=== PATIENT | female | born 1930 | race Caucasian/White ===

== ENCOUNTER 2017-11-16 09:21 | Emergency (ER) | payer OTHER ==
--- OUTSIDE RECORDS SUMMARY | 2017-11-16 09:23 | XMS REPORT ---
:1930 Author Organization [facility] Address [address] [place] [address] Care Team Providers Name Role Phone Unavailable Unavailable Unavailable Payers Payer Name Policy Type Policy Number Effective Date Expiration Date Problems This patient has no known problems. Allergies, Adverse Reactions, Alerts Allergy Name Allergy Status Severity Reaction(s) Onset Inactive Treating Comments Type Date Date Clinician mepsergio HUGHES Active GERARDO 2017-09 00:00:0 0 Medications This patient has no known medications.
[2017-11-16] MEDS ORDERED: MAGNE/ALUM HYDROXD 30 ML UCUP ONE (10:24)
[2017-11-16] MEDS ORDERED: LIDOCAINE VISCOUS 2% SOLN 15 ML UDC ONE (10:25)
[2017-11-16] MEDS ORDERED: ONDANSETRON 4 MG/2 ML VIAL ONE ×2 (10:25→15:38)
[2017-11-16 10:55] LABS: Bilirubin Direct 0.3 mg/dL (0-0.2); Bilirubin Total 0.7 mg/dL (0.2-1.0); Protein, Total 6.8 g/dL (6.4-8.2)
--- NOTE | 2017-11-16 10:58 | RAD REPORT ---
EXAM DESCRIPTION: RAD - Chest Single View - 11/16/2017 9:57 am CLINICAL HISTORY: Upper abdominal pain, recent pacemaker placement COMPARISON: April 2012 TECHNIQUE: AP portable chest image was obtained 0953 hours . FINDINGS: Fibrotic lung pattern is present. Interstitial markings are slightly increased from the pr ior study. The lung parenchyma may be progressive fibrosis, interstitial edema or possible interstiti al infiltrate. Right costophrenic angle blunting is present. Calcified breast implant capsules are se en over the lower chest. Heart and vasculature are normal. No pneumothorax or large pleural effusion. Minimal right costophrenic angle blunting present. Pacemaker is in place left subclavian approach. N o acute bone finding. No acute aortic findings suspected. IMPRESSION: No mass or consolidation. Interstitial markings are prominent and increased over 2012. This could be progressive fibrosis, inte rstitial infiltrate or interstitial edema. Right costophrenic angle blunting is accentuated by overlying breast implant capsule. Significant ple ural effusion is not suspected.
[2017-11-16 11:01] LABS: Absolute Lymphocytes (CBC) 0.8 K/uL (0.7-4.9); Absolute Monocytes 0.7 K/uL (0.1-1.3); Absolute Neutrophil 7.1 K/uL (1.8-8.0); Basophils % 0.5 % (0-1.3); Eosinophils % 0.2 % (0-4.4); Hematocrit 33.1 % (36.0-45.0); Lymphocytes % 9.1 % (15.3-44.8); MCH 29.6 pg (27.0-35.0); MCV 87.8 fL (80-100); MPV 8.3 fL (7.6-11.3); Monocytes % 8.1 % (3.3-12.3); RBC Red Blood Cell Count 3.77 M/uL (3.86-4.86)
[2017-11-16] MEDS ORDERED: NA CHLORIDE 0.9% 500 ML ONE (11:13)
[2017-11-16] MEDS ORDERED: MORPHINE 4 MG/ML SYR ONE (12:14)
--- NOTE | 2017-11-16 12:47 | RAD REPORT ---
EXAM DESCRIPTION: CT - Abdomen Pelvis W Contrast - 11/16/2017 12:28 pm CLINICAL HISTORY: Upper abdominal pain with nausea and diarrhea recent pacemaker placement COMPARISON: CT study January 2016 TECHNIQUE: Biphasic, helical CT imaging of the abdomen and pelvis was performed following 100 ml non -ionic IV contrast. Oral contrast was given. All CT scans are performed using dose optimization technique as appropriate and may include automated exposure control or mA/KV adjustment according to patient size. FINDINGS: Small bilateral pleural effusions are present. Heart size is upper normal with no pericard ial effusion. No acute pneumonia changes in either lung base. Fibrotic changes are present. Bilateral breast implants are in place. There are fibrous capsule calcifications present. Implants ar e partially collapsed. There is leakage between the implant capsule and the fibrous capsule. There is deformity or lobulated contour to the implants. Pattern is not substantially different from 2016. Liver size is normal with no suspicious liver lesion. There is a slight mottled enhancement pattern o n the liver that could indicate some decrease in cardiac function. No splenomegaly or focal splenic f inding. No acute pancreatic process. Cholecystectomy clips are present. Biliary tree within normal li mits for a post cholecystectomy patient. No hydronephrosis. No pyelonephritis changes. Small renal cysts are present. There is bilateral corti zahra thinning. Prolonged cortical phase of enhancement would indicate diminished cardiac function. No perinephric stranding. Mostly contracted urinary bladder shows no suspicious finding. No gastric dilatation or gastric wall thickening. No dilated large or small bowel loops. Rectosigmoid anastomotic site shows no suspicious finding. Oral contrast has reached the right side of the transv erse colon. Fatty ileocecal valve is present. No free air, free fluid or inflammatory stranding. No hernia, mass or bulky lymphadenopathy. No adre nal abnormality. No suspicious bony findings. IMPRESSION: No bowel obstruction, free air or surgically emergent finding. No acute GI process is identifiable. Cortical thinning is present but no acute renal parenchymal process seen. Cholecystectomy change with normal biliary tree. No acute biliary or pancreatic process. Small bilateral pleural effusions. Liver and renal enhancement pattern indicates decreased cardiac function.
[2017-11-16 14:39] LABS: Urine Blood 2+ (NEG); Urine Glucose NEGATIVE (NEG); Urine Protein 2+ (NEG); Urine Specific Gravity 1.015 (1.005-1.030)
[2017-11-16 15:27] LABS: Urine Bacteria <20 /HPF (<20)
[2017-11-16 15:28] LABS: Urine Culture Reflex Order REFLEXED
--- NOTE | 2017-11-16 15:30 | ER ---
Nurse's Notes [facility] Name: Amy Lambert Age: 87 yrs Sex: Female : 1930 Arrival Date: 11/16/2017 Time: 09:23 Bed 18 Private MD: Mandy Bowling F Diagnosis: Vomiting;Diarrhea, unspecified Presentation: 11/16 09:33 Presenting complaint: Patient states: c/o upper quad. abdominal pain with N/D, reports em having a pace maker placed on , denies fever, CP, SOB. Transition of care: patient was not received from another setting of care. Onset of symptoms was November 12, 2017. Risk Assessment: Do you want to hurt yourself or someone else? Patient reports no desire to harm self or others. Initial Sepsis Screen: Does the patient meet any 2 criteria? No. Patient's initial sepsis screen is negative. Does the patient have a suspected source of infection? No. Patient's initial sepsis screen is negative. Care prior to arrival: None. 09:33 Method Of Arrival: Wheelchair em 09:35 Acuity: BROOKE 3 ss Triage Assessment: 09:38 General: Appears in no apparent distress. uncomfortable, Behavior is calm, cooperative. em Pain: Complains of pain in right upper quadrant and left upper quadrant. GI: Abdomen is round non-distended, Bowel sounds present X 4 quads. Abd is soft X 4 quads Abdomen is tender to palpation in right upper quadrant, left upper quadrant, right lower quadrant and left lower quadrant Reports. Historical: - Allergies: 09:38 Demerol; em - PMHx: 09:38 Atrial Fib; Hypertension; Pacemaker; em - Immunization history:: Adult Immunizations up to date. - Social history:: Smoking status: Patient/guardian denies using tobacco. - Ebola Screening: : Patient negative for fever greater than or equal to 101.5 degrees Fahrenheit, and additional compatible Ebola Virus Disease symptoms Patient denies exposure to infectious person Patient denies travel to an Ebola-affected area in the 21 days before illness onset No symptoms or risks identified at this time. - Family history:: not pertinent. - Hospitalizations: : Patient was recently seen at. Screenin:39 Abuse screen: Denies threats or abuse. Nutritional screening: No deficits noted. em Tuberculosis screening: No symptoms or risk factors identified. Fall Risk Gait- Weak (10 pts.). Total Webster Fall Scale indicates No Risk (0-24 pts). Assessment: 10:38 General: Appears in no apparent distress. comfortable, Behavior is calm, cooperative, em Denies fever. Pain: Complains of pain in left upper quadrant and right upper quadrant. Neuro: Level of Consciousness is awake, alert, obeys commands, Oriented to person, place, time, situation. Cardiovascular: Capillary refill < 3 seconds Patient's skin is warm and dry. Respiratory: Airway is patent Respiratory effort is even, unlabored, Respiratory pattern is regular, symmetrical. GI: Abdomen is round non-distended, Bowel sounds present X 4 quads. Abd is soft X 4 quads Abdomen is tender to palpation in right upper quadrant, left upper quadrant, right lower quadrant and left lower quadrant Reports diarrhea, nausea, Patient currently denies vomiting. : No signs and/or symptoms were reported regarding the genitourinary system. EENT: No signs and/or symptoms were reported regarding the EENT system. Derm: Skin is intact, Skin is pink, warm \T\ dry. Musculoskeletal: Capillary refill < 3 seconds, Range of motion: intact in all extremities. 10:40 General: The previous assessment is accurate. Call light remains within reach. . ss 10:41 Reassessment: Patient appears in no apparent distress at this time. Patient and/or em family updated on plan of care and expected duration. Pain level reassessed. Patient is alert, oriented x 3, equal unlabored respirations, skin warm/dry/pink. 11:48 Reassessment: Patient appears in no apparent distress at this time. Patient and/or em family updated on plan of care and expected duration. Pain level reassessed. Patient is alert, oriented x 3, equal unlabored respirations, skin warm/dry/pink. pt given 500 ml bolus, pending UA. 13:00 Reassessment: Patient appears in no apparent distress at this time. Patient and/or em family updated on plan of care and expected duration. Pain level reassessed. Patient is alert, oriented x 3, equal unlabored respirations, skin warm/dry/pink. pending UA. 14:13 Reassessment: Patient appears in no apparent distress at this time. Patient and/or em family updated on plan of care and expected duration. Pain level reassessed. Patient is alert, oriented x 3, equal unlabored respirations, skin warm/dry/pink. Patient states feeling better. 15:21 Reassessment: Patient appears in no apparent distress at this time. Patient and/or em family updated on plan of care and expected duration. Pain level reassessed. Patient is alert, oriented x 3, equal unlabored respirations, skin warm/dry/pink. Dr. Mitchell at bedside discussing POC Patient states feeling better. Patient states symptoms have improved. Vital Signs: 09:39 BP 178 / 72; Pulse 80; Resp 22; Temp 97.8(O); Pulse Ox 98% on R/A; Weight 62.6 kg; em Height 5 ft. 3 in. (160.02 cm); Pain 10/10; 10:40 BP 168 / 71; Pulse 80; Resp 15; Pulse Ox 97% on R/A; Pain 6/10; em 11:49 BP 152 / 69; Pulse 80; Resp 20; Pulse Ox 97% on R/A; Pain 0/10; em 12:37 BP 137 / 69; Pulse 75; Resp 18; Pulse Ox 97% on R/A; em 13:30 BP 165 / 87; Pulse 79; Resp 18; Pulse Ox 98% on R/A; Pain 0/10; em 14:30 BP 161 / 76; Pulse 80; Resp 16; Pulse Ox 96% on R/A; em 15:21 BP 159 / 74; Pulse 80; Resp 19; Pulse Ox 96% on R/A; em 09:39 Body Mass Index 24.45 (62.60 kg, 160.02 cm) em ED Course: 09:23 Patient arrived in ED. sb2 09:24 Mandy Bowling MD is Private Physician. sb2 09:32 Hermann Mitchell MD is Attending Physician. rn 09:33 Sandeep Ragsdale LVN is Primary Nurse. em 09:39 Arm band placed on. em 09:57 XRAY Chest (1 view) In Process Unspecified. EDMS 10:02 Triage completed. ss 10:30 No provider procedures requiring assistance completed. Initial lab(s) drawn, by me, em sent to lab. Inserted saline lock: 20 gauge in right forearm, using aseptic technique. Blood collected. 10:39 Patient has correct armband on for positive identification. Placed in gown. Bed in low em position. Call light in reach. Side rails up X2. Adult w/ patient. 11:39 Warm blanket given. jp3 12:28 CT completed. Patient tolerated procedure well. Patient moved back from CT. bq 12:28 CT Abd/Pelvis - W/Contrast In Process Unspecified. EDMS 15:29 Mandy Bowling MD is Referral Physician. rn 16:11 IV discontinued, intact, bleeding controlled, No redness/swelling at site. Pressure em dressing applied. Administered Medications: 10:35 Drug: GI Cocktail without - (Maalox Suspension 30 ml, Lidocaine Liquid 2 % 15 em ml) Route: PO; 12:58 Follow up: Response: No adverse reaction em 10:37 Drug: Zofran 4 mg Route: IVP; Site: right forearm; ss 12:58 Follow up: Response: No adverse reaction; Nausea is decreased em 11:20 Drug: NS 0.9% 500 ml Route: IV; Rate: bolus; Site: right forearm; em 12:58 Follow up: IV Status: Completed infusion; IV Intake: 500ml em 12:13 Drug: morphine 2 mg Route: IVP; Site: right forearm; rb1 12:59 Follow up: Response: No adverse reaction; Pain is decreased em 16:10 Drug: Zofran 4 mg Route: IVP; Site: right forearm; em 16:10 Follow up: Response: Medication administered at discharge. em 16:10 Drug: Imodium A-D 2 mg Route: PO; em 16:10 Follow up: Response: Medication administered at discharge. em Intake: 12:58 IV: 500ml; Total: 500ml. em Outcome: 15:29 Discharge ordered by MD. rn 16:11 Discharged to home via wheelchair. em 16:11 Condition: good 16:11 Discharge instructions given to patient, Instructed on discharge instructions, follow up and referral plans. medication usage, Demonstrated understanding of instructions, follow-up care, medications, Prescriptions given X 2. 16:11 Patient left the ED. em Signatures: Dispatcher [employer] EDMS Ophelia Rehman bq Jn, Sandeep, WINDOW DRAPER WINDOW DRAPER em Hermann Mitchell MD MD rn Smirch, Shelby, RN RN ss Jen Amador, RN RN rb1 Berkley Lee2 Pisarski, Rocky jp3
--- NOTE | 2017-11-16 15:30 | EDPHYS ---
Physician Documentation [facility] Name: Amy Lambert Age: 87 yrs Sex: Female : 1930 Arrival Date: 11/16/2017 Time: 09:23 Bed 18 Private MD: Mandy Bowling F ED Physician Hermann Mitchell HPI: 11/16 09:43 This 87 yrs old Female presents to ER via Wheelchair with complaints of Abd rn Pain > 50 y/o, Back Pain. 09:44 The patient presents with abdominal pain in the epigastric area. Onset: The rn symptoms/episode began/occurred 3 day(s) ago. The symptoms radiate to back. Associated signs and symptoms: Pertinent positives: nausea, vomiting, Pertinent negatives: anorexia, blood in stools, chest pain, constipation, diarrhea, dysuria, fever, headache. The symptoms are described as achy. Modifying factors: The symptoms are alleviated by nothing, the symptoms are aggravated by touching the area. Severity of pain: At its worst the pain was mild in the emergency department the pain is unchanged. The patient has experienced a previous episode. REports upper abd pain for 2-3 days, had pacemakers placed 10 days ago, no chest pain/sob, her psychotherapist social worker has evaluated its function since then, bandages removed, and cleared, began with a few days of upper abd pain, nausea/vomiting, radiates to back, has had loose stools with the abx but no longer taking abx. . Historical: - Allergies: 09:38 Demerol; em - PMHx: 09:38 Atrial Fib; Hypertension; Pacemaker; em - Immunization history:: Adult Immunizations up to date. - Social history:: Smoking status: Patient/guardian denies using tobacco. - Ebola Screening: : Patient negative for fever greater than or equal to 101.5 degrees Fahrenheit, and additional compatible Ebola Virus Disease symptoms Patient denies exposure to infectious person Patient denies travel to an Ebola-affected area in the 21 days before illness onset No symptoms or risks identified at this time. - Family history:: not pertinent. - Hospitalizations: : Patient was recently seen at. ROS: 09:44 Constitutional: Negative for fever, chills, and weight loss, Eyes: Negative for injury, rn pain, redness, and discharge, Neck: Negative for injury, pain, and swelling, Cardiovascular: Negative for chest pain, palpitations, and edema, Respiratory: Negative for shortness of breath, cough, wheezing, and pleuritic chest pain, Abdomen/GI: + abd pain/nausea/vomiting Back: + back pain MS/Extremity: Negative for injury and deformity, Skin: Negative for injury, rash, and discoloration, Neuro: Negative for headache, weakness, numbness, tingling, and seizure. Exam: 09:44 Constitutional: This is a well developed, well nourished patient who is awake, alert, rn and in no acute distress. Head/Face: Normocephalic, atraumatic. Eyes: Pupils equal round and reactive to light, extra-ocular motions intact. Lids and lashes normal. Conjunctiva and sclera are non-icteric and not injected. Cornea within normal limits. Periorbital areas with no swelling, redness, or edema. Cardiovascular: Regular rate and rhythm, no murmur Respiratory: mild tachypnea, clear bilateral breath sounds Abdomen/GI: soft, + epigastric tenderness, no rebound Back: No spinal tenderness. No costovertebral tenderness. Full range of motion. MS/ Extremity: Pulses equal, no cyanosis. Neurovascular intact. Full, normal range of motion. Equal circumference. Neuro: Awake and alert, GCS 15, oriented to person, place, time, and situation. Cranial nerves II-XII grossly intact. Motor strength 5/5 in all extremities. Sensory grossly intact. Vital Signs: 09:39 BP 178 / 72; Pulse 80; Resp 22; Temp 97.8(O); Pulse Ox 98% on R/A; Weight 62.6 kg; em Height 5 ft. 3 in. (160.02 cm); Pain 10/10; 10:40 BP 168 / 71; Pulse 80; Resp 15; Pulse Ox 97% on R/A; Pain 6/10; em 11:49 BP 152 / 69; Pulse 80; Resp 20; Pulse Ox 97% on R/A; Pain 0/10; em 12:37 BP 137 / 69; Pulse 75; Resp 18; Pulse Ox 97% on R/A; em 13:30 BP 165 / 87; Pulse 79; Resp 18; Pulse Ox 98% on R/A; Pain 0/10; em 14:30 BP 161 / 76; Pulse 80; Resp 16; Pulse Ox 96% on R/A; em 15:21 BP 159 / 74; Pulse 80; Resp 19; Pulse Ox 96% on R/A; em 09:39 Body Mass Index 24.45 (62.60 kg, 160.02 cm) em MDM: 09:32 Patient medically screened. rn 15:27 Differential diagnosis: gastritis, gastroesophageal reflux disease, non-specific abd rn pain, pancreatitis, Peptic Ulcer Disease, Ureterolithiasis, urinary tract infection. Data reviewed: vital signs, nurses notes, lab test result(s), radiologic studies, CT scan, and as a result, I will discharge patient. Counseling: I had a detailed discussion with the patient and/or guardian regarding: the historical points, exam findings, and any diagnostic results supporting the discharge/admit diagnosis, lab results, radiology results, the need for outpatient follow up, to return to the emergency department if symptoms worsen or persist or if there are any questions or concerns that arise at home. Response to treatment: the patient's symptoms have markedly improved after treatment, and as a result, I will discharge patient. Special discussion: Based on the patient's Hx, exam, and Dx evaluation, there is no indication for emergent surgery or inpatient Tx. It is understood by the patient/guardian that if the Sx's persist or worsen they need to return immediately for re-evaluation. ED course: Pt with vomiting and diarrhea, hemoccult neg, ct abd no acute findings, feels better, offed her observation in hospital, wants to go home with oral meds, will return if worsens, family to stay with her next few days. . 11/16 09:38 Order name: Basic Metabolic Panel; Complete Time: 10:56 11/16 09:38 Order name: CBC with Diff; Complete Time: 12:06 11/16 09:38 Order name: Creatinine for Radiology; Complete Time: 10:56 11/16 09:38 Order name: Hepatic Function; Complete Time: 10:56 11/16 09:38 Order name: Lipase; Complete Time: 10:56 rn 11/16 09:38 Order name: Urine Microscopic Only rn 11/16 09:38 Order name: CT Abd/Pelvis - W/Contrast; Complete Time: 12:58 rn 11/16 09:38 Order name: XRAY Chest (1 view); Complete Time: 12:06 rn 11/16 13:54 Order name: Stool Culture rn 11/16 13:54 Order name: CDIFF rn 11/16 14:11 Order name: Urine Dipstick--Ancillary (enter results); Complete Time: 14:59 bd 11/16 14:26 Order name: Occult Blood--Ancillary bd 11/16 15:30 Order name: Urine Culture EDMS 11/16 09:38 Order name: IV Saline Lock; Complete Time: 10:35 rn 11/16 09:38 Order name: Labs collected and sent; Complete Time: 10:35 rn 11/16 09:38 Order name: Urine Dipstick-Ancillary (obtain specimen); Complete Time: 14:34 rn 11/16 09:38 Order name: EKG; Complete Time: 09:39 rn 11/16 09:38 Order name: EKG - Nurse/Tech; Complete Time: 10:35 rn Administered Medications: 10:35 Drug: GI Cocktail without - (Maalox Suspension 30 ml, Lidocaine Liquid 2 % 15 em ml) Route: PO; 12:58 Follow up: Response: No adverse reaction em 10:37 Drug: Zofran 4 mg Route: IVP; Site: right forearm; ss 12:58 Follow up: Response: No adverse reaction; Nausea is decreased em 11:20 Drug: NS 0.9% 500 ml Route: IV; Rate: bolus; Site: right forearm; em 12:58 Follow up: IV Status: Completed infusion; IV Intake: 500ml em 12:13 Drug: morphine 2 mg Route: IVP; Site: right forearm; rb1 12:59 Follow up: Response: No adverse reaction; Pain is decreased em 16:10 Drug: Zofran 4 mg Route: IVP; Site: right forearm; em 16:10 Follow up: Response: Medication administered at discharge. em 16:10 Drug: Imodium A-D 2 mg Route: PO; em 16:10 Follow up: Response: Medication administered at discharge. em Disposition: 11/16/17 15:29 Discharged to Home. Impression: Vomiting, Diarrhea, unspecified. - Condition is Stable. - Discharge Instructions: Diarrhea, Adult, Nausea and Vomiting, Adult. - Prescriptions for Zofran ODT 4 mg Oral tablet,disintegrating - place 1 tablet by TRANSLINGUAL route every 8 hours As needed; 20 tablet. Tylenol- Codeine #3 300-30 mg Oral Tablet - take 1 tablet by ORAL route every 6 hours As needed; 20 tablet. - Medication Reconciliation Form, Thank You Letter, Antibiotic Education, Prescription Opioid Use form. - Follow up: Mandy Bowling MD; When: 2 - 3 days; Reason: Recheck today's complaints, Re-evaluation by your physician. - Problem is new. - Symptoms have improved. Signatures: Dispatcher [employer] EDSC Sandeep Ragsdale, SAUSAGE COOKER SAUSAGE COOKER em Hermann Mitchell MD MD rn Smirch, Shelby, RN RN ss Jen Amador, ARLEEN RN rb1 Corrections: (The following items were deleted from the chart) 16:11 15:29 11/16/2017 15:29 Discharged to Home. Impression: Vomiting; Diarrhea, unspecified. em Condition is Stable. Forms are Medication Reconciliation Form, Thank You Letter, Antibiotic Education, Prescription Opioid Use. Follow up: Mandy Bowling; When: 2 - 3 days; Reason: Recheck today's complaints, Re-evaluation by your physician. Problem is new. Symptoms have improved. rn
[2017-11-16] MEDS ORDERED: LOPERAMIDE HCL 2 MG CAPSULE ONE (15:54)
[2017-11-16 16:27] VITALS: TEMP 97.8
[2017-11-16 16:34] VITALS: O2SAT 96
[2017-11-16 16:35] VITALS: BP 159/74
--- NOTE | 2017-11-17 07:04 | EKG ---
Test Date: 2017-11-16 Test Time: 10:12:51 Section Leader: MILDRED MEASUREMENT RESULTS: Intervals: Rate: 80 MS: QRSD: 156 QT: 458 QTc: 528 Mikado: P: MS: QRS: -74 T: 89 INTERPRETIVE STATEMENTS: Ventricular-paced rhythm Abnormal ECG Compared to ECG 01/23/2016 12:14:38 Sinus rhythm no longer present Electronically Signed On 11-17-17 07:01:20 CDT by Chase Bailey
== END 2017-11-16 16:11 | disposition home or self-care (01) ==
LOC: ER 09:21
DX: R10.13 Epigastric pain (principal); R11.10 Vomiting, unspecified; R19.7 Diarrhea, unspecified; Z95.0 Presence of cardiac pacemaker; I48.91 Unspecified atrial fibrillation; I10 Essential (primary) hypertension; Z88.5 Allergy status to narcotic agent
CPT/HCPCS: 36415; 71045; 74177; 80048; 80076; 81003; 81015; 82272; 83690; 85025; 87045; 87046; 87077; 87086; 87088; 87186; 87493; 93005; 96361; 96374; 96375; 99284; J2405; Q9967

== ENCOUNTER 2017-11-27 12:06 | Inpatient (IN) | payer OTHER ==
--- NOTE | 2017-11-27 13:23 | R.PREADM ---
SCREENING DATE AND TIME 11/27/2017 12:26 (CDT) ANTICIPATED REHAB ADMISSION DATE 11/29/2017 REFERRING FACILITY [facility] REFERRAL DATE AND TIME 11/27/2017 12:26 (CDT) ACUTE ADMIT DATE 11/26/2017 Previous Rehabilitation(s): No. REFERRING PHYSICIAN Mandy Bowling REHAB FACILITY [facility] CLINICAL LIAISON Josee Belcher PHYSICIAN REVIEWER Dr. Donal Noriega M.D. MR# [id number] NAME AIDEE BEEBE ADDRESS [address] [place] [id number] DATE OF 1930 AGE 87 SSN# [id number] GENDER female MARITAL STATUS Unknown RACE white ADMIT FROM 02 - [facility] PRE-HOSPITAL LIVING SETTING 01 - Home (private home/apt. board/care, assisted living, fci, transitional living) HOME TYPE AND DETAILS Type of home: single family house # of steps to enter the residence: 0 # of steps within the residence: 0 # of levels in the residence: 1 PRE-HOSPITAL LIVING WITH Family/Relatives FAMILY SUPPORT Yes PRIMARY FAMILY CONTACT NAME Eidlson Beebe PRIMARY FAMILY CONTACT PHONE PHONE PRIMARY FAMILY CONTACT ON ADM.? no IS PRIMARY FAMILY CONTACT AUTH. REP.? no 1ST EMERGENCY CONTACT Edilson Beebe 1ST CONTACT PHONE PHONE 1ST CONTACT ON ADM. no IS 1ST CONTACT AUTH. REP.? no PHONE 2ND CONTACT ON ADM.? no PATIENT EMPLOYMENT STATUS Retired (for age) PATIENT EMPLOYER No Employer PAYOR INFORMATION: 1ST PAYOR NAME Medicare 1ST PAYOR INJURY/ILLNESS DUE TO ACCIDENT? No ANOTHER DEMOCRAT RESPONSIBLE? No PRIMARY REHAB/ACUTE DIAGNOSIS: CHF ONSET DATE 11/26/2017 REHAB IMPAIRMENT CATEGORY (ALYCIA): 14 Cardiac does NOT meet 60% rule PRIMARY DIAGNOSIS-RELATED SURGERIES: No surgeries related to the primary diagnosis were performed. COMORBID REHAB/ACUTE DIAGNOSES: - N/A pacemaker diastolic dysfunction ATRIAL FIBRILLATION CHF INTERVENTIONS: - Atrial Fibrillation Anticoagulation Medications VS RISK FOR COMPLICATIONS: - Atrial Fibrillation CVA Heart failure Limb embolus SUMMARY OF ACUTE HOSPITALIZATION: Pt. is a 87 yo Right-handed white female. On 11/26/2017 she was admitted to [facility] with diagnosis CHF. Her impairment category is Cardiac 09 - Cardiac Disorders (09). Pre-morbidly, Pt. was independent/mod-I in Communication, Social Cognition, Self-Care, Sphincter Cont rol, Transfers Control, and Locomotion; and she had good Sphincter Control. Currently, she has deficits of Communication, Social Cognition, Balance, Endurance, Safety Awareness, Transfers Control, Locomotion, and Self-Care. Pt. is now referred to [facility] for acute in-patient rehabilitation in order to maximize patient's functional independence in activities of daily living, strength, ROM, and mobi lity. Patient has realistic goal of being discharged at assistance level 6-Deandra to reside at Home with Fam sean/Relatives. PAST MEDICAL HISTORY ATRIAL FIBRILLATION CHF diastolic dysfunction pacemaker MEDICATION ALLERGIES: MEPERIDINE HCI ENVIRONMENTAL ALLERGIES: - Substance Allergies None Known - Other Allergies None Known CODE STATUS: Full code WEIGHT/HEIGHT/BMI: WEIGHT 172 lbs HEIGHT 5' 3" BMI 30.5 DIET: - Diet Type Regular - Diet - Solid Texture Regular - Diet - Liquid Texture Regular - Tube Feed N/A REVIEW OF SYSTEMS: - Gen Alert and awake Lying in bed No apparent distress Oriented to: person, time, and place - Vital Signs Vital signs stable, afebrile - CVS RRR VITAL SIGNS Temperature: 97.3 F SBP/DBP: 142/52 Pulse: 82 Resp: 18 Vital signs stable, afebrile CURRENT SPHINCTER CONTROL: Pre-hospital bladder status: continent # of bladder accidents in the last 7 days prior to screenin Pre-hospital bowel status: continent # of bowel accidents in the last 7 days prior to screenin Last Bowel Movement Date: 11/27/2017 DETAILED CURRENT FUNCTIONAL STATUS: - Bladder accident frequency: Ind - No accidents in the past 7 days - Bowel accident frequency: Ind - No accidents in the past 7 days - Walking score based on distance walked: 2(2884ft) FUNCTIONAL STATUS: - Self-Care A. Eating Ind Ind B. Grooming Ind sup C. Bathing Ind modA D. Dressing - Upper Ind Jaylyn E. Dressing - Lower Ind modA F. Toileting Ind Dep - Sphincter Control G: Bladder control Ind Dep H: Bowel control Ind Dep - Transfers Control I. Bed/Chair/Wheelchair Ind Jaylyn J. Toilet Ind Jaylyn K. Tub/Shower Ind Jaylyn - Locomotion L. Walk/Wheelchair (B) Ind modA M. Stairs Ind ADNO - Communication N. Comprehension (B) Ind sup O. Expression (B) Ind sup - Social Cognition P. Social Interaction Ind sup Q. Problem Solving Ind sup R. Memory Ind sup - Endurance Poor - Balance Poor - Safety Awareness Poor CURRENT FUNC. DEFICITS: Communication, Social Cognition, Balance, Endurance, Safety Awareness, Transfers Control, Locomotion, and Self-Care THERAPY NOTES FROM ACUTE CARE: Attached. SPECIAL NEEDS: - Safety Concerns Skin breakdown precautions needed due to skin breakdown risk PATIENT NEEDS ACTIVE AND ONGOING THERAPEUTIC INTERVENTION OF MULTIPLE THERAPY DISCIPLINES, INCLUDING: - Occupational Therapy Evaluate and Treat. - Physical Therapy Evaluate and Treat. PATIENT NEEDS CLOSE MEDICAL SUPERVISION BY A REHABILITATION PHYSICIAN FOR: Bowel and Bladder Management Coordination of Treatment Team Medical and Co-Morbidity Management PATIENT REQUIRES 24X7 REHAB NURSING FOR MEDICAL AND FUNCTIONAL MGT. OF THE FOLLOWING DEFICITS: ADL's Ambulation Bowel and Bladder Management Cognition Communication Disease Management Medication Management Patient/Family Education Providing Safe Environment Transfers PATIENT REQUIRES INTENSIVE, COORDINATED INTERDISCIPLINARY APPROACH TO REHAB: Arranging Home Equipment/Services Discharge Planning Family Intervention/Training Mri Technologist/Case Management PATIENT REHAB POTENTIAL: Expected level of measurable improvement will be of a practical value to patient's functional capacit y or adaptations to impairments Has a viable Discharge Plan Medically appropriate; condition is sufficiently stable to participate in intensive rehab program Patient is able and expected to receive 3 hours of individualized therapy daily on at least 5 of ever y 7 days Patient's prognosis for significant practical improvement within a reasonable period of time appears Good DISCHARGE PLAN: - Estimated Length of Stay (days) 10. - Consensus on plan Discharge plan has been discussed with primary caregiver. Patient/Family is in agreement with the lynette n. Primary caregiver is in agreement with the plan. - Patient/Family Goals Return home with assistance. - Planned Living Setting Upon Discharge Home, to live with Family/Relatives. RECOMMENDED CARE LEVEL: IRF RECOMMENDATION DETAILS: Recommended Admission to Comprehensive Rehabilitation Program to Increase Functional [place] SCREENER'S COMPLETENESS CONFIRMATION: - Screening Confirmation The patient data collection on this preadmission screening form is finished PHYSICIANS REVIEW AND ADMISSION DETERMINATION Admit - Based on my review of the Pre-Admission Screening results, in my medical judgment and experie nce, I concur with the findings and recommend admission to [facility], as this patient requires an IRF level of care. SIGNATURE PANEL: Clinical Liaison - [electronically] signed by Tanisha Pleitez on 11/27/2017 at 12:58 (CDT) Clinical Liaison - [electronically] signed by Josee Belcher on 11/27/2017 at 13:20 (CDT) Physician Reviewer - [electronically] signed by Dr. Donal Noriega M.D. on 11/27/2017 at 13:22 (CDT )
--- OUTSIDE RECORDS SUMMARY | 2017-11-27 15:47 | XMS REPORT ---
:1930 [facility] Address [address] [place] [address] Care Team Providers Name Role Phone Unavailable Unavailable Unavailable Payers Payer Name Policy Type Policy Number Effective Date Expiration Date Problems This patient has no known problems. Allergies, Adverse Reactions, Alerts Allergy Name Allergy Status Severity Reaction(s) Onset Inactive Treating Comments Type Date Date Clinician meperidine SAUL Active SV 2017-09 00:00:0 0 Medications This patient has no known medications.
[2017-11-27] MEDS ORDERED: MECLIZINE HCL 12.5 MG TAB PO PRN (18:23)
[2017-11-27] MEDS: BIMATOPROST OPHTH DROPS/2.5 ML BTL OPTH SCH (20:00)
[2017-11-27] MEDS: CARVEDILOL 6.25 MG TAB PO SCH (21:38)
[2017-11-27] MEDS: COLESTIPOL 1 GM TAB PO SCH (21:38)
[2017-11-27] MEDS: EZETIMIBE 10 MG TAB PO SCH (21:38)
[2017-11-27] MEDS ORDERED: LOPERAMIDE HCL 2 MG CAPSULE PO PRN (23:11)
--- NOTE | 2017-11-28 03:14 | FAST ---
SHIFT START DATE/TIME: 11/27/2017 19:00 (CDT) SHIFT END DATE/TIME: 11/28/2017 07:00 (CDT) NAME AIDEE BEEBE DATE OF : 1930 DATE OF ADMISSION: 11/27/2017 15:32 (CDT) PHONE: AGE: 87 N# [id number] GENDER: Female ENCOUNTER PHYSICIAN: Dr. Donal Noriega M.D. ADMISSION DIAGNOSIS: - Cardiac - Cardiac Disorders () CHF. EATING: Activity did not occur on this shift EATING - SCORE: 0-UNK GROOMING: Activity did not occur on this shift GROOMING - SCORE: 0-UNK BATHING: Activity did not occur on this shift BATHING - SCORE: 0-UNK DRESSING - UPPER BODY: Patient is not dressing in public clothing ARTICLES SCORE Total number of steps: 0 DRESSING - UPPER BODY - SCORE: 0-UNK DRESSING - LOWER BODY: Patient is not dressing in public clothing ARTICLES SCORE Total number of steps: 0 DRESSING - LOWER BODY - SCORE: 0-UNK TOILETING: Activity did not occur on this shift TOILETING - SCORE: 0-UNK BLADDER MANAGEMENT: [place] removes incontinent device (Depends, pull ups, etc.); cleans the patient after accident / inco ntinent episode; and, applies new incontinent device. BLADDER MANAGEMENT - SCORE: 1-DEP BOWEL MANAGEMENT: [place] removes incontinent device (depends, pull ups, etc.); cleans the patient after accident / inco ntinent episode; and, applies new device (depends, pull-ups, padding, etc.). BOWEL MANAGEMENT - SCORE: 1-DEP TRANSFERS: BED, CHAIR, WHEELCHAIR: Activity did not occur on this shift TRANSFERS: BED, CHAIR, WHEELCHAIR - SCORE: 0-UNK TRANSFERS: TOILET: Activity did not occur on this shift TRANSFERS: TOILET - SCORE: 0-UNK TRANSFERS: SHOWER: Activity did not occur on this shift TRANSFERS: SHOWER - SCORE: 0-UNK TRANSFERS: TUB: Activity did not occur on this shift TRANSFERS: TUB - SCORE: 0-UNK LOCOMOTION: WALK: Activity did not occur on this shift LOCOMOTION: WALK - SCORE: 0-UNK LOCOMOTION: WHEELCHAIR: Activity did not occur on this shift LOCOMOTION: WHEELCHAIR - SCORE: 0-UNK COMPREHENSION: COMPREHENSION: TYPE: Both COMPREHENSION - STEP 1: Does the patient require help to understand complex and abstract ideas (such as current events, finan ravi, discharge planning, medical issues, relationships, etc)? Yes. COMPREHENSION - STEP 2: Does the patient require help to understand questions or statements about basic needs or ideas (such as hunger, thirst, sleep, safety, daily schedule, room location, or discomfort) half or more of the t marlen? No. COMPREHENSION - STEP 3: How often does the patient need help to understand directions and conversation about basic needs? 10% - 24% of the time COMPREHENSION - SCORE: 4-MIN EXPRESSION EXPRESSION: TYPE: Both EXPRESSION - STEP 1: Does the patient require help expressing complex and abstract ideas (such as current events, finances , discharge planning, medical issues, relationships, etc)? No. EXPRESSION - STEP 2: Does the patient need extra time, require an assistive device (such as augmentive communication syste m or a communication board), OR does s/he have mild difficulty expressing complex and abstract ideas (including mild dysarthria or mild word-find problems)? Yes. EXPRESSION - SCORE: 6-ALAINA SOCIAL INTERACTION: SOCIAL INTERACTION - STEP 1: Does the patient require a helper to interact with others in social and therapeutic situations? No. SOCIAL INTERACTION - STEP 2: Does the patient need extra time in social situations, OR does s/he interact with staff, other patien ts, and family members ONLY in structured environments, OR does s/he require medication for social in teraction? Yes, patient needs extra time SOCIAL INTERACTION - SCORE: 6-ALAINA PROBLEM SOLVING: PROBLEM SOLVING - STEP 1: Does the patient need help to solve complex problems such as managing a checking account or confronti ng interpersonal problems? Yes. PROBLEM SOLVING - STEP 2: Does the patient solve basic routine problems half or more of the time? Yes. PROBLEM SOLVING - STEP 3: How often does the patient need help to solve basic routine problems? 10%-24% of the time PROBLEM SOLVING - SCORE: 4-MIN MEMORY: MEMORY - STEP 1: Does the patient need help to remember frequently encountered people, daily routines, and executing r equests? No. MEMORY - STEP 2: Does the patient have slight difficulty recognizing frequently encountered people, daily routines, or executing requests without the need for repetition or using self-initiated or environmental cues to remember? Yes. MEMORY - SCORE: 6-ALAINA SIGNATURE PANEL: The following modified sections: Eating - Score, Grooming - Score, Dressing - Upper Body - Score, Edwardo ssing - Lower Body - Score, Toileting - Score, Bladder Management - Score, Bowel Management - Score, Transfers: Bed, Chair, Wheelchair - Score, Transfers: Toilet - Score, Transfers: Shower - Score, Vasquez sfers: Tub - Score, Locomotion: Walk - Score, Locomotion: Wheelchair - Score, Comprehension - Score, Expression - Score, Social Interaction - Score, Problem Solving - Score, Memory - Score were [electro nically] signed by Eryn Sexton CNA on FriNov 28 2017 03:13:48 GMT-0500 (Central Daylight Time)
[2017-11-28 06:20] LABS: Absolute Monocytes 1.1 K/uL (0.1-1.3); Absolute Neutrophil 4.9 K/uL (1.8-8.0); Eosinophils % 2.2 % (0-4.4); Hematocrit 29.6 % (36.0-45.0); Lymphocytes % 14.3 % (15.3-44.8); MCH 28.7 pg (27.0-35.0); MCV 86.5 fL (80-100); MPV 7.5 fL (7.6-11.3); Monocytes % 15.4 % (3.3-12.3); RBC Red Blood Cell Count 3.42 M/uL (3.86-4.86)
[2017-11-28 06:39] LABS: Albumin 2.3 g/dL (3.4-5.0); Potassium 4.5 mmol/L (3.5-5.1); Prealbumin 11.6 mg/dL (20-40)
[2017-11-28] MEDS: PANTOPRAZOLE 40MG TABLET PO SCH (06:40)
[2017-11-28] MEDS: ONDANSETRON 4 MG (ODT) TAB PO PRN ×2 (07:05→21:00)
[2017-11-28] MEDS: HOME MED 1 EA UNK PO SCH (08:00)
[2017-11-28] MEDS: BIMATOPROST OPHTH DROPS/2.5 ML BTL OPTH SCH ×2 (08:00→20:00)
[2017-11-28] MEDS: HOME MED 1 EA UNK OPTH SCH (08:00)
[2017-11-28] MEDS: IRBESARTAN 150 MG TAB PO SCH (08:23)
[2017-11-28] MEDS: COLESTIPOL 1 GM TAB PO SCH ×2 (08:24→20:28)
[2017-11-28] MEDS: AMIODARONE HCL 200 MG TAB PO SCH (08:25)
[2017-11-28] MEDS: hydroCHLOROthiazide 25 MG TAB PO SCH (08:26)
[2017-11-28] MEDS: FENOFIBRATE 160 MG TAB PO SCH (08:26)
[2017-11-28] MEDS: SPIRONOLACTONE 25 MG TABLET PO SCH (08:26)
[2017-11-28] MEDS: CARVEDILOL 6.25 MG TAB PO SCH ×2 (08:27→20:28)
[2017-11-28] MEDS: FUROSEMIDE 20 MG/ 2ML VIAL IV SCH ×2 (08:28→16:51)
--- NOTE | 2017-11-28 09:46 | P.RH.PN ---
Estimated Length of Stay: 11 Expected Discharge Date: 12/07/17 Discharge Disposition Plan: Home Family Support: Yes Vital Signs: Last Vital Signs Temp 97.4 F 11/28/17 06:35 Pulse 79 11/28/17 08:28 Resp 18 11/28/17 06:35 BP 139/66 11/28/17 08:28 Pulse Ox 97 11/28/17 06:35 Laboratory: Laboratory Last Values WBC 7.3 K/uL (4.3-10.9) 11/28/17 05:56 RBC 3.42 M/uL (3.86-4.86) L 11/28/17 05:56 Hgb 9.8 g/dL (12.0-15.0) L 11/28/17 05:56 Hct 29.6 % (36.0-45.0) L 11/28/17 05:56 MCV 86.5 fL (80-100) 11/28/17 05:56 MCH 28.7 pg (27.0-35.0) 11/28/17 05:56 MCHC 33.2 g/dL (32.0-36.0) 11/28/17 05:56 RDW 16.3 % (12.1-15.2) H 11/28/17 05:56 Plt Count 405 K/uL (152-406) 11/28/17 05:56 MPV 7.5 fL (7.6-11.3) L 11/28/17 05:56 Neutrophils % 67.1 % (41.7-73.7) 11/28/17 05:56 Lymphocytes % 14.3 % (15.3-44.8) L 11/28/17 05:56 Monocytes % 15.4 % (3.3-12.3) H 11/28/17 05:56 Eosinophils % 2.2 % (0-4.4) 11/28/17 05:56 Basophils % 1.0 % (0-1.3) 11/28/17 05:56 Absolute Neutrophils 4.9 K/uL (1.8-8.0) 11/28/17 05:56 Absolute Lymphocytes 1.0 K/uL (0.7-4.9) 11/28/17 05:56 Absolute Monocytes 1.1 K/uL (0.1-1.3) 11/28/17 05:56 Absolute Eosinophils 0.2 K/uL (0-0.5) 11/28/17 05:56 Absolute Basophils 0.1 K/uL (0-0.5) 11/28/17 05:56 Sodium 141 mmol/L (136-145) 11/28/17 05:56 Potassium 4.5 mmol/L (3.5-5.1) 11/28/17 05:56 Chloride 104 mmol/L (98-107) 11/28/17 05:56 Carbon Dioxide 33 mmol/L (21-32) H 11/28/17 05:56 BUN 17 mg/dL (7-18) 11/28/17 05:56 Creatinine 0.90 mg/dL (0.55-1.3) 11/28/17 05:56 Estimated GFR 59 mL/min (=/>90) L 11/28/17 05:56 Glucose 92 mg/dL (74-106) 11/28/17 05:56 Calcium 8.3 mg/dL (8.5-10.1) L 11/28/17 05:56 Magnesium 2.0 mg/dL (1.8-2.4) 11/28/17 05:56 Albumin 2.3 g/dL (3.4-5.0) L 11/28/17 05:56 Prealbumin 11.6 mg/dL (20-40) L 11/28/17 05:56 Weight: 160 lb Wound Present: No Closed Surgical Incision Present: No Physician Update: She has mildly low Hgb and prealbumin. She is on hemocyte plus and promod. She did well with physical therapy. She walked 90' and is minimum assistance due contact guard. She has mild leg edema. Summary: Patient's care plan and penitentiary goals have been reviewed and revised as necessary. Please see the Rehabilitation Signature page for all necessary signatures.
[2017-11-28 10:33] LABS: Anisocytosis 2+; Blood Morphology Comment NOTED (NOT SEEN); Platelet Estimate INCR
--- NOTE | 2017-11-28 15:05 | FAST ---
ENCOUNTER DATE AND TIME: 11/28/2017 08:00 (CDT) NAME AIDEE BEEBE DATE OF : 1930 DATE OF ADMISSION: 11/27/2017 15:32 (CDT) PHONE: AGE: 87 N# [id number] GENDER: Female ENCOUNTER PHYSICIAN: Dr. Donal Noriega M.D. ADMISSION DIAGNOSIS: - Cardiac - Cardiac Disorders () CHF. EATING: EATING - STEP 1: Does the patient require assistance when eating? No. EATING - SCORE: 7-IND GROOMING: Comb/brush hair Oral care Wash, rinse, and dry face Wash, rinse, and dry hands GROOMING - STEP 1: Does the patient require assistance when grooming? Yes. GROOMING - STEP 2: Does the patient require the assistance of a helper? Yes. GROOMING - STEP 3: How much assistance does the patient require from the helper? Steadying assistance from the helper GROOMING - SCORE: 4-MIN BATHING: Abdomen Buttocks Chest Left arm Left lower leg and foot Left upper leg Perineal area Right arm Right lower leg and foot Right upper leg BATHING - STEP 1: Does the patient require assistance when bathing? Yes. BATHING - STEP 2: Does the patient require the assistance of a helper? Yes. BATHING - STEP 3: How much assistance does the patient require from the helper? More than just incidental help BATHING - STEP 4: What percent of the body parts did the patient bathe WITHOUT the helper? Half or more of the body par ts BATHING - SCORE: 3-MOD DRESSING - UPPER BODY: T-shirt/pullover shirt (four steps) ARTICLES SCORE Total number of steps: 4 DRESSING - UPPER BODY - STEP 1: Does the patient require help when dressing above the waist? Yes. DRESSING - UPPER BODY - STEP 2: Does the patient require the assistance of a helper? Yes. DRESSING - UPPER BODY - STEP 3: Does the helper touch the patient while dressing? Yes. DRESSING - UPPER BODY - STEP 4: How many of the total steps does the patient complete on his/her own? 3 DRESSING - UPPER BODY - SCORE: 4-MIN DRESSING - LOWER BODY: Elastic waist pants (three steps) Slip-on shoe - Left foot (one step) Slip-on shoe - Right foot (one step) Underwear (three steps) ARTICLES SCORE Total number of steps: 8 DRESSING - LOWER BODY - STEP 1: Does the patient require help when dressing below the waist? Yes. DRESSING - LOWER BODY - STEP 2: Does the patient require the assistance of a helper? Yes. DRESSING - LOWER BODY - STEP 3: Does the helper touch the patient while dressing? Yes. DRESSING - LOWER BODY - STEP 4: How many of the total steps does the patient complete on his/her own? 0 DRESSING - LOWER BODY - STEP 5: Does patient require total assistance for dressing below the waist such as the helper holding clothin g and performing basically all the activities? Yes. DRESSING - LOWER BODY - SCORE: 1-DEP TOILETING: TOILETING - STEP 1: Does the patient require assistance with toileting? Yes. TOILETING - STEP 2: Does the patient require the assistance of a helper? Yes. TOILETING - STEP 3: How much assistance does the patient require from the helper? Hands-on assistance from the helper TOILETING - STEP 4: Of the 3 tasks: 1) Adjusting clothing prior to use, 2) Cleansing of perineal area, 3) Adjusting clot cheo after use; How many tasks does the patient perform WITHOUT assistance of the helper? One task TOILETING - SCORE: 2-MAX BLADDER MANAGEMENT: Activity did not occur on this shift BLADDER MANAGEMENT - SCORE: 7-IND BOWEL MANAGEMENT: Activity did not occur on this shift BOWEL MANAGEMENT - SCORE: 7-IND TRANSFERS: BED, CHAIR, WHEELCHAIR: Activity did not occur on this shift TRANSFERS: BED, CHAIR, WHEELCHAIR - SCORE: 0-UNK TRANSFERS: TOILET: TRANSFERS: TOILET - STEP 1: Does the patient require assistance with toilet transfers? Yes. TRANSFERS: TOILET - STEP 2: Does the patient require the assistance of a helper? Yes. TRANSFERS: TOILET - STEP 3: How much assistance does the patient require from the helper? Patient performs less than half of the transferring tasks TRANSFERS: TOILET - STEP 4: Does the patient require total assistance for the toilet transfer such as the helper doing basically all the lifting? No. TRANSFERS: TOILET - SCORE: 2-MAX TRANSFERS: SHOWER: TRANSFERS: SHOWER - STEP 1: Does the patient require assistance with shower transfers? Yes. TRANSFERS: SHOWER - STEP 2: Does the patient require the assistance of a helper? Yes. TRANSFERS: SHOWER - STEP 3: How much assistance does the patient require from the helper? More than incidental help TRANSFERS: SHOWER - STEP 4: How much more help does the patient require from the helper? Lifting the patient up AND down from the wheelchair onto the shower chair TRANSFERS: SHOWER - SCORE: 2-MAX TRANSFERS: TUB: Activity did not occur on this shift TRANSFERS: TUB - SCORE: 0-UNK LOCOMOTION: WALK: Activity did not occur on this shift LOCOMOTION: WALK - SCORE: 0-UNK LOCOMOTION: WHEELCHAIR: Activity did not occur on this shift LOCOMOTION: WHEELCHAIR - SCORE: 0-UNK LOCOMOTION: STAIRS: Activity did not occur on this shift LOCOMOTION: STAIRS - SCORE: 0-UNK COMPREHENSION: COMPREHENSION: TYPE: Both COMPREHENSION - STEP 1: Does the patient require help to understand complex and abstract ideas (such as current events, finan ravi, discharge planning, medical issues, relationships, etc)? No. COMPREHENSION - STEP 2: Does the patient need extra time, require an assistive device (such as glasses for visual comprehensi on or a hearing aid for auditory comprehension) or does s/he have mild difficulty understanding compl ex and abstract information? Yes. COMPREHENSION - SCORE: 6-ALAINA EXPRESSION EXPRESSION: TYPE: Both EXPRESSION - STEP 1: Does the patient require help expressing complex and abstract ideas (such as current events, finances , discharge planning, medical issues, relationships, etc)? No. EXPRESSION - STEP 2: Does the patient need extra time, require an assistive device (such as augmentive communication syste m or a communication board), OR does s/he have mild difficulty expressing complex and abstract ideas (including mild dysarthria or mild word-find problems)? Yes. EXPRESSION - SCORE: 6-ALAINA SOCIAL INTERACTION: SOCIAL INTERACTION - STEP 1: Does the patient require a helper to interact with others in social and therapeutic situations? No. SOCIAL INTERACTION - STEP 2: Does the patient need extra time in social situations, OR does s/he interact with staff, other patien ts, and family members ONLY in structured environments, OR does s/he require medication for social in teraction? Yes, patient needs extra time SOCIAL INTERACTION - SCORE: 6-ALAINA PROBLEM SOLVING: PROBLEM SOLVING - STEP 1: Does the patient need help to solve complex problems such as managing a checking account or confronti ng interpersonal problems? No. PROBLEM SOLVING - STEP 2: Does the patient require extra time to make decisions or solve problems, OR does s/he have slight dif ficulty reading, initiating, or self-correcting in unfamiliar situations? Yes, patient needs extra ti me. PROBLEM SOLVING - SCORE: 6-ALAINA MEMORY: MEMORY - STEP 1: Does the patient need help to remember frequently encountered people, daily routines, and executing r equests? No. MEMORY - STEP 2: Does the patient have slight difficulty recognizing frequently encountered people, daily routines, or executing requests without the need for repetition or using self-initiated or environmental cues to remember? Yes. MEMORY - SCORE: 6-ALAINA SIGNATURE PANEL: The following modified sections: Eating - Score, Grooming - Score, Bathing - Score, Dressing - Upper Body - Score, Dressing - Lower Body - Score, Toileting - Score, Transfers: Bed, Chair, Wheelchair - S core, Transfers: Toilet - Score, Transfers: Tub - Score, Transfers: Shower - Score, Comprehension - S core, Expression - Score, Social Interaction - Score, Problem Solving - Score, Memory - Score were [e lectronically] signed by Taya Vo OT on FriNov 28 2017 15:04:21 GMT-0500 (Central Daylight T marlen)
--- NOTE | 2017-11-28 15:37 | R.HP ---
FACILITY: [facility] ENCOUNTER DATE AND TIME: 11/28/2017 15:31 (CDT) MR#: [id number] NAME AIDEE BEEBE ADDRESS: [address] [place] [address] CITY: [place] [address]IP [address] PHONE: DATE OF : 1930 AGE: 87 SSN# [id number] GENDER: Female DEXTERITY Right-handed MARITAL STATUS Unknown RACE White PRE-HOSPITAL LIVING SETTING 01 - Home (private home/apt. board/care, assisted living, custodial, transitional living) PRE-HOSPITAL LIVING WITH Family/Relatives ENCOUNTER PHYSICIAN: Dr. Donal Noriega M.D. REFERRING DOCTOR: Mandy Bowling DATE OF ADMISSION: 11/27/2017 15:32 (CDT) REFERRING FACILITY [facility] HOME TYPE AND DETAILS: Type of home: single family house # of steps to enter the residence: 0 # of steps within the residence: 0 # of levels in the residence: 1 ADMISSION DIAGNOSIS: CHF ONSET DATE: 11/26/2017 PRIMARY DIAGNOSIS-RELATED SURGERIES: No surgeries related to the primary diagnosis were performed. SECONDARY/COMORBID DIAGNOSES (TIERED): - N/A pacemaker diastolic dysfunction ATRIAL FIBRILLATION CHF HISTORY OF PRESENT ILLNESS (HPI): Pt. is a 87 yo Right-handed white female. On 11/26/2017 she was admitted to [facility] with diagnosis CHF. Her impairment category is Cardiac 09 - Cardiac Disorders (09). Pre-morbidly, Pt. was independent/mod-I in Communication, Social Cognition, Self-Care, Sphincter Cont rol, Transfers Control, and Locomotion; and she had good Sphincter Control. Currently, she has deficits of Communication, Social Cognition, Balance, Endurance, Safety Awareness, Transfers Control, Locomotion, and Self-Care. Pt. is now referred to [facility] for acute in-patient rehabilitation in order to maximize patient's functional independence in activities of daily living, strength, ROM, and mobi lity. Patient has realistic goal of being discharged at assistance level 6-Deandra to reside at Home with Fam sean/Relatives. MEDICATION ALLERGIES: MEPERIDINE HCI ENVIRONMENTAL ALLERGIES: - Substance Allergies None Known - Other Allergies None Known PAST MEDICAL HISTORY: ATRIAL FIBRILLATION CHF diastolic dysfunction pacemaker FAMILY HISTORY: Family history is not contributory. SOCIAL HISTORY: - Home Living Family/Relatives REVIEW OF SYSTEMS: - Gen No Chills Fatigue No Fever - Eyes No Double Vision No itchiness - ENMT No Difficulty Swallowing - CVS Chest Discomfort No Chest Pain No Fatigue No Weight Gain - Resp No Cough Shortness of Breath - GI Continent No Abdominal Pain No Constipation No Diarrhea - Continent No Kidney Pain No Painful Urination No Urinary Urgency - MSK No Joint Pain No Muscle Cramps Stiffness Mild bilateral leg edema - Skin No Itching No Rash No Suspicious Lesions - Neuro Coordination Difficulty No Difficulty with Concentration No Memory Loss No Seizures Weakness - Psych No Anxiety No Depression No HIV Exposure No Persistent Infections No Seasonal Allergies - Endo No Cold/Heat Intolerance No Excessive Hunger No Excessive Thirst No Excessive Urination PHYSICAL EXAM - Gen Alert and awake Lying in bed No apparent distress Oriented to: person, time, and place - Skin No skin breakdown. Normacephalic - Eyes No abnormalities - ENMT No abnormalities - Neck No abnormalities - CVS RRR - Resp Clear to auscultation - Abd Soft - GI Non distended Deferred - No abnormalities - Ext Mild bilateral lower extremity edema. - MSK 4/5 weakness in both lower extremities. - Neuro 4/5 strength bilaterally lower extremities. - Psych No abnormalities VITAL SIGNS Temperature: 97.3 F SBP/DBP: 139/66 Pulse: 79 Resp: 16 NURSING: - Shower allowing shower ACTIVITIES OOB only with supervision FUNCTIONAL STATUS: - Self-Care A. Eating Ind Ind B. Grooming Ind sup C. Bathing Ind modA D. Dressing - Upper Ind Jaylyn E. Dressing - Lower Ind modA F. Toileting Ind Dep - Sphincter Control G: Bladder control Ind Dep H: Bowel control Ind Dep - Transfers Control I. Bed/Chair/Wheelchair Ind Jaylyn J. Toilet Ind Jaylyn K. Tub/Shower Ind Jaylyn - Locomotion L. Walk/Wheelchair (B) Ind modA M. Stairs Ind ADNO - Communication N. Comprehension (B) Ind sup O. Expression (B) Ind sup - Social Cognition P. Social Interaction Ind sup Q. Problem Solving Ind sup R. Memory Ind sup - Endurance Poor - Balance Poor - Safety Awareness Poor CURRENT FUNC. DEFICITS: Communication, Social Cognition, Balance, Endurance, Safety Awareness, Transfers Control, Locomotion, and Self-Care ASSESSMENT: Pt. is a 87 yo Right-handed white female.On 11/26/2017 she was admitted to [facility] with diagnosis CHF.Her impairment category is Cardiac 09 - Cardiac Disorders (09).Pre-morbidl y, Pt. was independent/mod-I in Communication, Social Cognition, Self-Care, Sphincter Control, Transf ers Control, and Locomotion; and she had good Sphincter Control.Currently, she has deficits of Commun ication, Social Cognition, Balance, Endurance, Safety Awareness, Transfers Control, Locomotion, and S elf-Care.Pt. is now referred to [facility] for acute in-patient rehabilitation in order to maximize patient's functional independence in activities of daily living, strength, ROM, and mobility.- Rehab Goal Patient has realistic goal of being discharged at assistance level 6-Deandra to reside at Home with Fam sean/Relatives. REHAB PLAN: - Physical Therapy Gait dysfunction - to improve, our physical therapists will perform initial evaluation of pt's status upon admission and devise an individualized program for Gait Training, and Wheel Chair mobility Inability to transfer - to improve, our physical therapists will perform initial evaluation of pt's s tatus upon admission and devise an individualized program for Bed mobility Need for home safety evaluation - to improve, our physical therapists will perform initial evaluation of pt's status upon admission and devise an individualized program for Home Evaluation Need in caregiver upon discharge - to improve, our physical therapists will perform initial evaluatio n of pt's status upon admission and devise an individualized program for Caregiver Training New precaution - to improve, our physical therapists will perform initial evaluation of pt's status u beckie admission and devise an individualized program for Patient precaution education Edema - to improve, our physical therapists will perform initial evaluation of pt's status upon admi ssion and devise an individualized program for Elevation Training, and Lymphedema Therapy Poor balance - to improve, our physical therapists will perform initial evaluation of pt's status upo n admission and devise an individualized program for Balance Training Poor endurance - to improve, our physical therapists will perform initial evaluation of pt's status u beckie admission and devise an individualized program for Endurance Training Weakness - to improve, our physical therapists will perform initial evaluation of pt's status upon ad mission and devise an individualized program for Aquatic Therapy, Neuromuscular Reeducation, and Stre ngthening Achieving independence - to improve, our physical therapists will perform initial evaluation of pt's status upon admission and devise an individualized program for Community Reintegration Activities - Occupational Therapy ADL deficits - to improve, our occupation therapists will perform initial evaluation of pt's status u beckie admission and devise an individualized program for Bathing, Bed mobility, Community Reintegration , Cooking, Dressing, Eating, Fine Motor Skills, Grooming, Homemaking, Kitchen Mobility, Laundry, Melody ent Education, Safety Awareness, Splinting - Positioning, Transfers(Toilet, Tub, Shower), and Wheel C hair Management Cognitive deficits - to improve, our occupation therapists will perform initial evaluation of pt's st atus upon admission and devise an individualized program for Cognition - orientation Need for plant care worker - to improve, our occupation therapists will perform initial evaluation of pt's s tatus upon admission and devise an individualized program for Caregiver Training Weakness - to improve, our occupation therapists will perform initial evaluation of pt's status upon admission and devise an individualized program for Aquatic Therapy, Balance, Endurance, UE ROM, and U E strengthening MEDICAL PLAN: - Diet Type Start Regular - Diet - Liquid Texture Start Regular - Tube Feed Start N/A - Diet - Solid Texture Regular - Shower shower DISCHARGE PLAN: - Estimated Length of Stay (days) 10. - Consensus on plan Discharge plan has been discussed with primary caregiver. Patient/Family is in agreement with the lynette n. Primary caregiver is in agreement with the plan. - Patient/Family Goals Return home with assistance. - Planned Living Setting Upon Discharge Home, to live with Family/Relatives. SIGNATURE PANEL: (CDT)
--- NOTE | 2017-11-28 15:40 | PAPE ---
PATIENT: [facility] MR# [id number] REFERRING DOCTOR Mandy Bowling EVALUATION DATE AND TIME 11/28/2017 15:37 (CDT) NAME AIDEE BEEBE DATE OF 1930 AGE 87 PHONE N# [id number] GENDER female EVALUATING PHYSICIAN Dr. Donal Noriega M.D. ADMISSION DIAGNOSIS: CHF ONSET DATE 11/26/2017 SECONDARY/COMORBID DIAGNOSES TIERED: - N/A pacemaker diastolic dysfunction ATRIAL FIBRILLATION CHF POST-ADMISSION FUNCTIONAL/MEDICAL STATUS: - Bladder Same accident frequency: Ind - No accidents in the past 7 days - Bowel Same accident frequency: Ind - No accidents in the past 7 days - Walking Same score based on distance walked: 2(5143ft) STATUS CHANGE EVALUATION: No change in Functional or Medical Status is identified compared with Pre-Admission screening. PATIENT NEEDS CLOSE MEDICAL SUPERVISION BY A REHABILITATION PHYSICIAN FOR: Bowel and Bladder Management Coordination of Treatment Team Medical and Co-Morbidity Management PATIENT REQUIRES 24X7 REHAB NURSING FOR MEDICAL AND FUNCTIONAL MGT. OF THE FOLLOWING DEFICITS: ADL's Ambulation Bowel and Bladder Management Cognition Communication Disease Management Medication Management Patient/Family Education Providing Safe Environment Transfers PATIENT REQUIRES INTENSIVE, COORDINATED INTERDISCIPLINARY APPROACH TO REHAB: Arranging Home Equipment/Services Discharge Planning Family Intervention/Training [employer] Analyst/Case Management LIST OF IDENTIFIED AND POTENTIAL PROBLEMS: Alteration in leisure activities Bladder, Incontinence Bowel, Incontinence Fluid volume overload related to Congestive Heart Failure (CHF) Infection, Actual or Potential Mobility Impaired Pain, Alteration in Comfort Self Care Deficit Skin Integrity, Actual or Potential Urinary Tract Infection (UTI), Actual or Potential RISK FOR COMPLICATIONS - Atrial Fibrillation CVA. Heart failure. Limb embolus. INTERVENTIONS - Atrial Fibrillation Anticoagulation. Medications. VS. PATIENT COULD BE AT RISK FOR COMPLICATIONS FROM ADVERSE MEDICAL CONDITIONS DUE TO HIS/HER COMORBIDITI ES AND THE RIGORS OF THE INTENSIVE REHABILLITATION PROGRAM. METHODS OR INTERVENTIONS TO AVOID COMPLIC ATIONS INCLUDE: - Infection Clinical staff to assess and manage the signs and symptoms of infection including fever, redness, war mth, etc. - Urinary Tract Infection - Falls Patient will be evaluated for Fall Precautions and will be placed on Fall Precautions as indicated pe r protocol. - Skin Breakdown Nursing will assess skin daily using assessment tool and will place on Skin Breakdown Precautions as indicated per protocol. - Pain Clinical staff may employ non-medication methods such as massage, distraction, decrease stimulus, etc . as needed. Clinical staff will assess patient's pain level every shift per protocol to assess and e nsure pain management effectiveness. Medications will be given and the pain level re-assessed. PRELIMINARY PLAN OF CARE: - Physical Therapy Patient needs Physical Therapy for a daily minimum of 1.5 hours at least 5 out of 7 days, to improve: Mobility, Strengthening, Transfers, Stretching, ROM, Endurance, Ability to manage stairs, Gait, and Balance. - Rehabilitation Nursing Patient requires 24x7 Rehabilitation Nursing for: Pain Issues, Identifying and preventing risk factor s, Monitoring and reporting current medical conditions, Assisting with ambulation and transfer, Carmen ting with all ADL-s, Teaching patients about disease process and medications, Family teaching, Provid ing safe environment, Bowel and Bladder Issues, Skin Integrity, and Medication Management. Patient needs Venture Capital Analyst and/or Case Management for: Discharge Planning, Arranging Home Equipmen t or Services, and Family Interventions. - Dietary and Nutrition Services Patient needs Dietary and Nutrition Services for: Adequate Nutrition, Nutritional Supplements, and Nu tritional Education. - Occupational Therapy Patient needs Occupational Therapy for a daily minimum of 1.5 hours at least 5 out of 7 days, to impr ove Activities of Daily Living, including: Eating, Grooming, Bathing, Dressing, Toileting, Toilet Tra nsfers, Community Reintegration, Higher functional activities, Adaptive Equipment, Splinting, Househo ld Tasks, and Other activities as determined. POTENTIAL FUNCTIONAL GOALS FOR PATIENT TO ACHIEVE BY DISCHARGE: - Safety Precaution Patient will remain free from falls or injury at time of discharge. - Bed Mobility Patient will perform bed mobility at 4-Jaylyn level of assistance. - Transfers Patient will complete transfers from bed to chair at 4-Jaylyn level of assistance. - Mobility Patient will ambulate 150 ft with 4-Jaylyn level of assistance with RW. PATIENT REHAB POTENTIAL Expected level of measurable improvement will be of a practical value to patient's functional capacit y or adaptations to impairments Has a viable Discharge Plan Medically appropriate; condition is sufficiently stable to participate in intensive rehab program Patient is able and expected to receive 3 hours of individualized therapy daily on at least 5 of ever y 7 days Patient's prognosis for significant practical improvement within a reasonable period of time appears Good DISCHARGE PLAN: - Estimated Length of Stay (days) 10. - Consensus on plan Discharge plan has been discussed with primary caregiver. Patient/Family is in agreement with the lynette n. Primary caregiver is in agreement with the plan. - Patient/Family Goals Return home with assistance. - Planned Living Setting Upon Discharge Home, to live with Family/Relatives. CONCLUSION ON REHABILITATION NECESSITY: I have evaluated patient's pre-admission functional status and, comparing it to the patient's post-ad mission functional status now, I conclude that the pre-admission assessment was accurate. Patient's c ondition on admission supports the medical necessity of admission to IRF. It is safe to proceed with patient's therapy program. SIGNATURE PANEL: (CDT)
--- NOTE | 2017-11-28 16:05 | FAST ---
ENCOUNTER DATE AND TIME: 11/28/2017 08:00 (CDT) NAME AIDEE BEEBE DATE OF : 1930 DATE OF ADMISSION: 11/27/2017 15:32 (CDT) PHONE: AGE: 87 SSN# [id number] GENDER: Female ENCOUNTER PHYSICIAN: Dr. Donal Noriega M.D. ADMISSION DIAGNOSIS: - Cardiac - Cardiac Disorders () CHF. EATING: Activity did not occur on this shift EATING - SCORE: 0-UNK GROOMING: Activity did not occur on this shift GROOMING - SCORE: 0-UNK BATHING: Activity did not occur on this shift BATHING - SCORE: 0-UNK DRESSING - UPPER BODY: Activity did not occur on this shift Patient is not dressing in public clothing ARTICLES SCORE Total number of steps: 0 DRESSING - UPPER BODY - SCORE: 0-UNK DRESSING - LOWER BODY: Activity did not occur on this shift Patient is not dressing in public clothing ARTICLES SCORE Total number of steps: 0 DRESSING - LOWER BODY - SCORE: 0-UNK TOILETING: Activity did not occur on this shift TOILETING - SCORE: 0-UNK BLADDER MANAGEMENT: Activity did not occur on this shift BLADDER MANAGEMENT - SCORE: 7-IND BOWEL MANAGEMENT: Activity did not occur on this shift BOWEL MANAGEMENT - SCORE: 7-IND TRANSFERS: BED, CHAIR, WHEELCHAIR: TRANSFERS: BED, CHAIR, WHEELCHAIR - STEP 1: Does the patient require assistance with bed, chair, or wheelchair transfers? Yes. TRANSFERS: BED, CHAIR, WHEELCHAIR - STEP 2: Does the patient require the assistance of a helper? Yes. TRANSFERS: BED, CHAIR, WHEELCHAIR - STEP 3: How much assistance does the patient require from the helper? Steadying/guiding assistance TRANSFERS: BED, CHAIR, WHEELCHAIR - SCORE: 4-MIN TRANSFERS: TOILET: Activity did not occur on this shift TRANSFERS: TOILET - SCORE: 0-UNK TRANSFERS: SHOWER: Activity did not occur on this shift TRANSFERS: SHOWER - SCORE: 0-UNK TRANSFERS: TUB: Activity did not occur on this shift TRANSFERS: TUB - SCORE: 0-UNK LOCOMOTION: WALK: LOCOMOTION: WALK - STEP 1: Does the patient need help to walk 150 feet? Yes. LOCOMOTION: WALK - STEP 2: How much assistance does the patient require to walk a minimum of 150 feet? Patient walks less than 1 50 feet - but more than 50 feet - with the assistance of only one helper LOCOMOTION: WALK - SCORE: 2-MAX LOCOMOTION: WHEELCHAIR: Activity did not occur on this shift LOCOMOTION: WHEELCHAIR - SCORE: 0-UNK LOCOMOTION: STAIRS: Activity did not occur on this shift LOCOMOTION: STAIRS - SCORE: 0-UNK COMPREHENSION: COMPREHENSION - SCORE: 0-UNK EXPRESSION EXPRESSION - SCORE: 0-UNK SOCIAL INTERACTION: SOCIAL INTERACTION - SCORE: 0-UNK PROBLEM SOLVING: PROBLEM SOLVING - SCORE: 0-UNK MEMORY: MEMORY - SCORE: 0-UNK SIGNATURE PANEL: The following modified sections: Transfers: Bed, Chair, Wheelchair - Score, Transfers: Toilet - Score , Locomotion: Walk - Score, Locomotion: Stairs - Score, Locomotion: Wheelchair - Score were [electron fredo] signed by Lucho Evans PT on FriNov 28 2017 16:05:16 T-0500 (Central Daylight Time)
[2017-11-28] MEDS: RIVAROXABAN 20 MG TABLET PO SCH (17:00)
[2017-11-28] MEDS: PROMOD 30 ML DOSE PO SCH (20:28)
[2017-11-28] MEDS: EZETIMIBE 10 MG TAB PO SCH (20:28)
--- NOTE | 2017-11-29 02:08 | FAST ---
SHIFT START DATE/TIME: 11/28/2017 19:00 (CDT) SHIFT END DATE/TIME: 11/29/2017 07:00 (CDT) NAME AIDEE BEEBE DATE OF : 1930 DATE OF ADMISSION: 11/27/2017 15:32 (CDT) PHONE: AGE: 87 SSN# [id number] GENDER: Female ENCOUNTER PHYSICIAN: Dr. Donal Noriega M.D. ADMISSION DIAGNOSIS: - Cardiac - Cardiac Disorders () CHF. EATING: Activity did not occur on this shift EATING - SCORE: 0-UNK GROOMING: Activity did not occur on this shift GROOMING - SCORE: 0-UNK BATHING: Activity did not occur on this shift BATHING - SCORE: 0-UNK DRESSING - UPPER BODY: Patient is not dressing in public clothing ARTICLES SCORE Total number of steps: 0 DRESSING - UPPER BODY - SCORE: 0-UNK DRESSING - LOWER BODY: Patient is not dressing in public clothing ARTICLES SCORE Total number of steps: 0 DRESSING - LOWER BODY - SCORE: 0-UNK TOILETING: Activity did not occur on this shift TOILETING - SCORE: 0-UNK BLADDER MANAGEMENT: BLADDER MANAGEMENT - STEP 1: Does the patient control the bladder completely and intentionally without equipment or devices or med ications, and is always continent? No. BLADDER MANAGEMENT - STEP 2: Does the patient require the assistance of a helper? Yes. BLADDER MANAGEMENT - STEP 3: How much assistance does the patient require from the helper? Patient requires contact assistance fro m the helper BLADDER MANAGEMENT - STEP 4: How much contact assistance does the patient require from the helper? Patient requires moderate tawana tance, and performs 50% to 75% of bladder management tasks - [place] positions AND holds urinal or bed lowe BLADDER MANAGEMENT - SCORE: 3-MOD BLADDER MANAGEMENT - FREQUENCY OF ACCIDENTS: BLADDER MANAGEMENT(FA) - STEP 1: How many accidents has the patient had during the current shift? 1 BOWEL MANAGEMENT: Activity did not occur on this shift BOWEL MANAGEMENT - SCORE: 7-IND TRANSFERS: BED, CHAIR, WHEELCHAIR: Activity did not occur on this shift TRANSFERS: BED, CHAIR, WHEELCHAIR - SCORE: 0-UNK TRANSFERS: TOILET: Activity did not occur on this shift TRANSFERS: TOILET - SCORE: 0-UNK TRANSFERS: SHOWER: Activity did not occur on this shift TRANSFERS: SHOWER - SCORE: 0-UNK TRANSFERS: TUB: Activity did not occur on this shift TRANSFERS: TUB - SCORE: 0-UNK LOCOMOTION: WALK: Activity did not occur on this shift LOCOMOTION: WALK - SCORE: 0-UNK LOCOMOTION: WHEELCHAIR: Activity did not occur on this shift LOCOMOTION: WHEELCHAIR - SCORE: 0-UNK COMPREHENSION: COMPREHENSION: TYPE: Both COMPREHENSION - STEP 1: Does the patient require help to understand complex and abstract ideas (such as current events, finan ravi, discharge planning, medical issues, relationships, etc)? Yes. COMPREHENSION - STEP 2: Does the patient require help to understand questions or statements about basic needs or ideas (such as hunger, thirst, sleep, safety, daily schedule, room location, or discomfort) half or more of the t marlen? No. COMPREHENSION - STEP 3: How often does the patient need help to understand directions and conversation about basic needs? 10% - 24% of the time COMPREHENSION - SCORE: 4-MIN EXPRESSION EXPRESSION: TYPE: Both EXPRESSION - STEP 1: Does the patient require help expressing complex and abstract ideas (such as current events, finances , discharge planning, medical issues, relationships, etc)? No. EXPRESSION - STEP 2: Does the patient need extra time, require an assistive device (such as augmentive communication syste m or a communication board), OR does s/he have mild difficulty expressing complex and abstract ideas (including mild dysarthria or mild word-find problems)? Yes. EXPRESSION - SCORE: 6-ALAINA SOCIAL INTERACTION: SOCIAL INTERACTION - STEP 1: Does the patient require a helper to interact with others in social and therapeutic situations? No. SOCIAL INTERACTION - STEP 2: Does the patient need extra time in social situations, OR does s/he interact with staff, other patien ts, and family members ONLY in structured environments, OR does s/he require medication for social in teraction? Yes, patient needs extra time SOCIAL INTERACTION - SCORE: 6-ALAINA PROBLEM SOLVING: PROBLEM SOLVING - STEP 1: Does the patient need help to solve complex problems such as managing a checking account or confronti ng interpersonal problems? Yes. PROBLEM SOLVING - STEP 2: Does the patient solve basic routine problems half or more of the time? Yes. PROBLEM SOLVING - STEP 3: How often does the patient need help to solve basic routine problems? 10%-24% of the time PROBLEM SOLVING - SCORE: 4-MIN MEMORY: MEMORY - STEP 1: Does the patient need help to remember frequently encountered people, daily routines, and executing r equests? No. MEMORY - STEP 2: Does the patient have slight difficulty recognizing frequently encountered people, daily routines, or executing requests without the need for repetition or using self-initiated or environmental cues to remember? Yes. MEMORY - SCORE: 6-ALAINA
[2017-11-29] MEDS: PANTOPRAZOLE 40MG TABLET PO SCH (06:27)
[2017-11-29] MEDS: HOME MED 1 EA UNK OPTH SCH (08:00)
[2017-11-29] MEDS: HOME MED 1 EA UNK PO SCH (08:00)
[2017-11-29] MEDS: BIMATOPROST OPHTH DROPS/2.5 ML BTL OPTH SCH ×2 (08:00→19:52)
[2017-11-29] MEDS: FERROUS SULFATE 325 MG TAB PO SCH (08:21)
[2017-11-29] MEDS: FENOFIBRATE 160 MG TAB PO SCH (08:21)
[2017-11-29] MEDS: CARVEDILOL 6.25 MG TAB PO SCH ×2 (08:21→19:52)
[2017-11-29] MEDS: AMIODARONE HCL 200 MG TAB PO SCH (08:21)
[2017-11-29] MEDS: SPIRONOLACTONE 25 MG TABLET PO SCH (08:21)
[2017-11-29] MEDS: IRBESARTAN 150 MG TAB PO SCH (08:22)
[2017-11-29] MEDS: COLESTIPOL 1 GM TAB PO SCH ×2 (08:23→19:52)
[2017-11-29] MEDS: FE SULF/FA/VIT B COMP & C TAB PO SCH (08:24)
[2017-11-29] MEDS: hydroCHLOROthiazide 25 MG TAB PO SCH (08:24)
[2017-11-29] MEDS: PROMOD 30 ML DOSE PO SCH ×2 (08:25→19:52)
[2017-11-29] MEDS: RIVAROXABAN 20 MG TABLET PO SCH (16:36)
[2017-11-29] MEDS: EZETIMIBE 10 MG TAB PO SCH (20:00)
--- NOTE | 2017-11-29 23:26 | FAST ---
ENCOUNTER DATE AND TIME: 11/29/2017 08:00 (CDT) NAME AIDEE BEEBE DATE OF : 1930 DATE OF ADMISSION: 11/27/2017 15:32 (CDT) PHONE: AGE: 87 N# [id number] GENDER: Female ENCOUNTER PHYSICIAN: Dr. Donal Noriega M.D. ADMISSION DIAGNOSIS: - Cardiac - Cardiac Disorders () CHF. EATING: Activity did not occur on this shift EATING - SCORE: 0-UNK GROOMING: Oral care Wash, rinse, and dry hands GROOMING - STEP 1: Does the patient require assistance when grooming? Yes. GROOMING - STEP 2: Does the patient require the assistance of a helper? Yes. GROOMING - STEP 3: How much assistance does the patient require from the helper? Cuing, coaxing, instructions, or encour agement for completion of grooming GROOMING - SCORE: 5-SUP BATHING: Activity did not occur on this shift BATHING - SCORE: 0-UNK DRESSING - UPPER BODY: Activity did not occur on this shift ARTICLES SCORE Total number of steps: 0 DRESSING - UPPER BODY - SCORE: 0-UNK DRESSING - LOWER BODY: Activity did not occur on this shift ARTICLES SCORE Total number of steps: 0 DRESSING - LOWER BODY - SCORE: 0-UNK TOILETING: TOILETING - STEP 1: Does the patient require assistance with toileting? Yes. TOILETING - STEP 2: Does the patient require the assistance of a helper? Yes. TOILETING - STEP 3: How much assistance does the patient require from the helper? Hands-on assistance from the helper TOILETING - STEP 4: Of the 3 tasks: 1) Adjusting clothing prior to use, 2) Cleansing of perineal area, 3) Adjusting clot cheo after use; How many tasks does the patient perform WITHOUT assistance of the helper? Three tasks with steadying assistance from the helper TOILETING - SCORE: 4-MIN BLADDER MANAGEMENT: Activity did not occur on this shift BLADDER MANAGEMENT - SCORE: 7-IND BOWEL MANAGEMENT: Activity did not occur on this shift BOWEL MANAGEMENT - SCORE: 7-IND TRANSFERS: BED, CHAIR, WHEELCHAIR: Activity did not occur on this shift TRANSFERS: BED, CHAIR, WHEELCHAIR - SCORE: 0-UNK TRANSFERS: TOILET: TRANSFERS: TOILET - STEP 1: Does the patient require assistance with toilet transfers? Yes. TRANSFERS: TOILET - STEP 2: Does the patient require the assistance of a helper? Yes. TRANSFERS: TOILET - STEP 3: How much assistance does the patient require from the helper? Patient performs half or more of the tr ansferring tasks TRANSFERS: TOILET - STEP 4: Does the patient need only incidental help such as contact guard or steadying during toilet transfer? No. Patient needs more than incidental help TRANSFERS: TOILET - SCORE: 3-MOD TRANSFERS: SHOWER: Activity did not occur on this shift TRANSFERS: SHOWER - SCORE: 0-UNK TRANSFERS: TUB: Activity did not occur on this shift TRANSFERS: TUB - SCORE: 0-UNK LOCOMOTION: WALK: Activity did not occur on this shift LOCOMOTION: WALK - SCORE: 0-UNK LOCOMOTION: WHEELCHAIR: Activity did not occur on this shift LOCOMOTION: WHEELCHAIR - SCORE: 0-UNK LOCOMOTION: STAIRS: Activity did not occur on this shift LOCOMOTION: STAIRS - SCORE: 0-UNK COMPREHENSION: COMPREHENSION: TYPE: Both COMPREHENSION - STEP 1: Does the patient require help to understand complex and abstract ideas (such as current events, finan ravi, discharge planning, medical issues, relationships, etc)? Yes. COMPREHENSION - STEP 2: Does the patient require help to understand questions or statements about basic needs or ideas (such as hunger, thirst, sleep, safety, daily schedule, room location, or discomfort) half or more of the t marlen? No. COMPREHENSION - STEP 3: How often does the patient need help to understand directions and conversation about basic needs? Les s than 10% of the time COMPREHENSION - SCORE: 5-SUP EXPRESSION EXPRESSION: TYPE: Vocal EXPRESSION - STEP 1: Does the patient require help expressing complex and abstract ideas (such as current events, finances , discharge planning, medical issues, relationships, etc)? No. EXPRESSION - STEP 2: Does the patient need extra time, require an assistive device (such as augmentive communication syste m or a communication board), OR does s/he have mild difficulty expressing complex and abstract ideas (including mild dysarthria or mild word-find problems)? Yes. EXPRESSION - SCORE: 6-ALAINA SOCIAL INTERACTION: SOCIAL INTERACTION - STEP 1: Does the patient require a helper to interact with others in social and therapeutic situations? No. SOCIAL INTERACTION - STEP 2: Does the patient need extra time in social situations, OR does s/he interact with staff, other patien ts, and family members ONLY in structured environments, OR does s/he require medication for social in teraction? No. SOCIAL INTERACTION - SCORE: 7-IND PROBLEM SOLVING: PROBLEM SOLVING - STEP 1: Does the patient need help to solve complex problems such as managing a checking account or confronti ng interpersonal problems? Yes. PROBLEM SOLVING - STEP 2: Does the patient solve basic routine problems half or more of the time? Yes. PROBLEM SOLVING - STEP 3: How often does the patient need help to solve basic routine problems? Less than 10% of the time PROBLEM SOLVING - SCORE: 5-SUP MEMORY: MEMORY - STEP 1: Does the patient need help to remember frequently encountered people, daily routines, and executing r equests? Yes. MEMORY - STEP 2: How often does the patient need help to remember frequently encountered people, daily routines, and e xecuting requests? Less than 10% of the time MEMORY - SCORE: 5-SUP SIGNATURE PANEL: The following modified sections: Eating - Score, Grooming - Score, Bathing - Score, Dressing - Upper Body - Score, Dressing - Lower Body - Score, Toileting - Score, Transfers: Bed, Chair, Wheelchair - S core, Transfers: Toilet - Score, Transfers: Shower - Score, Transfers: Tub - Score, Comprehension - S core, Expression - Score, Social Interaction - Score, Problem Solving - Score, Memory - Score were [e lectronically] signed by Julee Chavarria OT on Sat Nov 29 2017 15:52:26 T-0500 ([facility] [place] [place])
--- NOTE | 2017-11-29 23:26 | FAST ---
SHIFT START DATE/TIME: 11/29/2017 07:00 (CDT) SHIFT END DATE/TIME: 11/29/2017 19:00 (CDT) NAME AIDEE BEEBE DATE OF : 1930 DATE OF ADMISSION: 11/27/2017 15:32 (CDT) PHONE: AGE: 87 N# [id number] GENDER: Female ENCOUNTER PHYSICIAN: Dr. Donal Noriega M.D. ADMISSION DIAGNOSIS: - Cardiac - Cardiac Disorders () CHF. EATING: EATING - STEP 1: Does the patient require assistance when eating? Yes. EATING - STEP 2: Does the patient require the assistance of a helper? Yes. EATING - STEP 3: Does the patient perform half or more of the eating tasks? Yes. EATING - STEP 4: Does the patient need only supervision, cuing, coaxing OR help to apply an orthosis OR help to cut fo od, open containers, pour liquids, or butter bread? Yes. EATING - SCORE: 5-SUP GROOMING: Comb/brush hair Oral care GROOMING - STEP 1: Does the patient require assistance when grooming? Yes. GROOMING - STEP 2: Does the patient require the assistance of a helper? No. The patient only requires an assistive devic e, OR takes more than reasonable time to groom, OR there is a concern for safety as the patient groom s GROOMING - SCORE: 6-ALAINA BATHING: Activity did not occur on this shift BATHING - SCORE: 0-UNK DRESSING - UPPER BODY: T-shirt/pullover shirt (four steps) ARTICLES SCORE Total number of steps: 4 DRESSING - UPPER BODY - STEP 1: Does the patient require help when dressing above the waist? Yes. DRESSING - UPPER BODY - STEP 2: Does the patient require the assistance of a helper? Yes. DRESSING - UPPER BODY - STEP 3: Does the helper touch the patient while dressing? No. DRESSING - UPPER BODY - SCORE: 5-SUP DRESSING - LOWER BODY: ARTICLES SCORE Total number of steps: 6 DRESSING - LOWER BODY - STEP 1: Does the patient require help when dressing below the waist? Yes. DRESSING - LOWER BODY - STEP 2: Does the patient require the assistance of a helper? Yes. DRESSING - LOWER BODY - STEP 3: Does the helper touch the patient while dressing? Yes. DRESSING - LOWER BODY - STEP 4: How many of the total steps does the patient complete on his/her own? 4 DRESSING - LOWER BODY - SCORE: 3-MOD TOILETING: TOILETING - STEP 1: Does the patient require assistance with toileting? Yes. TOILETING - STEP 2: Does the patient require the assistance of a helper? Yes. TOILETING - STEP 3: How much assistance does the patient require from the helper? Hands-on assistance from the helper TOILETING - STEP 4: Of the 3 tasks: 1) Adjusting clothing prior to use, 2) Cleansing of perineal area, 3) Adjusting clot cheo after use; How many tasks does the patient perform WITHOUT assistance of the helper? Two tasks TOILETING - SCORE: 3-MOD BLADDER MANAGEMENT: BLADDER MANAGEMENT - STEP 1: Does the patient control the bladder completely and intentionally without equipment or devices or med ications, and is always continent? No. BLADDER MANAGEMENT - STEP 2: Does the patient require the assistance of a helper? No, patient requires and independently uses an a ssistive device, such as a urinal, bedpan, bedside commode, catheter, absorbent pad, or collecting de vice BLADDER MANAGEMENT - SCORE: 6-ALAINA BOWEL MANAGEMENT: Activity did not occur on this shift BOWEL MANAGEMENT - SCORE: 7-IND TRANSFERS: BED, CHAIR, WHEELCHAIR: TRANSFERS: BED, CHAIR, WHEELCHAIR - STEP 1: Does the patient require assistance with bed, chair, or wheelchair transfers? Yes. TRANSFERS: BED, CHAIR, WHEELCHAIR - STEP 2: Does the patient require the assistance of a helper? Yes. TRANSFERS: BED, CHAIR, WHEELCHAIR - STEP 3: How much assistance does the patient require from the helper? Lifting of the patient TRANSFERS: BED, CHAIR, WHEELCHAIR - STEP 4: Does the helper lift the patient ONLY up? ONLY down? Up AND Down? ONLY up. TRANSFERS: BED, CHAIR, WHEELCHAIR - SCORE: 3-MOD TRANSFERS: TOILET: TRANSFERS: TOILET - STEP 1: Does the patient require assistance with toilet transfers? Yes. TRANSFERS: TOILET - STEP 2: Does the patient require the assistance of a helper? Yes. TRANSFERS: TOILET - STEP 3: How much assistance does the patient require from the helper? Patient performs half or more of the tr ansferring tasks TRANSFERS: TOILET - STEP 4: Does the patient need only incidental help such as contact guard or steadying during toilet transfer? Yes. TRANSFERS: TOILET - SCORE: 4-MIN TRANSFERS: SHOWER: Activity did not occur on this shift TRANSFERS: SHOWER - SCORE: 0-UNK TRANSFERS: TUB: Activity did not occur on this shift TRANSFERS: TUB - SCORE: 0-UNK LOCOMOTION: WALK: Activity did not occur on this shift LOCOMOTION: WALK - SCORE: 0-UNK LOCOMOTION: WHEELCHAIR: Activity did not occur on this shift LOCOMOTION: WHEELCHAIR - SCORE: 0-UNK COMPREHENSION: COMPREHENSION: TYPE: Both COMPREHENSION - STEP 1: Does the patient require help to understand complex and abstract ideas (such as current events, finan ravi, discharge planning, medical issues, relationships, etc)? No. COMPREHENSION - STEP 2: Does the patient need extra time, require an assistive device (such as glasses for visual comprehensi on or a hearing aid for auditory comprehension) or does s/he have mild difficulty understanding compl ex and abstract information? Yes. COMPREHENSION - SCORE: 6-ALAINA EXPRESSION EXPRESSION: TYPE: Both EXPRESSION - STEP 1: Does the patient require help expressing complex and abstract ideas (such as current events, finances , discharge planning, medical issues, relationships, etc)? No. EXPRESSION - STEP 2: Does the patient need extra time, require an assistive device (such as augmentive communication syste m or a communication board), OR does s/he have mild difficulty expressing complex and abstract ideas (including mild dysarthria or mild word-find problems)? Yes. EXPRESSION - SCORE: 6-ALAINA SOCIAL INTERACTION: SOCIAL INTERACTION - STEP 1: Does the patient require a helper to interact with others in social and therapeutic situations? No. SOCIAL INTERACTION - STEP 2: Does the patient need extra time in social situations, OR does s/he interact with staff, other patien ts, and family members ONLY in structured environments, OR does s/he require medication for social in teraction? Yes, patient needs extra time SOCIAL INTERACTION - SCORE: 6-ALAINA PROBLEM SOLVING: PROBLEM SOLVING - STEP 1: Does the patient need help to solve complex problems such as managing a checking account or confronti ng interpersonal problems? No. PROBLEM SOLVING - STEP 2: Does the patient require extra time to make decisions or solve problems, OR does s/he have slight dif ficulty reading, initiating, or self-correcting in unfamiliar situations? Yes, patient needs extra ti me. PROBLEM SOLVING - SCORE: 6-ALAINA MEMORY: MEMORY - STEP 1: Does the patient need help to remember frequently encountered people, daily routines, and executing r equests? No. MEMORY - STEP 2: Does the patient have slight difficulty recognizing frequently encountered people, daily routines, or executing requests without the need for repetition or using self-initiated or environmental cues to remember? Yes. MEMORY - SCORE: 6-ALAINA SIGNATURE PANEL: The following modified sections: Eating - Score, Grooming - Score, Bathing - Score, Dressing - Upper Body - Score, Dressing - Lower Body - Score, Toileting - Score, Bladder Management - Score, Bowel Man agement - Score, Transfers: Bed, Chair, Wheelchair - Score, Transfers: Toilet - Score, Transfers: Brittany wer - Score, Transfers: Tub - Score, Locomotion: Walk - Score, Locomotion: Wheelchair - Score, Compre hension - Score, Expression - Score, Social Interaction - Score, Problem Solving - Score, Memory - Sc ore were [electronically] signed by Camilo Elizabeth on Sat Nov 29 2017 10:15:17 T-0500 ([facility])
--- NOTE | 2017-11-29 23:27 | FAST ---
ENCOUNTER DATE AND TIME: 11/29/2017 08:00 (CDT) NAME AIDEE BEEBE DATE OF : 1930 DATE OF ADMISSION: 11/27/2017 15:32 (CDT) PHONE: AGE: 87 SSN# [id number] GENDER: Female ENCOUNTER PHYSICIAN: Dr. Donal Noriega M.D. ADMISSION DIAGNOSIS: - Cardiac 09 - Cardiac Disorders () CHF. EATING: Activity did not occur on this shift EATING - SCORE: 0-UNK GROOMING: Activity did not occur on this shift GROOMING - SCORE: 0-UNK BATHING: Activity did not occur on this shift BATHING - SCORE: 0-UNK DRESSING - UPPER BODY: Activity did not occur on this shift Patient is not dressing in public clothing ARTICLES SCORE Total number of steps: 0 DRESSING - UPPER BODY - SCORE: 0-UNK DRESSING - LOWER BODY: Activity did not occur on this shift Patient is not dressing in public clothing ARTICLES SCORE Total number of steps: 0 DRESSING - LOWER BODY - SCORE: 0-UNK TOILETING: Activity did not occur on this shift TOILETING - SCORE: 0-UNK BLADDER MANAGEMENT: Activity did not occur on this shift BLADDER MANAGEMENT - SCORE: 7-IND BOWEL MANAGEMENT: Activity did not occur on this shift BOWEL MANAGEMENT - SCORE: 7-IND TRANSFERS: BED, CHAIR, WHEELCHAIR: TRANSFERS: BED, CHAIR, WHEELCHAIR - STEP 1: Does the patient require assistance with bed, chair, or wheelchair transfers? Yes. TRANSFERS: BED, CHAIR, WHEELCHAIR - STEP 2: Does the patient require the assistance of a helper? Yes. TRANSFERS: BED, CHAIR, WHEELCHAIR - STEP 3: How much assistance does the patient require from the helper? Lifting of the patient TRANSFERS: BED, CHAIR, WHEELCHAIR - STEP 4: Does the helper lift the patient ONLY up? ONLY down? Up AND Down? ONLY up. TRANSFERS: BED, CHAIR, WHEELCHAIR - SCORE: 3-MOD TRANSFERS: TOILET: TRANSFERS: TOILET - STEP 1: Does the patient require assistance with toilet transfers? Yes. TRANSFERS: TOILET - STEP 2: Does the patient require the assistance of a helper? Yes. TRANSFERS: TOILET - STEP 3: How much assistance does the patient require from the helper? Patient performs half or more of the tr ansferring tasks TRANSFERS: TOILET - STEP 4: Does the patient need only incidental help such as contact guard or steadying during toilet transfer? No. Patient needs more than incidental help TRANSFERS: TOILET - SCORE: 3-MOD TRANSFERS: SHOWER: Activity did not occur on this shift TRANSFERS: SHOWER - SCORE: 0-UNK TRANSFERS: TUB: Activity did not occur on this shift TRANSFERS: TUB - SCORE: 0-UNK LOCOMOTION: WALK: LOCOMOTION: WALK - STEP 1: Does the patient need help to walk 150 feet? Yes. LOCOMOTION: WALK - STEP 2: How much assistance does the patient require to walk a minimum of 150 feet? Only incidental help such as contact guarding or steadying LOCOMOTION: WALK - SCORE: 4-MIN LOCOMOTION: WHEELCHAIR: LOCOMOTION: WHEELCHAIR - STEP 1: Does the patient need help to go 150 feet in a wheelchair? Yes. LOCOMOTION: WHEELCHAIR - STEP 2: How much assistance does the patient need from the helper? Only incidental help such as around corner s or over thresholds LOCOMOTION: WHEELCHAIR - SCORE: 4-MIN LOCOMOTION: STAIRS: Activity did not occur on this shift LOCOMOTION: STAIRS - SCORE: 0-UNK COMPREHENSION: COMPREHENSION - SCORE: 0-UNK EXPRESSION EXPRESSION - SCORE: 0-UNK SOCIAL INTERACTION: SOCIAL INTERACTION - SCORE: 0-UNK PROBLEM SOLVING: PROBLEM SOLVING - SCORE: 0-UNK MEMORY: MEMORY - SCORE: 0-UNK SIGNATURE PANEL: The following modified sections: Transfers: Bed, Chair, Wheelchair - Score, Transfers: Toilet - Score , Locomotion: Walk - Score, Locomotion: Wheelchair - Score, Locomotion: Stairs - Score were [[email or web address]] signed by Jen Workman PTA on Sat Nov 29 2017 16:14:06 T-0500 ([facility] [place] [place])
[2017-11-30 01:01] LABS: Urine Appearance CLEAR; Urine Bilirubin NEGATIVE (NEG); Urine Blood NEGATIVE (NEG); Urine Color YELLOW; Urine Glucose NEGATIVE (NEG); Urine Protein NEGATIVE (NEG); Urine Urobilinogen 0.2 mg/dL (0.2-1.0)
--- NOTE | 2017-11-30 02:14 | FAST ---
SHIFT START DATE/TIME: 11/29/2017 19:00 (CDT) SHIFT END DATE/TIME: 11/30/2017 07:00 (CDT) NAME AIDEE BEEBE DATE OF : 1930 DATE OF ADMISSION: 11/27/2017 15:32 (CDT) PHONE: AGE: 87 N# [id number] GENDER: Female ENCOUNTER PHYSICIAN: Dr. Donal Noriega M.D. ADMISSION DIAGNOSIS: - Cardiac 09 - Cardiac Disorders () CHF. EATING: Activity did not occur on this shift EATING - SCORE: 0-UNK GROOMING: Wash, rinse, and dry hands GROOMING - STEP 1: Does the patient require assistance when grooming? Yes. GROOMING - STEP 2: Does the patient require the assistance of a helper? Yes. GROOMING - STEP 3: How much assistance does the patient require from the helper? Steadying assistance from the helper GROOMING - SCORE: 4-MIN BATHING: Activity did not occur on this shift BATHING - SCORE: 0-UNK DRESSING - UPPER BODY: Activity did not occur on this shift ARTICLES SCORE Total number of steps: 0 DRESSING - UPPER BODY - SCORE: 0-UNK DRESSING - LOWER BODY: Activity did not occur on this shift ARTICLES SCORE Total number of steps: 0 DRESSING - LOWER BODY - SCORE: 0-UNK TOILETING: TOILETING - STEP 1: Does the patient require assistance with toileting? Yes. TOILETING - STEP 2: Does the patient require the assistance of a helper? Yes. TOILETING - STEP 3: How much assistance does the patient require from the helper? Hands-on assistance from the helper TOILETING - STEP 4: Of the 3 tasks: 1) Adjusting clothing prior to use, 2) Cleansing of perineal area, 3) Adjusting clot cheo after use; How many tasks does the patient perform WITHOUT assistance of the helper? Three tasks with steadying assistance from the helper TOILETING - SCORE: 4-MIN BLADDER MANAGEMENT: BLADDER MANAGEMENT - STEP 1: Does the patient control the bladder completely and intentionally without equipment or devices or med ications, and is always continent? No. BLADDER MANAGEMENT - STEP 2: Does the patient require the assistance of a helper? Yes. BLADDER MANAGEMENT - STEP 3: How much assistance does the patient require from the helper? Patient requires contact assistance fro m the helper BLADDER MANAGEMENT - STEP 4: How much contact assistance does the patient require from the helper? Patient requires minimal assist ance to maintain an external device - by positioning, and the patient performs 75% or more of bladder management tasks, while the helper provides less than 25% of the assistance to position patient on / off bedpan BLADDER MANAGEMENT - SCORE: 4-MIN BOWEL MANAGEMENT: Activity did not occur on this shift BOWEL MANAGEMENT - SCORE: 7-IND TRANSFERS: BED, CHAIR, WHEELCHAIR: TRANSFERS: BED, CHAIR, WHEELCHAIR - STEP 1: Does the patient require assistance with bed, chair, or wheelchair transfers? Yes. TRANSFERS: BED, CHAIR, WHEELCHAIR - STEP 2: Does the patient require the assistance of a helper? Yes. TRANSFERS: BED, CHAIR, WHEELCHAIR - STEP 3: How much assistance does the patient require from the helper? Lifting of the legs TRANSFERS: BED, CHAIR, WHEELCHAIR - STEP 4: How many legs does the patient require the helper to lift? one leg TRANSFERS: BED, CHAIR, WHEELCHAIR - SCORE: 4-MIN TRANSFERS: TOILET: TRANSFERS: TOILET - STEP 1: Does the patient require assistance with toilet transfers? Yes. TRANSFERS: TOILET - STEP 2: Does the patient require the assistance of a helper? Yes. TRANSFERS: TOILET - STEP 3: How much assistance does the patient require from the helper? Patient performs half or more of the tr ansferring tasks TRANSFERS: TOILET - STEP 4: Does the patient need only incidental help such as contact guard or steadying during toilet transfer? No. Patient needs more than incidental help TRANSFERS: TOILET - SCORE: 3-MOD TRANSFERS: SHOWER: Activity did not occur on this shift TRANSFERS: SHOWER - SCORE: 0-UNK TRANSFERS: TUB: Activity did not occur on this shift TRANSFERS: TUB - SCORE: 0-UNK LOCOMOTION: WALK: Activity did not occur on this shift LOCOMOTION: WALK - SCORE: 0-UNK LOCOMOTION: WHEELCHAIR: Activity did not occur on this shift LOCOMOTION: WHEELCHAIR - SCORE: 0-UNK COMPREHENSION: COMPREHENSION: TYPE: Both COMPREHENSION - STEP 1: Does the patient require help to understand complex and abstract ideas (such as current events, finan ravi, discharge planning, medical issues, relationships, etc)? No. COMPREHENSION - STEP 2: Does the patient need extra time, require an assistive device (such as glasses for visual comprehensi on or a hearing aid for auditory comprehension) or does s/he have mild difficulty understanding compl ex and abstract information? Yes. COMPREHENSION - SCORE: 6-ALAINA EXPRESSION EXPRESSION: TYPE: Both EXPRESSION - STEP 1: Does the patient require help expressing complex and abstract ideas (such as current events, finances , discharge planning, medical issues, relationships, etc)? No. EXPRESSION - STEP 2: Does the patient need extra time, require an assistive device (such as augmentive communication syste m or a communication board), OR does s/he have mild difficulty expressing complex and abstract ideas (including mild dysarthria or mild word-find problems)? No. EXPRESSION - SCORE: 7-IND SOCIAL INTERACTION: SOCIAL INTERACTION - STEP 1: Does the patient require a helper to interact with others in social and therapeutic situations? No. SOCIAL INTERACTION - STEP 2: Does the patient need extra time in social situations, OR does s/he interact with staff, other patien ts, and family members ONLY in structured environments, OR does s/he require medication for social in teraction? No. SOCIAL INTERACTION - SCORE: 7-IND PROBLEM SOLVING: PROBLEM SOLVING - STEP 1: Does the patient need help to solve complex problems such as managing a checking account or confronti ng interpersonal problems? No. PROBLEM SOLVING - STEP 2: Does the patient require extra time to make decisions or solve problems, OR does s/he have slight dif ficulty reading, initiating, or self-correcting in unfamiliar situations? No. PROBLEM SOLVING - SCORE: 7-IND MEMORY: MEMORY - STEP 1: Does the patient need help to remember frequently encountered people, daily routines, and executing r equests? No. MEMORY - STEP 2: Does the patient have slight difficulty recognizing frequently encountered people, daily routines, or executing requests without the need for repetition or using self-initiated or environmental cues to remember? No. MEMORY - SCORE: 7-IND SIGNATURE PANEL: The following modified sections: Eating - Score, Grooming - Score, Bathing - Score, Dressing - Upper Body - Score, Dressing - Lower Body - Score, Toileting - Score, Bladder Management - Score, Bowel Man agement - Score, Transfers: Bed, Chair, Wheelchair - Score, Transfers: Toilet - Score, Transfers: Brittany wer - Score, Transfers: Tub - Score, Locomotion: Walk - Score, Locomotion: Wheelchair - Score, Compre hension - Score, Expression - Score, Social Interaction - Score, Problem Solving - Score, Memory - Sc ore were [electronically] signed by Shweta Wetzel RN on FriNov 30 2017 02:12:20 GMT-0500 [facility]
[2017-11-30 03:26] LABS: Urine Bacteria <20 /HPF (<20); Urine Culture Reflex Order NOT NEEDED; Urine RBC NONE SEEN /HPF (NONE SEEN)
[2017-11-30] MEDS: PANTOPRAZOLE 40MG TABLET PO SCH (06:28)
[2017-11-30] MEDS: BIMATOPROST OPHTH DROPS/2.5 ML BTL OPTH SCH ×2 (08:00→19:44)
[2017-11-30] MEDS: HOME MED 1 EA UNK OPTH SCH (08:00)
[2017-11-30] MEDS: HOME MED 1 EA UNK PO SCH (08:00)
[2017-11-30] MEDS: FE SULF/FA/VIT B COMP & C TAB PO SCH (08:02)
[2017-11-30] MEDS: FENOFIBRATE 160 MG TAB PO SCH (08:02)
[2017-11-30] MEDS: SPIRONOLACTONE 25 MG TABLET PO SCH (08:02)
[2017-11-30] MEDS: AMIODARONE HCL 200 MG TAB PO SCH (08:02)
[2017-11-30] MEDS: CARVEDILOL 6.25 MG TAB PO SCH ×2 (08:02→20:20)
[2017-11-30] MEDS: FERROUS SULFATE 325 MG TAB PO SCH (08:03)
[2017-11-30] MEDS: COLESTIPOL 1 GM TAB PO SCH ×2 (08:03→20:20)
[2017-11-30] MEDS: hydroCHLOROthiazide 25 MG TAB PO SCH (08:03)
[2017-11-30] MEDS: IRBESARTAN 150 MG TAB PO SCH (08:03)
[2017-11-30] MEDS: PROMOD 30 ML DOSE PO SCH ×2 (08:05→20:20)
--- NOTE | 2017-11-30 10:10 | FAST ---
SHIFT START DATE/TIME: 11/30/2017 07:00 (CDT) SHIFT END DATE/TIME: 11/30/2017 19:00 (CDT) NAME AIDEE BEEBE DATE OF : 1930 DATE OF ADMISSION: 11/27/2017 15:32 (CDT) PHONE: AGE: 87 N# [id number] GENDER: Female ENCOUNTER PHYSICIAN: Dr. Donal Noriega M.D. ADMISSION DIAGNOSIS: - Cardiac - Cardiac Disorders () CHF. EATING: EATING - STEP 1: Does the patient require assistance when eating? Yes. EATING - STEP 2: Does the patient require the assistance of a helper? Yes. EATING - STEP 3: Does the patient perform half or more of the eating tasks? Yes. EATING - STEP 4: Does the patient need only supervision, cuing, coaxing OR help to apply an orthosis OR help to cut fo od, open containers, pour liquids, or butter bread? Yes. EATING - SCORE: 5-SUP GROOMING: Comb/brush hair Patient applied make-up GROOMING - STEP 1: Does the patient require assistance when grooming? Yes. GROOMING - STEP 2: Does the patient require the assistance of a helper? Yes. GROOMING - STEP 3: How much assistance does the patient require from the helper? Only prior equipment preparation/set up from the helper GROOMING - SCORE: 5-SUP BATHING: Activity did not occur on this shift BATHING - SCORE: 0-UNK DRESSING - UPPER BODY: Patient is not dressing in public clothing ARTICLES SCORE Total number of steps: 0 DRESSING - UPPER BODY - SCORE: 0-UNK DRESSING - LOWER BODY: Patient is not dressing in public clothing ARTICLES SCORE Total number of steps: 0 DRESSING - LOWER BODY - SCORE: 0-UNK TOILETING: TOILETING - STEP 1: Does the patient require assistance with toileting? Yes. TOILETING - STEP 2: Does the patient require the assistance of a helper? Yes. TOILETING - STEP 3: How much assistance does the patient require from the helper? Hands-on assistance from the helper TOILETING - STEP 4: Of the 3 tasks: 1) Adjusting clothing prior to use, 2) Cleansing of perineal area, 3) Adjusting clot cheo after use; How many tasks does the patient perform WITHOUT assistance of the helper? Three tasks with steadying assistance from the helper TOILETING - SCORE: 4-MIN BLADDER MANAGEMENT: BLADDER MANAGEMENT - STEP 1: Does the patient control the bladder completely and intentionally without equipment or devices or med ications, and is always continent? No. BLADDER MANAGEMENT - STEP 2: Does the patient require the assistance of a helper? No, patient requires and independently uses an a ssistive device, such as a urinal, bedpan, bedside commode, catheter, absorbent pad, or collecting de vice BLADDER MANAGEMENT - SCORE: 6-ALAINA BOWEL MANAGEMENT: BOWEL MANAGEMENT - STEP 1: Does the patient control bowels completely and intentionally without equipment devices or medications AND is always continent? No. BOWEL MANAGEMENT - STEP 2: Does the patient require the assistance of a helper? No, patient requires and manages independently a n assistive device such as a bedpan, bedside commode, absorbent pad, incontinent device, or collectin g device BOWEL MANAGEMENT - SCORE: 6-ALAINA TRANSFERS: BED, CHAIR, WHEELCHAIR: TRANSFERS: BED, CHAIR, WHEELCHAIR - STEP 1: Does the patient require assistance with bed, chair, or wheelchair transfers? Yes. TRANSFERS: BED, CHAIR, WHEELCHAIR - STEP 2: Does the patient require the assistance of a helper? Yes. TRANSFERS: BED, CHAIR, WHEELCHAIR - STEP 3: How much assistance does the patient require from the helper? Lifting of the patient TRANSFERS: BED, CHAIR, WHEELCHAIR - STEP 4: Does the helper lift the patient ONLY up? ONLY down? Up AND Down? ONLY up. TRANSFERS: BED, CHAIR, WHEELCHAIR - SCORE: 3-MOD TRANSFERS: TOILET: TRANSFERS: TOILET - STEP 1: Does the patient require assistance with toilet transfers? Yes. TRANSFERS: TOILET - STEP 2: Does the patient require the assistance of a helper? Yes. TRANSFERS: TOILET - STEP 3: How much assistance does the patient require from the helper? Patient performs half or more of the tr ansferring tasks TRANSFERS: TOILET - STEP 4: Does the patient need only incidental help such as contact guard or steadying during toilet transfer? Yes. TRANSFERS: TOILET - SCORE: 4-MIN TRANSFERS: SHOWER: Activity did not occur on this shift TRANSFERS: SHOWER - SCORE: 0-UNK TRANSFERS: TUB: Activity did not occur on this shift TRANSFERS: TUB - SCORE: 0-UNK LOCOMOTION: WALK: Activity did not occur on this shift LOCOMOTION: WALK - SCORE: 0-UNK LOCOMOTION: WHEELCHAIR: Activity did not occur on this shift LOCOMOTION: WHEELCHAIR - SCORE: 0-UNK COMPREHENSION: COMPREHENSION: TYPE: Both COMPREHENSION - STEP 1: Does the patient require help to understand complex and abstract ideas (such as current events, finan ravi, discharge planning, medical issues, relationships, etc)? No. COMPREHENSION - STEP 2: Does the patient need extra time, require an assistive device (such as glasses for visual comprehensi on or a hearing aid for auditory comprehension) or does s/he have mild difficulty understanding compl ex and abstract information? Yes. COMPREHENSION - SCORE: 6-ALAINA EXPRESSION EXPRESSION: TYPE: Both EXPRESSION - STEP 1: Does the patient require help expressing complex and abstract ideas (such as current events, finances , discharge planning, medical issues, relationships, etc)? No. EXPRESSION - STEP 2: Does the patient need extra time, require an assistive device (such as augmentive communication syste m or a communication board), OR does s/he have mild difficulty expressing complex and abstract ideas (including mild dysarthria or mild word-find problems)? Yes. EXPRESSION - SCORE: 6-ALAINA SOCIAL INTERACTION: SOCIAL INTERACTION - STEP 1: Does the patient require a helper to interact with others in social and therapeutic situations? No. SOCIAL INTERACTION - STEP 2: Does the patient need extra time in social situations, OR does s/he interact with staff, other patien ts, and family members ONLY in structured environments, OR does s/he require medication for social in teraction? Yes, patient needs extra time SOCIAL INTERACTION - SCORE: 6-ALAINA PROBLEM SOLVING: PROBLEM SOLVING - STEP 1: Does the patient need help to solve complex problems such as managing a checking account or confronti ng interpersonal problems? No. PROBLEM SOLVING - STEP 2: Does the patient require extra time to make decisions or solve problems, OR does s/he have slight dif ficulty reading, initiating, or self-correcting in unfamiliar situations? Yes, patient needs extra ti me. PROBLEM SOLVING - SCORE: 6-ALAINA MEMORY: MEMORY - STEP 1: Does the patient need help to remember frequently encountered people, daily routines, and executing r equests? No. MEMORY - STEP 2: Does the patient have slight difficulty recognizing frequently encountered people, daily routines, or executing requests without the need for repetition or using self-initiated or environmental cues to remember? Yes. MEMORY - SCORE: 6-ALAINA SIGNATURE PANEL: The following modified sections: Eating - Score, Grooming - Score, Bathing - Score, Dressing - Upper Body - Score, Dressing - Lower Body - Score, Toileting - Score, Bladder Management - Score, Bowel Man agement - Score, Transfers: Bed, Chair, Wheelchair - Score, Transfers: Toilet - Score, Transfers: Brittany wer - Score, Transfers: Tub - Score, Locomotion: Walk - Score, Locomotion: Wheelchair - Score, Compre hension - Score, Expression - Score, Social Interaction - Score, Problem Solving - Score, Memory - Sc ore were [electronically] signed by Camilo Elizabeth on Sun Nov 30 2017 10:10:16 T-0500 (Central Daylight Time)
[2017-11-30] MEDS: RIVAROXABAN 20 MG TABLET PO SCH (16:31)
[2017-11-30] MEDS: MELATONIN 3 MG TABLET PO PRN (20:20)
[2017-11-30] MEDS: EZETIMIBE 10 MG TAB PO SCH (20:20)
[2017-11-30] MEDS: guaiFENesin 100 MG/5 ML UCUP PO PRN (22:50)
--- NOTE | 2017-12-01 02:42 | FAST ---
SHIFT START DATE/TIME: 11/30/2017 19:00 (CDT) SHIFT END DATE/TIME: 12/01/2017 07:00 (CDT) NAME AIDEE BEEBE DATE OF : 1930 DATE OF ADMISSION: 11/27/2017 15:32 (CDT) PHONE: AGE: 87 N# [id number] GENDER: Female ENCOUNTER PHYSICIAN: Dr. Donal Noriega M.D. ADMISSION DIAGNOSIS: - Cardiac - Cardiac Disorders () CHF. EATING: Activity did not occur on this shift EATING - SCORE: 0-UNK GROOMING: Activity did not occur on this shift GROOMING - SCORE: 0-UNK BATHING: Activity did not occur on this shift BATHING - SCORE: 0-UNK DRESSING - UPPER BODY: Activity did not occur on this shift ARTICLES SCORE Total number of steps: 0 DRESSING - UPPER BODY - SCORE: 0-UNK DRESSING - LOWER BODY: Activity did not occur on this shift ARTICLES SCORE Total number of steps: 0 DRESSING - LOWER BODY - SCORE: 0-UNK TOILETING: TOILETING - STEP 1: Does the patient require assistance with toileting? Yes. TOILETING - STEP 2: Does the patient require the assistance of a helper? Yes. TOILETING - STEP 3: How much assistance does the patient require from the helper? Only supervision TOILETING - SCORE: 5-SUP BLADDER MANAGEMENT: BLADDER MANAGEMENT - STEP 1: Does the patient control the bladder completely and intentionally without equipment or devices or med ications, and is always continent? No. BLADDER MANAGEMENT - STEP 2: Does the patient require the assistance of a helper? Yes. BLADDER MANAGEMENT - STEP 3: How much assistance does the patient require from the helper? Only supervision, stand-by, cuing, or c oaxing BLADDER MANAGEMENT - SCORE: 5-SUP BOWEL MANAGEMENT: BOWEL MANAGEMENT - STEP 1: Does the patient control bowels completely and intentionally without equipment devices or medications AND is always continent? Yes. BOWEL MANAGEMENT - SCORE: 7-IND TRANSFERS: BED, CHAIR, WHEELCHAIR: TRANSFERS: BED, CHAIR, WHEELCHAIR - STEP 1: Does the patient require assistance with bed, chair, or wheelchair transfers? Yes. TRANSFERS: BED, CHAIR, WHEELCHAIR - STEP 2: Does the patient require the assistance of a helper? Yes. TRANSFERS: BED, CHAIR, WHEELCHAIR - STEP 3: How much assistance does the patient require from the helper? Lifting of the legs TRANSFERS: BED, CHAIR, WHEELCHAIR - STEP 4: How many legs does the patient require the helper to lift? both legs TRANSFERS: BED, CHAIR, WHEELCHAIR - SCORE: 3-MOD TRANSFERS: TOILET: TRANSFERS: TOILET - STEP 1: Does the patient require assistance with toilet transfers? Yes. TRANSFERS: TOILET - STEP 2: Does the patient require the assistance of a helper? Yes. TRANSFERS: TOILET - STEP 3: How much assistance does the patient require from the helper? Only supervision, cuing, coaxing, OR he lp to set out transfer equipment or to lock brakes and/or lift foot rests TRANSFERS: TOILET - SCORE: 5-SUP TRANSFERS: SHOWER: Activity did not occur on this shift TRANSFERS: SHOWER - SCORE: 0-UNK TRANSFERS: TUB: Activity did not occur on this shift TRANSFERS: TUB - SCORE: 0-UNK LOCOMOTION: WALK: Activity did not occur on this shift LOCOMOTION: WALK - SCORE: 0-UNK LOCOMOTION: WHEELCHAIR: Activity did not occur on this shift LOCOMOTION: WHEELCHAIR - SCORE: 0-UNK COMPREHENSION: COMPREHENSION: TYPE: Both COMPREHENSION - STEP 1: Does the patient require help to understand complex and abstract ideas (such as current events, finan ravi, discharge planning, medical issues, relationships, etc)? No. COMPREHENSION - STEP 2: Does the patient need extra time, require an assistive device (such as glasses for visual comprehensi on or a hearing aid for auditory comprehension) or does s/he have mild difficulty understanding compl ex and abstract information? Yes. COMPREHENSION - SCORE: 6-ALAINA EXPRESSION EXPRESSION: TYPE: Both EXPRESSION - STEP 1: Does the patient require help expressing complex and abstract ideas (such as current events, finances , discharge planning, medical issues, relationships, etc)? No. EXPRESSION - STEP 2: Does the patient need extra time, require an assistive device (such as augmentive communication syste m or a communication board), OR does s/he have mild difficulty expressing complex and abstract ideas (including mild dysarthria or mild word-find problems)? Yes. EXPRESSION - SCORE: 6-ALAINA SOCIAL INTERACTION: SOCIAL INTERACTION - STEP 1: Does the patient require a helper to interact with others in social and therapeutic situations? No. SOCIAL INTERACTION - STEP 2: Does the patient need extra time in social situations, OR does s/he interact with staff, other patien ts, and family members ONLY in structured environments, OR does s/he require medication for social in teraction? No. SOCIAL INTERACTION - SCORE: 7-IND PROBLEM SOLVING: PROBLEM SOLVING - STEP 1: Does the patient need help to solve complex problems such as managing a checking account or confronti ng interpersonal problems? No. PROBLEM SOLVING - STEP 2: Does the patient require extra time to make decisions or solve problems, OR does s/he have slight dif ficulty reading, initiating, or self-correcting in unfamiliar situations? No. PROBLEM SOLVING - SCORE: 7-IND MEMORY: MEMORY - STEP 1: Does the patient need help to remember frequently encountered people, daily routines, and executing r equests? No. MEMORY - STEP 2: Does the patient have slight difficulty recognizing frequently encountered people, daily routines, or executing requests without the need for repetition or using self-initiated or environmental cues to remember? No. MEMORY - SCORE: 7-IND SIGNATURE PANEL: The following modified sections: Eating - Score, Grooming - Score, Bathing - Score, Dressing - Upper Body - Score, Dressing - Lower Body - Score, Toileting - Score, Bladder Management - Score, Bowel Man agement - Score, Transfers: Bed, Chair, Wheelchair - Score, Transfers: Toilet - Score, Transfers: Brittany wer - Score, Transfers: Tub - Score, Locomotion: Walk - Score, Locomotion: Wheelchair - Score, Compre hension - Score, Expression - Score, Social Interaction - Score, Problem Solving - Score, Memory - Sc ore were [electronically] signed by Erica Kwong on FriDec 01 2017 02:41:52 GMT-0500 (Central Day light Time)
[2017-12-01] MEDS: PANTOPRAZOLE 40MG TABLET PO SCH (07:00)
[2017-12-01] MEDS: HOME MED 1 EA UNK PO SCH (08:00)
[2017-12-01] MEDS: BIMATOPROST OPHTH DROPS/2.5 ML BTL OPTH SCH (08:00)
[2017-12-01] MEDS: HOME MED 1 EA UNK OPTH SCH (08:00)
[2017-12-01] MEDS: FE SULF/FA/VIT B COMP & C TAB PO SCH (08:05)
[2017-12-01] MEDS: COLESTIPOL 1 GM TAB PO SCH ×2 (08:06→20:27)
[2017-12-01] MEDS: FERROUS SULFATE 325 MG TAB PO SCH (08:06)
[2017-12-01] MEDS: SPIRONOLACTONE 25 MG TABLET PO SCH (08:06)
[2017-12-01] MEDS: hydroCHLOROthiazide 25 MG TAB PO SCH (08:07)
[2017-12-01] MEDS: PROMOD 30 ML DOSE PO SCH ×2 (08:08→20:00)
[2017-12-01] MEDS: FENOFIBRATE 160 MG TAB PO SCH (08:08)
[2017-12-01] MEDS: CARVEDILOL 6.25 MG TAB PO SCH ×2 (08:09→20:28)
[2017-12-01] MEDS: AMIODARONE HCL 200 MG TAB PO SCH (08:10)
--- NOTE | 2017-12-01 09:47 | FAST ---
SHIFT START DATE/TIME: 12/01/2017 07:00 (CDT) SHIFT END DATE/TIME: 12/01/2017 19:00 (CDT) NAME AIDEE BEEBE DATE OF : 1930 DATE OF ADMISSION: 11/27/2017 15:32 (CDT) PHONE: AGE: 87 N# [id number] GENDER: Female ENCOUNTER PHYSICIAN: Dr. Donal Noriega M.D. ADMISSION DIAGNOSIS: - Cardiac - Cardiac Disorders () CHF. EATING: EATING - STEP 1: Does the patient require assistance when eating? Yes. EATING - STEP 2: Does the patient require the assistance of a helper? No, patient only requires an assistive device, O R s/he takes more than reasonable time to eat, OR there is a safety concern, OR s/he requires modifie d food consistency EATING - SCORE: 6-ALAINA GROOMING: Comb/brush hair Oral care Patient applied make-up GROOMING - STEP 1: Does the patient require assistance when grooming? Yes. GROOMING - STEP 2: Does the patient require the assistance of a helper? Yes. GROOMING - STEP 3: How much assistance does the patient require from the helper? Cuing, coaxing, instructions, or encour agement for completion of grooming GROOMING - SCORE: 5-SUP BATHING: Activity did not occur on this shift BATHING - SCORE: 0-UNK DRESSING - UPPER BODY: Activity did not occur on this shift ARTICLES SCORE Total number of steps: 0 DRESSING - UPPER BODY - SCORE: 0-UNK DRESSING - LOWER BODY: Activity did not occur on this shift ARTICLES SCORE Total number of steps: 0 DRESSING - LOWER BODY - SCORE: 0-UNK TOILETING: TOILETING - STEP 1: Does the patient require assistance with toileting? Yes. TOILETING - STEP 2: Does the patient require the assistance of a helper? Yes. TOILETING - STEP 3: How much assistance does the patient require from the helper? Hands-on assistance from the helper TOILETING - STEP 4: Of the 3 tasks: 1) Adjusting clothing prior to use, 2) Cleansing of perineal area, 3) Adjusting clot cheo after use; How many tasks does the patient perform WITHOUT assistance of the helper? Two tasks TOILETING - SCORE: 3-MOD BLADDER MANAGEMENT: BLADDER MANAGEMENT - STEP 1: Does the patient control the bladder completely and intentionally without equipment or devices or med ications, and is always continent? No. BLADDER MANAGEMENT - STEP 2: Does the patient require the assistance of a helper? No, patient requires and independently uses an a ssistive device, such as a urinal, bedpan, bedside commode, catheter, absorbent pad, or collecting de vice BLADDER MANAGEMENT - SCORE: 6-ALAINA BOWEL MANAGEMENT: Activity did not occur on this shift BOWEL MANAGEMENT - SCORE: 7-IND TRANSFERS: BED, CHAIR, WHEELCHAIR: TRANSFERS: BED, CHAIR, WHEELCHAIR - STEP 1: Does the patient require assistance with bed, chair, or wheelchair transfers? Yes. TRANSFERS: BED, CHAIR, WHEELCHAIR - STEP 2: Does the patient require the assistance of a helper? Yes. TRANSFERS: BED, CHAIR, WHEELCHAIR - STEP 3: How much assistance does the patient require from the helper? Only supervision TRANSFERS: BED, CHAIR, WHEELCHAIR - SCORE: 5-SUP TRANSFERS: TOILET: TRANSFERS: TOILET - STEP 1: Does the patient require assistance with toilet transfers? Yes. TRANSFERS: TOILET - STEP 2: Does the patient require the assistance of a helper? Yes. TRANSFERS: TOILET - STEP 3: How much assistance does the patient require from the helper? Only supervision, cuing, coaxing, OR he lp to set out transfer equipment or to lock brakes and/or lift foot rests TRANSFERS: TOILET - SCORE: 5-SUP TRANSFERS: SHOWER: Activity did not occur on this shift TRANSFERS: SHOWER - SCORE: 0-UNK TRANSFERS: TUB: Activity did not occur on this shift TRANSFERS: TUB - SCORE: 0-UNK LOCOMOTION: WALK: Activity did not occur on this shift LOCOMOTION: WALK - SCORE: 0-UNK LOCOMOTION: WHEELCHAIR: Activity did not occur on this shift LOCOMOTION: WHEELCHAIR - SCORE: 0-UNK COMPREHENSION: COMPREHENSION: TYPE: Both COMPREHENSION - STEP 1: Does the patient require help to understand complex and abstract ideas (such as current events, finan ravi, discharge planning, medical issues, relationships, etc)? No. COMPREHENSION - STEP 2: Does the patient need extra time, require an assistive device (such as glasses for visual comprehensi on or a hearing aid for auditory comprehension) or does s/he have mild difficulty understanding compl ex and abstract information? Yes. COMPREHENSION - SCORE: 6-ALAINA EXPRESSION EXPRESSION: TYPE: Both EXPRESSION - STEP 1: Does the patient require help expressing complex and abstract ideas (such as current events, finances , discharge planning, medical issues, relationships, etc)? No. EXPRESSION - STEP 2: Does the patient need extra time, require an assistive device (such as augmentive communication syste m or a communication board), OR does s/he have mild difficulty expressing complex and abstract ideas (including mild dysarthria or mild word-find problems)? Yes. EXPRESSION - SCORE: 6-ALAINA SOCIAL INTERACTION: SOCIAL INTERACTION - STEP 1: Does the patient require a helper to interact with others in social and therapeutic situations? No. SOCIAL INTERACTION - STEP 2: Does the patient need extra time in social situations, OR does s/he interact with staff, other patien ts, and family members ONLY in structured environments, OR does s/he require medication for social in teraction? Yes, patient needs extra time SOCIAL INTERACTION - SCORE: 6-ALAINA PROBLEM SOLVING: PROBLEM SOLVING - STEP 1: Does the patient need help to solve complex problems such as managing a checking account or confronti ng interpersonal problems? No. PROBLEM SOLVING - STEP 2: Does the patient require extra time to make decisions or solve problems, OR does s/he have slight dif ficulty reading, initiating, or self-correcting in unfamiliar situations? Yes, patient needs extra ti me. PROBLEM SOLVING - SCORE: 6-ALAINA MEMORY: MEMORY - STEP 1: Does the patient need help to remember frequently encountered people, daily routines, and executing r equests? No. MEMORY - STEP 2: Does the patient have slight difficulty recognizing frequently encountered people, daily routines, or executing requests without the need for repetition or using self-initiated or environmental cues to remember? Yes. MEMORY - SCORE: 6-ALAINA SIGNATURE PANEL: The following modified sections: Eating - Score, Grooming - Score, Bathing - Score, Dressing - Upper Body - Score, Dressing - Lower Body - Score, Toileting - Score, Bladder Management - Score, Bowel Man agement - Score, Transfers: Bed, Chair, Wheelchair - Score, Transfers: Toilet - Score, Transfers: Brittany wer - Score, Transfers: Tub - Score, Locomotion: Walk - Score, Locomotion: Wheelchair - Score, Compre hension - Score, Expression - Score, Social Interaction - Score, Problem Solving - Score, Memory - Sc ore were [electronically] signed by Camilo Elizabeth on FriDec 01 2017 09:46:42 GMT-0500 (Central Daylight Time)
[2017-12-01] MEDS: IRBESARTAN 150 MG TAB PO SCH (10:59)
[2017-12-01] MEDS: guaiFENesin 100 MG/5 ML UCUP PO PRN ×2 (11:00→20:28)
--- NOTE | 2017-12-01 12:16 | FAST ---
ENCOUNTER DATE AND TIME: 12/01/2017 08:00 (CDT) NAME AIDEE BEEBE DATE OF : 1930 DATE OF ADMISSION: 11/27/2017 15:32 (CDT) PHONE: AGE: 87 N# [id number] GENDER: Female ENCOUNTER PHYSICIAN: Dr. Donal Noriega M.D. ADMISSION DIAGNOSIS: - Cardiac - Cardiac Disorders () CHF. EATING: Activity did not occur on this shift EATING - SCORE: 0-UNK GROOMING: Wash, rinse, and dry face Wash, rinse, and dry hands GROOMING - STEP 1: Does the patient require assistance when grooming? No. GROOMING - SCORE: 7-IND BATHING: Abdomen Buttocks Chest Left arm Left upper leg Perineal area Right arm Right upper leg BATHING - STEP 1: Does the patient require assistance when bathing? Yes. BATHING - STEP 2: Does the patient require the assistance of a helper? Yes. BATHING - STEP 3: How much assistance does the patient require from the helper? Only incidental help such as placement of a wash cloth in his/her hand a few times as s/he bathes OR help to bathe just one or two areas of the body BATHING - SCORE: 4-MIN DRESSING - UPPER BODY: T-shirt/pullover shirt (four steps) ARTICLES SCORE Total number of steps: 4 DRESSING - UPPER BODY - STEP 1: Does the patient require help when dressing above the waist? No. DRESSING - UPPER BODY - SCORE: 7-IND DRESSING - LOWER BODY: Elastic waist pants (three steps) Slip-on shoe - Left foot (one step) Slip-on shoe - Right foot (one step) Underwear (three steps) ARTICLES SCORE Total number of steps: 8 DRESSING - LOWER BODY - STEP 1: Does the patient require help when dressing below the waist? Yes. DRESSING - LOWER BODY - STEP 2: Does the patient require the assistance of a helper? Yes. DRESSING - LOWER BODY - STEP 3: Does the helper touch the patient while dressing? Yes. DRESSING - LOWER BODY - STEP 4: How many of the total steps does the patient complete on his/her own? 4 DRESSING - LOWER BODY - SCORE: 3-MOD TOILETING: TOILETING - STEP 1: Does the patient require assistance with toileting? Yes. TOILETING - STEP 2: Does the patient require the assistance of a helper? Yes. TOILETING - STEP 3: How much assistance does the patient require from the helper? Hands-on assistance from the helper TOILETING - STEP 4: Of the 3 tasks: 1) Adjusting clothing prior to use, 2) Cleansing of perineal area, 3) Adjusting clot cheo after use; How many tasks does the patient perform WITHOUT assistance of the helper? Two tasks TOILETING - SCORE: 3-MOD BLADDER MANAGEMENT: Activity did not occur on this shift BLADDER MANAGEMENT - SCORE: 7-IND BOWEL MANAGEMENT: Activity did not occur on this shift BOWEL MANAGEMENT - SCORE: 7-IND TRANSFERS: BED, CHAIR, WHEELCHAIR: Activity did not occur on this shift TRANSFERS: BED, CHAIR, WHEELCHAIR - SCORE: 0-UNK TRANSFERS: TOILET: TRANSFERS: TOILET - STEP 1: Does the patient require assistance with toilet transfers? Yes. TRANSFERS: TOILET - STEP 2: Does the patient require the assistance of a helper? Yes. TRANSFERS: TOILET - STEP 3: How much assistance does the patient require from the helper? Patient performs half or more of the tr ansferring tasks TRANSFERS: TOILET - STEP 4: Does the patient need only incidental help such as contact guard or steadying during toilet transfer? Yes. TRANSFERS: TOILET - SCORE: 4-MIN TRANSFERS: SHOWER: Activity did not occur on this shift TRANSFERS: SHOWER - SCORE: 0-UNK TRANSFERS: TUB: Activity did not occur on this shift TRANSFERS: TUB - SCORE: 0-UNK LOCOMOTION: WALK: Activity did not occur on this shift LOCOMOTION: WALK - SCORE: 0-UNK LOCOMOTION: WHEELCHAIR: Activity did not occur on this shift LOCOMOTION: WHEELCHAIR - SCORE: 0-UNK LOCOMOTION: STAIRS: Activity did not occur on this shift LOCOMOTION: STAIRS - SCORE: 0-UNK COMPREHENSION: COMPREHENSION: TYPE: Visual COMPREHENSION - STEP 1: Does the patient require help to understand complex and abstract ideas (such as current events, finan ravi, discharge planning, medical issues, relationships, etc)? No. COMPREHENSION - STEP 2: Does the patient need extra time, require an assistive device (such as glasses for visual comprehensi on or a hearing aid for auditory comprehension) or does s/he have mild difficulty understanding compl ex and abstract information? Yes. COMPREHENSION - SCORE: 6-ALAINA EXPRESSION EXPRESSION: TYPE: Non-Vocal EXPRESSION - STEP 1: Does the patient require help expressing complex and abstract ideas (such as current events, finances , discharge planning, medical issues, relationships, etc)? No. EXPRESSION - STEP 2: Does the patient need extra time, require an assistive device (such as augmentive communication syste m or a communication board), OR does s/he have mild difficulty expressing complex and abstract ideas (including mild dysarthria or mild word-find problems)? No. EXPRESSION - SCORE: 7-IND SOCIAL INTERACTION: SOCIAL INTERACTION - STEP 1: Does the patient require a helper to interact with others in social and therapeutic situations? No. SOCIAL INTERACTION - STEP 2: Does the patient need extra time in social situations, OR does s/he interact with staff, other patien ts, and family members ONLY in structured environments, OR does s/he require medication for social in teraction? No. SOCIAL INTERACTION - SCORE: 7-IND PROBLEM SOLVING: PROBLEM SOLVING - STEP 1: Does the patient need help to solve complex problems such as managing a checking account or confronti ng interpersonal problems? No. PROBLEM SOLVING - STEP 2: Does the patient require extra time to make decisions or solve problems, OR does s/he have slight dif ficulty reading, initiating, or self-correcting in unfamiliar situations? Yes, patient needs extra ti me. PROBLEM SOLVING - SCORE: 6-ALAINA MEMORY: MEMORY - STEP 1: Does the patient need help to remember frequently encountered people, daily routines, and executing r equests? No. MEMORY - STEP 2: Does the patient have slight difficulty recognizing frequently encountered people, daily routines, or executing requests without the need for repetition or using self-initiated or environmental cues to remember? Yes. MEMORY - SCORE: 6-ALAINA SIGNATURE PANEL: The following modified sections: Eating - Score, Grooming - Score, Bathing - Score, Dressing - Upper Body - Score, Dressing - Lower Body - Score, Toileting - Score, Transfers: Bed, Chair, Wheelchair - S core, Transfers: Toilet - Score, Transfers: Shower - Score, Transfers: Tub - Score, Comprehension - S core, Expression - Score, Social Interaction - Score, Problem Solving - Score, Memory - Score were [e lectronically] signed by LIDYA Judd on FriDec 01 2017 12:15:17 T-0500 ([facility])
--- NOTE | 2017-12-01 14:53 | FAST ---
ENCOUNTER DATE AND TIME: 12/01/2017 08:00 (CDT) NAME AIDEE BEEBE DATE OF : 1930 DATE OF ADMISSION: 11/27/2017 15:32 (CDT) PHONE: AGE: 87 SSN# [id number] GENDER: Female ENCOUNTER PHYSICIAN: Dr. Donal Noriega M.D. ADMISSION DIAGNOSIS: - Cardiac - Cardiac Disorders () CHF. EATING: Activity did not occur on this shift EATING - SCORE: 0-UNK GROOMING: Activity did not occur on this shift GROOMING - SCORE: 0-UNK BATHING: Activity did not occur on this shift BATHING - SCORE: 0-UNK DRESSING - UPPER BODY: Activity did not occur on this shift Patient is not dressing in public clothing ARTICLES SCORE Total number of steps: 0 DRESSING - UPPER BODY - SCORE: 0-UNK DRESSING - LOWER BODY: Activity did not occur on this shift Patient is not dressing in public clothing ARTICLES SCORE Total number of steps: 0 DRESSING - LOWER BODY - SCORE: 0-UNK TOILETING: Activity did not occur on this shift TOILETING - SCORE: 0-UNK BLADDER MANAGEMENT: Activity did not occur on this shift BLADDER MANAGEMENT - SCORE: 7-IND BOWEL MANAGEMENT: Activity did not occur on this shift BOWEL MANAGEMENT - SCORE: 7-IND TRANSFERS: BED, CHAIR, WHEELCHAIR: TRANSFERS: BED, CHAIR, WHEELCHAIR - STEP 1: Does the patient require assistance with bed, chair, or wheelchair transfers? Yes. TRANSFERS: BED, CHAIR, WHEELCHAIR - STEP 2: Does the patient require the assistance of a helper? Yes. TRANSFERS: BED, CHAIR, WHEELCHAIR - STEP 3: How much assistance does the patient require from the helper? Steadying/guiding assistance TRANSFERS: BED, CHAIR, WHEELCHAIR - SCORE: 4-MIN TRANSFERS: TOILET: Activity did not occur on this shift TRANSFERS: TOILET - SCORE: 0-UNK TRANSFERS: SHOWER: Activity did not occur on this shift TRANSFERS: SHOWER - SCORE: 0-UNK TRANSFERS: TUB: Activity did not occur on this shift TRANSFERS: TUB - SCORE: 0-UNK LOCOMOTION: WALK: LOCOMOTION: WALK - STEP 1: Does the patient need help to walk 150 feet? Yes. LOCOMOTION: WALK - STEP 2: How much assistance does the patient require to walk a minimum of 150 feet? Only incidental help such as contact guarding or steadying LOCOMOTION: WALK - SCORE: 4-MIN LOCOMOTION: WHEELCHAIR: Activity did not occur on this shift LOCOMOTION: WHEELCHAIR - SCORE: 0-UNK LOCOMOTION: STAIRS: Activity did not occur on this shift LOCOMOTION: STAIRS - SCORE: 0-UNK COMPREHENSION: COMPREHENSION - SCORE: 0-UNK EXPRESSION EXPRESSION - SCORE: 0-UNK SOCIAL INTERACTION: SOCIAL INTERACTION - SCORE: 0-UNK PROBLEM SOLVING: PROBLEM SOLVING - SCORE: 0-UNK MEMORY: MEMORY - SCORE: 0-UNK SIGNATURE PANEL: The following modified sections: Transfers: Bed, Chair, Wheelchair - Score, Transfers: Toilet - Score , Locomotion: Walk - Score, Locomotion: Wheelchair - Score, Locomotion: Stairs - Score were [electron ically] signed by Lucho Evans PT on FriDec 01 2017 14:52:41 GMT-0500 (Central Daylight Time)
[2017-12-01] MEDS: RIVAROXABAN 20 MG TABLET PO SCH (17:22)
--- NOTE | 2017-12-01 17:53 | R.PN ---
ENCOUNTER DATE AND TIME: 12/01/2017 17:49 (CDT) NAME AIDEE BEEBE DATE OF : 1930 DATE OF ADMISSION: 11/27/2017 15:32 (CDT) CHFCHIEF COMPLAINT: Congestive heart failure SUBJECTIVE: Pt denied any Shortness of Breath. Pt denied any depression. Ambulated 1050' with contact guard assistance using a rolling walker. VITAL SIGNS Temperature: 97.9 F SBP/DBP: 129/60 Pulse: 79 Resp: 16 MEDICATION ALLERGIES: MEPERIDINE HCI ENVIRONMENTAL ALLERGIES: - Substance Allergies None Known - Other Allergies None Known NURSING: - Shower allowing shower ACTIVITIES OOB only with supervision THERAPIES: - Occupational Therapy Evaluate and Treat. - Physical Therapy Evaluate and Treat. PHYSICAL EXAM - Gen Alert and awake Lying in bed No apparent distress Oriented to: person, time, and place - Skin No skin breakdown. Normacephalic - Eyes No abnormalities - ENMT No abnormalities - Neck No abnormalities - CVS RRR - Resp Clear to auscultation - Abd Soft - GI Non distended Deferred - No abnormalities - Ext Mild bilateral lower extremity edema. - MSK 4/5 weakness in both lower extremities. - Neuro 4/5 strength bilaterally lower extremities. - Psych No abnormalities ASSESSMENT: Pt. is a 87 yo Right-handed white female.On 11/26/2017 she was admitted to [facility] with diagnosis CHF.Her impairment category is Cardiac 09 - Cardiac Disorders (09).Pre-morbidl y, Pt. was independent/mod-I in Communication, Social Cognition, Self-Care, Sphincter Control, Transf ers Control, and Locomotion; and she had good Sphincter Control.Currently, she has deficits of Commun ication, Social Cognition, Balance, Endurance, Safety Awareness, Transfers Control, Locomotion, and S elf-Care.Pt. is now referred to [facility] for acute in-patient rehabilitation in order to maximize patient's functional independence in activities of daily living, strength, ROM, and mobility.- Rehab Goal Patient has realistic goal of being discharged at assistance level 6-Deandra to reside at Home with Fam sean/Relatives. MDM/PLAN: - Physical Therapy Gait dysfunction - to improve, our physical therapists will perform initial evaluation of pt's statu s upon admission and devise an individualized program for Gait Training, and Wheel Chair mobility Inability to transfer - to improve, our physical therapists will perform initial evaluation of pt's status upon admission and devise an individualized program for Bed mobility Need for home safety evaluation - to improve, our physical therapists will perform initial evaluatio n of pt's status upon admission and devise an individualized program for Home Evaluation Need in caregiver upon discharge - to improve, our physical therapists will perform initial evaluati on of pt's status upon admission and devise an individualized program for Caregiver Training Edema - to improve, our physical therapists will perform initial evaluation of pt's status upon admis di and devise an individualized program for Elevation Training, and Lymphedema Therapy New precaution - to improve, our physical therapists will perform initial evaluation of pt's status upon admission and devise an individualized program for Patient precaution education Poor balance - to improve, our physical therapists will perform initial evaluation of pt's status up on admission and devise an individualized program for Balance Training Poor endurance - to improve, our physical therapists will perform initial evaluation of pt's status upon admission and devise an individualized program for Endurance Training Weakness - to improve, our physical therapists will perform initial evaluation of pt's status upon a dmission and devise an individualized program for Aquatic Therapy, Neuromuscular Reeducation, and Str engthening Achieving independence - to improve, our physical therapists will perform initial evaluation of pt's status upon admission and devise an individualized program for Community Reintegration Activities - Occupational Therapy ADL deficits - to improve, our occupation therapists will perform initial evaluation of pt's status upon admission and devise an individualized program for Bathing, Bed mobility, Community Reintegratio n, Cooking, Dressing, Eating, Fine Motor Skills, Grooming, Homemaking, Kitchen Mobility, Laundry, Pat ient Education, Safety Awareness, Splinting - Positioning, Transfers(Toilet, Tub, Shower), and Wheel Chair Management Cognitive deficits - to improve, our occupation therapists will perform initial evaluation of pt's s tatus upon admission and devise an individualized program for Cognition - orientation Need for career center advisor - to improve, our occupation therapists will perform initial evaluation of pt's status upon admission and devise an individualized program for Caregiver Training Weakness - to improve, our occupation therapists will perform initial evaluation of pt's status upon admission and devise an individualized program for Aquatic Therapy, Balance, Endurance, UE ROM, and UE strengthening - Diet Type Continue Regular - Diet - Liquid Texture Continue Regular - Tube Feed Continue N/A - Diet - Solid Texture Continue Regular - Shower allowing shower FUNCTIONAL STATUS: UPDATED AT WEEKLY TEAM CONFERENCE - Bladder Same accident frequency: 7-Ind - No accidents in the past 7 days - Bowel Same accident frequency: 7-Ind - No accidents in the past 7 days - Walking Same score based on distance walked: 2(50-149ft) FUNCTIONAL STATUS: - Self-Care A. Eating Ind B. Grooming sup C. Bathing modA D. Dressing - Upper Jaylyn E. Dressing - Lower modA F. Toileting Dep - Sphincter Control G: Bladder control Dep H: Bowel control Dep - Transfers Control I. Bed/Chair/Wheelchair Jaylyn J. Toilet Jaylyn K. Tub/Shower Jaylyn - Locomotion L. Walk/Wheelchair (B) modA M. Stairs ADNO - Communication N. Comprehension (B) sup O. Expression (B) sup - Social Cognition P. Social Interaction sup Q. Problem Solving sup R. Memory sup - Endurance Poor - Balance Poor - Safety Awareness Poor CURRENT FUNC. DEFICITS: Communication, Social Cognition, Balance, Endurance, Safety Awareness, Transfers Control, Locomotion, and Self-Care SIGNATURE PANEL: (CDT)
[2017-12-01] MEDS: MELATONIN 3 MG TABLET PO PRN (20:27)
[2017-12-01] MEDS: EZETIMIBE 10 MG TAB PO SCH (20:27)
[2017-12-01] MEDS: LUMIGAN OPTH SCH (20:28)
[2017-12-02] MEDS: guaiFENesin 100 MG/5 ML UCUP PO PRN ×3 (02:40→20:29)
--- NOTE | 2017-12-02 03:04 | FAST ---
SHIFT START DATE/TIME: 12/01/2017 19:00 (CDT) SHIFT END DATE/TIME: 12/02/2017 07:00 (CDT) NAME AIDEE BEEBE DATE OF : 1930 DATE OF ADMISSION: 11/27/2017 15:32 (CDT) PHONE: AGE: 87 N# [id number] GENDER: Female ENCOUNTER PHYSICIAN: Dr. Donal Noriega M.D. ADMISSION DIAGNOSIS: - Cardiac 09 - Cardiac Disorders () CHF. EATING: Activity did not occur on this shift EATING - SCORE: 0-UNK GROOMING: Wash, rinse, and dry hands GROOMING - STEP 1: Does the patient require assistance when grooming? Yes. GROOMING - STEP 2: Does the patient require the assistance of a helper? Yes. GROOMING - STEP 3: How much assistance does the patient require from the helper? Cuing, coaxing, instructions, or encour agement for completion of grooming GROOMING - SCORE: 5-SUP BATHING: Activity did not occur on this shift BATHING - SCORE: 0-UNK DRESSING - UPPER BODY: Patient is not dressing in public clothing ARTICLES SCORE Total number of steps: 0 DRESSING - UPPER BODY - SCORE: 0-UNK DRESSING - LOWER BODY: Patient is not dressing in public clothing ARTICLES SCORE Total number of steps: 0 DRESSING - LOWER BODY - SCORE: 0-UNK TOILETING: TOILETING - STEP 1: Does the patient require assistance with toileting? Yes. TOILETING - STEP 2: Does the patient require the assistance of a helper? Yes. TOILETING - STEP 3: How much assistance does the patient require from the helper? Hands-on assistance from the helper TOILETING - STEP 4: Of the 3 tasks: 1) Adjusting clothing prior to use, 2) Cleansing of perineal area, 3) Adjusting clot cheo after use; How many tasks does the patient perform WITHOUT assistance of the helper? Two tasks TOILETING - SCORE: 3-MOD BLADDER MANAGEMENT: BLADDER MANAGEMENT - STEP 1: Does the patient control the bladder completely and intentionally without equipment or devices or med ications, and is always continent? No. BLADDER MANAGEMENT - STEP 2: Does the patient require the assistance of a helper? Yes. BLADDER MANAGEMENT - STEP 3: How much assistance does the patient require from the helper? Only set-up of equipment - such as plac ing it within reach of the patient or emptying a device - to maintain either satisfactory voiding pat tern or managing an external device, such as an absorbent pad, ileal device, or catheter BLADDER MANAGEMENT - SCORE: 5-SUP BOWEL MANAGEMENT: Activity did not occur on this shift BOWEL MANAGEMENT - SCORE: 7-IND TRANSFERS: BED, CHAIR, WHEELCHAIR: TRANSFERS: BED, CHAIR, WHEELCHAIR - STEP 1: Does the patient require assistance with bed, chair, or wheelchair transfers? Yes. TRANSFERS: BED, CHAIR, WHEELCHAIR - STEP 2: Does the patient require the assistance of a helper? Yes. TRANSFERS: BED, CHAIR, WHEELCHAIR - STEP 3: How much assistance does the patient require from the helper? Lifting of the legs TRANSFERS: BED, CHAIR, WHEELCHAIR - STEP 4: How many legs does the patient require the helper to lift? both legs TRANSFERS: BED, CHAIR, WHEELCHAIR - SCORE: 3-MOD TRANSFERS: TOILET: TRANSFERS: TOILET - STEP 1: Does the patient require assistance with toilet transfers? Yes. TRANSFERS: TOILET - STEP 2: Does the patient require the assistance of a helper? Yes. TRANSFERS: TOILET - STEP 3: How much assistance does the patient require from the helper? Patient performs half or more of the tr ansferring tasks TRANSFERS: TOILET - STEP 4: Does the patient need only incidental help such as contact guard or steadying during toilet transfer? Yes. TRANSFERS: TOILET - SCORE: 4-MIN TRANSFERS: SHOWER: Activity did not occur on this shift TRANSFERS: SHOWER - SCORE: 0-UNK TRANSFERS: TUB: Activity did not occur on this shift TRANSFERS: TUB - SCORE: 0-UNK LOCOMOTION: WALK: Activity did not occur on this shift LOCOMOTION: WALK - SCORE: 0-UNK LOCOMOTION: WHEELCHAIR: Activity did not occur on this shift LOCOMOTION: WHEELCHAIR - SCORE: 0-UNK COMPREHENSION: COMPREHENSION: TYPE: Both COMPREHENSION - STEP 1: Does the patient require help to understand complex and abstract ideas (such as current events, finan ravi, discharge planning, medical issues, relationships, etc)? No. COMPREHENSION - STEP 2: Does the patient need extra time, require an assistive device (such as glasses for visual comprehensi on or a hearing aid for auditory comprehension) or does s/he have mild difficulty understanding compl ex and abstract information? Yes. COMPREHENSION - SCORE: 6-ALAINA EXPRESSION EXPRESSION: TYPE: Both EXPRESSION - STEP 1: Does the patient require help expressing complex and abstract ideas (such as current events, finances , discharge planning, medical issues, relationships, etc)? No. EXPRESSION - STEP 2: Does the patient need extra time, require an assistive device (such as augmentive communication syste m or a communication board), OR does s/he have mild difficulty expressing complex and abstract ideas (including mild dysarthria or mild word-find problems)? Yes. EXPRESSION - SCORE: 6-ALAINA SOCIAL INTERACTION: SOCIAL INTERACTION - STEP 1: Does the patient require a helper to interact with others in social and therapeutic situations? No. SOCIAL INTERACTION - STEP 2: Does the patient need extra time in social situations, OR does s/he interact with staff, other patien ts, and family members ONLY in structured environments, OR does s/he require medication for social in teraction? Yes, patient needs extra time SOCIAL INTERACTION - SCORE: 6-ALAINA PROBLEM SOLVING: PROBLEM SOLVING - STEP 1: Does the patient need help to solve complex problems such as managing a checking account or confronti ng interpersonal problems? Yes. PROBLEM SOLVING - STEP 2: Does the patient solve basic routine problems half or more of the time? Yes. PROBLEM SOLVING - STEP 3: How often does the patient need help to solve basic routine problems? 10%-24% of the time PROBLEM SOLVING - SCORE: 4-MIN MEMORY: MEMORY - STEP 1: Does the patient need help to remember frequently encountered people, daily routines, and executing r equests? No. MEMORY - STEP 2: Does the patient have slight difficulty recognizing frequently encountered people, daily routines, or executing requests without the need for repetition or using self-initiated or environmental cues to remember? Yes. MEMORY - SCORE: 6-ALAINA SIGNATURE PANEL: The following modified sections: Eating - Score, Grooming - Score, Dressing - Upper Body - Score, Edwardo ssing - Lower Body - Score, Toileting - Score, Bladder Management - Score, Bowel Management - Score, Transfers: Bed, Chair, Wheelchair - Score, Transfers: Toilet - Score, Transfers: Shower - Score, Vasquez sfers: Tub - Score, Locomotion: Walk - Score, Locomotion: Wheelchair - Score, Comprehension - Score, Expression - Score, Social Interaction - Score, Problem Solving - Score, Memory - Score were [electro nically] signed by Eryn Sexton CNA on FriDec 02 2017 03:03:19 GMT-0500 (Central Daylight Time)
[2017-12-02] MEDS: hydroCHLOROthiazide 25 MG TAB PO SCH (07:55)
[2017-12-02] MEDS: SPIRONOLACTONE 25 MG TABLET PO SCH (07:55)
[2017-12-02] MEDS: CARVEDILOL 6.25 MG TAB PO SCH ×2 (07:56→20:27)
[2017-12-02] MEDS: FE SULF/FA/VIT B COMP & C TAB PO SCH (07:56)
[2017-12-02] MEDS: AMIODARONE HCL 200 MG TAB PO SCH (07:56)
[2017-12-02] MEDS: FENOFIBRATE 160 MG TAB PO SCH (07:57)
[2017-12-02] MEDS: FERROUS SULFATE 325 MG TAB PO SCH (07:57)
[2017-12-02] MEDS: COLESTIPOL 1 GM TAB PO SCH ×2 (07:57→20:27)
[2017-12-02] MEDS: HOME MED 1 EA UNK PO SCH (07:59)
[2017-12-02] MEDS: LUMIGAN OPTH SCH ×2 (07:59→20:28)
[2017-12-02] MEDS: HOME MED 1 EA UNK OPTH SCH (08:00)
[2017-12-02] MEDS: PROMOD 30 ML DOSE PO SCH ×2 (08:00→20:00)
[2017-12-02] MEDS: PANTOPRAZOLE 40MG TABLET PO SCH (08:02)
[2017-12-02] MEDS: IRBESARTAN 150 MG TAB PO SCH (10:58)
--- NOTE | 2017-12-02 14:37 | FAST ---
ENCOUNTER DATE AND TIME: 12/02/2017 08:00 (CDT) NAME AIDEE BEEBE DATE OF : 1930 DATE OF ADMISSION: 11/27/2017 15:32 (CDT) PHONE: AGE: 87 N# [id number] GENDER: Female ENCOUNTER PHYSICIAN: Dr. Doanl Noriega M.D. ADMISSION DIAGNOSIS: - Cardiac - Cardiac Disorders () CHF. EATING: Activity did not occur on this shift EATING - SCORE: 0-UNK GROOMING: Wash, rinse, and dry face Wash, rinse, and dry hands GROOMING - STEP 1: Does the patient require assistance when grooming? No. GROOMING - SCORE: 7-IND BATHING: Abdomen Buttocks Chest Left arm Left lower leg and foot Left upper leg Perineal area Right arm Right lower leg and foot Right upper leg BATHING - STEP 1: Does the patient require assistance when bathing? Yes. BATHING - STEP 2: Does the patient require the assistance of a helper? Yes. BATHING - STEP 3: How much assistance does the patient require from the helper? Only incidental help such as placement of a wash cloth in his/her hand a few times as s/he bathes OR help to bathe just one or two areas of the body BATHING - SCORE: 4-MIN DRESSING - UPPER BODY: T-shirt/pullover shirt (four steps) ARTICLES SCORE Total number of steps: 4 DRESSING - UPPER BODY - STEP 1: Does the patient require help when dressing above the waist? No. DRESSING - UPPER BODY - SCORE: 7-IND DRESSING - LOWER BODY: Elastic waist pants (three steps) Slip-on shoe - Left foot (one step) Slip-on shoe - Right foot (one step) Sock - Left foot (one step) Sock - Right foot (one step) Underwear (three steps) ARTICLES SCORE Total number of steps: 10 DRESSING - LOWER BODY - STEP 1: Does the patient require help when dressing below the waist? Yes. DRESSING - LOWER BODY - STEP 2: Does the patient require the assistance of a helper? Yes. DRESSING - LOWER BODY - STEP 3: Does the helper touch the patient while dressing? Yes. DRESSING - LOWER BODY - STEP 4: How many of the total steps does the patient complete on his/her own? 6 DRESSING - LOWER BODY - SCORE: 3-MOD TOILETING: TOILETING - STEP 1: Does the patient require assistance with toileting? Yes. TOILETING - STEP 2: Does the patient require the assistance of a helper? Yes. TOILETING - STEP 3: How much assistance does the patient require from the helper? Hands-on assistance from the helper TOILETING - STEP 4: Of the 3 tasks: 1) Adjusting clothing prior to use, 2) Cleansing of perineal area, 3) Adjusting clot cheo after use; How many tasks does the patient perform WITHOUT assistance of the helper? Three tasks with steadying assistance from the helper TOILETING - SCORE: 4-MIN BLADDER MANAGEMENT: Activity did not occur on this shift BLADDER MANAGEMENT - SCORE: 7-IND BOWEL MANAGEMENT: Activity did not occur on this shift BOWEL MANAGEMENT - SCORE: 7-IND TRANSFERS: BED, CHAIR, WHEELCHAIR: Activity did not occur on this shift TRANSFERS: BED, CHAIR, WHEELCHAIR - SCORE: 0-UNK TRANSFERS: TOILET: TRANSFERS: TOILET - STEP 1: Does the patient require assistance with toilet transfers? Yes. TRANSFERS: TOILET - STEP 2: Does the patient require the assistance of a helper? Yes. TRANSFERS: TOILET - STEP 3: How much assistance does the patient require from the helper? Patient performs half or more of the tr ansferring tasks TRANSFERS: TOILET - STEP 4: Does the patient need only incidental help such as contact guard or steadying during toilet transfer? Yes. TRANSFERS: TOILET - SCORE: 4-MIN TRANSFERS: SHOWER: Activity did not occur on this shift TRANSFERS: SHOWER - SCORE: 0-UNK TRANSFERS: TUB: TRANSFERS: TUB - STEP 1: Does the patient require assistance with tub transfers? Yes. TRANSFERS: TUB - STEP 2: Does the patient require the assistance of a helper? Yes. TRANSFERS: TUB - STEP 3: How much assistance does the patient require from the helper? More than incidental help TRANSFERS: TUB - STEP 4: How much more help does the patient require from the helper? [place] lifts BOTH legs into or out of th e tub TRANSFERS: TUB - SCORE: 3-MOD LOCOMOTION: WALK: Activity did not occur on this shift LOCOMOTION: WALK - SCORE: 0-UNK LOCOMOTION: WHEELCHAIR: Activity did not occur on this shift LOCOMOTION: WHEELCHAIR - SCORE: 0-UNK LOCOMOTION: STAIRS: Activity did not occur on this shift LOCOMOTION: STAIRS - SCORE: 0-UNK COMPREHENSION: COMPREHENSION: TYPE: Visual COMPREHENSION - STEP 1: Does the patient require help to understand complex and abstract ideas (such as current events, finan ravi, discharge planning, medical issues, relationships, etc)? No. COMPREHENSION - STEP 2: Does the patient need extra time, require an assistive device (such as glasses for visual comprehensi on or a hearing aid for auditory comprehension) or does s/he have mild difficulty understanding compl ex and abstract information? Yes. COMPREHENSION - SCORE: 6-ALAINA EXPRESSION EXPRESSION: TYPE: Non-Vocal EXPRESSION - STEP 1: Does the patient require help expressing complex and abstract ideas (such as current events, finances , discharge planning, medical issues, relationships, etc)? No. EXPRESSION - STEP 2: Does the patient need extra time, require an assistive device (such as augmentive communication syste m or a communication board), OR does s/he have mild difficulty expressing complex and abstract ideas (including mild dysarthria or mild word-find problems)? No. EXPRESSION - SCORE: 7-IND SOCIAL INTERACTION: SOCIAL INTERACTION - STEP 1: Does the patient require a helper to interact with others in social and therapeutic situations? No. SOCIAL INTERACTION - STEP 2: Does the patient need extra time in social situations, OR does s/he interact with staff, other patien ts, and family members ONLY in structured environments, OR does s/he require medication for social in teraction? No. SOCIAL INTERACTION - SCORE: 7-IND PROBLEM SOLVING: PROBLEM SOLVING - STEP 1: Does the patient need help to solve complex problems such as managing a checking account or confronti ng interpersonal problems? No. PROBLEM SOLVING - STEP 2: Does the patient require extra time to make decisions or solve problems, OR does s/he have slight dif ficulty reading, initiating, or self-correcting in unfamiliar situations? Yes, patient needs extra ti me. PROBLEM SOLVING - SCORE: 6-ALAINA MEMORY: MEMORY - STEP 1: Does the patient need help to remember frequently encountered people, daily routines, and executing r equests? No. MEMORY - STEP 2: Does the patient have slight difficulty recognizing frequently encountered people, daily routines, or executing requests without the need for repetition or using self-initiated or environmental cues to remember? Yes. MEMORY - SCORE: 6-ALAINA SIGNATURE PANEL: The following modified sections: Eating - Score, Grooming - Score, Bathing - Score, Dressing - Upper Body - Score, Dressing - Lower Body - Score, Toileting - Score, Transfers: Bed, Chair, Wheelchair - S core, Transfers: Toilet - Score, Transfers: Shower - Score, Transfers: Tub - Score, Comprehension - S core, Expression - Score, Social Interaction - Score, Problem Solving - Score, Memory - Score were [e lectronically] signed by LIDYA Judd on FriDec 02 2017 14:36:24 [facility]-0500 (Formerly [facility] Time)
--- NOTE | 2017-12-02 16:07 | FAST ---
SHIFT START DATE/TIME: 12/02/2017 07:00 (CDT) SHIFT END DATE/TIME: 12/02/2017 19:00 (CDT) NAME AIDEE BEEBE DATE OF : 1930 DATE OF ADMISSION: 11/27/2017 15:32 (CDT) PHONE: AGE: 87 N# [id number] GENDER: Female ENCOUNTER PHYSICIAN: Dr. Donal Noriega M.D. ADMISSION DIAGNOSIS: - Cardiac - Cardiac Disorders () CHF. EATING: EATING - STEP 1: Does the patient require assistance when eating? Yes. EATING - STEP 2: Does the patient require the assistance of a helper? No, patient only requires an assistive device, O R s/he takes more than reasonable time to eat, OR there is a safety concern, OR s/he requires modifie d food consistency EATING - SCORE: 6-ALAINA GROOMING: Activity did not occur on this shift GROOMING - SCORE: 0-UNK BATHING: Activity did not occur on this shift BATHING - SCORE: 0-UNK DRESSING - UPPER BODY: Activity did not occur on this shift ARTICLES SCORE Total number of steps: 0 DRESSING - UPPER BODY - SCORE: 0-UNK DRESSING - LOWER BODY: Activity did not occur on this shift ARTICLES SCORE Total number of steps: 0 DRESSING - LOWER BODY - SCORE: 0-UNK TOILETING: TOILETING - STEP 1: Does the patient require assistance with toileting? Yes. TOILETING - STEP 2: Does the patient require the assistance of a helper? Yes. TOILETING - STEP 3: How much assistance does the patient require from the helper? Hands-on assistance from the helper TOILETING - STEP 4: Of the 3 tasks: 1) Adjusting clothing prior to use, 2) Cleansing of perineal area, 3) Adjusting clot cheo after use; How many tasks does the patient perform WITHOUT assistance of the helper? Three tasks with steadying assistance from the helper TOILETING - SCORE: 4-MIN BLADDER MANAGEMENT: BLADDER MANAGEMENT - STEP 1: Does the patient control the bladder completely and intentionally without equipment or devices or med ications, and is always continent? No. BLADDER MANAGEMENT - STEP 2: Does the patient require the assistance of a helper? Yes. BLADDER MANAGEMENT - STEP 3: How much assistance does the patient require from the helper? Only supervision, stand-by, cuing, or c oaxing BLADDER MANAGEMENT - SCORE: 5-SUP BLADDER MANAGEMENT - FREQUENCY OF ACCIDENTS: BLADDER MANAGEMENT(FA) - STEP 1: How many accidents has the patient had during the current shift? 0 BOWEL MANAGEMENT: BOWEL MANAGEMENT - STEP 1: Does the patient control bowels completely and intentionally without equipment devices or medications AND is always continent? No. BOWEL MANAGEMENT - STEP 2: Does the patient require the assistance of a helper? No, patient requires extra time BOWEL MANAGEMENT - SCORE: 6-ALAINA BOWEL MANAGEMENT - FREQUENCY OF ACCIDENTS: BOWEL MANAGEMENT(FA) - STEP 1: How many accidents has the patient had during the current shift? 0 TRANSFERS: BED, CHAIR, WHEELCHAIR: TRANSFERS: BED, CHAIR, WHEELCHAIR - STEP 1: Does the patient require assistance with bed, chair, or wheelchair transfers? Yes. TRANSFERS: BED, CHAIR, WHEELCHAIR - STEP 2: Does the patient require the assistance of a helper? Yes. TRANSFERS: BED, CHAIR, WHEELCHAIR - STEP 3: How much assistance does the patient require from the helper? Lifting of the legs TRANSFERS: BED, CHAIR, WHEELCHAIR - STEP 4: How many legs does the patient require the helper to lift? both legs TRANSFERS: BED, CHAIR, WHEELCHAIR - SCORE: 3-MOD TRANSFERS: TOILET: TRANSFERS: TOILET - STEP 1: Does the patient require assistance with toilet transfers? Yes. TRANSFERS: TOILET - STEP 2: Does the patient require the assistance of a helper? Yes. TRANSFERS: TOILET - STEP 3: How much assistance does the patient require from the helper? Patient performs half or more of the tr ansferring tasks TRANSFERS: TOILET - STEP 4: Does the patient need only incidental help such as contact guard or steadying during toilet transfer? Yes. TRANSFERS: TOILET - SCORE: 4-MIN TRANSFERS: SHOWER: Activity did not occur on this shift TRANSFERS: SHOWER - SCORE: 0-UNK TRANSFERS: TUB: Activity did not occur on this shift TRANSFERS: TUB - SCORE: 0-UNK LOCOMOTION: WALK: Activity did not occur on this shift LOCOMOTION: WALK - SCORE: 0-UNK LOCOMOTION: WHEELCHAIR: LOCOMOTION: WHEELCHAIR - STEP 1: Does the patient need help to go 150 feet in a wheelchair? Yes. LOCOMOTION: WHEELCHAIR - STEP 2: How much assistance does the patient need from the helper? Only supervision, cuing, or coaxing LOCOMOTION: WHEELCHAIR - SCORE: 5-SUP COMPREHENSION: COMPREHENSION: TYPE: Both COMPREHENSION - STEP 1: Does the patient require help to understand complex and abstract ideas (such as current events, finan ravi, discharge planning, medical issues, relationships, etc)? No. COMPREHENSION - STEP 2: Does the patient need extra time, require an assistive device (such as glasses for visual comprehensi on or a hearing aid for auditory comprehension) or does s/he have mild difficulty understanding compl ex and abstract information? Yes. COMPREHENSION - SCORE: 6-ALAINA EXPRESSION EXPRESSION: TYPE: Both EXPRESSION - STEP 1: Does the patient require help expressing complex and abstract ideas (such as current events, finances , discharge planning, medical issues, relationships, etc)? No. EXPRESSION - STEP 2: Does the patient need extra time, require an assistive device (such as augmentive communication syste m or a communication board), OR does s/he have mild difficulty expressing complex and abstract ideas (including mild dysarthria or mild word-find problems)? No. EXPRESSION - SCORE: 7-IND SOCIAL INTERACTION: SOCIAL INTERACTION - STEP 1: Does the patient require a helper to interact with others in social and therapeutic situations? No. SOCIAL INTERACTION - STEP 2: Does the patient need extra time in social situations, OR does s/he interact with staff, other patien ts, and family members ONLY in structured environments, OR does s/he require medication for social in teraction? No. SOCIAL INTERACTION - SCORE: 7-IND PROBLEM SOLVING: PROBLEM SOLVING - STEP 1: Does the patient need help to solve complex problems such as managing a checking account or confronti ng interpersonal problems? No. PROBLEM SOLVING - STEP 2: Does the patient require extra time to make decisions or solve problems, OR does s/he have slight dif ficulty reading, initiating, or self-correcting in unfamiliar situations? Yes, patient needs extra ti me. PROBLEM SOLVING - SCORE: 6-ALAINA MEMORY: MEMORY - STEP 1: Does the patient need help to remember frequently encountered people, daily routines, and executing r equests? No. MEMORY - STEP 2: Does the patient have slight difficulty recognizing frequently encountered people, daily routines, or executing requests without the need for repetition or using self-initiated or environmental cues to remember? Yes. MEMORY - SCORE: 6-ALAINA SIGNATURE PANEL: The following modified sections: Eating - Score, Grooming - Score, Bathing - Score, Dressing - Upper Body - Score, Dressing - Lower Body - Score, Toileting - Score, Bladder Management - Score, Bowel Man agement - Score, Transfers: Bed, Chair, Wheelchair - Score, Transfers: Toilet - Score, Transfers: Birttany wer - Score, Transfers: Tub - Score, Locomotion: Walk - Score, Locomotion: Wheelchair - Score, Compre hension - Score, Expression - Score, Social Interaction - Score, Problem Solving - Score, Memory - Sc ore were [electronically] signed by Roxane Gutierres C.N.A. on FriDec 02 2017 16:06:02 T-0500 (Centra [place] Daylight Time)
[2017-12-02] MEDS: RIVAROXABAN 20 MG TABLET PO SCH (17:29)
[2017-12-02] MEDS: CRANBERRY FRUIT EXTRACT 200 MG CAP PO SCH (20:27)
[2017-12-02] MEDS: MELATONIN 3 MG TABLET PO PRN (20:28)
[2017-12-02] MEDS: EZETIMIBE 10 MG TAB PO SCH (20:28)
--- NOTE | 2017-12-02 21:45 | R.PN ---
ENCOUNTER DATE AND TIME: 12/02/2017 21:42 (CDT) NAME AIDEE BEEBE DATE OF : 1930 DATE OF ADMISSION: 11/27/2017 15:32 (CDT) CHFCHIEF COMPLAINT: Congestive heart failure SUBJECTIVE: Pt denied any Shortness of Breath. Pt denied any depression. Ambulated 120' with contact guard assistance using a rolling walker. VITAL SIGNS Temperature: 97.9 F SBP/DBP: 152/54 Pulse: 80 Resp: 16 MEDICATION ALLERGIES: MEPERIDINE HCI ENVIRONMENTAL ALLERGIES: - Substance Allergies None Known - Other Allergies None Known NURSING: - Shower allowing shower ACTIVITIES OOB only with supervision THERAPIES: - Occupational Therapy Evaluate and Treat. - Physical Therapy Evaluate and Treat. PHYSICAL EXAM - Gen Alert and awake Lying in bed No apparent distress Oriented to: person, time, and place - Skin No skin breakdown. Normacephalic - Eyes No abnormalities - ENMT No abnormalities - Neck No abnormalities - CVS RRR - Resp Clear to auscultation - Abd Soft - GI Non distended Deferred - No abnormalities - Ext Mild bilateral lower extremity edema. - MSK 4/5 weakness in both lower extremities. - Neuro 4/5 strength bilaterally lower extremities. - Psych No abnormalities ASSESSMENT: Pt. is a 87 yo Right-handed white female.On 11/26/2017 she was admitted to [facility] with diagnosis CHF.Her impairment category is Cardiac 09 - Cardiac Disorders (09).Pre-morbidl y, Pt. was independent/mod-I in Communication, Social Cognition, Self-Care, Sphincter Control, Transf ers Control, and Locomotion; and she had good Sphincter Control.Currently, she has deficits of Commun ication, Social Cognition, Balance, Endurance, Safety Awareness, Transfers Control, Locomotion, and S elf-Care.Pt. is now referred to [facility] for acute in-patient rehabilitation in order to maximize patient's functional independence in activities of daily living, strength, ROM, and mobility.- Rehab Goal Patient has realistic goal of being discharged at assistance level 6-Deandra to reside at Home with Fam esan/Relatives. MDM/PLAN: - Physical Therapy Gait dysfunction - to improve, our physical therapists will perform initial evaluation of pt's statu s upon admission and devise an individualized program for Gait Training, and Wheel Chair mobility Inability to transfer - to improve, our physical therapists will perform initial evaluation of pt's status upon admission and devise an individualized program for Bed mobility Need for home safety evaluation - to improve, our physical therapists will perform initial evaluatio n of pt's status upon admission and devise an individualized program for Home Evaluation Need in caregiver upon discharge - to improve, our physical therapists will perform initial evaluati on of pt's status upon admission and devise an individualized program for Caregiver Training Edema - to improve, our physical therapists will perform initial evaluation of pt's status upon admi ssion and devise an individualized program for Elevation Training, and Lymphedema Therapy New precaution - to improve, our physical therapists will perform initial evaluation of pt's status upon admission and devise an individualized program for Patient precaution education Poor balance - to improve, our physical therapists will perform initial evaluation of pt's status up on admission and devise an individualized program for Balance Training Poor endurance - to improve, our physical therapists will perform initial evaluation of pt's status upon admission and devise an individualized program for Endurance Training Weakness - to improve, our physical therapists will perform initial evaluation of pt's status upon a dmission and devise an individualized program for Aquatic Therapy, Neuromuscular Reeducation, and Str engthening Achieving independence - to improve, our physical therapists will perform initial evaluation of pt's status upon admission and devise an individualized program for Community Reintegration Activities - Occupational Therapy ADL deficits - to improve, our occupation therapists will perform initial evaluation of pt's status upon admission and devise an individualized program for Bathing, Bed mobility, Community Reintegratio n, Cooking, Dressing, Eating, Fine Motor Skills, Grooming, Homemaking, Kitchen Mobility, Laundry, Pat ient Education, Safety Awareness, Splinting - Positioning, Transfers(Toilet, Tub, Shower), and Wheel Chair Management Cognitive deficits - to improve, our occupation therapists will perform initial evaluation of pt's s tatus upon admission and devise an individualized program for Cognition - orientation Need for cardiac care unit nurse - to improve, our occupation therapists will perform initial evaluation of pt's status upon admission and devise an individualized program for Caregiver Training Weakness - to improve, our occupation therapists will perform initial evaluation of pt's status upon admission and devise an individualized program for Aquatic Therapy, Balance, Endurance, UE ROM, and UE strengthening - Diet Type Continue Regular - Diet - Liquid Texture Continue Regular - Tube Feed Continue N/A - Diet - Solid Texture Continue Regular - Shower allowing shower FUNCTIONAL STATUS: UPDATED AT WEEKLY TEAM CONFERENCE - Bladder Same accident frequency: 7-Ind - No accidents in the past 7 days - Bowel Same accident frequency: 7-Ind - No accidents in the past 7 days - Walking Same score based on distance walked: 2(50-149ft) FUNCTIONAL STATUS: - Self-Care A. Eating Ind B. Grooming sup C. Bathing modA D. Dressing - Upper Jaylyn E. Dressing - Lower modA F. Toileting Dep - Sphincter Control G: Bladder control Dep H: Bowel control Dep - Transfers Control I. Bed/Chair/Wheelchair Jaylyn J. Toilet Jaylyn K. Tub/Shower Jaylyn - Locomotion L. Walk/Wheelchair (B) modA M. Stairs ADNO - Communication N. Comprehension (B) sup O. Expression (B) sup - Social Cognition P. Social Interaction sup Q. Problem Solving sup R. Memory sup - Endurance Poor - Balance Poor - Safety Awareness Poor CURRENT FUNC. DEFICITS: Communication, Social Cognition, Balance, Endurance, Safety Awareness, Transfers Control, Locomotion, and Self-Care SIGNATURE PANEL: (CDT)
--- NOTE | 2017-12-03 01:20 | FAST ---
SHIFT START DATE/TIME: 12/02/2017 19:00 (CDT) SHIFT END DATE/TIME: 12/03/2017 07:00 (CDT) NAME AIDEE BEEBE DATE OF : 1930 DATE OF ADMISSION: 11/27/2017 15:32 (CDT) PHONE: AGE: 87 N# [id number] GENDER: Female ENCOUNTER PHYSICIAN: Dr. Donal Noriega M.D. ADMISSION DIAGNOSIS: - Cardiac 09 - Cardiac Disorders () CHF. EATING: Activity did not occur on this shift EATING - SCORE: 0-UNK GROOMING: Wash, rinse, and dry hands GROOMING - STEP 1: Does the patient require assistance when grooming? Yes. GROOMING - STEP 2: Does the patient require the assistance of a helper? Yes. GROOMING - STEP 3: How much assistance does the patient require from the helper? Cuing, coaxing, instructions, or encour agement for completion of grooming GROOMING - SCORE: 5-SUP BATHING: Activity did not occur on this shift BATHING - SCORE: 0-UNK DRESSING - UPPER BODY: Patient is not dressing in public clothing ARTICLES SCORE Total number of steps: 0 DRESSING - UPPER BODY - SCORE: 0-UNK DRESSING - LOWER BODY: Patient is not dressing in public clothing ARTICLES SCORE Total number of steps: 0 DRESSING - LOWER BODY - SCORE: 0-UNK TOILETING: TOILETING - STEP 1: Does the patient require assistance with toileting? Yes. TOILETING - STEP 2: Does the patient require the assistance of a helper? Yes. TOILETING - STEP 3: How much assistance does the patient require from the helper? Hands-on assistance from the helper TOILETING - STEP 4: Of the 3 tasks: 1) Adjusting clothing prior to use, 2) Cleansing of perineal area, 3) Adjusting clot cheo after use; How many tasks does the patient perform WITHOUT assistance of the helper? Two tasks TOILETING - SCORE: 3-MOD BLADDER MANAGEMENT: BLADDER MANAGEMENT - STEP 1: Does the patient control the bladder completely and intentionally without equipment or devices or med ications, and is always continent? No. BLADDER MANAGEMENT - STEP 2: Does the patient require the assistance of a helper? Yes. BLADDER MANAGEMENT - STEP 3: How much assistance does the patient require from the helper? Only set-up of equipment - such as plac ing it within reach of the patient or emptying a device - to maintain either satisfactory voiding pat tern or managing an external device, such as an absorbent pad, ileal device, or catheter BLADDER MANAGEMENT - SCORE: 5-SUP BOWEL MANAGEMENT: Activity did not occur on this shift BOWEL MANAGEMENT - SCORE: 7-IND TRANSFERS: BED, CHAIR, WHEELCHAIR: TRANSFERS: BED, CHAIR, WHEELCHAIR - STEP 1: Does the patient require assistance with bed, chair, or wheelchair transfers? Yes. TRANSFERS: BED, CHAIR, WHEELCHAIR - STEP 2: Does the patient require the assistance of a helper? Yes. TRANSFERS: BED, CHAIR, WHEELCHAIR - STEP 3: How much assistance does the patient require from the helper? Lifting of the legs TRANSFERS: BED, CHAIR, WHEELCHAIR - STEP 4: How many legs does the patient require the helper to lift? both legs TRANSFERS: BED, CHAIR, WHEELCHAIR - SCORE: 3-MOD TRANSFERS: TOILET: TRANSFERS: TOILET - STEP 1: Does the patient require assistance with toilet transfers? Yes. TRANSFERS: TOILET - STEP 2: Does the patient require the assistance of a helper? Yes. TRANSFERS: TOILET - STEP 3: How much assistance does the patient require from the helper? Patient performs half or more of the tr ansferring tasks TRANSFERS: TOILET - STEP 4: Does the patient need only incidental help such as contact guard or steadying during toilet transfer? Yes. TRANSFERS: TOILET - SCORE: 4-MIN TRANSFERS: SHOWER: Activity did not occur on this shift TRANSFERS: SHOWER - SCORE: 0-UNK TRANSFERS: TUB: Activity did not occur on this shift TRANSFERS: TUB - SCORE: 0-UNK LOCOMOTION: WALK: Activity did not occur on this shift LOCOMOTION: WALK - SCORE: 0-UNK LOCOMOTION: WHEELCHAIR: Activity did not occur on this shift LOCOMOTION: WHEELCHAIR - SCORE: 0-UNK COMPREHENSION: COMPREHENSION: TYPE: Both COMPREHENSION - STEP 1: Does the patient require help to understand complex and abstract ideas (such as current events, finan ravi, discharge planning, medical issues, relationships, etc)? Yes. COMPREHENSION - STEP 2: Does the patient require help to understand questions or statements about basic needs or ideas (such as hunger, thirst, sleep, safety, daily schedule, room location, or discomfort) half or more of the t marlen? No. COMPREHENSION - STEP 3: How often does the patient need help to understand directions and conversation about basic needs? 10% - 24% of the time COMPREHENSION - SCORE: 4-MIN EXPRESSION EXPRESSION: TYPE: Both EXPRESSION - STEP 1: Does the patient require help expressing complex and abstract ideas (such as current events, finances , discharge planning, medical issues, relationships, etc)? No. EXPRESSION - STEP 2: Does the patient need extra time, require an assistive device (such as augmentive communication syste m or a communication board), OR does s/he have mild difficulty expressing complex and abstract ideas (including mild dysarthria or mild word-find problems)? Yes. EXPRESSION - SCORE: 6-ALAINA SOCIAL INTERACTION: SOCIAL INTERACTION - STEP 1: Does the patient require a helper to interact with others in social and therapeutic situations? No. SOCIAL INTERACTION - STEP 2: Does the patient need extra time in social situations, OR does s/he interact with staff, other patien ts, and family members ONLY in structured environments, OR does s/he require medication for social in teraction? Yes, patient needs extra time SOCIAL INTERACTION - SCORE: 6-ALAINA PROBLEM SOLVING: PROBLEM SOLVING - STEP 1: Does the patient need help to solve complex problems such as managing a checking account or confronti ng interpersonal problems? Yes. PROBLEM SOLVING - STEP 2: Does the patient solve basic routine problems half or more of the time? Yes. PROBLEM SOLVING - STEP 3: How often does the patient need help to solve basic routine problems? 10%-24% of the time PROBLEM SOLVING - SCORE: 4-MIN MEMORY: MEMORY - STEP 1: Does the patient need help to remember frequently encountered people, daily routines, and executing r equests? No. MEMORY - STEP 2: Does the patient have slight difficulty recognizing frequently encountered people, daily routines, or executing requests without the need for repetition or using self-initiated or environmental cues to remember? Yes. MEMORY - SCORE: 6-ALAINA SIGNATURE PANEL: The following modified sections: Eating - Score, Grooming - Score, Dressing - Upper Body - Score, Edwardo ssing - Lower Body - Score, Toileting - Score, Bladder Management - Score, Bowel Management - Score, Transfers: Bed, Chair, Wheelchair - Score, Transfers: Toilet - Score, Transfers: Shower - Score, Vasquez sfers: Tub - Score, Locomotion: Walk - Score, Locomotion: Wheelchair - Score, Comprehension - Score, Expression - Score, Social Interaction - Score, Problem Solving - Score, Memory - Score were [electro nically] signed by Eryn Sexton CNA on FriDec 03 2017 01:20:05 GMT-0500 (Central Daylight Time)
[2017-12-03] MEDS: guaiFENesin 100 MG/5 ML UCUP PO PRN ×3 (04:26→15:41)
[2017-12-03] MEDS: PANTOPRAZOLE 40MG TABLET PO SCH (06:30)
[2017-12-03] MEDS: PROMOD 30 ML DOSE PO SCH ×3 (08:00→19:21)
[2017-12-03] MEDS: LUMIGAN OPTH SCH ×2 (08:00→19:21)
[2017-12-03] MEDS: HOME MED 1 EA UNK PO SCH (08:00)
[2017-12-03] MEDS: FE SULF/FA/VIT B COMP & C TAB PO SCH (08:05)
[2017-12-03] MEDS: AMIODARONE HCL 200 MG TAB PO SCH (08:06)
[2017-12-03] MEDS: COLESTIPOL 1 GM TAB PO SCH ×2 (08:06→19:24)
[2017-12-03] MEDS: CRANBERRY FRUIT EXTRACT 200 MG CAP PO SCH ×2 (08:06→19:24)
[2017-12-03] MEDS: FERROUS SULFATE 325 MG TAB PO SCH (08:06)
[2017-12-03] MEDS: SPIRONOLACTONE 25 MG TABLET PO SCH (08:07)
[2017-12-03] MEDS: CARVEDILOL 6.25 MG TAB PO SCH ×2 (08:08→19:24)
[2017-12-03] MEDS: COMBIGAN OPTH SCH (08:08)
[2017-12-03] MEDS: hydroCHLOROthiazide 25 MG TAB PO SCH (08:08)
[2017-12-03] MEDS: FENOFIBRATE 160 MG TAB PO SCH (08:09)
[2017-12-03] MEDS: IRBESARTAN 150 MG TAB PO SCH (08:09)
--- NOTE | 2017-12-03 10:58 | FAST ---
SHIFT START DATE/TIME: 12/03/2017 07:00 (CDT) SHIFT END DATE/TIME: 12/03/2017 19:00 (CDT) NAME AIDEE BEEBE DATE OF : 1930 DATE OF ADMISSION: 11/27/2017 15:32 (CDT) PHONE: AGE: 87 N# [id number] GENDER: Female ENCOUNTER PHYSICIAN: Dr. Donal Noriega M.D. ADMISSION DIAGNOSIS: - Cardiac - Cardiac Disorders () CHF. EATING: EATING - STEP 1: Does the patient require assistance when eating? Yes. EATING - STEP 2: Does the patient require the assistance of a helper? Yes. EATING - STEP 3: Does the patient perform half or more of the eating tasks? Yes. EATING - STEP 4: Does the patient need only supervision, cuing, coaxing OR help to apply an orthosis OR help to cut fo od, open containers, pour liquids, or butter bread? Yes. EATING - SCORE: 5-SUP GROOMING: Comb/brush hair Wash, rinse, and dry face Wash, rinse, and dry hands GROOMING - STEP 1: Does the patient require assistance when grooming? Yes. GROOMING - STEP 2: Does the patient require the assistance of a helper? Yes. GROOMING - STEP 3: How much assistance does the patient require from the helper? Cuing, coaxing, instructions, or encour agement for completion of grooming GROOMING - SCORE: 5-SUP BATHING: Activity did not occur on this shift BATHING - SCORE: 0-UNK DRESSING - UPPER BODY: Activity did not occur on this shift ARTICLES SCORE Total number of steps: 0 DRESSING - UPPER BODY - SCORE: 0-UNK DRESSING - LOWER BODY: Activity did not occur on this shift ARTICLES SCORE Total number of steps: 0 DRESSING - LOWER BODY - SCORE: 0-UNK TOILETING: TOILETING - STEP 1: Does the patient require assistance with toileting? Yes. TOILETING - STEP 2: Does the patient require the assistance of a helper? Yes. TOILETING - STEP 3: How much assistance does the patient require from the helper? Only supervision TOILETING - SCORE: 5-SUP BLADDER MANAGEMENT: BLADDER MANAGEMENT - STEP 1: Does the patient control the bladder completely and intentionally without equipment or devices or med ications, and is always continent? No. BLADDER MANAGEMENT - STEP 2: Does the patient require the assistance of a helper? No, patient requires and independently uses an a ssistive device, such as a urinal, bedpan, bedside commode, catheter, absorbent pad, or collecting de vice BLADDER MANAGEMENT - SCORE: 6-ALAINA BOWEL MANAGEMENT: Activity did not occur on this shift BOWEL MANAGEMENT - SCORE: 7-IND TRANSFERS: BED, CHAIR, WHEELCHAIR: TRANSFERS: BED, CHAIR, WHEELCHAIR - STEP 1: Does the patient require assistance with bed, chair, or wheelchair transfers? Yes. TRANSFERS: BED, CHAIR, WHEELCHAIR - STEP 2: Does the patient require the assistance of a helper? Yes. TRANSFERS: BED, CHAIR, WHEELCHAIR - STEP 3: How much assistance does the patient require from the helper? Only supervision TRANSFERS: BED, CHAIR, WHEELCHAIR - SCORE: 5-SUP TRANSFERS: TOILET: TRANSFERS: TOILET - STEP 1: Does the patient require assistance with toilet transfers? Yes. TRANSFERS: TOILET - STEP 2: Does the patient require the assistance of a helper? Yes. TRANSFERS: TOILET - STEP 3: How much assistance does the patient require from the helper? Only supervision, cuing, coaxing, OR he lp to set out transfer equipment or to lock brakes and/or lift foot rests TRANSFERS: TOILET - SCORE: 5-SUP TRANSFERS: SHOWER: Activity did not occur on this shift TRANSFERS: SHOWER - SCORE: 0-UNK TRANSFERS: TUB: Activity did not occur on this shift TRANSFERS: TUB - SCORE: 0-UNK LOCOMOTION: WALK: Activity did not occur on this shift LOCOMOTION: WALK - SCORE: 0-UNK LOCOMOTION: WHEELCHAIR: Activity did not occur on this shift LOCOMOTION: WHEELCHAIR - SCORE: 0-UNK COMPREHENSION: COMPREHENSION: TYPE: Both COMPREHENSION - STEP 1: Does the patient require help to understand complex and abstract ideas (such as current events, finan ravi, discharge planning, medical issues, relationships, etc)? No. COMPREHENSION - STEP 2: Does the patient need extra time, require an assistive device (such as glasses for visual comprehensi on or a hearing aid for auditory comprehension) or does s/he have mild difficulty understanding compl ex and abstract information? Yes. COMPREHENSION - SCORE: 6-ALAINA EXPRESSION EXPRESSION: TYPE: Both EXPRESSION - STEP 1: Does the patient require help expressing complex and abstract ideas (such as current events, finances , discharge planning, medical issues, relationships, etc)? No. EXPRESSION - STEP 2: Does the patient need extra time, require an assistive device (such as augmentive communication syste m or a communication board), OR does s/he have mild difficulty expressing complex and abstract ideas (including mild dysarthria or mild word-find problems)? Yes. EXPRESSION - SCORE: 6-ALAINA SOCIAL INTERACTION: SOCIAL INTERACTION - STEP 1: Does the patient require a helper to interact with others in social and therapeutic situations? Yes. SOCIAL INTERACTION - STEP 2: Does the patient interact appropriately half or more of the time? Yes. SOCIAL INTERACTION - STEP 3: How often does the patient need help to interact appropriately? Less than 10% of the time SOCIAL INTERACTION - SCORE: 5-SUP PROBLEM SOLVING: PROBLEM SOLVING - STEP 1: Does the patient need help to solve complex problems such as managing a checking account or confronti ng interpersonal problems? Yes. PROBLEM SOLVING - STEP 2: Does the patient solve basic routine problems half or more of the time? Yes. PROBLEM SOLVING - STEP 3: How often does the patient need help to solve basic routine problems? Less than 10% of the time PROBLEM SOLVING - SCORE: 5-SUP MEMORY: MEMORY - STEP 1: Does the patient need help to remember frequently encountered people, daily routines, and executing r equests? Yes. MEMORY - STEP 2: How often does the patient need help to remember frequently encountered people, daily routines, and e xecuting requests? Less than 10% of the time MEMORY - SCORE: 5-SUP SIGNATURE PANEL: The following modified sections: Eating - Score, Grooming - Score, Bathing - Score, Dressing - Upper Body - Score, Dressing - Lower Body - Score, Toileting - Score, Bladder Management - Score, Bowel Man agement - Score, Transfers: Bed, Chair, Wheelchair - Score, Transfers: Toilet - Score, Transfers: Brittany wer - Score, Transfers: Tub - Score, Locomotion: Walk - Score, Locomotion: Wheelchair - Score, Compre hension - Score, Expression - Score, Social Interaction - Score, Problem Solving - Score, Memory - Sc ore were [electronically] signed by Camilo Elizabeth on FriDec 03 2017 10:57:07 T-0500 (Central Daylight Time)
--- NOTE | 2017-12-03 16:11 | FAST ---
ENCOUNTER DATE AND TIME: 12/03/2017 08:00 (CDT) NAME AIDEE BEEBE DATE OF : 1930 DATE OF ADMISSION: 11/27/2017 15:32 (CDT) PHONE: AGE: 87 SSN# [id number] GENDER: Female ENCOUNTER PHYSICIAN: Dr. Donal Noriega M.D. ADMISSION DIAGNOSIS: - Cardiac 09 - Cardiac Disorders () CHF. EATING: Activity did not occur on this shift EATING - SCORE: 0-UNK GROOMING: Activity did not occur on this shift GROOMING - SCORE: 0-UNK BATHING: Activity did not occur on this shift BATHING - SCORE: 0-UNK DRESSING - UPPER BODY: Activity did not occur on this shift Patient is not dressing in public clothing ARTICLES SCORE Total number of steps: 0 DRESSING - UPPER BODY - SCORE: 0-UNK DRESSING - LOWER BODY: Activity did not occur on this shift Patient is not dressing in public clothing ARTICLES SCORE Total number of steps: 0 DRESSING - LOWER BODY - SCORE: 0-UNK TOILETING: Activity did not occur on this shift TOILETING - SCORE: 0-UNK BLADDER MANAGEMENT: Activity did not occur on this shift BLADDER MANAGEMENT - SCORE: 7-IND BOWEL MANAGEMENT: Activity did not occur on this shift BOWEL MANAGEMENT - SCORE: 7-IND TRANSFERS: BED, CHAIR, WHEELCHAIR: TRANSFERS: BED, CHAIR, WHEELCHAIR - STEP 1: Does the patient require assistance with bed, chair, or wheelchair transfers? Yes. TRANSFERS: BED, CHAIR, WHEELCHAIR - STEP 2: Does the patient require the assistance of a helper? Yes. TRANSFERS: BED, CHAIR, WHEELCHAIR - STEP 3: How much assistance does the patient require from the helper? Steadying/guiding assistance TRANSFERS: BED, CHAIR, WHEELCHAIR - SCORE: 4-MIN TRANSFERS: TOILET: TRANSFERS: TOILET - STEP 1: Does the patient require assistance with toilet transfers? Yes. TRANSFERS: TOILET - STEP 2: Does the patient require the assistance of a helper? Yes. TRANSFERS: TOILET - STEP 3: How much assistance does the patient require from the helper? Patient performs half or more of the tr ansferring tasks TRANSFERS: TOILET - STEP 4: Does the patient need only incidental help such as contact guard or steadying during toilet transfer? Yes. TRANSFERS: TOILET - SCORE: 4-MIN TRANSFERS: SHOWER: Activity did not occur on this shift TRANSFERS: SHOWER - SCORE: 0-UNK TRANSFERS: TUB: Activity did not occur on this shift TRANSFERS: TUB - SCORE: 0-UNK LOCOMOTION: WALK: LOCOMOTION: WALK - STEP 1: Does the patient need help to walk 150 feet? Yes. LOCOMOTION: WALK - STEP 2: How much assistance does the patient require to walk a minimum of 150 feet? Only incidental help such as contact guarding or steadying LOCOMOTION: WALK - SCORE: 4-MIN LOCOMOTION: WHEELCHAIR: LOCOMOTION: WHEELCHAIR - STEP 1: Does the patient need help to go 150 feet in a wheelchair? Yes. LOCOMOTION: WHEELCHAIR - STEP 2: How much assistance does the patient need from the helper? Only supervision, cuing, or coaxing LOCOMOTION: WHEELCHAIR - SCORE: 5-SUP LOCOMOTION: STAIRS: LOCOMOTION: STAIRS - STEP 1: Does the patient need help to go up and down 12 to 14 stairs? Yes. LOCOMOTION: STAIRS - STEP 2: How much assistance does the patient need from the helper to go a minimum of 12 to 14 stairs? The pat ient goes less than 12 to 14 stairs - but more than 4 to 6 stairs LOCOMOTION: STAIRS - SCORE: 2-MAX COMPREHENSION: COMPREHENSION - SCORE: 0-UNK EXPRESSION EXPRESSION - SCORE: 0-UNK SOCIAL INTERACTION: SOCIAL INTERACTION - SCORE: 0-UNK PROBLEM SOLVING: PROBLEM SOLVING - SCORE: 0-UNK MEMORY: MEMORY - SCORE: 0-UNK SIGNATURE PANEL: The following modified sections: Transfers: Bed, Chair, Wheelchair - Score, Transfers: Toilet - Score , Locomotion: Walk - Score, Locomotion: Wheelchair - Score, Locomotion: Stairs - Score were [electron fredo] signed by Lucho Evans PT on FriDec 03 2017 16:10:39 T-0500 (Central Daylight Time)
[2017-12-03] MEDS: RIVAROXABAN 20 MG TABLET PO SCH (16:43)
--- NOTE | 2017-12-03 18:57 | R.PN ---
ENCOUNTER DATE AND TIME: 12/03/2017 18:54 (CDT) NAME AIDEE BEEBE DATE OF : 1930 DATE OF ADMISSION: 11/27/2017 15:32 (CDT) CHFCHIEF COMPLAINT: Congestive heart failure SUBJECTIVE: Pt denied any Shortness of Breath. Pt denied any depression. Ambulated 550' with standby assistance using a rolling walker. VITAL SIGNS Temperature: 97.9 F SBP/DBP: 140/66 Pulse: 80 Resp: 16 MEDICATION ALLERGIES: MEPERIDINE HCI ENVIRONMENTAL ALLERGIES: - Substance Allergies None Known - Other Allergies None Known NURSING: - Shower allowing shower ACTIVITIES OOB only with supervision THERAPIES: - Occupational Therapy Evaluate and Treat. - Physical Therapy Evaluate and Treat. PHYSICAL EXAM - Gen Alert and awake Lying in bed No apparent distress Oriented to: person, time, and place - Skin No skin breakdown. Normacephalic - Eyes No abnormalities - ENMT No abnormalities - Neck No abnormalities - CVS RRR - Resp Clear to auscultation - Abd Soft - GI Non distended Deferred - No abnormalities - Ext Mild bilateral lower extremity edema. - MSK 4/5 weakness in both lower extremities. - Neuro 4/5 strength bilaterally lower extremities. - Psych No abnormalities ASSESSMENT: Pt. is a 87 yo Right-handed white female.On 11/26/2017 she was admitted to [facility] with diagnosis CHF.Her impairment category is Cardiac 09 - Cardiac Disorders (09).Pre-morbidl y, Pt. was independent/mod-I in Communication, Social Cognition, Self-Care, Sphincter Control, Transf ers Control, and Locomotion; and she had good Sphincter Control.Currently, she has deficits of Commun ication, Social Cognition, Balance, Endurance, Safety Awareness, Transfers Control, Locomotion, and S elf-Care.Pt. is now referred to [facility] for acute in-patient rehabilitation in order to maximize patient's functional independence in activities of daily living, strength, ROM, and mobility.- Rehab Goal Patient has realistic goal of being discharged at assistance level 6-Deandra to reside at Home with Fam sean/Relatives. MDM/PLAN: - Physical Therapy Gait dysfunction - to improve, our physical therapists will perform initial evaluation of pt's statu s upon admission and devise an individualized program for Gait Training, and Wheel Chair mobility Inability to transfer - to improve, our physical therapists will perform initial evaluation of pt's status upon admission and devise an individualized program for Bed mobility Need for home safety evaluation - to improve, our physical therapists will perform initial evaluatio n of pt's status upon admission and devise an individualized program for Home Evaluation Need in caregiver upon discharge - to improve, our physical therapists will perform initial evaluati on of pt's status upon admission and devise an individualized program for Caregiver Training Edema - to improve, our physical therapists will perform initial evaluation of pt's status upon admi ssion and devise an individualized program for Elevation Training, and Lymphedema Therapy New precaution - to improve, our physical therapists will perform initial evaluation of pt's status upon admission and devise an individualized program for Patient precaution education Poor balance - to improve, our physical therapists will perform initial evaluation of pt's status up on admission and devise an individualized program for Balance Training Poor endurance - to improve, our physical therapists will perform initial evaluation of pt's status upon admission and devise an individualized program for Endurance Training Weakness - to improve, our physical therapists will perform initial evaluation of pt's status upon a dmission and devise an individualized program for Aquatic Therapy, Neuromuscular Reeducation, and Str engthening Achieving independence - to improve, our physical therapists will perform initial evaluation of pt's status upon admission and devise an individualized program for Community Reintegration Activities - Occupational Therapy ADL deficits - to improve, our occupation therapists will perform initial evaluation of pt's status upon admission and devise an individualized program for Bathing, Bed mobility, Community Reintegratio n, Cooking, Dressing, Eating, Fine Motor Skills, Grooming, Homemaking, Kitchen Mobility, Laundry, Pat ient Education, Safety Awareness, Splinting - Positioning, Transfers(Toilet, Tub, Shower), and Wheel Chair Management Cognitive deficits - to improve, our occupation therapists will perform initial evaluation of pt's s tatus upon admission and devise an individualized program for Cognition - orientation Need for senior resident care director - to improve, our occupation therapists will perform initial evaluation of pt's status upon admission and devise an individualized program for Caregiver Training Weakness - to improve, our occupation therapists will perform initial evaluation of pt's status upon admission and devise an individualized program for Aquatic Therapy, Balance, Endurance, UE ROM, and UE strengthening - Diet Type Continue Regular - Diet - Liquid Texture Continue Regular - Tube Feed Continue N/A - Diet - Solid Texture Continue Regular - Shower allowing shower FUNCTIONAL STATUS: UPDATED AT WEEKLY TEAM CONFERENCE - Bladder Same accident frequency: 7-Ind - No accidents in the past 7 days - Bowel Same accident frequency: 7-Ind - No accidents in the past 7 days - Walking Same score based on distance walked: 2(50-149ft) FUNCTIONAL STATUS: - Self-Care A. Eating Ind B. Grooming sup C. Bathing modA D. Dressing - Upper Jaylyn E. Dressing - Lower modA F. Toileting Dep - Sphincter Control G: Bladder control Dep H: Bowel control Dep - Transfers Control I. Bed/Chair/Wheelchair Jaylyn J. Toilet Jaylyn K. Tub/Shower Jaylyn - Locomotion L. Walk/Wheelchair (B) modA M. Stairs ADNO - Communication N. Comprehension (B) sup O. Expression (B) sup - Social Cognition P. Social Interaction sup Q. Problem Solving sup R. Memory sup - Endurance Poor - Balance Poor - Safety Awareness Poor CURRENT FUNC. DEFICITS: Communication, Social Cognition, Balance, Endurance, Safety Awareness, Transfers Control, Locomotion, and Self-Care SIGNATURE PANEL: (CDT)
[2017-12-03] MEDS: GUAIFENESIN 600 MG SA TAB PO SCH (19:23)
[2017-12-03] MEDS: MELATONIN 3 MG TABLET PO PRN (19:25)
[2017-12-03] MEDS: EZETIMIBE 10 MG TAB PO SCH (20:00)
[2017-12-04] MEDS: PANTOPRAZOLE 40MG TABLET PO SCH (06:14)
[2017-12-04 06:37] LABS: Absolute Monocytes 0.9 K/uL (0.1-1.3); Absolute Neutrophil 5.1 K/uL (1.8-8.0); Basophils % 1.1 % (0-1.3); Eosinophils % 3.7 % (0-4.4); Hematocrit 29.8 % (36.0-45.0); Lymphocytes % 13.6 % (15.3-44.8); MCH 28.7 pg (27.0-35.0); MCV 86.5 fL (80-100); MPV 7.8 fL (7.6-11.3); Monocytes % 12.7 % (3.3-12.3); RBC Red Blood Cell Count 3.45 M/uL (3.86-4.86)
[2017-12-04 06:52] LABS: Albumin 2.8 g/dL (3.4-5.0); Potassium 4.2 mmol/L (3.5-5.1); Prealbumin 15.3 mg/dL (20-40)
[2017-12-04] MEDS: COMBIGAN OPTH SCH (07:30)
[2017-12-04] MEDS: LUMIGAN OPTH SCH ×2 (07:30→20:00)
[2017-12-04] MEDS: FERROUS SULFATE 325 MG TAB PO SCH (07:48)
[2017-12-04] MEDS: CRANBERRY FRUIT EXTRACT 200 MG CAP PO SCH ×2 (07:49→20:06)
[2017-12-04] MEDS: IRBESARTAN 150 MG TAB PO SCH (07:49)
[2017-12-04] MEDS: SPIRONOLACTONE 25 MG TABLET PO SCH (07:50)
[2017-12-04] MEDS: FE SULF/FA/VIT B COMP & C TAB PO SCH (07:50)
[2017-12-04] MEDS: hydroCHLOROthiazide 25 MG TAB PO SCH (07:50)
[2017-12-04] MEDS: COLESTIPOL 1 GM TAB PO SCH ×2 (07:51→20:06)
[2017-12-04] MEDS: FENOFIBRATE 160 MG TAB PO SCH (07:51)
[2017-12-04] MEDS: CARVEDILOL 6.25 MG TAB PO SCH ×2 (07:51→20:06)
[2017-12-04] MEDS: GUAIFENESIN 600 MG SA TAB PO SCH ×2 (07:51→20:06)
[2017-12-04] MEDS: AMIODARONE HCL 200 MG TAB PO SCH (07:52)
[2017-12-04] MEDS: PROMOD 30 ML DOSE PO SCH ×2 (07:57→20:00)
[2017-12-04] MEDS: HOME MED 1 EA UNK PO SCH (07:57)
--- NOTE | 2017-12-04 14:00 | FAST ---
ENCOUNTER DATE AND TIME: 12/04/2017 08:00 (CDT) NAME AIDEE BEEBE DATE OF : 1930 DATE OF ADMISSION: 11/27/2017 15:32 (CDT) PHONE: AGE: 87 N# [id number] GENDER: Female ENCOUNTER PHYSICIAN: Dr. Donal Noriega M.D. ADMISSION DIAGNOSIS: - Cardiac - Cardiac Disorders () CHF. EATING: Activity did not occur on this shift EATING - SCORE: 0-UNK GROOMING: Wash, rinse, and dry face Wash, rinse, and dry hands GROOMING - STEP 1: Does the patient require assistance when grooming? No. GROOMING - SCORE: 7-IND BATHING: Abdomen Buttocks Chest Left arm Left lower leg and foot Left upper leg Perineal area Right arm Right lower leg and foot Right upper leg BATHING - STEP 1: Does the patient require assistance when bathing? Yes. BATHING - STEP 2: Does the patient require the assistance of a helper? Yes. BATHING - STEP 3: How much assistance does the patient require from the helper? Only incidental help such as placement of a wash cloth in his/her hand a few times as s/he bathes OR help to bathe just one or two areas of the body BATHING - SCORE: 4-MIN DRESSING - UPPER BODY: T-shirt/pullover shirt (four steps) ARTICLES SCORE Total number of steps: 4 DRESSING - UPPER BODY - STEP 1: Does the patient require help when dressing above the waist? No. DRESSING - UPPER BODY - SCORE: 7-IND DRESSING - LOWER BODY: Elastic waist pants (three steps) Slip-on shoe - Left foot (one step) Slip-on shoe - Right foot (one step) Sock - Left foot (one step) Sock - Right foot (one step) Underwear (three steps) ARTICLES SCORE Total number of steps: 10 DRESSING - LOWER BODY - STEP 1: Does the patient require help when dressing below the waist? Yes. DRESSING - LOWER BODY - STEP 2: Does the patient require the assistance of a helper? Yes. DRESSING - LOWER BODY - STEP 3: Does the helper touch the patient while dressing? Yes. DRESSING - LOWER BODY - STEP 4: How many of the total steps does the patient complete on his/her own? 8 DRESSING - LOWER BODY - SCORE: 4-MIN TOILETING: Activity did not occur on this shift TOILETING - SCORE: 0-UNK BLADDER MANAGEMENT: Activity did not occur on this shift BLADDER MANAGEMENT - SCORE: 7-IND BOWEL MANAGEMENT: Activity did not occur on this shift BOWEL MANAGEMENT - SCORE: 7-IND TRANSFERS: BED, CHAIR, WHEELCHAIR: Activity did not occur on this shift TRANSFERS: BED, CHAIR, WHEELCHAIR - SCORE: 0-UNK TRANSFERS: TOILET: Activity did not occur on this shift TRANSFERS: TOILET - SCORE: 0-UNK TRANSFERS: SHOWER: Activity did not occur on this shift TRANSFERS: SHOWER - SCORE: 0-UNK TRANSFERS: TUB: TRANSFERS: TUB - STEP 1: Does the patient require assistance with tub transfers? Yes. TRANSFERS: TUB - STEP 2: Does the patient require the assistance of a helper? Yes. TRANSFERS: TUB - STEP 3: How much assistance does the patient require from the helper? Only supervision, cuing, coaxing, or he lp to set out transfer equipment or to lock brakes and/or lift foot rests TRANSFERS: TUB - SCORE: 5-SUP LOCOMOTION: WALK: Activity did not occur on this shift LOCOMOTION: WALK - SCORE: 0-UNK LOCOMOTION: WHEELCHAIR: Activity did not occur on this shift LOCOMOTION: WHEELCHAIR - SCORE: 0-UNK LOCOMOTION: STAIRS: Activity did not occur on this shift LOCOMOTION: STAIRS - SCORE: 0-UNK COMPREHENSION: COMPREHENSION: TYPE: Visual COMPREHENSION - STEP 1: Does the patient require help to understand complex and abstract ideas (such as current events, finan ravi, discharge planning, medical issues, relationships, etc)? No. COMPREHENSION - STEP 2: Does the patient need extra time, require an assistive device (such as glasses for visual comprehensi on or a hearing aid for auditory comprehension) or does s/he have mild difficulty understanding compl ex and abstract information? Yes. COMPREHENSION - SCORE: 6-ALAINA EXPRESSION EXPRESSION: TYPE: Non-Vocal EXPRESSION - STEP 1: Does the patient require help expressing complex and abstract ideas (such as current events, finances , discharge planning, medical issues, relationships, etc)? No. EXPRESSION - STEP 2: Does the patient need extra time, require an assistive device (such as augmentive communication syste m or a communication board), OR does s/he have mild difficulty expressing complex and abstract ideas (including mild dysarthria or mild word-find problems)? No. EXPRESSION - SCORE: 7-IND SOCIAL INTERACTION: SOCIAL INTERACTION - STEP 1: Does the patient require a helper to interact with others in social and therapeutic situations? No. SOCIAL INTERACTION - STEP 2: Does the patient need extra time in social situations, OR does s/he interact with staff, other patien ts, and family members ONLY in structured environments, OR does s/he require medication for social in teraction? No. SOCIAL INTERACTION - SCORE: 7-IND PROBLEM SOLVING: PROBLEM SOLVING - STEP 1: Does the patient need help to solve complex problems such as managing a checking account or confronti ng interpersonal problems? No. PROBLEM SOLVING - STEP 2: Does the patient require extra time to make decisions or solve problems, OR does s/he have slight dif ficulty reading, initiating, or self-correcting in unfamiliar situations? Yes, patient needs extra ti me. PROBLEM SOLVING - SCORE: 6-ALAINA MEMORY: MEMORY - STEP 1: Does the patient need help to remember frequently encountered people, daily routines, and executing r equests? No. MEMORY - STEP 2: Does the patient have slight difficulty recognizing frequently encountered people, daily routines, or executing requests without the need for repetition or using self-initiated or environmental cues to remember? No. MEMORY - SCORE: 7-IND SIGNATURE PANEL: The following modified sections: Eating - Score, Grooming - Score, Bathing - Score, Dressing - Upper Body - Score, Dressing - Lower Body - Score, Toileting - Score, Transfers: Bed, Chair, Wheelchair - S core, Transfers: Toilet - Score, Transfers: Shower - Score, Transfers: Tub - Score, Comprehension - S core, Expression - Score, Social Interaction - Score, Problem Solving - Score, Memory - Score were [e lectronically] signed by LIDAY Judd on FriDec 04 2017 13:59:36 T-0500 ([facility])
--- NOTE | 2017-12-04 14:19 | FAST ---
SHIFT START DATE/TIME: 12/04/2017 07:00 (CDT) SHIFT END DATE/TIME: 12/04/2017 19:00 (CDT) NAME AIDEE BEEBE DATE OF : 1930 DATE OF ADMISSION: 11/27/2017 15:32 (CDT) PHONE: AGE: 87 N# [id number] GENDER: Female ENCOUNTER PHYSICIAN: Dr. Donal Noriega M.D. ADMISSION DIAGNOSIS: - Cardiac - Cardiac Disorders () CHF. EATING: EATING - STEP 1: Does the patient require assistance when eating? Yes. EATING - STEP 2: Does the patient require the assistance of a helper? No, patient only requires an assistive device, O R s/he takes more than reasonable time to eat, OR there is a safety concern, OR s/he requires modifie d food consistency EATING - SCORE: 6-ALAINA GROOMING: Comb/brush hair Wash, rinse, and dry face Wash, rinse, and dry hands GROOMING - STEP 1: Does the patient require assistance when grooming? Yes. GROOMING - STEP 2: Does the patient require the assistance of a helper? No. The patient only requires an assistive devic e, OR takes more than reasonable time to groom, OR there is a concern for safety as the patient groom s GROOMING - SCORE: 6-ALAINA BATHING: Activity did not occur on this shift BATHING - SCORE: 0-UNK DRESSING - UPPER BODY: Activity did not occur on this shift ARTICLES SCORE Total number of steps: 0 DRESSING - UPPER BODY - SCORE: 0-UNK DRESSING - LOWER BODY: Activity did not occur on this shift ARTICLES SCORE Total number of steps: 0 DRESSING - LOWER BODY - SCORE: 0-UNK TOILETING: TOILETING - STEP 1: Does the patient require assistance with toileting? Yes. TOILETING - STEP 2: Does the patient require the assistance of a helper? Yes. TOILETING - STEP 3: How much assistance does the patient require from the helper? Only supervision TOILETING - SCORE: 5-SUP BLADDER MANAGEMENT: [place] removes incontinent device (Depends, pull ups, etc.); cleans the patient after accident / inco ntinent episode; and, applies new incontinent device. BLADDER MANAGEMENT - SCORE: 1-DEP BLADDER MANAGEMENT - FREQUENCY OF ACCIDENTS: BLADDER MANAGEMENT(FA) - STEP 1: How many accidents has the patient had during the current shift? 2 BOWEL MANAGEMENT: Activity did not occur on this shift BOWEL MANAGEMENT - SCORE: 7-IND BOWEL MANAGEMENT - FREQUENCY OF ACCIDENTS: BOWEL MANAGEMENT(FA) - STEP 1: How many accidents has the patient had during the current shift? 0 TRANSFERS: BED, CHAIR, WHEELCHAIR: TRANSFERS: BED, CHAIR, WHEELCHAIR - STEP 1: Does the patient require assistance with bed, chair, or wheelchair transfers? Yes. TRANSFERS: BED, CHAIR, WHEELCHAIR - STEP 2: Does the patient require the assistance of a helper? No. Patient only requires an assistive device fo r bed, chair, wheelchair transfers such as a sliding board, grab bar, or brace, OR s/he takes more th an reasonable time, OR there is a safety concern when s/he performs the transfers TRANSFERS: BED, CHAIR, WHEELCHAIR - SCORE: 6-ALAINA TRANSFERS: TOILET: TRANSFERS: TOILET - STEP 1: Does the patient require assistance with toilet transfers? Yes. TRANSFERS: TOILET - STEP 2: Does the patient require the assistance of a helper? Yes. TRANSFERS: TOILET - STEP 3: How much assistance does the patient require from the helper? Only supervision, cuing, coaxing, OR he lp to set out transfer equipment or to lock brakes and/or lift foot rests TRANSFERS: TOILET - SCORE: 5-SUP TRANSFERS: SHOWER: Activity did not occur on this shift TRANSFERS: SHOWER - SCORE: 0-UNK TRANSFERS: TUB: Activity did not occur on this shift TRANSFERS: TUB - SCORE: 0-UNK LOCOMOTION: WALK: Activity did not occur on this shift LOCOMOTION: WALK - SCORE: 0-UNK LOCOMOTION: WHEELCHAIR: LOCOMOTION: WHEELCHAIR - STEP 1: Does the patient need help to go 150 feet in a wheelchair? Yes. LOCOMOTION: WHEELCHAIR - STEP 2: How much assistance does the patient need from the helper? Only supervision, cuing, or coaxing LOCOMOTION: WHEELCHAIR - SCORE: 5-SUP COMPREHENSION: COMPREHENSION: TYPE: Both COMPREHENSION - STEP 1: Does the patient require help to understand complex and abstract ideas (such as current events, finan ravi, discharge planning, medical issues, relationships, etc)? No. COMPREHENSION - STEP 2: Does the patient need extra time, require an assistive device (such as glasses for visual comprehensi on or a hearing aid for auditory comprehension) or does s/he have mild difficulty understanding compl ex and abstract information? Yes. COMPREHENSION - SCORE: 6-ALAINA EXPRESSION EXPRESSION: TYPE: Both EXPRESSION - STEP 1: Does the patient require help expressing complex and abstract ideas (such as current events, finances , discharge planning, medical issues, relationships, etc)? No. EXPRESSION - STEP 2: Does the patient need extra time, require an assistive device (such as augmentive communication syste m or a communication board), OR does s/he have mild difficulty expressing complex and abstract ideas (including mild dysarthria or mild word-find problems)? No. EXPRESSION - SCORE: 7-IND SOCIAL INTERACTION: SOCIAL INTERACTION - STEP 1: Does the patient require a helper to interact with others in social and therapeutic situations? No. SOCIAL INTERACTION - STEP 2: Does the patient need extra time in social situations, OR does s/he interact with staff, other patien ts, and family members ONLY in structured environments, OR does s/he require medication for social in teraction? Yes, patient needs extra time SOCIAL INTERACTION - SCORE: 6-ALAINA PROBLEM SOLVING: PROBLEM SOLVING - STEP 1: Does the patient need help to solve complex problems such as managing a checking account or confronti ng interpersonal problems? No. PROBLEM SOLVING - STEP 2: Does the patient require extra time to make decisions or solve problems, OR does s/he have slight dif ficulty reading, initiating, or self-correcting in unfamiliar situations? Yes, patient needs extra ti me. PROBLEM SOLVING - SCORE: 6-AALINA MEMORY: MEMORY - STEP 1: Does the patient need help to remember frequently encountered people, daily routines, and executing r equests? No. MEMORY - STEP 2: Does the patient have slight difficulty recognizing frequently encountered people, daily routines, or executing requests without the need for repetition or using self-initiated or environmental cues to remember? Yes. MEMORY - SCORE: 6-ALAINA SIGNATURE PANEL: The following modified sections: Eating - Score, Grooming - Score, Bathing - Score, Dressing - Upper Body - Score, Dressing - Lower Body - Score, Toileting - Score, Bladder Management - Score, Bowel Man agement - Score, Transfers: Bed, Chair, Wheelchair - Score, Transfers: Toilet - Score, Transfers: Brittany wer - Score, Transfers: Tub - Score, Locomotion: Walk - Score, Locomotion: Wheelchair - Score, Compre hension - Score, Expression - Score, Social Interaction - Score, Problem Solving - Score, Memory - Sc ore were [electronically] signed by Roxane Gutierres C.N.A. on FriDec 04 2017 14:17:51 T-0500 ([facility])
--- NOTE | 2017-12-04 14:23 | FAST ---
ENCOUNTER DATE AND TIME: 12/04/2017 08:00 (CDT) NAME AIDEE BEEBE DATE OF : 1930 DATE OF ADMISSION: 11/27/2017 15:32 (CDT) PHONE: AGE: 87 SSN# [id number] GENDER: Female ENCOUNTER PHYSICIAN: Dr. Donal Noriega M.D. ADMISSION DIAGNOSIS: - Cardiac - Cardiac Disorders () CHF. EATING: Activity did not occur on this shift EATING - SCORE: 0-UNK GROOMING: Activity did not occur on this shift GROOMING - SCORE: 0-UNK BATHING: Activity did not occur on this shift BATHING - SCORE: 0-UNK DRESSING - UPPER BODY: Activity did not occur on this shift Patient is not dressing in public clothing ARTICLES SCORE Total number of steps: 0 DRESSING - UPPER BODY - SCORE: 0-UNK DRESSING - LOWER BODY: Activity did not occur on this shift Patient is not dressing in public clothing ARTICLES SCORE Total number of steps: 0 DRESSING - LOWER BODY - SCORE: 0-UNK TOILETING: Activity did not occur on this shift TOILETING - SCORE: 0-UNK BLADDER MANAGEMENT: Activity did not occur on this shift BLADDER MANAGEMENT - SCORE: 7-IND BOWEL MANAGEMENT: Activity did not occur on this shift BOWEL MANAGEMENT - SCORE: 7-IND TRANSFERS: BED, CHAIR, WHEELCHAIR: TRANSFERS: BED, CHAIR, WHEELCHAIR - STEP 1: Does the patient require assistance with bed, chair, or wheelchair transfers? Yes. TRANSFERS: BED, CHAIR, WHEELCHAIR - STEP 2: Does the patient require the assistance of a helper? Yes. TRANSFERS: BED, CHAIR, WHEELCHAIR - STEP 3: How much assistance does the patient require from the helper? Only supervision TRANSFERS: BED, CHAIR, WHEELCHAIR - SCORE: 5-SUP TRANSFERS: TOILET: Activity did not occur on this shift TRANSFERS: TOILET - SCORE: 0-UNK TRANSFERS: SHOWER: Activity did not occur on this shift TRANSFERS: SHOWER - SCORE: 0-UNK TRANSFERS: TUB: Activity did not occur on this shift TRANSFERS: TUB - SCORE: 0-UNK LOCOMOTION: WALK: LOCOMOTION: WALK - STEP 1: Does the patient need help to walk 150 feet? Yes. LOCOMOTION: WALK - STEP 2: How much assistance does the patient require to walk a minimum of 150 feet? Only supervision, cuing, or coaxing LOCOMOTION: WALK - SCORE: 5-SUP LOCOMOTION: WHEELCHAIR: LOCOMOTION: WHEELCHAIR - STEP 1: Does the patient need help to go 150 feet in a wheelchair? No. LOCOMOTION: WHEELCHAIR - SCORE: 6-ALAINA LOCOMOTION: STAIRS: LOCOMOTION: STAIRS - STEP 1: Does the patient need help to go up and down 12 to 14 stairs? Yes. LOCOMOTION: STAIRS - STEP 2: How much assistance does the patient need from the helper to go a minimum of 12 to 14 stairs? The pat ient goes less than 12 to 14 stairs - but more than 4 to 6 stairs LOCOMOTION: STAIRS - SCORE: 2-MAX COMPREHENSION: COMPREHENSION - SCORE: 0-UNK EXPRESSION EXPRESSION - SCORE: 0-UNK SOCIAL INTERACTION: SOCIAL INTERACTION - SCORE: 0-UNK PROBLEM SOLVING: PROBLEM SOLVING - SCORE: 0-UNK MEMORY: MEMORY - SCORE: 0-UNK SIGNATURE PANEL: The following modified sections: Transfers: Bed, Chair, Wheelchair - Score, Transfers: Toilet - Score , Locomotion: Walk - Score, Locomotion: Wheelchair - Score, Locomotion: Stairs - Score were [electron [email or web address]] signed by Lucho Evans PT on FriDec 04 2017 14:22:28 GMT-0500 (Central Daylight Time)
[2017-12-04] MEDS: RIVAROXABAN 20 MG TABLET PO SCH (16:03)
--- NOTE | 2017-12-04 18:37 | R.PN ---
ENCOUNTER DATE AND TIME: 12/04/2017 18:34 (CDT) NAME AIDEE BEEBE DATE OF : 1930 DATE OF ADMISSION: 11/27/2017 15:32 (CDT) CHFCHIEF COMPLAINT: Congestive heart failure SUBJECTIVE: Pt denied any Shortness of Breath. Pt denied any depression. Ambulated 550' with standby assistance using a rolling walker. VITAL SIGNS Temperature: 97.9 F SBP/DBP: 147/65 Pulse: 80 Resp: 16 MEDICATION ALLERGIES: MEPERIDINE HCI ENVIRONMENTAL ALLERGIES: - Substance Allergies None Known - Other Allergies None Known NURSING: - Shower allowing shower ACTIVITIES OOB only with supervision THERAPIES: - Occupational Therapy Evaluate and Treat. - Physical Therapy Evaluate and Treat. PHYSICAL EXAM - Gen Alert and awake Lying in bed No apparent distress Oriented to: person, time, and place - Skin No skin breakdown. Normacephalic - Eyes No abnormalities - ENMT No abnormalities - Neck No abnormalities - CVS RRR - Resp Clear to auscultation - Abd Soft - GI Non distended Deferred - No abnormalities - Ext Mild bilateral lower extremity edema. - MSK 4/5 weakness in both lower extremities. - Neuro 4/5 strength bilaterally lower extremities. - Psych No abnormalities ASSESSMENT: Pt. is a 87 yo Right-handed white female.On 11/26/2017 she was admitted to [facility] with diagnosis CHF.Her impairment category is Cardiac 09 - Cardiac Disorders (09).Pre-morbidl y, Pt. was independent/mod-I in Communication, Social Cognition, Self-Care, Sphincter Control, Transf ers Control, and Locomotion; and she had good Sphincter Control.Currently, she has deficits of Commun ication, Social Cognition, Balance, Endurance, Safety Awareness, Transfers Control, Locomotion, and S elf-Care.Pt. is now referred to [facility] for acute in-patient rehabilitation in order to maximize patient's functional independence in activities of daily living, strength, ROM, and mobility.- Rehab Goal Patient has realistic goal of being discharged at assistance level 6-Deandra to reside at Home with Fam sean/Relatives. MDM/PLAN: - Physical Therapy Gait dysfunction - to improve, our physical therapists will perform initial evaluation of pt's statu s upon admission and devise an individualized program for Gait Training, and Wheel Chair mobility Inability to transfer - to improve, our physical therapists will perform initial evaluation of pt's status upon admission and devise an individualized program for Bed mobility Need for home safety evaluation - to improve, our physical therapists will perform initial evaluatio n of pt's status upon admission and devise an individualized program for Home Evaluation Need in caregiver upon discharge - to improve, our physical therapists will perform initial evaluati on of pt's status upon admission and devise an individualized program for Caregiver Training Edema - to improve, our physical therapists will perform initial evaluation of pt's status upon admi ssion and devise an individualized program for Elevation Training, and Lymphedema Therapy New precaution - to improve, our physical therapists will perform initial evaluation of pt's status upon admission and devise an individualized program for Patient precaution education Poor balance - to improve, our physical therapists will perform initial evaluation of pt's status up on admission and devise an individualized program for Balance Training Poor endurance - to improve, our physical therapists will perform initial evaluation of pt's status upon admission and devise an individualized program for Endurance Training Weakness - to improve, our physical therapists will perform initial evaluation of pt's status upon a dmission and devise an individualized program for Aquatic Therapy, Neuromuscular Reeducation, and Str engthening Achieving independence - to improve, our physical therapists will perform initial evaluation of pt's status upon admission and devise an individualized program for Community Reintegration Activities - Occupational Therapy ADL deficits - to improve, our occupation therapists will perform initial evaluation of pt's status upon admission and devise an individualized program for Bathing, Bed mobility, Community Reintegratio n, Cooking, Dressing, Eating, Fine Motor Skills, Grooming, Homemaking, Kitchen Mobility, Laundry, Pat ient Education, Safety Awareness, Splinting - Positioning, Transfers(Toilet, Tub, Shower), and Wheel Chair Management Cognitive deficits - to improve, our occupation therapists will perform initial evaluation of pt's s tatus upon admission and devise an individualized program for Cognition - orientation Need for foster care therapist - to improve, our occupation therapists will perform initial evaluation of pt's status upon admission and devise an individualized program for Caregiver Training Weakness - to improve, our occupation therapists will perform initial evaluation of pt's status upon admission and devise an individualized program for Aquatic Therapy, Balance, Endurance, UE ROM, and UE strengthening - Diet Type Continue Regular - Diet - Liquid Texture Continue Regular - Tube Feed Continue N/A - Diet - Solid Texture Continue Regular - Shower allowing shower FUNCTIONAL STATUS: UPDATED AT WEEKLY TEAM CONFERENCE - Bladder Same accident frequency: 7-Ind - No accidents in the past 7 days - Bowel Same accident frequency: 7-Ind - No accidents in the past 7 days - Walking Same score based on distance walked: 2(50-149ft) FUNCTIONAL STATUS: - Self-Care A. Eating Ind B. Grooming sup C. Bathing modA D. Dressing - Upper Jaylyn E. Dressing - Lower modA F. Toileting Dep - Sphincter Control G: Bladder control Dep H: Bowel control Dep - Transfers Control I. Bed/Chair/Wheelchair Jaylyn J. Toilet Jaylyn K. Tub/Shower Jaylyn - Locomotion L. Walk/Wheelchair (B) modA M. Stairs ADNO - Communication N. Comprehension (B) sup O. Expression (B) sup - Social Cognition P. Social Interaction sup Q. Problem Solving sup R. Memory sup - Endurance Poor - Balance Poor - Safety Awareness Poor CURRENT FUNC. DEFICITS: Communication, Social Cognition, Balance, Endurance, Safety Awareness, Transfers Control, Locomotion, and Self-Care SIGNATURE PANEL: (CDT)
[2017-12-04] MEDS: MELATONIN 3 MG TABLET PO PRN (20:07)
[2017-12-04] MEDS: EZETIMIBE 10 MG TAB PO SCH (20:07)
--- NOTE | 2017-12-05 02:05 | FAST ---
SHIFT START DATE/TIME: 12/04/2017 19:00 (CDT) SHIFT END DATE/TIME: 12/05/2017 07:00 (CDT) NAME AIDEE BEEBE DATE OF : 1930 DATE OF ADMISSION: 11/27/2017 15:32 (CDT) PHONE: AGE: 87 N# [id number] GENDER: Female ENCOUNTER PHYSICIAN: Dr. Donal Noriega M.D. ADMISSION DIAGNOSIS: - Cardiac 09 - Cardiac Disorders () CHF. EATING: Activity did not occur on this shift EATING - SCORE: 0-UNK GROOMING: Wash, rinse, and dry hands GROOMING - STEP 1: Does the patient require assistance when grooming? Yes. GROOMING - STEP 2: Does the patient require the assistance of a helper? Yes. GROOMING - STEP 3: How much assistance does the patient require from the helper? Only prior equipment preparation/set up from the helper GROOMING - SCORE: 5-SUP BATHING: Activity did not occur on this shift BATHING - SCORE: 0-UNK DRESSING - UPPER BODY: Patient is not dressing in public clothing ARTICLES SCORE Total number of steps: 0 DRESSING - UPPER BODY - SCORE: 0-UNK DRESSING - LOWER BODY: Patient is not dressing in public clothing ARTICLES SCORE Total number of steps: 0 DRESSING - LOWER BODY - SCORE: 0-UNK TOILETING: TOILETING - STEP 1: Does the patient require assistance with toileting? Yes. TOILETING - STEP 2: Does the patient require the assistance of a helper? Yes. TOILETING - STEP 3: How much assistance does the patient require from the helper? Only supervision TOILETING - SCORE: 5-SUP BLADDER MANAGEMENT: BLADDER MANAGEMENT - STEP 1: Does the patient control the bladder completely and intentionally without equipment or devices or med ications, and is always continent? No. BLADDER MANAGEMENT - STEP 2: Does the patient require the assistance of a helper? No, patient only requires extra time BLADDER MANAGEMENT - SCORE: 6-ALAINA BOWEL MANAGEMENT: BOWEL MANAGEMENT - STEP 1: Does the patient control bowels completely and intentionally without equipment devices or medications AND is always continent? No. BOWEL MANAGEMENT - STEP 2: Does the patient require the assistance of a helper? No, patient requires medication for control such as stool softeners, suppositories, laxatives, enemas, or OTC medications BOWEL MANAGEMENT - SCORE: 6-ALAINA TRANSFERS: BED, CHAIR, WHEELCHAIR: TRANSFERS: BED, CHAIR, WHEELCHAIR - STEP 1: Does the patient require assistance with bed, chair, or wheelchair transfers? Yes. TRANSFERS: BED, CHAIR, WHEELCHAIR - STEP 2: Does the patient require the assistance of a helper? Yes. TRANSFERS: BED, CHAIR, WHEELCHAIR - STEP 3: How much assistance does the patient require from the helper? Only supervision TRANSFERS: BED, CHAIR, WHEELCHAIR - SCORE: 5-SUP TRANSFERS: TOILET: TRANSFERS: TOILET - STEP 1: Does the patient require assistance with toilet transfers? Yes. TRANSFERS: TOILET - STEP 2: Does the patient require the assistance of a helper? Yes. TRANSFERS: TOILET - STEP 3: How much assistance does the patient require from the helper? Only supervision, cuing, coaxing, OR he lp to set out transfer equipment or to lock brakes and/or lift foot rests TRANSFERS: TOILET - SCORE: 5-SUP TRANSFERS: SHOWER: Activity did not occur on this shift TRANSFERS: SHOWER - SCORE: 0-UNK TRANSFERS: TUB: Activity did not occur on this shift TRANSFERS: TUB - SCORE: 0-UNK LOCOMOTION: WALK: Activity did not occur on this shift LOCOMOTION: WALK - SCORE: 0-UNK LOCOMOTION: WHEELCHAIR: Activity did not occur on this shift LOCOMOTION: WHEELCHAIR - SCORE: 0-UNK COMPREHENSION: COMPREHENSION: TYPE: Both COMPREHENSION - STEP 1: Does the patient require help to understand complex and abstract ideas (such as current events, finan ravi, discharge planning, medical issues, relationships, etc)? No. COMPREHENSION - STEP 2: Does the patient need extra time, require an assistive device (such as glasses for visual comprehensi on or a hearing aid for auditory comprehension) or does s/he have mild difficulty understanding compl ex and abstract information? Yes. COMPREHENSION - SCORE: 6-ALAINA EXPRESSION EXPRESSION: TYPE: Both EXPRESSION - STEP 1: Does the patient require help expressing complex and abstract ideas (such as current events, finances , discharge planning, medical issues, relationships, etc)? No. EXPRESSION - STEP 2: Does the patient need extra time, require an assistive device (such as augmentive communication syste m or a communication board), OR does s/he have mild difficulty expressing complex and abstract ideas (including mild dysarthria or mild word-find problems)? Yes. EXPRESSION - SCORE: 6-ALAINA SOCIAL INTERACTION: SOCIAL INTERACTION - STEP 1: Does the patient require a helper to interact with others in social and therapeutic situations? No. SOCIAL INTERACTION - STEP 2: Does the patient need extra time in social situations, OR does s/he interact with staff, other patien ts, and family members ONLY in structured environments, OR does s/he require medication for social in teraction? Yes, patient needs extra time SOCIAL INTERACTION - SCORE: 6-ALAINA PROBLEM SOLVING: PROBLEM SOLVING - STEP 1: Does the patient need help to solve complex problems such as managing a checking account or confronti ng interpersonal problems? No. PROBLEM SOLVING - STEP 2: Does the patient require extra time to make decisions or solve problems, OR does s/he have slight dif ficulty reading, initiating, or self-correcting in unfamiliar situations? Yes, patient needs extra ti me. PROBLEM SOLVING - SCORE: 6-ALAINA MEMORY: MEMORY - STEP 1: Does the patient need help to remember frequently encountered people, daily routines, and executing r equests? No. MEMORY - STEP 2: Does the patient have slight difficulty recognizing frequently encountered people, daily routines, or executing requests without the need for repetition or using self-initiated or environmental cues to remember? Yes. MEMORY - SCORE: 6-ALAINA SIGNATURE PANEL: The following modified sections: Eating - Score, Grooming - Score, Dressing - Upper Body - Score, Edwardo ssing - Lower Body - Score, Toileting - Score, Bladder Management - Score, Bowel Management - Score, Transfers: Bed, Chair, Wheelchair - Score, Transfers: Toilet - Score, Transfers: Shower - Score, Vasquez sfers: Tub - Score, Locomotion: Walk - Score, Locomotion: Wheelchair - Score, Comprehension - Score, Expression - Score, Social Interaction - Score, Problem Solving - Score, Memory - Score were [electro nically] signed by Eyrn Sexton CNA on FriDec 05 2017 02:05:08 GMT-0500 (Central Daylight Time)
[2017-12-05] MEDS: PANTOPRAZOLE 40MG TABLET PO SCH (07:00)
[2017-12-05] MEDS: HOME MED 1 EA UNK PO SCH (08:00)
[2017-12-05] MEDS: LUMIGAN OPTH SCH ×2 (08:00→20:00)
[2017-12-05] MEDS: PROMOD 30 ML DOSE PO SCH ×2 (08:00→20:49)
[2017-12-05] MEDS: FERROUS SULFATE 325 MG TAB PO SCH (08:16)
[2017-12-05] MEDS: CRANBERRY FRUIT EXTRACT 200 MG CAP PO SCH ×2 (08:17→20:49)
[2017-12-05] MEDS: FE SULF/FA/VIT B COMP & C TAB PO SCH (08:18)
[2017-12-05] MEDS: SPIRONOLACTONE 25 MG TABLET PO SCH (08:18)
[2017-12-05] MEDS: COLESTIPOL 1 GM TAB PO SCH ×2 (08:19→20:49)
[2017-12-05] MEDS: AMIODARONE HCL 200 MG TAB PO SCH (08:20)
[2017-12-05] MEDS: FENOFIBRATE 160 MG TAB PO SCH (08:20)
[2017-12-05] MEDS: hydroCHLOROthiazide 25 MG TAB PO SCH (08:21)
[2017-12-05] MEDS: COMBIGAN OPTH SCH (08:22)
[2017-12-05] MEDS: CARVEDILOL 6.25 MG TAB PO SCH ×2 (08:22→20:49)
[2017-12-05] MEDS: GUAIFENESIN 600 MG SA TAB PO SCH ×2 (08:23→20:49)
--- NOTE | 2017-12-05 09:52 | P.RH.PN ---
Estimated Length of Stay: 14 Expected Discharge Date: 12/10/17 Discharge Disposition Plan: Home Family Support: Yes [facility] Goal: Mobility, Transfers, Self Care Vital Signs: Last Vital Signs Temp 98.2 F 12/05/17 06:25 Pulse 80 12/05/17 08:22 Resp 18 12/05/17 06:25 BP 151/65 H 12/05/17 08:22 Pulse Ox 97 12/05/17 06:25 Laboratory: Laboratory Last Values WBC 7.3 K/uL (4.3-10.9) 12/04/17 05:47 RBC 3.45 M/uL (3.86-4.86) L 12/04/17 05:47 Hgb 9.9 g/dL (12.0-15.0) L 12/04/17 05:47 Hct 29.8 % (36.0-45.0) L 12/04/17 05:47 MCV 86.5 fL (80-100) 12/04/17 05:47 MCH 28.7 pg (27.0-35.0) 12/04/17 05:47 MCHC 33.2 g/dL (32.0-36.0) 12/04/17 05:47 RDW 17.5 % (12.1-15.2) H 12/04/17 05:47 Plt Count 361 K/uL (152-406) 12/04/17 05:47 MPV 7.8 fL (7.6-11.3) 12/04/17 05:47 Neutrophils % 68.9 % (41.7-73.7) 12/04/17 05:47 Lymphocytes % 13.6 % (15.3-44.8) L 12/04/17 05:47 Monocytes % 12.7 % (3.3-12.3) H 12/04/17 05:47 Eosinophils % 3.7 % (0-4.4) 12/04/17 05:47 Basophils % 1.1 % (0-1.3) 12/04/17 05:47 Absolute Neutrophils 5.1 K/uL (1.8-8.0) 12/04/17 05:47 Segmented Neutrophils 70 % (40-80) 11/28/17 05:56 Absolute Lymphocytes 1.0 K/uL (0.7-4.9) 12/04/17 05:47 Lymphocytes 17 % (15-42) 11/28/17 05:56 Monocytes 11 % (0-10) H 11/28/17 05:56 Absolute Monocytes 0.9 K/uL (0.1-1.3) 12/04/17 05:47 Eosinophils 2 % (0-3) 11/28/17 05:56 Absolute Eosinophils 0.3 K/uL (0-0.5) 12/04/17 05:47 Absolute Basophils 0.1 K/uL (0-0.5) 12/04/17 05:47 Anisocytosis 2+ 11/28/17 05:56 Morphology Comment Noted (NOT SEEN) 11/28/17 05:56 Sodium 140 mmol/L (136-145) 12/04/17 05:47 Potassium 4.2 mmol/L (3.5-5.1) 12/04/17 05:47 Chloride 107 mmol/L (98-107) 12/04/17 05:47 Carbon Dioxide 28 mmol/L (21-32) 12/04/17 05:47 BUN 18 mg/dL (7-18) 12/04/17 05:47 Creatinine 1.00 mg/dL (0.55-1.3) 12/04/17 05:47 Estimated GFR 52 mL/min (=/>90) L 12/04/17 05:47 Glucose 91 mg/dL (74-106) 12/04/17 05:47 Calcium 8.9 mg/dL (8.5-10.1) 12/04/17 05:47 Magnesium 2.0 mg/dL (1.8-2.4) 11/28/17 05:56 Albumin 2.8 g/dL (3.4-5.0) L 12/04/17 05:47 Prealbumin 15.3 mg/dL (20-40) L 12/04/17 05:47 Urine Color Yellow 11/30/17 00:43 Urine Appearance Clear 11/30/17 00:43 Urine pH 8.0 (5.0-7.0) H 11/30/17 00:43 Ur Specific [place] 1.010 (1.005-1.030) 11/30/17 00:43 Urine Ketones Negative (NEG) 11/30/17 00:43 Urine Blood Negative (NEG) 11/30/17 00:43 Urine Nitrite Negative (NEG) 11/30/17 00:43 Urine Bilirubin Negative (NEG) 11/30/17 00:43 Urine Urobilinogen 0.2 mg/dL (0.2-1.0) 11/30/17 00:43 Ur Leukocyte Esterase Negative (NEG) 11/30/17 00:43 Urine RBC None seen /HPF (NONE SEEN) 11/30/17 00:43 Urine WBC <5 /HPF (<5) 11/30/17 00:43 Ur Squamous Epith Cells <5 /HPF (NONE SEEN) 11/30/17 00:43 Urine Bacteria <20 /HPF (<20) 11/30/17 00:43 Urine Culture Reflexed Not needed 11/30/17 00:43 Urine Glucose Negative (NEG) 11/30/17 00:43 Urine Total Protein Negative (NEG) 11/30/17 00:43 Weight: 139 lb 2 oz Wound Present: No Closed Surgical Incision Present: No Negative Pressure Wound Therapy Present: No Physician Update: She is doing well and is modified independence in her room. Her blood work is stable with mildly low Hgb. She is on hemocyte plus. Medication Issues: Mucinex 600mg BID for cough Functional Improvement: pt demonstrating good progress toward functional goals. She has improved her balance and stability. She does exhibit LE weakness in endrange positions and in low sit positions. Skilled PT services remain necessary to enhance functional performance. Functional Improvement Occupational Therapy: pt can benifit with further therapy to address pt's static standing balance and increase pt's endurance for adl tasks. cont to train the pt on LB dressing using A/E as needed. cont with the POC and the goals by the supervising OTR Summary: Patient's care plan and usp goals have been reviewed and revised as necessary. Please see the Rehabilitation Signature page for all necessary signatures.
[2017-12-05] MEDS: ACETAMINOPHEN 500 MG TAB PO PRN (10:15)
[2017-12-05] MEDS: IRBESARTAN 150 MG TAB PO SCH (10:15)
[2017-12-05] MEDS ORDERED: ACETAMINOPHEN 500 MG TAB ONE (10:19)
[2017-12-05] MEDS: TRAMADOL HCL 50 MG TAB PO PRN (12:43)
--- NOTE | 2017-12-05 14:10 | FAST ---
SHIFT START DATE/TIME: 12/05/2017 07:00 (CDT) SHIFT END DATE/TIME: 12/05/2017 19:00 (CDT) NAME AIDEE BEEBE DATE OF : 1930 DATE OF ADMISSION: 11/27/2017 15:32 (CDT) PHONE: AGE: 87 N# [id number] GENDER: Female ENCOUNTER PHYSICIAN: Dr. Donal Noriega M.D. ADMISSION DIAGNOSIS: - Cardiac - Cardiac Disorders () CHF. EATING: EATING - STEP 1: Does the patient require assistance when eating? No. EATING - SCORE: 7-IND GROOMING: GROOMING - STEP 1: Does the patient require assistance when grooming? No. GROOMING - SCORE: 7-IND BATHING: Activity did not occur on this shift BATHING - SCORE: 0-UNK DRESSING - UPPER BODY: T-shirt/pullover shirt (four steps) ARTICLES SCORE Total number of steps: 4 DRESSING - UPPER BODY - STEP 1: Does the patient require help when dressing above the waist? Yes. DRESSING - UPPER BODY - STEP 2: Does the patient require the assistance of a helper? No. Patient only requires an assistive device, s uch as a button hook, velcro, or product development technician. OR s/he takes more than reasonable time as s/he dresses the upper body. OR there is a concern for safety when s/he dresses the upper body DRESSING - UPPER BODY - SCORE: 6-ALAINA DRESSING - LOWER BODY: Elastic waist pants (three steps) ARTICLES SCORE Total number of steps: 3 DRESSING - LOWER BODY - STEP 1: Does the patient require help when dressing below the waist? Yes. DRESSING - LOWER BODY - STEP 2: Does the patient require the assistance of a helper? No. Patient requires an assistive device such as a product development technician. OR s/he takes more than reasonable time as s/he dresses the lower body, OR there is a con cern for safety when s/he dresses the lower body DRESSING - LOWER BODY - SCORE: 6-ALAINA TOILETING: TOILETING - STEP 1: Does the patient require assistance with toileting? Yes. TOILETING - STEP 2: Does the patient require the assistance of a helper? No. TOILETING - SCORE: 6-ALAINA BLADDER MANAGEMENT: BLADDER MANAGEMENT - STEP 1: Does the patient control the bladder completely and intentionally without equipment or devices or med ications, and is always continent? No. BLADDER MANAGEMENT - STEP 2: Does the patient require the assistance of a helper? No, patient requires and independently uses an a ssistive device, such as a urinal, bedpan, bedside commode, catheter, absorbent pad, or collecting de vice BLADDER MANAGEMENT - SCORE: 6-ALAINA BLADDER MANAGEMENT - FREQUENCY OF ACCIDENTS: BLADDER MANAGEMENT(FA) - STEP 1: How many accidents has the patient had during the current shift? 0 BOWEL MANAGEMENT: BOWEL MANAGEMENT - STEP 1: Does the patient control bowels completely and intentionally without equipment devices or medications AND is always continent? Yes. BOWEL MANAGEMENT - SCORE: 7-IND BOWEL MANAGEMENT - FREQUENCY OF ACCIDENTS: BOWEL MANAGEMENT(FA) - STEP 1: How many accidents has the patient had during the current shift? 0 TRANSFERS: BED, CHAIR, WHEELCHAIR: TRANSFERS: BED, CHAIR, WHEELCHAIR - STEP 1: Does the patient require assistance with bed, chair, or wheelchair transfers? Yes. TRANSFERS: BED, CHAIR, WHEELCHAIR - STEP 2: Does the patient require the assistance of a helper? No. Patient only requires an assistive device fo r bed, chair, wheelchair transfers such as a sliding board, grab bar, or brace, OR s/he takes more th an reasonable time, OR there is a safety concern when s/he performs the transfers TRANSFERS: BED, CHAIR, WHEELCHAIR - SCORE: 6-ALAINA TRANSFERS: TOILET: TRANSFERS: TOILET - STEP 1: Does the patient require assistance with toilet transfers? Yes. TRANSFERS: TOILET - STEP 2: Does the patient require the assistance of a helper? No. Patient only requires an assistive device monae ch as a grab bar or special seat, OR s/he takes more than reasonable time to perform toilet transfers , OR there is a safety concern when s/he performs toilet transfers. TRANSFERS: TOILET - SCORE: 6-ALAINA TRANSFERS: SHOWER: Activity did not occur on this shift TRANSFERS: SHOWER - SCORE: 0-UNK TRANSFERS: TUB: Activity did not occur on this shift TRANSFERS: TUB - SCORE: 0-UNK LOCOMOTION: WALK: Activity did not occur on this shift LOCOMOTION: WALK - SCORE: 0-UNK LOCOMOTION: WHEELCHAIR: Activity did not occur on this shift LOCOMOTION: WHEELCHAIR - SCORE: 0-UNK COMPREHENSION: COMPREHENSION - SCORE: 0-UNK EXPRESSION EXPRESSION - SCORE: 0-UNK SOCIAL INTERACTION: SOCIAL INTERACTION - SCORE: 0-UNK PROBLEM SOLVING: PROBLEM SOLVING - SCORE: 0-UNK MEMORY: MEMORY - SCORE: 0-UNK SIGNATURE PANEL: The following modified sections: Eating - Score, Grooming - Score, Bathing - Score, Dressing - Upper Body - Score, Dressing - Lower Body - Score, Toileting - Score, Bladder Management - Score, Bowel Man agement - Score, Transfers: Bed, Chair, Wheelchair - Score, Transfers: Toilet - Score, Transfers: Brittany wer - Score, Transfers: Tub - Score, Locomotion: Walk - Score, Locomotion: Wheelchair - Score, Compre hension - Score, Expression - Score, Social Interaction - Score, Problem Solving - Score, Memory - Sc ore were [electronically] signed by Isha Finch CNA on FriDec 05 2017 14:09:35 T-0500 (Centra l Daylight Time)
--- NOTE | 2017-12-05 15:06 | FAST ---
ENCOUNTER DATE AND TIME: 12/05/2017 08:00 (CDT) NAME AIDEE BEEBE DATE OF : 1930 DATE OF ADMISSION: 11/27/2017 15:32 (CDT) PHONE: AGE: 87 SSN# [id number] GENDER: Female ENCOUNTER PHYSICIAN: Dr. Donal Noriega M.D. ADMISSION DIAGNOSIS: - Cardiac - Cardiac Disorders () CHF. EATING: Activity did not occur on this shift EATING - SCORE: 0-UNK GROOMING: Activity did not occur on this shift GROOMING - SCORE: 0-UNK BATHING: Activity did not occur on this shift BATHING - SCORE: 0-UNK DRESSING - UPPER BODY: Activity did not occur on this shift Patient is not dressing in public clothing ARTICLES SCORE Total number of steps: 0 DRESSING - UPPER BODY - SCORE: 0-UNK DRESSING - LOWER BODY: Activity did not occur on this shift Patient is not dressing in public clothing ARTICLES SCORE Total number of steps: 0 DRESSING - LOWER BODY - SCORE: 0-UNK TOILETING: Activity did not occur on this shift TOILETING - SCORE: 0-UNK BLADDER MANAGEMENT: Activity did not occur on this shift BLADDER MANAGEMENT - SCORE: 7-IND BOWEL MANAGEMENT: Activity did not occur on this shift BOWEL MANAGEMENT - SCORE: 7-IND TRANSFERS: BED, CHAIR, WHEELCHAIR: TRANSFERS: BED, CHAIR, WHEELCHAIR - STEP 1: Does the patient require assistance with bed, chair, or wheelchair transfers? Yes. TRANSFERS: BED, CHAIR, WHEELCHAIR - STEP 2: Does the patient require the assistance of a helper? No. Patient only requires an assistive device fo r bed, chair, wheelchair transfers such as a sliding board, grab bar, or brace, OR s/he takes more th an reasonable time, OR there is a safety concern when s/he performs the transfers TRANSFERS: BED, CHAIR, WHEELCHAIR - SCORE: 6-ALAINA TRANSFERS: TOILET: Activity did not occur on this shift TRANSFERS: TOILET - SCORE: 0-UNK TRANSFERS: SHOWER: Activity did not occur on this shift TRANSFERS: SHOWER - SCORE: 0-UNK TRANSFERS: TUB: Activity did not occur on this shift TRANSFERS: TUB - SCORE: 0-UNK LOCOMOTION: WALK: LOCOMOTION: WALK - STEP 1: Does the patient need help to walk 150 feet? Yes. LOCOMOTION: WALK - STEP 2: How much assistance does the patient require to walk a minimum of 150 feet? Only supervision, cuing, or coaxing LOCOMOTION: WALK - SCORE: 5-SUP LOCOMOTION: WHEELCHAIR: Activity did not occur on this shift LOCOMOTION: WHEELCHAIR - SCORE: 0-UNK LOCOMOTION: STAIRS: Activity did not occur on this shift LOCOMOTION: STAIRS - SCORE: 0-UNK COMPREHENSION: COMPREHENSION - SCORE: 0-UNK EXPRESSION EXPRESSION - SCORE: 0-UNK SOCIAL INTERACTION: SOCIAL INTERACTION - SCORE: 0-UNK PROBLEM SOLVING: PROBLEM SOLVING - SCORE: 0-UNK MEMORY: MEMORY - SCORE: 0-UNK SIGNATURE PANEL: The following modified sections: Transfers: Bed, Chair, Wheelchair - Score, Transfers: Toilet - Score , Locomotion: Walk - Score, Locomotion: Wheelchair - Score, Locomotion: Stairs - Score were [electron fredo] signed by Jen Workman PTA on FriDec 05 2017 15:05:23 T-0500 (Central Daylight Time)
[2017-12-05] MEDS: RIVAROXABAN 20 MG TABLET PO SCH (17:01)
[2017-12-05] MEDS: EZETIMIBE 10 MG TAB PO SCH (20:49)
[2017-12-05] MEDS: MELATONIN 3 MG TABLET PO PRN (20:53)
--- NOTE | 2017-12-06 02:25 | FAST ---
SHIFT START DATE/TIME: 12/05/2017 19:00 (CDT) SHIFT END DATE/TIME: 12/06/2017 07:00 (CDT) NAME AIDEE BEEBE DATE OF : 1930 DATE OF ADMISSION: 11/27/2017 15:32 (CDT) PHONE: AGE: 87 N# [id number] GENDER: Female ENCOUNTER PHYSICIAN: Dr. Donal Noriega M.D. ADMISSION DIAGNOSIS: - Cardiac - Cardiac Disorders () CHF. EATING: Activity did not occur on this shift EATING - SCORE: 0-UNK GROOMING: Oral care Wash, rinse, and dry face Wash, rinse, and dry hands GROOMING - STEP 1: Does the patient require assistance when grooming? Yes. GROOMING - STEP 2: Does the patient require the assistance of a helper? Yes. GROOMING - STEP 3: How much assistance does the patient require from the helper? Only prior equipment preparation/set up from the helper GROOMING - SCORE: 5-SUP BATHING: Activity did not occur on this shift BATHING - SCORE: 0-UNK DRESSING - UPPER BODY: Patient is not dressing in public clothing ARTICLES SCORE Total number of steps: 0 DRESSING - UPPER BODY - SCORE: 0-UNK DRESSING - LOWER BODY: Patient is not dressing in public clothing ARTICLES SCORE Total number of steps: 0 DRESSING - LOWER BODY - SCORE: 0-UNK TOILETING: TOILETING - STEP 1: Does the patient require assistance with toileting? Yes. TOILETING - STEP 2: Does the patient require the assistance of a helper? Yes. TOILETING - STEP 3: How much assistance does the patient require from the helper? Only supervision TOILETING - SCORE: 5-SUP BLADDER MANAGEMENT: BLADDER MANAGEMENT - STEP 1: Does the patient control the bladder completely and intentionally without equipment or devices or med ications, and is always continent? No. BLADDER MANAGEMENT - STEP 2: Does the patient require the assistance of a helper? Yes. BLADDER MANAGEMENT - STEP 3: How much assistance does the patient require from the helper? Only set-up of equipment - such as plac ing it within reach of the patient or emptying a device - to maintain either satisfactory voiding pat tern or managing an external device, such as an absorbent pad, ileal device, or catheter BLADDER MANAGEMENT - SCORE: 5-SUP BOWEL MANAGEMENT: Activity did not occur on this shift BOWEL MANAGEMENT - SCORE: 7-IND TRANSFERS: BED, CHAIR, WHEELCHAIR: TRANSFERS: BED, CHAIR, WHEELCHAIR - STEP 1: Does the patient require assistance with bed, chair, or wheelchair transfers? Yes. TRANSFERS: BED, CHAIR, WHEELCHAIR - STEP 2: Does the patient require the assistance of a helper? Yes. TRANSFERS: BED, CHAIR, WHEELCHAIR - STEP 3: How much assistance does the patient require from the helper? Only supervision TRANSFERS: BED, CHAIR, WHEELCHAIR - SCORE: 5-SUP TRANSFERS: TOILET: TRANSFERS: TOILET - STEP 1: Does the patient require assistance with toilet transfers? Yes. TRANSFERS: TOILET - STEP 2: Does the patient require the assistance of a helper? Yes. TRANSFERS: TOILET - STEP 3: How much assistance does the patient require from the helper? Only supervision, cuing, coaxing, OR he lp to set out transfer equipment or to lock brakes and/or lift foot rests TRANSFERS: TOILET - SCORE: 5-SUP TRANSFERS: SHOWER: Activity did not occur on this shift TRANSFERS: SHOWER - SCORE: 0-UNK TRANSFERS: TUB: Activity did not occur on this shift TRANSFERS: TUB - SCORE: 0-UNK LOCOMOTION: WALK: Activity did not occur on this shift LOCOMOTION: WALK - SCORE: 0-UNK LOCOMOTION: WHEELCHAIR: Activity did not occur on this shift LOCOMOTION: WHEELCHAIR - SCORE: 0-UNK COMPREHENSION: COMPREHENSION: TYPE: Both COMPREHENSION - STEP 1: Does the patient require help to understand complex and abstract ideas (such as current events, finan ravi, discharge planning, medical issues, relationships, etc)? No. COMPREHENSION - STEP 2: Does the patient need extra time, require an assistive device (such as glasses for visual comprehensi on or a hearing aid for auditory comprehension) or does s/he have mild difficulty understanding compl ex and abstract information? Yes. COMPREHENSION - SCORE: 6-ALAINA EXPRESSION EXPRESSION: TYPE: Both EXPRESSION - STEP 1: Does the patient require help expressing complex and abstract ideas (such as current events, finances , discharge planning, medical issues, relationships, etc)? No. EXPRESSION - STEP 2: Does the patient need extra time, require an assistive device (such as augmentive communication syste m or a communication board), OR does s/he have mild difficulty expressing complex and abstract ideas (including mild dysarthria or mild word-find problems)? Yes. EXPRESSION - SCORE: 6-ALAINA SOCIAL INTERACTION: SOCIAL INTERACTION - STEP 1: Does the patient require a helper to interact with others in social and therapeutic situations? No. SOCIAL INTERACTION - STEP 2: Does the patient need extra time in social situations, OR does s/he interact with staff, other patien ts, and family members ONLY in structured environments, OR does s/he require medication for social in teraction? Yes, patient needs extra time SOCIAL INTERACTION - SCORE: 6-ALAINA PROBLEM SOLVING: PROBLEM SOLVING - STEP 1: Does the patient need help to solve complex problems such as managing a checking account or confronti ng interpersonal problems? No. PROBLEM SOLVING - STEP 2: Does the patient require extra time to make decisions or solve problems, OR does s/he have slight dif ficulty reading, initiating, or self-correcting in unfamiliar situations? Yes, patient needs extra ti me. PROBLEM SOLVING - SCORE: 6-ALAINA MEMORY: MEMORY - STEP 1: Does the patient need help to remember frequently encountered people, daily routines, and executing r equests? No. MEMORY - STEP 2: Does the patient have slight difficulty recognizing frequently encountered people, daily routines, or executing requests without the need for repetition or using self-initiated or environmental cues to remember? Yes. MEMORY - SCORE: 6-ALAINA
[2017-12-06] MEDS: PANTOPRAZOLE 40MG TABLET PO SCH (06:33)
[2017-12-06] MEDS: FERROUS SULFATE 325 MG TAB PO SCH (08:00)
[2017-12-06] MEDS: HOME MED 1 EA UNK PO SCH (08:00)
[2017-12-06] MEDS: LUMIGAN OPTH SCH ×2 (08:00→20:00)
[2017-12-06] MEDS: FE SULF/FA/VIT B COMP & C TAB PO SCH (08:00)
[2017-12-06] MEDS: PROMOD 30 ML DOSE PO SCH ×2 (08:00→20:00)
[2017-12-06] MEDS: COLESTIPOL 1 GM TAB PO SCH ×2 (08:34→20:29)
[2017-12-06] MEDS: CRANBERRY FRUIT EXTRACT 200 MG CAP PO SCH ×2 (08:34→20:29)
[2017-12-06] MEDS: hydroCHLOROthiazide 25 MG TAB PO SCH (08:35)
[2017-12-06] MEDS: GUAIFENESIN 600 MG SA TAB PO SCH ×2 (08:35→20:30)
[2017-12-06] MEDS: TRAMADOL HCL 50 MG TAB PO PRN ×3 (08:35→19:22)
[2017-12-06] MEDS: CARVEDILOL 6.25 MG TAB PO SCH ×2 (08:35→20:30)
[2017-12-06] MEDS: IRBESARTAN 150 MG TAB PO SCH (08:36)
[2017-12-06] MEDS: SPIRONOLACTONE 25 MG TABLET PO SCH (08:36)
[2017-12-06] MEDS: FENOFIBRATE 160 MG TAB PO SCH (08:37)
[2017-12-06] MEDS: COMBIGAN OPTH SCH (08:38)
[2017-12-06] MEDS: AMIODARONE HCL 200 MG TAB PO SCH (10:17)
--- NOTE | 2017-12-06 14:29 | FAST ---
SHIFT START DATE/TIME: 12/06/2017 07:00 (CDT) SHIFT END DATE/TIME: 12/06/2017 19:00 (CDT) NAME AIDEE BEEBE DATE OF : 1930 DATE OF ADMISSION: 11/27/2017 15:32 (CDT) PHONE: AGE: 87 N# [id number] GENDER: Female ENCOUNTER PHYSICIAN: Dr. Donal Noriega M.D. ADMISSION DIAGNOSIS: - Cardiac - Cardiac Disorders () CHF. EATING: EATING - STEP 1: Does the patient require assistance when eating? Yes. EATING - STEP 2: Does the patient require the assistance of a helper? No, patient only requires an assistive device, O R s/he takes more than reasonable time to eat, OR there is a safety concern, OR s/he requires modifie d food consistency EATING - SCORE: 6-ALAINA GROOMING: Comb/brush hair Wash, rinse, and dry face GROOMING - STEP 1: Does the patient require assistance when grooming? Yes. GROOMING - STEP 2: Does the patient require the assistance of a helper? No. The patient only requires an assistive devic e, OR takes more than reasonable time to groom, OR there is a concern for safety as the patient groom s GROOMING - SCORE: 6-ALAINA BATHING: Activity did not occur on this shift BATHING - SCORE: 0-UNK DRESSING - UPPER BODY: Activity did not occur on this shift ARTICLES SCORE Total number of steps: 0 DRESSING - UPPER BODY - SCORE: 0-UNK DRESSING - LOWER BODY: Activity did not occur on this shift ARTICLES SCORE Total number of steps: 0 DRESSING - LOWER BODY - SCORE: 0-UNK TOILETING: TOILETING - STEP 1: Does the patient require assistance with toileting? Yes. TOILETING - STEP 2: Does the patient require the assistance of a helper? No. TOILETING - SCORE: 6-ALAINA BLADDER MANAGEMENT: BLADDER MANAGEMENT - STEP 1: Does the patient control the bladder completely and intentionally without equipment or devices or med ications, and is always continent? No. BLADDER MANAGEMENT - STEP 2: Does the patient require the assistance of a helper? No, patient requires and independently uses an a ssistive device, such as a urinal, bedpan, bedside commode, catheter, absorbent pad, or collecting de vice BLADDER MANAGEMENT - SCORE: 6-ALAINA BLADDER MANAGEMENT - FREQUENCY OF ACCIDENTS: BLADDER MANAGEMENT(FA) - STEP 1: How many accidents has the patient had during the current shift? 0 BOWEL MANAGEMENT: Activity did not occur on this shift BOWEL MANAGEMENT - SCORE: 7-IND TRANSFERS: BED, CHAIR, WHEELCHAIR: TRANSFERS: BED, CHAIR, WHEELCHAIR - STEP 1: Does the patient require assistance with bed, chair, or wheelchair transfers? Yes. TRANSFERS: BED, CHAIR, WHEELCHAIR - STEP 2: Does the patient require the assistance of a helper? No. Patient only requires an assistive device fo r bed, chair, wheelchair transfers such as a sliding board, grab bar, or brace, OR s/he takes more th an reasonable time, OR there is a safety concern when s/he performs the transfers TRANSFERS: BED, CHAIR, WHEELCHAIR - SCORE: 6-ALAINA TRANSFERS: TOILET: TRANSFERS: TOILET - STEP 1: Does the patient require assistance with toilet transfers? Yes. TRANSFERS: TOILET - STEP 2: Does the patient require the assistance of a helper? No. Patient only requires an assistive device monae ch as a grab bar or special seat, OR s/he takes more than reasonable time to perform toilet transfers , OR there is a safety concern when s/he performs toilet transfers. TRANSFERS: TOILET - SCORE: 6-ALAINA TRANSFERS: SHOWER: Activity did not occur on this shift TRANSFERS: SHOWER - SCORE: 0-UNK TRANSFERS: TUB: Activity did not occur on this shift TRANSFERS: TUB - SCORE: 0-UNK LOCOMOTION: WALK: Activity did not occur on this shift LOCOMOTION: WALK - SCORE: 0-UNK LOCOMOTION: WHEELCHAIR: LOCOMOTION: WHEELCHAIR - STEP 1: Does the patient need help to go 150 feet in a wheelchair? Yes. LOCOMOTION: WHEELCHAIR - STEP 2: How much assistance does the patient need from the helper? Only supervision, cuing, or coaxing LOCOMOTION: WHEELCHAIR - SCORE: 5-SUP COMPREHENSION: COMPREHENSION: TYPE: Both COMPREHENSION - STEP 1: Does the patient require help to understand complex and abstract ideas (such as current events, finan ravi, discharge planning, medical issues, relationships, etc)? No. COMPREHENSION - STEP 2: Does the patient need extra time, require an assistive device (such as glasses for visual comprehensi on or a hearing aid for auditory comprehension) or does s/he have mild difficulty understanding compl ex and abstract information? Yes. COMPREHENSION - SCORE: 6-ALAINA EXPRESSION EXPRESSION: TYPE: Both EXPRESSION - STEP 1: Does the patient require help expressing complex and abstract ideas (such as current events, finances , discharge planning, medical issues, relationships, etc)? No. EXPRESSION - STEP 2: Does the patient need extra time, require an assistive device (such as augmentive communication syste m or a communication board), OR does s/he have mild difficulty expressing complex and abstract ideas (including mild dysarthria or mild word-find problems)? No. EXPRESSION - SCORE: 7-IND SOCIAL INTERACTION: SOCIAL INTERACTION - STEP 1: Does the patient require a helper to interact with others in social and therapeutic situations? No. SOCIAL INTERACTION - STEP 2: Does the patient need extra time in social situations, OR does s/he interact with staff, other patien ts, and family members ONLY in structured environments, OR does s/he require medication for social in teraction? Yes, patient needs extra time SOCIAL INTERACTION - SCORE: 6-ALAINA PROBLEM SOLVING: PROBLEM SOLVING - STEP 1: Does the patient need help to solve complex problems such as managing a checking account or confronti ng interpersonal problems? No. PROBLEM SOLVING - STEP 2: Does the patient require extra time to make decisions or solve problems, OR does s/he have slight dif ficulty reading, initiating, or self-correcting in unfamiliar situations? Yes, patient needs extra ti me. PROBLEM SOLVING - SCORE: 6-ALAINA MEMORY: MEMORY - STEP 1: Does the patient need help to remember frequently encountered people, daily routines, and executing r equests? No. MEMORY - STEP 2: Does the patient have slight difficulty recognizing frequently encountered people, daily routines, or executing requests without the need for repetition or using self-initiated or environmental cues to remember? Yes. MEMORY - SCORE: 6-ALAINA SIGNATURE PANEL: The following modified sections: Eating - Score, Grooming - Score, Bathing - Score, Dressing - Upper Body - Score, Dressing - Lower Body - Score, Toileting - Score, Bladder Management - Score, Bowel Man agement - Score, Transfers: Bed, Chair, Wheelchair - Score, Transfers: Toilet - Score, Transfers: Brittany wer - Score, Transfers: Tub - Score, Locomotion: Walk - Score, Locomotion: Wheelchair - Score, Compre hension - Score, Expression - Score, Social Interaction - Score, Problem Solving - Score, Memory - Sc ore were [electronically] signed by Roxane Gutierres C.N.A. on Sat Dec 06 2017 14:28:29 T-0500 (Centra l Daylight Time)
[2017-12-06] MEDS: RIVAROXABAN 20 MG TABLET PO SCH (16:17)
[2017-12-06] MEDS: EZETIMIBE 10 MG TAB PO SCH (20:30)
[2017-12-06] MEDS: MELATONIN 3 MG TABLET PO PRN (20:30)
[2017-12-06] MEDS: ONDANSETRON 4 MG (ODT) TAB PO PRN (23:41)
--- NOTE | 2017-12-07 02:30 | FAST ---
SHIFT START DATE/TIME: 12/06/2017 19:00 (CDT) SHIFT END DATE/TIME: 12/07/2017 07:00 (CDT) NAME AIDEE BEEBE DATE OF : 1930 DATE OF ADMISSION: 11/27/2017 15:32 (CDT) PHONE: AGE: 87 N# [id number] GENDER: Female ENCOUNTER PHYSICIAN: Dr. Donal Noriega M.D. ADMISSION DIAGNOSIS: - Cardiac - Cardiac Disorders () CHF. EATING: Activity did not occur on this shift EATING - SCORE: 0-UNK GROOMING: Wash, rinse, and dry hands GROOMING - STEP 1: Does the patient require assistance when grooming? Yes. GROOMING - STEP 2: Does the patient require the assistance of a helper? No. The patient only requires an assistive devic e, OR takes more than reasonable time to groom, OR there is a concern for safety as the patient groom s GROOMING - SCORE: 6-ALAINA BATHING: Activity did not occur on this shift BATHING - SCORE: 0-UNK DRESSING - UPPER BODY: Patient is not dressing in public clothing ARTICLES SCORE Total number of steps: 0 DRESSING - UPPER BODY - SCORE: 0-UNK DRESSING - LOWER BODY: Patient is not dressing in public clothing ARTICLES SCORE Total number of steps: 0 DRESSING - LOWER BODY - SCORE: 0-UNK TOILETING: TOILETING - STEP 1: Does the patient require assistance with toileting? Yes. TOILETING - STEP 2: Does the patient require the assistance of a helper? Yes. TOILETING - STEP 3: How much assistance does the patient require from the helper? Only supervision TOILETING - SCORE: 5-SUP BLADDER MANAGEMENT: BLADDER MANAGEMENT - STEP 1: Does the patient control the bladder completely and intentionally without equipment or devices or med ications, and is always continent? No. BLADDER MANAGEMENT - STEP 2: Does the patient require the assistance of a helper? Yes. BLADDER MANAGEMENT - STEP 3: How much assistance does the patient require from the helper? Only supervision, stand-by, cuing, or c oaxing BLADDER MANAGEMENT - SCORE: 5-SUP BOWEL MANAGEMENT: Activity did not occur on this shift BOWEL MANAGEMENT - SCORE: 7-IND TRANSFERS: BED, CHAIR, WHEELCHAIR: TRANSFERS: BED, CHAIR, WHEELCHAIR - STEP 1: Does the patient require assistance with bed, chair, or wheelchair transfers? Yes. TRANSFERS: BED, CHAIR, WHEELCHAIR - STEP 2: Does the patient require the assistance of a helper? Yes. TRANSFERS: BED, CHAIR, WHEELCHAIR - STEP 3: How much assistance does the patient require from the helper? Only supervision TRANSFERS: BED, CHAIR, WHEELCHAIR - SCORE: 5-SUP TRANSFERS: TOILET: TRANSFERS: TOILET - STEP 1: Does the patient require assistance with toilet transfers? Yes. TRANSFERS: TOILET - STEP 2: Does the patient require the assistance of a helper? Yes. TRANSFERS: TOILET - STEP 3: How much assistance does the patient require from the helper? Only supervision, cuing, coaxing, OR he lp to set out transfer equipment or to lock brakes and/or lift foot rests TRANSFERS: TOILET - SCORE: 5-SUP TRANSFERS: SHOWER: Activity did not occur on this shift TRANSFERS: SHOWER - SCORE: 0-UNK TRANSFERS: TUB: Activity did not occur on this shift TRANSFERS: TUB - SCORE: 0-UNK LOCOMOTION: WALK: Activity did not occur on this shift LOCOMOTION: WALK - SCORE: 0-UNK LOCOMOTION: WHEELCHAIR: Activity did not occur on this shift LOCOMOTION: WHEELCHAIR - SCORE: 0-UNK COMPREHENSION: COMPREHENSION: TYPE: Both COMPREHENSION - STEP 1: Does the patient require help to understand complex and abstract ideas (such as current events, finan ravi, discharge planning, medical issues, relationships, etc)? No. COMPREHENSION - STEP 2: Does the patient need extra time, require an assistive device (such as glasses for visual comprehensi on or a hearing aid for auditory comprehension) or does s/he have mild difficulty understanding compl ex and abstract information? Yes. COMPREHENSION - SCORE: 6-ALAINA EXPRESSION EXPRESSION: TYPE: Both EXPRESSION - STEP 1: Does the patient require help expressing complex and abstract ideas (such as current events, finances , discharge planning, medical issues, relationships, etc)? No. EXPRESSION - STEP 2: Does the patient need extra time, require an assistive device (such as augmentive communication syste m or a communication board), OR does s/he have mild difficulty expressing complex and abstract ideas (including mild dysarthria or mild word-find problems)? No. EXPRESSION - SCORE: 7-IND SOCIAL INTERACTION: SOCIAL INTERACTION - STEP 1: Does the patient require a helper to interact with others in social and therapeutic situations? No. SOCIAL INTERACTION - STEP 2: Does the patient need extra time in social situations, OR does s/he interact with staff, other patien ts, and family members ONLY in structured environments, OR does s/he require medication for social in teraction? Yes, patient needs extra time SOCIAL INTERACTION - SCORE: 6-ALAINA PROBLEM SOLVING: PROBLEM SOLVING - STEP 1: Does the patient need help to solve complex problems such as managing a checking account or confronti ng interpersonal problems? No. PROBLEM SOLVING - STEP 2: Does the patient require extra time to make decisions or solve problems, OR does s/he have slight dif ficulty reading, initiating, or self-correcting in unfamiliar situations? Yes, patient needs extra ti me. PROBLEM SOLVING - SCORE: 6-ALAINA MEMORY: MEMORY - STEP 1: Does the patient need help to remember frequently encountered people, daily routines, and executing r equests? No. MEMORY - STEP 2: Does the patient have slight difficulty recognizing frequently encountered people, daily routines, or executing requests without the need for repetition or using self-initiated or environmental cues to remember? Yes. MEMORY - SCORE: 6-ALAINA SIGNATURE PANEL: The following modified sections: Eating - Score, Grooming - Score, Dressing - Upper Body - Score, Edwardo ssing - Lower Body - Score, Toileting - Score, Bladder Management - Score, Bowel Management - Score, Transfers: Bed, Chair, Wheelchair - Score, Transfers: Toilet - Score, Transfers: Shower - Score, Vasquez sfers: Tub - Score, Locomotion: Walk - Score, Locomotion: Wheelchair - Score, Comprehension - Score, Expression - Score, Social Interaction - Score, Problem Solving - Score, Memory - Score were [electro nically] signed by Eryn Sexton CNA on FriDec 07 2017 02:28:13 GMT-0500 (Central Daylight Time)
[2017-12-07 05:41] VITALS: BMI 24.5
[2017-12-07] MEDS: PANTOPRAZOLE 40MG TABLET PO SCH (07:00)
[2017-12-07] MEDS: LUMIGAN OPTH SCH (08:00)
[2017-12-07] MEDS: CRANBERRY FRUIT EXTRACT 200 MG CAP PO SCH ×2 (08:00→20:14)
[2017-12-07] MEDS: PROMOD 30 ML DOSE PO SCH ×2 (08:00→20:00)
[2017-12-07] MEDS: HOME MED 1 EA UNK PO SCH (08:00)
[2017-12-07] MEDS: GUAIFENESIN 600 MG SA TAB PO SCH ×2 (08:23→20:14)
[2017-12-07] MEDS: AMIODARONE HCL 200 MG TAB PO SCH (08:24)
[2017-12-07] MEDS: COLESTIPOL 1 GM TAB PO SCH ×2 (08:24→20:14)
[2017-12-07] MEDS: FERROUS SULFATE 325 MG TAB PO SCH (08:24)
[2017-12-07] MEDS: IRBESARTAN 150 MG TAB PO SCH (08:24)
[2017-12-07] MEDS: SPIRONOLACTONE 25 MG TABLET PO SCH (08:25)
[2017-12-07] MEDS: TRAMADOL HCL 50 MG TAB PO PRN ×2 (08:25→20:34)
[2017-12-07] MEDS: FENOFIBRATE 160 MG TAB PO SCH (08:26)
[2017-12-07] MEDS: FE SULF/FA/VIT B COMP & C TAB PO SCH (08:26)
[2017-12-07] MEDS: CARVEDILOL 6.25 MG TAB PO SCH ×2 (08:26→20:14)
[2017-12-07] MEDS: hydroCHLOROthiazide 25 MG TAB PO SCH (08:26)
[2017-12-07] MEDS: COMBIGAN OPTH SCH (10:26)
[2017-12-07] MEDS: RIVAROXABAN 20 MG TABLET PO SCH (16:55)
[2017-12-07] MEDS: BIMATOPROST OPHTH DROPS/2.5 ML BTL OPTH SCH (20:13)
[2017-12-07] MEDS: EZETIMIBE 10 MG TAB PO SCH (20:14)
[2017-12-07] MEDS: MELATONIN 3 MG TABLET PO PRN (20:15)
--- NOTE | 2017-12-08 02:05 | FAST ---
SHIFT START DATE/TIME: 12/07/2017 19:00 (CDT) SHIFT END DATE/TIME: 12/08/2017 07:00 (CDT) NAME AIDEE BEEBE DATE OF : 1930 DATE OF ADMISSION: 11/27/2017 15:32 (CDT) PHONE: AGE: 87 N# [id number] GENDER: Female ENCOUNTER PHYSICIAN: Dr. Donal Noriega M.D. ADMISSION DIAGNOSIS: - Cardiac 09 - Cardiac Disorders () CHF. EATING: Activity did not occur on this shift EATING - SCORE: 0-UNK GROOMING: Wash, rinse, and dry hands GROOMING - STEP 1: Does the patient require assistance when grooming? Yes. GROOMING - STEP 2: Does the patient require the assistance of a helper? Yes. GROOMING - STEP 3: How much assistance does the patient require from the helper? Only prior equipment preparation/set up from the helper GROOMING - SCORE: 5-SUP BATHING: Activity did not occur on this shift BATHING - SCORE: 0-UNK DRESSING - UPPER BODY: Patient is not dressing in public clothing ARTICLES SCORE Total number of steps: 0 DRESSING - UPPER BODY - SCORE: 0-UNK DRESSING - LOWER BODY: Patient is not dressing in public clothing ARTICLES SCORE Total number of steps: 0 DRESSING - LOWER BODY - SCORE: 0-UNK TOILETING: TOILETING - STEP 1: Does the patient require assistance with toileting? Yes. TOILETING - STEP 2: Does the patient require the assistance of a helper? Yes. TOILETING - STEP 3: How much assistance does the patient require from the helper? Only supervision TOILETING - SCORE: 5-SUP BLADDER MANAGEMENT: BLADDER MANAGEMENT - STEP 1: Does the patient control the bladder completely and intentionally without equipment or devices or med ications, and is always continent? No. BLADDER MANAGEMENT - STEP 2: Does the patient require the assistance of a helper? Yes. BLADDER MANAGEMENT - STEP 3: How much assistance does the patient require from the helper? Only supervision, stand-by, cuing, or c oaxing BLADDER MANAGEMENT - SCORE: 5-SUP BOWEL MANAGEMENT: Activity did not occur on this shift BOWEL MANAGEMENT - SCORE: 7-IND TRANSFERS: BED, CHAIR, WHEELCHAIR: TRANSFERS: BED, CHAIR, WHEELCHAIR - STEP 1: Does the patient require assistance with bed, chair, or wheelchair transfers? Yes. TRANSFERS: BED, CHAIR, WHEELCHAIR - STEP 2: Does the patient require the assistance of a helper? Yes. TRANSFERS: BED, CHAIR, WHEELCHAIR - STEP 3: How much assistance does the patient require from the helper? Steadying/guiding assistance TRANSFERS: BED, CHAIR, WHEELCHAIR - SCORE: 4-MIN TRANSFERS: TOILET: TRANSFERS: TOILET - STEP 1: Does the patient require assistance with toilet transfers? Yes. TRANSFERS: TOILET - STEP 2: Does the patient require the assistance of a helper? Yes. TRANSFERS: TOILET - STEP 3: How much assistance does the patient require from the helper? Only supervision, cuing, coaxing, OR he lp to set out transfer equipment or to lock brakes and/or lift foot rests TRANSFERS: TOILET - SCORE: 5-SUP TRANSFERS: SHOWER: Activity did not occur on this shift TRANSFERS: SHOWER - SCORE: 0-UNK TRANSFERS: TUB: Activity did not occur on this shift TRANSFERS: TUB - SCORE: 0-UNK LOCOMOTION: WALK: Activity did not occur on this shift LOCOMOTION: WALK - SCORE: 0-UNK LOCOMOTION: WHEELCHAIR: Activity did not occur on this shift LOCOMOTION: WHEELCHAIR - SCORE: 0-UNK COMPREHENSION: COMPREHENSION: TYPE: Both COMPREHENSION - STEP 1: Does the patient require help to understand complex and abstract ideas (such as current events, finan ravi, discharge planning, medical issues, relationships, etc)? No. COMPREHENSION - STEP 2: Does the patient need extra time, require an assistive device (such as glasses for visual comprehensi on or a hearing aid for auditory comprehension) or does s/he have mild difficulty understanding compl ex and abstract information? Yes. COMPREHENSION - SCORE: 6-ALAINA EXPRESSION EXPRESSION: TYPE: Both EXPRESSION - STEP 1: Does the patient require help expressing complex and abstract ideas (such as current events, finances , discharge planning, medical issues, relationships, etc)? No. EXPRESSION - STEP 2: Does the patient need extra time, require an assistive device (such as augmentive communication syste m or a communication board), OR does s/he have mild difficulty expressing complex and abstract ideas (including mild dysarthria or mild word-find problems)? No. EXPRESSION - SCORE: 7-IND SOCIAL INTERACTION: SOCIAL INTERACTION - STEP 1: Does the patient require a helper to interact with others in social and therapeutic situations? No. SOCIAL INTERACTION - STEP 2: Does the patient need extra time in social situations, OR does s/he interact with staff, other patien ts, and family members ONLY in structured environments, OR does s/he require medication for social in teraction? Yes, patient needs extra time SOCIAL INTERACTION - SCORE: 6-ALAINA PROBLEM SOLVING: PROBLEM SOLVING - STEP 1: Does the patient need help to solve complex problems such as managing a checking account or confronti ng interpersonal problems? No. PROBLEM SOLVING - STEP 2: Does the patient require extra time to make decisions or solve problems, OR does s/he have slight dif ficulty reading, initiating, or self-correcting in unfamiliar situations? Yes, patient needs extra ti me. PROBLEM SOLVING - SCORE: 6-ALAINA MEMORY: MEMORY - STEP 1: Does the patient need help to remember frequently encountered people, daily routines, and executing r equests? No. MEMORY - STEP 2: Does the patient have slight difficulty recognizing frequently encountered people, daily routines, or executing requests without the need for repetition or using self-initiated or environmental cues to remember? Yes. MEMORY - SCORE: 6-ALAINA SIGNATURE PANEL: The following modified sections: Eating - Score, Grooming - Score, Dressing - Upper Body - Score, Edwardo ssing - Lower Body - Score, Toileting - Score, Bladder Management - Score, Bowel Management - Score, Transfers: Bed, Chair, Wheelchair - Score, Transfers: Toilet - Score, Transfers: Shower - Score, Vasquez sfers: Tub - Score, Locomotion: Walk - Score, Locomotion: Wheelchair - Score, Comprehension - Score, Expression - Score, Social Interaction - Score, Problem Solving - Score, Memory - Score were [electro nically] signed by Eryn Sexton CNA on FriDec 08 2017 02:03:57 GMT-0500 (Central Daylight Time)
[2017-12-08] MEDS: PANTOPRAZOLE 40MG TABLET PO SCH (06:31)
[2017-12-08] MEDS: PROMOD 30 ML DOSE PO SCH ×2 (08:00→20:00)
[2017-12-08] MEDS: HOME MED 1 EA UNK PO SCH (08:00)
[2017-12-08] MEDS: BIMATOPROST OPHTH DROPS/2.5 ML BTL OPTH SCH ×2 (08:16→19:57)
[2017-12-08] MEDS: COMBIGAN OPTH SCH (08:16)
[2017-12-08] MEDS: FERROUS SULFATE 325 MG TAB PO SCH (08:17)
[2017-12-08] MEDS: SPIRONOLACTONE 25 MG TABLET PO SCH (08:17)
[2017-12-08] MEDS: IRBESARTAN 150 MG TAB PO SCH (08:17)
[2017-12-08] MEDS: CRANBERRY FRUIT EXTRACT 200 MG CAP PO SCH ×2 (08:17→20:00)
[2017-12-08] MEDS: hydroCHLOROthiazide 25 MG TAB PO SCH (08:18)
[2017-12-08] MEDS: COLESTIPOL 1 GM TAB PO SCH ×2 (08:18→19:57)
[2017-12-08] MEDS: AMIODARONE HCL 200 MG TAB PO SCH (08:18)
[2017-12-08] MEDS: FE SULF/FA/VIT B COMP & C TAB PO SCH (08:19)
[2017-12-08] MEDS: FENOFIBRATE 160 MG TAB PO SCH (08:21)
[2017-12-08] MEDS: ACETAMINOPHEN 500 MG TAB PO PRN (08:21)
[2017-12-08] MEDS: CARVEDILOL 6.25 MG TAB PO SCH ×2 (08:22→19:57)
[2017-12-08] MEDS: GUAIFENESIN 600 MG SA TAB PO SCH ×2 (08:22→19:57)
--- NOTE | 2017-12-08 15:44 | FAST ---
ENCOUNTER DATE AND TIME: 12/08/2017 08:00 (CDT) NAME AIDEE BEEBE DATE OF : 1930 DATE OF ADMISSION: 11/27/2017 15:32 (CDT) PHONE: AGE: 87 SSN# [id number] GENDER: Female ENCOUNTER PHYSICIAN: Dr. Donal Noriega M.D. ADMISSION DIAGNOSIS: - Cardiac 09 - Cardiac Disorders () CHF. EATING: Activity did not occur on this shift EATING - SCORE: 0-UNK GROOMING: Activity did not occur on this shift GROOMING - SCORE: 0-UNK BATHING: Activity did not occur on this shift BATHING - SCORE: 0-UNK DRESSING - UPPER BODY: Activity did not occur on this shift Patient is not dressing in public clothing ARTICLES SCORE Total number of steps: 0 DRESSING - UPPER BODY - SCORE: 0-UNK DRESSING - LOWER BODY: Activity did not occur on this shift Patient is not dressing in public clothing ARTICLES SCORE Total number of steps: 0 DRESSING - LOWER BODY - SCORE: 0-UNK TOILETING: Activity did not occur on this shift TOILETING - SCORE: 0-UNK BLADDER MANAGEMENT: Activity did not occur on this shift BLADDER MANAGEMENT - SCORE: 7-IND BOWEL MANAGEMENT: Activity did not occur on this shift BOWEL MANAGEMENT - SCORE: 7-IND TRANSFERS: BED, CHAIR, WHEELCHAIR: TRANSFERS: BED, CHAIR, WHEELCHAIR - STEP 1: Does the patient require assistance with bed, chair, or wheelchair transfers? Yes. TRANSFERS: BED, CHAIR, WHEELCHAIR - STEP 2: Does the patient require the assistance of a helper? No. Patient only requires an assistive device fo r bed, chair, wheelchair transfers such as a sliding board, grab bar, or brace, OR s/he takes more th an reasonable time, OR there is a safety concern when s/he performs the transfers TRANSFERS: BED, CHAIR, WHEELCHAIR - SCORE: 6-ALAINA TRANSFERS: TOILET: Activity did not occur on this shift TRANSFERS: TOILET - SCORE: 0-UNK TRANSFERS: SHOWER: Activity did not occur on this shift TRANSFERS: SHOWER - SCORE: 0-UNK TRANSFERS: TUB: Activity did not occur on this shift TRANSFERS: TUB - SCORE: 0-UNK LOCOMOTION: WALK: LOCOMOTION: WALK - STEP 1: Does the patient need help to walk 150 feet? Yes. LOCOMOTION: WALK - STEP 2: How much assistance does the patient require to walk a minimum of 150 feet? Only supervision, cuing, or coaxing LOCOMOTION: WALK - SCORE: 5-SUP LOCOMOTION: WHEELCHAIR: LOCOMOTION: WHEELCHAIR - STEP 1: Does the patient need help to go 150 feet in a wheelchair? Yes. LOCOMOTION: WHEELCHAIR - STEP 2: How much assistance does the patient need from the helper? Only supervision, cuing, or coaxing LOCOMOTION: WHEELCHAIR - SCORE: 5-SUP LOCOMOTION: STAIRS: Activity did not occur on this shift LOCOMOTION: STAIRS - SCORE: 0-UNK COMPREHENSION: COMPREHENSION - SCORE: 0-UNK EXPRESSION EXPRESSION - SCORE: 0-UNK SOCIAL INTERACTION: SOCIAL INTERACTION - SCORE: 0-UNK PROBLEM SOLVING: PROBLEM SOLVING - SCORE: 0-UNK MEMORY: MEMORY - SCORE: 0-UNK SIGNATURE PANEL: The following modified sections: Transfers: Bed, Chair, Wheelchair - Score, Transfers: Toilet - Score , Locomotion: Walk - Score, Locomotion: Wheelchair - Score, Locomotion: Stairs - Score were [ishan yoo] signed by Jen Workman PTA on FriDec 08 2017 15:44:37 GMT-0500 (Central Daylight Time)
[2017-12-08] MEDS: RIVAROXABAN 20 MG TABLET PO SCH (16:43)
[2017-12-08] MEDS: EZETIMIBE 10 MG TAB PO SCH (19:57)
--- NOTE | 2017-12-09 02:04 | FAST ---
SHIFT START DATE/TIME: 12/08/2017 19:00 (CDT) SHIFT END DATE/TIME: 12/09/2017 07:00 (CDT) NAME AIDEE BEEBE DATE OF : 1930 DATE OF ADMISSION: 11/27/2017 15:32 (CDT) PHONE: AGE: 87 N# [id number] GENDER: Female ENCOUNTER PHYSICIAN: Dr. Donal Noriega M.D. ADMISSION DIAGNOSIS: - Cardiac 09 - Cardiac Disorders () CHF. EATING: Activity did not occur on this shift EATING - SCORE: 0-UNK GROOMING: Wash, rinse, and dry hands GROOMING - STEP 1: Does the patient require assistance when grooming? Yes. GROOMING - STEP 2: Does the patient require the assistance of a helper? Yes. GROOMING - STEP 3: How much assistance does the patient require from the helper? Only prior equipment preparation/set up from the helper GROOMING - SCORE: 5-SUP BATHING: Activity did not occur on this shift BATHING - SCORE: 0-UNK DRESSING - UPPER BODY: Patient is not dressing in public clothing ARTICLES SCORE Total number of steps: 0 DRESSING - UPPER BODY - SCORE: 0-UNK DRESSING - LOWER BODY: Patient is not dressing in public clothing ARTICLES SCORE Total number of steps: 0 DRESSING - LOWER BODY - SCORE: 0-UNK TOILETING: TOILETING - STEP 1: Does the patient require assistance with toileting? Yes. TOILETING - STEP 2: Does the patient require the assistance of a helper? Yes. TOILETING - STEP 3: How much assistance does the patient require from the helper? Hands-on assistance from the helper TOILETING - STEP 4: Of the 3 tasks: 1) Adjusting clothing prior to use, 2) Cleansing of perineal area, 3) Adjusting clot cheo after use; How many tasks does the patient perform WITHOUT assistance of the helper? Three tasks with steadying assistance from the helper TOILETING - SCORE: 4-MIN BLADDER MANAGEMENT: BLADDER MANAGEMENT - STEP 1: Does the patient control the bladder completely and intentionally without equipment or devices or med ications, and is always continent? No. BLADDER MANAGEMENT - STEP 2: Does the patient require the assistance of a helper? Yes. BLADDER MANAGEMENT - STEP 3: How much assistance does the patient require from the helper? Only set-up of equipment - such as plac ing it within reach of the patient or emptying a device - to maintain either satisfactory voiding pat tern or managing an external device, such as an absorbent pad, ileal device, or catheter BLADDER MANAGEMENT - SCORE: 5-SUP BOWEL MANAGEMENT: Activity did not occur on this shift BOWEL MANAGEMENT - SCORE: 7-IND TRANSFERS: BED, CHAIR, WHEELCHAIR: TRANSFERS: BED, CHAIR, WHEELCHAIR - STEP 1: Does the patient require assistance with bed, chair, or wheelchair transfers? Yes. TRANSFERS: BED, CHAIR, WHEELCHAIR - STEP 2: Does the patient require the assistance of a helper? No. Patient only requires an assistive device fo r bed, chair, wheelchair transfers such as a sliding board, grab bar, or brace, OR s/he takes more th an reasonable time, OR there is a safety concern when s/he performs the transfers TRANSFERS: BED, CHAIR, WHEELCHAIR - SCORE: 6-ALAINA TRANSFERS: TOILET: TRANSFERS: TOILET - STEP 1: Does the patient require assistance with toilet transfers? Yes. TRANSFERS: TOILET - STEP 2: Does the patient require the assistance of a helper? No. Patient only requires an assistive device monae ch as a grab bar or special seat, OR s/he takes more than reasonable time to perform toilet transfers , OR there is a safety concern when s/he performs toilet transfers. TRANSFERS: TOILET - SCORE: 6-ALAINA TRANSFERS: SHOWER: Activity did not occur on this shift TRANSFERS: SHOWER - SCORE: 0-UNK TRANSFERS: TUB: Activity did not occur on this shift TRANSFERS: TUB - SCORE: 0-UNK LOCOMOTION: WALK: Activity did not occur on this shift LOCOMOTION: WALK - SCORE: 0-UNK LOCOMOTION: WHEELCHAIR: Activity did not occur on this shift LOCOMOTION: WHEELCHAIR - SCORE: 0-UNK COMPREHENSION: COMPREHENSION: TYPE: Both COMPREHENSION - STEP 1: Does the patient require help to understand complex and abstract ideas (such as current events, finan ravi, discharge planning, medical issues, relationships, etc)? No. COMPREHENSION - STEP 2: Does the patient need extra time, require an assistive device (such as glasses for visual comprehensi on or a hearing aid for auditory comprehension) or does s/he have mild difficulty understanding compl ex and abstract information? Yes. COMPREHENSION - SCORE: 6-ALAINA EXPRESSION EXPRESSION: TYPE: Both EXPRESSION - STEP 1: Does the patient require help expressing complex and abstract ideas (such as current events, finances , discharge planning, medical issues, relationships, etc)? No. EXPRESSION - STEP 2: Does the patient need extra time, require an assistive device (such as augmentive communication syste m or a communication board), OR does s/he have mild difficulty expressing complex and abstract ideas (including mild dysarthria or mild word-find problems)? Yes. EXPRESSION - SCORE: 6-ALAINA SOCIAL INTERACTION: SOCIAL INTERACTION - STEP 1: Does the patient require a helper to interact with others in social and therapeutic situations? No. SOCIAL INTERACTION - STEP 2: Does the patient need extra time in social situations, OR does s/he interact with staff, other patien ts, and family members ONLY in structured environments, OR does s/he require medication for social in teraction? Yes, patient needs extra time SOCIAL INTERACTION - SCORE: 6-ALAINA PROBLEM SOLVING: PROBLEM SOLVING - STEP 1: Does the patient need help to solve complex problems such as managing a checking account or confronti ng interpersonal problems? No. PROBLEM SOLVING - STEP 2: Does the patient require extra time to make decisions or solve problems, OR does s/he have slight dif ficulty reading, initiating, or self-correcting in unfamiliar situations? Yes, patient needs extra ti me. PROBLEM SOLVING - SCORE: 6-ALAINA MEMORY: MEMORY - STEP 1: Does the patient need help to remember frequently encountered people, daily routines, and executing r equests? No. MEMORY - STEP 2: Does the patient have slight difficulty recognizing frequently encountered people, daily routines, or executing requests without the need for repetition or using self-initiated or environmental cues to remember? Yes. MEMORY - SCORE: 6-ALAINA SIGNATURE PANEL: The following modified sections: Eating - Score, Grooming - Score, Dressing - Upper Body - Score, Edwardo ssing - Lower Body - Score, Toileting - Score, Bladder Management - Score, Bowel Management - Score, Transfers: Bed, Chair, Wheelchair - Score, Transfers: Toilet - Score, Transfers: Shower - Score, Vasquez sfers: Tub - Score, Locomotion: Walk - Score, Locomotion: Wheelchair - Score, Comprehension - Score, Expression - Score, Social Interaction - Score, Problem Solving - Score, Memory - Score were [electro nically] signed by Eryn Sexton CNA on FriDec 09 2017 02:03:29 GMT-0500 (Central Daylight Time)
[2017-12-09] MEDS: PANTOPRAZOLE 40MG TABLET PO SCH (06:08)
[2017-12-09] MEDS: COMBIGAN OPTH SCH (07:07)
[2017-12-09] MEDS: GUAIFENESIN 600 MG SA TAB PO SCH ×2 (07:08→20:30)
[2017-12-09] MEDS: BIMATOPROST OPHTH DROPS/2.5 ML BTL OPTH SCH ×2 (07:08→20:30)
[2017-12-09] MEDS: FE SULF/FA/VIT B COMP & C TAB PO SCH (07:11)
[2017-12-09] MEDS: hydroCHLOROthiazide 25 MG TAB PO SCH (07:16)
[2017-12-09] MEDS: CRANBERRY FRUIT EXTRACT 200 MG CAP PO SCH ×2 (07:16→20:28)
[2017-12-09] MEDS: FENOFIBRATE 160 MG TAB PO SCH (07:17)
[2017-12-09] MEDS: AMIODARONE HCL 200 MG TAB PO SCH (07:17)
[2017-12-09] MEDS: SPIRONOLACTONE 25 MG TABLET PO SCH (07:17)
[2017-12-09] MEDS: COLESTIPOL 1 GM TAB PO SCH ×2 (07:18→20:28)
[2017-12-09] MEDS: IRBESARTAN 150 MG TAB PO SCH (07:18)
[2017-12-09] MEDS: ACETAMINOPHEN 500 MG TAB PO PRN ×2 (07:19→12:38)
[2017-12-09] MEDS: CARVEDILOL 6.25 MG TAB PO SCH ×2 (07:19→20:29)
[2017-12-09] MEDS: FERROUS SULFATE 325 MG TAB PO SCH (07:19)
[2017-12-09] MEDS: HOME MED 1 EA UNK PO SCH (07:20)
[2017-12-09] MEDS: PROMOD 30 ML DOSE PO SCH ×2 (07:21→20:00)
[2017-12-09] MEDS: TRAMADOL HCL 50 MG TAB PO PRN (09:56)
--- NOTE | 2017-12-09 14:07 | FAST ---
SHIFT START DATE/TIME: 12/09/2017 07:00 (CDT) SHIFT END DATE/TIME: 12/09/2017 19:00 (CDT) NAME AIDEE BEEBE DATE OF : 1930 DATE OF ADMISSION: 11/27/2017 15:32 (CDT) PHONE: AGE: 87 N# [id number] GENDER: Female ENCOUNTER PHYSICIAN: Dr. Donal Noriega M.D. ADMISSION DIAGNOSIS: - Cardiac 09 - Cardiac Disorders () CHF. EATING: EATING - STEP 1: Does the patient require assistance when eating? Yes. EATING - STEP 2: Does the patient require the assistance of a helper? No, patient only requires an assistive device, O R s/he takes more than reasonable time to eat, OR there is a safety concern, OR s/he requires modifie d food consistency EATING - SCORE: 6-ALAINA GROOMING: Comb/brush hair Oral care Wash, rinse, and dry face Wash, rinse, and dry hands GROOMING - STEP 1: Does the patient require assistance when grooming? Yes. GROOMING - STEP 2: Does the patient require the assistance of a helper? No. The patient only requires an assistive devic e, OR takes more than reasonable time to groom, OR there is a concern for safety as the patient groom s GROOMING - SCORE: 6-ALAINA BATHING: Activity did not occur on this shift BATHING - SCORE: 0-UNK DRESSING - UPPER BODY: Activity did not occur on this shift ARTICLES SCORE Total number of steps: 0 DRESSING - UPPER BODY - SCORE: 0-UNK DRESSING - LOWER BODY: Activity did not occur on this shift ARTICLES SCORE Total number of steps: 0 DRESSING - LOWER BODY - SCORE: 0-UNK TOILETING: TOILETING - STEP 1: Does the patient require assistance with toileting? Yes. TOILETING - STEP 2: Does the patient require the assistance of a helper? No. TOILETING - SCORE: 6-ALAINA BLADDER MANAGEMENT: BLADDER MANAGEMENT - STEP 1: Does the patient control the bladder completely and intentionally without equipment or devices or med ications, and is always continent? No. BLADDER MANAGEMENT - STEP 2: Does the patient require the assistance of a helper? No, patient requires and independently uses an a ssistive device, such as a urinal, bedpan, bedside commode, catheter, absorbent pad, or collecting de vice BLADDER MANAGEMENT - SCORE: 6-ALAINA BOWEL MANAGEMENT: Activity did not occur on this shift BOWEL MANAGEMENT - SCORE: 7-IND TRANSFERS: BED, CHAIR, WHEELCHAIR: TRANSFERS: BED, CHAIR, WHEELCHAIR - STEP 1: Does the patient require assistance with bed, chair, or wheelchair transfers? Yes. TRANSFERS: BED, CHAIR, WHEELCHAIR - STEP 2: Does the patient require the assistance of a helper? No. Patient only requires an assistive device fo r bed, chair, wheelchair transfers such as a sliding board, grab bar, or brace, OR s/he takes more th an reasonable time, OR there is a safety concern when s/he performs the transfers TRANSFERS: BED, CHAIR, WHEELCHAIR - SCORE: 6-ALAINA TRANSFERS: TOILET: TRANSFERS: TOILET - STEP 1: Does the patient require assistance with toilet transfers? Yes. TRANSFERS: TOILET - STEP 2: Does the patient require the assistance of a helper? No. Patient only requires an assistive device monae ch as a grab bar or special seat, OR s/he takes more than reasonable time to perform toilet transfers , OR there is a safety concern when s/he performs toilet transfers. TRANSFERS: TOILET - SCORE: 6-ALAINA TRANSFERS: SHOWER: Activity did not occur on this shift TRANSFERS: SHOWER - SCORE: 0-UNK TRANSFERS: TUB: Activity did not occur on this shift TRANSFERS: TUB - SCORE: 0-UNK LOCOMOTION: WALK: Activity did not occur on this shift LOCOMOTION: WALK - SCORE: 0-UNK LOCOMOTION: WHEELCHAIR: Activity did not occur on this shift LOCOMOTION: WHEELCHAIR - SCORE: 0-UNK COMPREHENSION: COMPREHENSION: TYPE: Both COMPREHENSION - STEP 1: Does the patient require help to understand complex and abstract ideas (such as current events, finan ravi, discharge planning, medical issues, relationships, etc)? No. COMPREHENSION - STEP 2: Does the patient need extra time, require an assistive device (such as glasses for visual comprehensi on or a hearing aid for auditory comprehension) or does s/he have mild difficulty understanding compl ex and abstract information? Yes. COMPREHENSION - SCORE: 6-ALAINA EXPRESSION EXPRESSION: TYPE: Both EXPRESSION - STEP 1: Does the patient require help expressing complex and abstract ideas (such as current events, finances , discharge planning, medical issues, relationships, etc)? No. EXPRESSION - STEP 2: Does the patient need extra time, require an assistive device (such as augmentive communication syste m or a communication board), OR does s/he have mild difficulty expressing complex and abstract ideas (including mild dysarthria or mild word-find problems)? No. EXPRESSION - SCORE: 7-IND SOCIAL INTERACTION: SOCIAL INTERACTION - STEP 1: Does the patient require a helper to interact with others in social and therapeutic situations? No. SOCIAL INTERACTION - STEP 2: Does the patient need extra time in social situations, OR does s/he interact with staff, other patien ts, and family members ONLY in structured environments, OR does s/he require medication for social in teraction? No. SOCIAL INTERACTION - SCORE: 7-IND PROBLEM SOLVING: PROBLEM SOLVING - STEP 1: Does the patient need help to solve complex problems such as managing a checking account or confronti ng interpersonal problems? No. PROBLEM SOLVING - STEP 2: Does the patient require extra time to make decisions or solve problems, OR does s/he have slight dif ficulty reading, initiating, or self-correcting in unfamiliar situations? Yes, patient needs extra ti me. PROBLEM SOLVING - SCORE: 6-ALAINA MEMORY: MEMORY - STEP 1: Does the patient need help to remember frequently encountered people, daily routines, and executing r equests? No. MEMORY - STEP 2: Does the patient have slight difficulty recognizing frequently encountered people, daily routines, or executing requests without the need for repetition or using self-initiated or environmental cues to remember? No. MEMORY - SCORE: 7-IND SIGNATURE PANEL: The following modified sections: Eating - Score, Grooming - Score, Bathing - Score, Dressing - Upper Body - Score, Dressing - Lower Body - Score, Toileting - Score, Bladder Management - Score, Bowel Man agement - Score, Transfers: Bed, Chair, Wheelchair - Score, Transfers: Toilet - Score, Transfers: Brittany wer - Score, Transfers: Tub - Score, Locomotion: Walk - Score, Locomotion: Wheelchair - Score, Compre hension - Score, Expression - Score, Social Interaction - Score, Problem Solving - Score, Memory - Sc ore were [electronically] signed by Camilo Elizabeth on FriDec 09 2017 14:06:55 GMT-0500 (Central Daylight Time)
[2017-12-09] MEDS: GUAIFENESIN/DM 5 ML UCUP PO PRN ×2 (14:29→20:28)
--- NOTE | 2017-12-09 15:55 | FAST ---
ENCOUNTER DATE AND TIME: 12/09/2017 08:00 (CDT) NAME AIDEE BEEBE DATE OF : 1930 DATE OF ADMISSION: 11/27/2017 15:32 (CDT) PHONE: AGE: 87 N# [id number] GENDER: Female ENCOUNTER PHYSICIAN: Dr. Donal Noriega M.D. ADMISSION DIAGNOSIS: - Cardiac - Cardiac Disorders () CHF. EATING: Activity did not occur on this shift EATING - SCORE: 0-UNK GROOMING: Wash, rinse, and dry face Wash, rinse, and dry hands GROOMING - STEP 1: Does the patient require assistance when grooming? No. GROOMING - SCORE: 7-IND BATHING: Abdomen Buttocks Chest Left arm Left lower leg and foot Left upper leg Perineal area Right arm Right lower leg and foot Right upper leg BATHING - STEP 1: Does the patient require assistance when bathing? Yes. BATHING - STEP 2: Does the patient require the assistance of a helper? No. The patient only requires an assistive devic e such as a bath christopher, OR the patient takes more than reasonable time to bathe, OR there is a concern for safety such as regulating water temperature as the patient bathes. BATHING - SCORE: 6-ALAINA DRESSING - UPPER BODY: T-shirt/pullover shirt (four steps) ARTICLES SCORE Total number of steps: 4 DRESSING - UPPER BODY - STEP 1: Does the patient require help when dressing above the waist? No. DRESSING - UPPER BODY - SCORE: 7-IND DRESSING - LOWER BODY: Elastic waist pants (three steps) Slip-on shoe - Left foot (one step) Slip-on shoe - Right foot (one step) Sock - Left foot (one step) Sock - Right foot (one step) Underwear (three steps) ARTICLES SCORE Total number of steps: 10 DRESSING - LOWER BODY - STEP 1: Does the patient require help when dressing below the waist? Yes. DRESSING - LOWER BODY - STEP 2: Does the patient require the assistance of a helper? No. Patient requires an assistive device such as a director style. OR s/he takes more than reasonable time as s/he dresses the lower body, OR there is a con cern for safety when s/he dresses the lower body DRESSING - LOWER BODY - SCORE: 6-ALAINA TOILETING: TOILETING - STEP 1: Does the patient require assistance with toileting? Yes. TOILETING - STEP 2: Does the patient require the assistance of a helper? No. TOILETING - SCORE: 6-ALAINA BLADDER MANAGEMENT: Activity did not occur on this shift BLADDER MANAGEMENT - SCORE: 7-IND BOWEL MANAGEMENT: Activity did not occur on this shift BOWEL MANAGEMENT - SCORE: 7-IND TRANSFERS: BED, CHAIR, WHEELCHAIR: Activity did not occur on this shift TRANSFERS: BED, CHAIR, WHEELCHAIR - SCORE: 0-UNK TRANSFERS: TOILET: TRANSFERS: TOILET - STEP 1: Does the patient require assistance with toilet transfers? Yes. TRANSFERS: TOILET - STEP 2: Does the patient require the assistance of a helper? No. Patient only requires an assistive device monea ch as a grab bar or special seat, OR s/he takes more than reasonable time to perform toilet transfers , OR there is a safety concern when s/he performs toilet transfers. TRANSFERS: TOILET - SCORE: 6-ALAINA TRANSFERS: SHOWER: Activity did not occur on this shift TRANSFERS: SHOWER - SCORE: 0-UNK TRANSFERS: TUB: TRANSFERS: TUB - STEP 1: Does the patient require assistance with tub transfers? Yes. TRANSFERS: TUB - STEP 2: Does the patient require the assistance of a helper? No. Only requires the assistance of an assistive device, OR takes more than reasonable time, OR there is a concern for safety when s/he performs tub transfers TRANSFERS: TUB - SCORE: 6-ALAINA LOCOMOTION: WALK: Activity did not occur on this shift LOCOMOTION: WALK - SCORE: 0-UNK LOCOMOTION: WHEELCHAIR: Activity did not occur on this shift LOCOMOTION: WHEELCHAIR - SCORE: 0-UNK LOCOMOTION: STAIRS: Activity did not occur on this shift LOCOMOTION: STAIRS - SCORE: 0-UNK COMPREHENSION: COMPREHENSION: TYPE: Visual COMPREHENSION - STEP 1: Does the patient require help to understand complex and abstract ideas (such as current events, finan ravi, discharge planning, medical issues, relationships, etc)? No. COMPREHENSION - STEP 2: Does the patient need extra time, require an assistive device (such as glasses for visual comprehensi on or a hearing aid for auditory comprehension) or does s/he have mild difficulty understanding compl ex and abstract information? Yes. COMPREHENSION - SCORE: 6-ALAINA EXPRESSION EXPRESSION: TYPE: Non-Vocal EXPRESSION - STEP 1: Does the patient require help expressing complex and abstract ideas (such as current events, finances , discharge planning, medical issues, relationships, etc)? No. EXPRESSION - STEP 2: Does the patient need extra time, require an assistive device (such as augmentive communication syste m or a communication board), OR does s/he have mild difficulty expressing complex and abstract ideas (including mild dysarthria or mild word-find problems)? No. EXPRESSION - SCORE: 7-IND SOCIAL INTERACTION: SOCIAL INTERACTION - STEP 1: Does the patient require a helper to interact with others in social and therapeutic situations? No. SOCIAL INTERACTION - STEP 2: Does the patient need extra time in social situations, OR does s/he interact with staff, other patien ts, and family members ONLY in structured environments, OR does s/he require medication for social in teraction? No. SOCIAL INTERACTION - SCORE: 7-IND PROBLEM SOLVING: PROBLEM SOLVING - STEP 1: Does the patient need help to solve complex problems such as managing a checking account or confronti ng interpersonal problems? No. PROBLEM SOLVING - STEP 2: Does the patient require extra time to make decisions or solve problems, OR does s/he have slight dif ficulty reading, initiating, or self-correcting in unfamiliar situations? No. PROBLEM SOLVING - SCORE: 7-IND MEMORY: MEMORY - STEP 1: Does the patient need help to remember frequently encountered people, daily routines, and executing r equests? No. MEMORY - STEP 2: Does the patient have slight difficulty recognizing frequently encountered people, daily routines, or executing requests without the need for repetition or using self-initiated or environmental cues to remember? No. MEMORY - SCORE: 7-IND SIGNATURE PANEL: The following modified sections: Eating - Score, Grooming - Score, Bathing - Score, Dressing - Upper Body - Score, Dressing - Lower Body - Score, Toileting - Score, Transfers: Bed, Chair, Wheelchair - S core, Transfers: Toilet - Score, Transfers: Shower - Score, Transfers: Tub - Score, Comprehension - S core, Expression - Score, Social Interaction - Score, Problem Solving - Score, Memory - Score were [e lectronically] signed by LIDYA Judd on FriDec 09 2017 15:54:24 GMT-0500 ([facility] Time)
[2017-12-09] MEDS: RIVAROXABAN 20 MG TABLET PO SCH (16:05)
--- NOTE | 2017-12-09 18:45 | R.PN ---
ENCOUNTER DATE AND TIME: 12/09/2017 18:43 (CDT) NAME AIDEE BEEBE DATE OF : 1930 DATE OF ADMISSION: 11/27/2017 15:32 (CDT) CHFCHIEF COMPLAINT: Congestive heart failure SUBJECTIVE: Pt denied any Shortness of Breath. Pt denied any depression. Ambulated 500' with modified independence using a rolling walker. Up and down 12 steps with standby assistance. Self-propelled wheelchair 150' with standby assistance. VITAL SIGNS Temperature: 97.9 F SBP/DBP: 145/66 Pulse: 81 Resp: 16 MEDICATION ALLERGIES: MEPERIDINE HCI ENVIRONMENTAL ALLERGIES: - Substance Allergies None Known - Other Allergies None Known NURSING: - Shower allowing shower ACTIVITIES OOB only with supervision THERAPIES: - Occupational Therapy Evaluate and Treat. - Physical Therapy Evaluate and Treat. PHYSICAL EXAM - Gen Alert and awake Lying in bed No apparent distress Oriented to: person, time, and place - Skin No skin breakdown. Normacephalic - Eyes No abnormalities - ENMT No abnormalities - Neck No abnormalities - CVS RRR - Resp Clear to auscultation - Abd Soft - GI Non distended Deferred - No abnormalities - Ext Mild bilateral lower extremity edema. - MSK 4/5 weakness in both lower extremities. - Neuro 4/5 strength bilaterally lower extremities. - Psych No abnormalities ASSESSMENT: Pt. is a 87 yo Right-handed white female.On 11/26/2017 she was admitted to [facility] with diagnosis CHF.Her impairment category is Cardiac 09 - Cardiac Disorders (09).Pre-morbidl y, Pt. was independent/mod-I in Communication, Social Cognition, Self-Care, Sphincter Control, Transf ers Control, and Locomotion; and she had good Sphincter Control.Currently, she has deficits of Commun ication, Social Cognition, Balance, Endurance, Safety Awareness, Transfers Control, Locomotion, and S elf-Care.Pt. is now referred to [facility] for acute in-patient rehabilitation in order to maximize patient's functional independence in activities of daily living, strength, ROM, and mobility.- Rehab Goal Patient has realistic goal of being discharged at assistance level 6-Deandra to reside at Home with Fam sean/Relatives. MDM/PLAN: - Physical Therapy Gait dysfunction - to improve, our physical therapists will perform initial evaluation of pt's statu s upon admission and devise an individualized program for Gait Training, and Wheel Chair mobility Inability to transfer - to improve, our physical therapists will perform initial evaluation of pt's status upon admission and devise an individualized program for Bed mobility Need for home safety evaluation - to improve, our physical therapists will perform initial evaluatio n of pt's status upon admission and devise an individualized program for Home Evaluation Need in caregiver upon discharge - to improve, our physical therapists will perform initial evaluati on of pt's status upon admission and devise an individualized program for Caregiver Training Edema - to improve, our physical therapists will perform initial evaluation of pt's status upon admi ssion and devise an individualized program for Elevation Training, and Lymphedema Therapy New precaution - to improve, our physical therapists will perform initial evaluation of pt's status upon admission and devise an individualized program for Patient precaution education Poor balance - to improve, our physical therapists will perform initial evaluation of pt's status up on admission and devise an individualized program for Balance Training Poor endurance - to improve, our physical therapists will perform initial evaluation of pt's status upon admission and devise an individualized program for Endurance Training Weakness - to improve, our physical therapists will perform initial evaluation of pt's status upon a dmission and devise an individualized program for Aquatic Therapy, Neuromuscular Reeducation, and Str engthening Achieving independence - to improve, our physical therapists will perform initial evaluation of pt's status upon admission and devise an individualized program for Community Reintegration Activities - Occupational Therapy ADL deficits - to improve, our occupation therapists will perform initial evaluation of pt's status upon admission and devise an individualized program for Bathing, Bed mobility, Community Reintegratio n, Cooking, Dressing, Eating, Fine Motor Skills, Grooming, Homemaking, Kitchen Mobility, Laundry, Pat ient Education, Safety Awareness, Splinting - Positioning, Transfers(Toilet, Tub, Shower), and Wheel Chair Management Cognitive deficits - to improve, our occupation therapists will perform initial evaluation of pt's s tatus upon admission and devise an individualized program for Cognition - orientation Need for health care specialist - to improve, our occupation therapists will perform initial evaluation of pt's status upon admission and devise an individualized program for Caregiver Training Weakness - to improve, our occupation therapists will perform initial evaluation of pt's status upon admission and devise an individualized program for Aquatic Therapy, Balance, Endurance, UE ROM, and UE strengthening - Diet Type Continue Regular - Diet - Liquid Texture Continue Regular - Tube Feed Continue N/A - Diet - Solid Texture Continue Regular - Shower allowing shower FUNCTIONAL STATUS: UPDATED AT WEEKLY TEAM CONFERENCE - Bladder Same accident frequency: 7-Ind - No accidents in the past 7 days - Bowel Same accident frequency: 7-Ind - No accidents in the past 7 days - Walking Same score based on distance walked: 2(50-149ft) FUNCTIONAL STATUS: - Self-Care A. Eating Ind B. Grooming sup C. Bathing modA D. Dressing - Upper Jaylyn E. Dressing - Lower modA F. Toileting Dep - Sphincter Control G: Bladder control Dep H: Bowel control Dep - Transfers Control I. Bed/Chair/Wheelchair Jaylyn J. Toilet Jaylyn K. Tub/Shower Jaylyn - Locomotion L. Walk/Wheelchair (B) modA M. Stairs ADNO - Communication N. Comprehension (B) sup O. Expression (B) sup - Social Cognition P. Social Interaction sup Q. Problem Solving sup R. Memory sup - Endurance Poor - Balance Poor - Safety Awareness Poor CURRENT FUNC. DEFICITS: Communication, Social Cognition, Balance, Endurance, Safety Awareness, Transfers Control, Locomotion, and Self-Care SIGNATURE PANEL: (CDT)
[2017-12-09] MEDS: EZETIMIBE 10 MG TAB PO SCH (20:28)
[2017-12-10] MEDS: GUAIFENESIN/DM 5 ML UCUP PO PRN (02:13)
[2017-12-10] MEDS: PANTOPRAZOLE 40MG TABLET PO SCH (05:30)
[2017-12-10 07:31] VITALS: BP 149/77; TEMP 97.5
[2017-12-10] MEDS: BIMATOPROST OPHTH DROPS/2.5 ML BTL OPTH SCH (08:00)
[2017-12-10] MEDS: COMBIGAN OPTH SCH (08:00)
[2017-12-10] MEDS: FE SULF/FA/VIT B COMP & C TAB PO SCH (08:00)
[2017-12-10] MEDS: HOME MED 1 EA UNK PO SCH (08:00)
[2017-12-10] MEDS: PROMOD 30 ML DOSE PO SCH (08:00)
[2017-12-10] MEDS: TRAMADOL HCL 50 MG TAB PO PRN ×2 (08:50→13:54)
[2017-12-10] MEDS: FERROUS SULFATE 325 MG TAB PO SCH (08:50)
[2017-12-10] MEDS: CRANBERRY FRUIT EXTRACT 200 MG CAP PO SCH (08:51)
[2017-12-10] MEDS: hydroCHLOROthiazide 25 MG TAB PO SCH (08:51)
[2017-12-10] MEDS: COLESTIPOL 1 GM TAB PO SCH (08:51)
[2017-12-10] MEDS: CARVEDILOL 6.25 MG TAB PO SCH (08:52)
[2017-12-10] MEDS: AMIODARONE HCL 200 MG TAB PO SCH (08:52)
[2017-12-10] MEDS: IRBESARTAN 150 MG TAB PO SCH (08:52)
[2017-12-10] MEDS: SPIRONOLACTONE 25 MG TABLET PO SCH (08:53)
[2017-12-10] MEDS: GUAIFENESIN 600 MG SA TAB PO SCH (08:53)
[2017-12-10] MEDS: FENOFIBRATE 160 MG TAB PO SCH (08:54)
[2017-12-10] MEDS ORDERED: PNEUMOCOCCAL VACCINE 0.5 ML IMVAC ONE (09:00)
[2017-12-10] MEDS ORDERED: INFLUENZA VACCINE (for 3y+) 0.5 ML DOSE IMVAC ONE (09:00)
--- NOTE | 2017-12-10 09:50 | RAD REPORT ---
EXAM DESCRIPTION: RAD - Chest Single View - 12/10/2017 9:25 am CLINICAL HISTORY: Cough, shortness of breath COMPARISON: November 26 TECHNIQUE: AP portable chest image was obtained 0915 hours . FINDINGS: Mild chronic interstitial lung disease is present. Improved aeration seen in both lung bas es. Left costophrenic angle blunting has resolved. Right costophrenic angle blunting has improved. Ri ght base aeration also improved. Heart size is upper normal and stable. No acute vascular engorgement . 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 No pneumothorax. No gross bony abnormality seen. No acute aortic findings suspected. IMPRESSION: Bilateral pleural effusions have improved and the bilateral lung base opacification has improved. No new or progressive finding.
[2017-12-10] MEDS: ONDANSETRON 4 MG (ODT) TAB PO PRN (10:49)
[2017-12-10] MEDS ORDERED: GUAIFENESIN/DM 5 ML UCUP PO PRN (13:58)
[2017-12-10] MEDS ORDERED: GUAIFENESIN/CODEINE 5ML UCUP PO PRN (14:48)
--- NOTE | 2017-12-10 15:26 | FAST ---
SHIFT START DATE/TIME: 12/10/2017 07:00 (CDT) SHIFT END DATE/TIME: 12/10/2017 19:00 (CDT) NAME AIDEE BEEBE DATE OF : 1930 DATE OF ADMISSION: 11/27/2017 15:32 (CDT) PHONE: AGE: 87 N# [id number] GENDER: Female ENCOUNTER PHYSICIAN: Dr. Donal Noriega M.D. ADMISSION DIAGNOSIS: - Cardiac - Cardiac Disorders () CHF. EATING: EATING - STEP 1: Does the patient require assistance when eating? Yes. EATING - STEP 2: Does the patient require the assistance of a helper? No, patient only requires an assistive device, O R s/he takes more than reasonable time to eat, OR there is a safety concern, OR s/he requires modifie d food consistency EATING - SCORE: 6-ALAINA GROOMING: Comb/brush hair Oral care Wash, rinse, and dry face Wash, rinse, and dry hands GROOMING - STEP 1: Does the patient require assistance when grooming? Yes. GROOMING - STEP 2: Does the patient require the assistance of a helper? No. The patient only requires an assistive devic e, OR takes more than reasonable time to groom, OR there is a concern for safety as the patient groom s GROOMING - SCORE: 6-ALAINA BATHING: Activity did not occur on this shift BATHING - SCORE: 0-UNK DRESSING - UPPER BODY: T-shirt/pullover shirt (four steps) ARTICLES SCORE Total number of steps: 4 DRESSING - UPPER BODY - STEP 1: Does the patient require help when dressing above the waist? Yes. DRESSING - UPPER BODY - STEP 2: Does the patient require the assistance of a helper? No. Patient only requires an assistive device, s uch as a button hook, velcro, or polisher eyeglass frames. OR s/he takes more than reasonable time as s/he dresses the upper body. OR there is a concern for safety when s/he dresses the upper body DRESSING - UPPER BODY - SCORE: 6-ALAINA DRESSING - LOWER BODY: Elastic waist pants (three steps) Slip-on shoe - Left foot (one step) Slip-on shoe - Right foot (one step) ARTICLES SCORE Total number of steps: 5 DRESSING - LOWER BODY - STEP 1: Does the patient require help when dressing below the waist? Yes. DRESSING - LOWER BODY - STEP 2: Does the patient require the assistance of a helper? No. Patient requires an assistive device such as a polisher eyeglass frames. OR s/he takes more than reasonable time as s/he dresses the lower body, OR there is a con cern for safety when s/he dresses the lower body DRESSING - LOWER BODY - SCORE: 6-ALAINA TOILETING: TOILETING - STEP 1: Does the patient require assistance with toileting? Yes. TOILETING - STEP 2: Does the patient require the assistance of a helper? No. TOILETING - SCORE: 6-ALAINA BLADDER MANAGEMENT: BLADDER MANAGEMENT - STEP 1: Does the patient control the bladder completely and intentionally without equipment or devices or med ications, and is always continent? No. BLADDER MANAGEMENT - STEP 2: Does the patient require the assistance of a helper? Yes. BLADDER MANAGEMENT - STEP 3: How much assistance does the patient require from the helper? Only supervision, stand-by, cuing, or c oaxing BLADDER MANAGEMENT - SCORE: 5-SUP BLADDER MANAGEMENT - FREQUENCY OF ACCIDENTS: BLADDER MANAGEMENT(FA) - STEP 1: How many accidents has the patient had during the current shift? 0 BOWEL MANAGEMENT: BOWEL MANAGEMENT - STEP 1: Does the patient control bowels completely and intentionally without equipment devices or medications AND is always continent? No. BOWEL MANAGEMENT - STEP 2: Does the patient require the assistance of a helper? No, patient requires extra time BOWEL MANAGEMENT - SCORE: 6-ALAINA BOWEL MANAGEMENT - FREQUENCY OF ACCIDENTS: BOWEL MANAGEMENT(FA) - STEP 1: How many accidents has the patient had during the current shift? 0 TRANSFERS: BED, CHAIR, WHEELCHAIR: TRANSFERS: BED, CHAIR, WHEELCHAIR - STEP 1: Does the patient require assistance with bed, chair, or wheelchair transfers? Yes. TRANSFERS: BED, CHAIR, WHEELCHAIR - STEP 2: Does the patient require the assistance of a helper? No. Patient only requires an assistive device fo r bed, chair, wheelchair transfers such as a sliding board, grab bar, or brace, OR s/he takes more th an reasonable time, OR there is a safety concern when s/he performs the transfers TRANSFERS: BED, CHAIR, WHEELCHAIR - SCORE: 6-ALAINA TRANSFERS: TOILET: TRANSFERS: TOILET - STEP 1: Does the patient require assistance with toilet transfers? Yes. TRANSFERS: TOILET - STEP 2: Does the patient require the assistance of a helper? No. Patient only requires an assistive device monae ch as a grab bar or special seat, OR s/he takes more than reasonable time to perform toilet transfers , OR there is a safety concern when s/he performs toilet transfers. TRANSFERS: TOILET - SCORE: 6-ALAINA TRANSFERS: SHOWER: Activity did not occur on this shift TRANSFERS: SHOWER - SCORE: 0-UNK TRANSFERS: TUB: Activity did not occur on this shift TRANSFERS: TUB - SCORE: 0-UNK LOCOMOTION: WALK: Activity did not occur on this shift LOCOMOTION: WALK - SCORE: 0-UNK LOCOMOTION: WHEELCHAIR: LOCOMOTION: WHEELCHAIR - STEP 1: Does the patient need help to go 150 feet in a wheelchair? Yes. LOCOMOTION: WHEELCHAIR - STEP 2: How much assistance does the patient need from the helper? Only supervision, cuing, or coaxing LOCOMOTION: WHEELCHAIR - SCORE: 5-SUP COMPREHENSION: COMPREHENSION: TYPE: Both COMPREHENSION - STEP 1: Does the patient require help to understand complex and abstract ideas (such as current events, finan ravi, discharge planning, medical issues, relationships, etc)? No. COMPREHENSION - STEP 2: Does the patient need extra time, require an assistive device (such as glasses for visual comprehensi on or a hearing aid for auditory comprehension) or does s/he have mild difficulty understanding compl ex and abstract information? Yes. COMPREHENSION - SCORE: 6-ALAINA EXPRESSION EXPRESSION: TYPE: Both EXPRESSION - STEP 1: Does the patient require help expressing complex and abstract ideas (such as current events, finances , discharge planning, medical issues, relationships, etc)? No. EXPRESSION - STEP 2: Does the patient need extra time, require an assistive device (such as augmentive communication syste m or a communication board), OR does s/he have mild difficulty expressing complex and abstract ideas (including mild dysarthria or mild word-find problems)? Yes. EXPRESSION - SCORE: 6-ALAINA SOCIAL INTERACTION: SOCIAL INTERACTION - STEP 1: Does the patient require a helper to interact with others in social and therapeutic situations? No. SOCIAL INTERACTION - STEP 2: Does the patient need extra time in social situations, OR does s/he interact with staff, other patien ts, and family members ONLY in structured environments, OR does s/he require medication for social in teraction? Yes, patient needs extra time SOCIAL INTERACTION - SCORE: 6-ALAINA PROBLEM SOLVING: PROBLEM SOLVING - STEP 1: Does the patient need help to solve complex problems such as managing a checking account or confronti ng interpersonal problems? No. PROBLEM SOLVING - STEP 2: Does the patient require extra time to make decisions or solve problems, OR does s/he have slight dif ficulty reading, initiating, or self-correcting in unfamiliar situations? Yes, patient needs extra ti me. PROBLEM SOLVING - SCORE: 6-ALAINA MEMORY: MEMORY - STEP 1: Does the patient need help to remember frequently encountered people, daily routines, and executing r equests? No. MEMORY - STEP 2: Does the patient have slight difficulty recognizing frequently encountered people, daily routines, or executing requests without the need for repetition or using self-initiated or environmental cues to remember? Yes. MEMORY - SCORE: 6-ALAINA SIGNATURE PANEL: The following modified sections: Eating - Score, Grooming - Score, Bathing - Score, Dressing - Upper Body - Score, Dressing - Lower Body - Score, Toileting - Score, Bladder Management - Score, Bowel Man agement - Score, Transfers: Bed, Chair, Wheelchair - Score, Transfers: Toilet - Score, Transfers: Brittany wer - Score, Transfers: Tub - Score, Locomotion: Walk - Score, Locomotion: Wheelchair - Score, Compre hension - Score, Expression - Score, Social Interaction - Score, Problem Solving - Score, Memory - Sc ore were [electronically] signed by Jasmin BlissNSadie on FriDec 10 2017 15:26:03 T-0500 ([facility])
--- NOTE | 2017-12-10 17:56 | R.PN ---
ENCOUNTER DATE AND TIME: 12/10/2017 17:53 (CDT) NAME AIDEE BEEBE DATE OF : 1930 DATE OF ADMISSION: 11/27/2017 15:32 (CDT) CHFCHIEF COMPLAINT: Congestive heart failure SUBJECTIVE: Pt denied any Shortness of Breath. Pt denied any depression. Ambulated 500' with modified independence using a rolling walker. Up and down 12 steps with standby assistance. Self-propelled wheelchair 150' with standby assistance. VITAL SIGNS Temperature: 97.9 F SBP/DBP: 149/77 Pulse: 80 Resp: 16 MEDICATION ALLERGIES: MEPERIDINE HCI ENVIRONMENTAL ALLERGIES: - Substance Allergies None Known - Other Allergies None Known NURSING: - Shower allowing shower ACTIVITIES OOB only with supervision THERAPIES: - Occupational Therapy Evaluate and Treat. - Physical Therapy Evaluate and Treat. PHYSICAL EXAM - Gen Alert and awake Lying in bed No apparent distress Oriented to: person, time, and place - Skin No skin breakdown. Normacephalic - Eyes No abnormalities - ENMT No abnormalities - Neck No abnormalities - CVS RRR - Resp Clear to auscultation - Abd Soft - GI Non distended Deferred - No abnormalities - Ext Mild bilateral lower extremity edema. - MSK 4/5 weakness in both lower extremities. - Neuro 4/5 strength bilaterally lower extremities. - Psych No abnormalities ASSESSMENT: Pt. is a 87 yo Right-handed white female.On 11/26/2017 she was admitted to [facility] with diagnosis CHF.Her impairment category is Cardiac 09 - Cardiac Disorders (09).Pre-morbidl y, Pt. was independent/mod-I in Communication, Social Cognition, Self-Care, Sphincter Control, Transf ers Control, and Locomotion; and she had good Sphincter Control.Currently, she has deficits of Commun ication, Social Cognition, Balance, Endurance, Safety Awareness, Transfers Control, Locomotion, and S elf-Care.Pt. is now referred to [facility] for acute in-patient rehabilitation in order to maximize patient's functional independence in activities of daily living, strength, ROM, and mobility.- Rehab Goal Patient has realistic goal of being discharged at assistance level 6-Deandra to reside at Home with Fam sean/Relatives. MDM/PLAN: - Physical Therapy Gait dysfunction - to improve, our physical therapists will perform initial evaluation of pt's statu s upon admission and devise an individualized program for Gait Training, and Wheel Chair mobility Inability to transfer - to improve, our physical therapists will perform initial evaluation of pt's status upon admission and devise an individualized program for Bed mobility Need for home safety evaluation - to improve, our physical therapists will perform initial evaluatio n of pt's status upon admission and devise an individualized program for Home Evaluation Need in caregiver upon discharge - to improve, our physical therapists will perform initial evaluati on of pt's status upon admission and devise an individualized program for Caregiver Training Edema - to improve, our physical therapists will perform initial evaluation of pt's status upon admi ssion and devise an individualized program for Elevation Training, and Lymphedema Therapy New precaution - to improve, our physical therapists will perform initial evaluation of pt's status upon admission and devise an individualized program for Patient precaution education Poor balance - to improve, our physical therapists will perform initial evaluation of pt's status up on admission and devise an individualized program for Balance Training Poor endurance - to improve, our physical therapists will perform initial evaluation of pt's status upon admission and devise an individualized program for Endurance Training Weakness - to improve, our physical therapists will perform initial evaluation of pt's status upon a dmission and devise an individualized program for Aquatic Therapy, Neuromuscular Reeducation, and Str engthening Achieving independence - to improve, our physical therapists will perform initial evaluation of pt's status upon admission and devise an individualized program for Community Reintegration Activities - Occupational Therapy ADL deficits - to improve, our occupation therapists will perform initial evaluation of pt's status upon admission and devise an individualized program for Bathing, Bed mobility, Community Reintegratio n, Cooking, Dressing, Eating, Fine Motor Skills, Grooming, Homemaking, Kitchen Mobility, Laundry, Pat ient Education, Safety Awareness, Splinting - Positioning, Transfers(Toilet, Tub, Shower), and Wheel Chair Management Cognitive deficits - to improve, our occupation therapists will perform initial evaluation of pt's s tatus upon admission and devise an individualized program for Cognition - orientation Need for field care coordinator - to improve, our occupation therapists will perform initial evaluation of pt's status upon admission and devise an individualized program for Caregiver Training Weakness - to improve, our occupation therapists will perform initial evaluation of pt's status upon admission and devise an individualized program for Aquatic Therapy, Balance, Endurance, UE ROM, and UE strengthening - Diet Type Continue Regular - Diet - Liquid Texture Continue Regular - Tube Feed Continue N/A - Diet - Solid Texture Continue Regular - Shower allowing shower FUNCTIONAL STATUS: UPDATED AT WEEKLY TEAM CONFERENCE - Bladder Same accident frequency: 7-Ind - No accidents in the past 7 days - Bowel Same accident frequency: 7-Ind - No accidents in the past 7 days - Walking Same score based on distance walked: 2(50-149ft) FUNCTIONAL STATUS: - Self-Care A. Eating Ind B. Grooming sup C. Bathing modA D. Dressing - Upper Jaylyn E. Dressing - Lower modA F. Toileting Dep - Sphincter Control G: Bladder control Dep H: Bowel control Dep - Transfers Control I. Bed/Chair/Wheelchair Jaylyn J. Toilet Jaylyn K. Tub/Shower Jaylyn - Locomotion L. Walk/Wheelchair (B) modA M. Stairs ADNO - Communication N. Comprehension (B) sup O. Expression (B) sup - Social Cognition P. Social Interaction sup Q. Problem Solving sup R. Memory sup - Endurance Poor - Balance Poor - Safety Awareness Poor CURRENT FUNC. DEFICITS: Communication, Social Cognition, Balance, Endurance, Safety Awareness, Transfers Control, Locomotion, and Self-Care SIGNATURE PANEL: (CDT)
== END 2017-12-10 15:15 | disposition home health service (06) | DRG 293 ==
LOC: 5TH 15:46
PROVIDERS: ADMIT Psychiatry & Neurology Neurology with Special Qualifications in Child Neurology; ATTEND Psychiatry & Neurology Neurology with Special Qualifications in Child Neurology
DX: I50.30 Unspecified diastolic (congestive) heart failure (principal); I48.91 Unspecified atrial fibrillation; Z95.0 Presence of cardiac pacemaker
CPT/HCPCS: 36415; 71045; 80048; 81001; 82040; 83735; 84134; 85025; 87077; 87086; 87088; 87186; 97542; J1940

== ENCOUNTER 2018-01-05 11:07 | Observation (INO) | payer OTHER ==
--- OUTSIDE RECORDS SUMMARY | 2018-01-05 11:09 | XMS REPORT ---
:1930 [facility] Address [address] [place] [address] Care Team Providers Name Role Phone Unavailable [...]
[2018-01-05 12:01] LABS: Absolute Lymphocytes (CBC) 1.5 K/uL (0.7-4.9); Absolute Monocytes 0.7 K/uL (0.1-1.3); Absolute Neutrophil 4.3 K/uL (1.8-8.0); Basophils % 0.9 % (0-1.3); Eosinophils % 1.6 % (0-4.4); Hematocrit 33.6 % (36.0-45.0); Lymphocytes % 22.4 % (15.3-44.8); MCH 28.6 pg (27.0-35.0); MCV 85.9 fL (80-100); MPV 7.9 fL (7.6-11.3); Monocytes % 10.7 % (3.3-12.3); RBC Red Blood Cell Count 3.91 M/uL (3.86-4.86)
[2018-01-05 12:06] LABS: Protime INR 1.69
--- NOTE | 2018-01-05 12:24 | RAD REPORT ---
EXAM DESCRIPTION: CT - Head C Spine Cap Wo Con - 01/05/2018 12:00 pm CLINICAL HISTORY: Fall, head, neck, chest and abdomen pain COMPARISON: CT head November 26, CT chest, abdomen and pelvis November 24 TECHNIQUE: Axial [address] head images were obtained. Axial [address] cervical spine images were obtain ed with sagittal and coronal reconstruction images reviewed. Axial 5 mm images of the chest, abdomen and pelvis were obtained. All CT scans are performed using dose optimization technique as appropriate and may include automated exposure control or mA/KV adjustment according to patient size. FINDINGS: No intracranial hemorrhage, mass or edema. No acute cortical based infarction identified. Patient has advanced atrophy and chronic ischemic change. Ventricles are in proportion to this volume loss. No midline shift or abnormal fluid collection. Mastoid air cells and paranasal sinuses are anne marie ar. No skull fracture. The intracranial findings are similar to the November 26 imaging. Cervical bodies are normal in height. There is a very slight retrolisthesis of C5 on C6 with C5-6 dis c space narrowing. No fracture or acute bone finding.No other significant disc space narrowing. Multi level facet joint degenerative change present. No significant degree of foraminal encroachment. No ce ntral spinal stenosis suspected.No prevertebral soft tissue thickening or paraspinal mass.Central can al detail is inherently limited on CT imaging. CT chest shows no pneumothorax, pulmonary contusion or pleural fluid collection. No mediastinal hem atoma and the aorta and pulmonary arteries are unremarkable for noncontrast imaging. No chest will ma ss or abnormal axillary finding. No displaced rib fracture. The 50% T3 compression fracture and partial collapse superior endplate T4 are stable from November [facility]. Bilateral breast implants are in place. Both implants are partially collapsed. Dense fibrous capsule calcifications are present. There is herniation of the implant through the inferior margin of the right fibrous capsule. Acute traumatic injury is not seen. Breast implant findings are stable. CT abdomen and pelvis show no injury to solid abdominal viscera. Cholecystectomy clips are present. N o biliary tree dilatation. No acute bowel injury. Rectosigmoid anastomosis shows no acute finding. In cidental note made of retrocecal appendix with tip reaching the gallbladder fossa. No free air, free fluid or abnormal stranding. No hernia, mass or bulky lymphadenopathy. No urinary bladder abnormality. Disc and bony degenerative changes are present. No pathologic bone process. IMPRESSION: Atrophy and chronic ischemic changes are present similar to the November examination. N o acute intracranial finding. Cervical spine degenerative change with no acute finding. No acute CT chest finding. T3 and T4 compression fractures are stable. No significant CT Abdomen and Pelvis finding. Nonacute findings detailed in the body of the report.
[2018-01-05] MEDS ORDERED: NA CHLORIDE 0.9% 1,000 ML ONE (12:29)
[2018-01-05] MEDS ORDERED: FAMOTIDINE 20 MG/2 ML VIAL IV ONE (12:29)
[2018-01-05 12:35] LABS: Albumin 2.9 g/dL (3.4-5.0); Bilirubin Direct 0.3 mg/dL (0-0.2); Bilirubin Total 0.8 mg/dL (0.2-1.0); Magnesium 2.2 mg/dL (1.8-2.4); Potassium 4.6 mmol/L (3.5-5.1); Protein, Total 6.2 g/dL (6.4-8.2); Troponin (Emerg Dept Use Only) 0.02 ng/mL (0.0-0.045)
--- NOTE | 2018-01-05 12:57 | RAD REPORT ---
EXAM DESCRIPTION: RAD - Chest Single View - 01/05/2018 12:41 pm CLINICAL HISTORY: COUGH Chest pain. COMPARISON: Chest Single View dated 12/10/2017; Chest Single View dated 11/26/2017; Chest Single View dated 11/24/2017; Chest Single View dated 11/20/2017 FINDINGS: Portable technique limits examination quality. The lungs are grossly clear. The heart is mildly prominent size with a single lead pacer device prese nt. No displaced fractures. IMPRESSION: No acute intrathoracic process suspected.
--- NOTE | 2018-01-05 13:10 | EDPHYS ---
Physician Documentation [facility] Name: Amy Lambert Age: 87 yrs Sex: Female : 1930 Arrival Date: 01/05/2018 Time: 11:08 Bed 18 Private MD: ED Physician Bebeto Minor HPI: 01/05 12:38 This 87 yrs old Female presents to ER via EMS with complaints of Blood leticia Pressure Problem. 12:38 near syncope. The patient has experienced near-syncope, almost passed out, felt dizzy. leticia Onset: The symptoms/episode began/occurred 2 day(s) ago. Duration: This was a single episode, that lasted 30 second(s). Onset: The symptoms/episode began/occurred just prior to arrival. Associated injury: The patient did not suffer any apparent associated injury. Historical: - Allergies: 11:17 Demerol; ch - Home Meds: 11:16 carvedilol oral oral [Active]; cranberry fruit concentrate 450 mg oral cap [Active]; Hemocyte-Plus 106 mg iron- 1 mg oral cap 1 cap once daily [Active]; Milk of Magnesia Oral [Active]; Zofran Oral [Active]; tramadol 50 mg Oral tab every 12 hours [Active]; alendronate 10 mg oral tab 1 tab once daily [Active]; Amiodarone Oral [Active]; Calcium 500 + D (D3) 500 mg(1,250mg) -125 unit oral tab [Active]; colestipol oral oral [Active]; Combigan 0.2-0.5 % ophthalmic drop 1 drop every 12 hours [Active]; esomeprazole magnesium oral oral [Active]; fenofibrate 145 MG Oral once daily [Active]; Hydrochlorothiazide Oral [Active]; irbesartan oral oral [Active]; Meclizine Oral [Active]; Xarelto oral oral [Active]; Zetia 10 mg Oral tab 1 tab once daily [Active]; - PMHx: 11:16 Atrial Fib; Hypertension; Pacemaker; FALLS; UTI; SEPSIS; PACE MAKER PUT IN 11/06/[address] [facility] [facility]; - PSHx: 11:16 Bladder suspension; Hysterectomy; Breast implants; PACE MAKER; - Immunization history:: Adult Immunizations up to date. - Social history:: Smoking status: Patient/guardian denies using tobacco. - Ebola Screening: : Patient negative for fever greater than or equal to 101.5 degrees Fahrenheit, and additional compatible Ebola Virus Disease symptoms Patient denies exposure to infectious person Patient denies travel to an Ebola-affected area in the 21 days before illness onset No symptoms or risks identified at this time. - Family history:: not pertinent. ROS: 12:38 Constitutional: Negative for fever, chills, and weight loss, Eyes: Negative for injury, leticia pain, redness, and discharge, ENT: Negative for injury, pain, and discharge, Neck: Negative for injury, pain, and swelling, Cardiovascular: Negative for chest pain, palpitations, and edema, Respiratory: Negative for shortness of breath, cough, wheezing, and pleuritic chest pain, Abdomen/GI: Negative for abdominal pain, nausea, vomiting, diarrhea, and constipation, Back: Negative for injury and pain, : Negative for injury, bleeding, discharge, and swelling, MS/Extremity: Negative for injury and deformity, Skin: Negative for injury, rash, and discoloration, Psych: Negative for depression, anxiety, suicide ideation, homicidal ideation, and hallucinations, Allergy/Immunology: Negative for hives, rash, and allergies, Endocrine: Negative for neck swelling, polydipsia, polyuria, polyphagia, and marked weight changes, Hematologic/Lymphatic: Negative for swollen nodes, abnormal bleeding, and unusual bruising. 12:38 Neuro: Positive for near syncope. Exam: 12:38 Constitutional: This is a well developed, well nourished patient who is awake, alert, leticia and in no acute distress. Head/Face: Normocephalic, atraumatic. Eyes: Pupils equal round and reactive to light, extra-ocular motions intact. Lids and lashes normal. Conjunctiva and sclera are non-icteric and not injected. Cornea within normal limits. Periorbital areas with no swelling, redness, or edema. ENT: Nares patent. No nasal discharge, no septal abnormalities noted. Tympanic membranes are normal and external auditory canals are clear. Oropharynx with no redness, swelling, or masses, exudates, or evidence of obstruction, uvula midline. Mucous membranes moist. Neck: Trachea midline, no thyromegaly or masses palpated, and no cervical lymphadenopathy. Supple, full range of motion without nuchal rigidity, or vertebral point tenderness. No Meningismus. Chest/axilla: Normal chest wall appearance and motion. Nontender with no deformity. No lesions are appreciated. Cardiovascular: Regular rate and rhythm with a normal S1 and S2. No gallops, murmurs, or rubs. Normal PMI, no JVD. No pulse deficits. Respiratory: Lungs have equal breath sounds bilaterally, clear to auscultation and percussion. No rales, rhonchi or wheezes noted. No increased work of breathing, no retractions or nasal flaring. Abdomen/GI: Soft, non-tender, with normal bowel sounds. No distension or tympany. No guarding or rebound. No evidence of tenderness throughout. Back: No spinal tenderness. No costovertebral tenderness. Full range of motion. Skin: Warm, dry with normal turgor. Normal color with no rashes, no lesions, and no evidence of cellulitis. Neuro: Awake and alert, GCS 15, oriented to person, place, time, and situation. Cranial nerves II-XII grossly intact. Motor strength 5/5 in all extremities. Sensory grossly intact. Cerebellar exam normal. Normal gait. Psych: Awake, alert, with orientation to person, place and time. Behavior, mood, and affect are within normal limits. 12:38 Musculoskeletal/extremity: Extremities: grossly normal except: ROM: full active range of motion, full passive range of motion, Circulation is intact in all extremities. Sensation intact. DVT Exam: no swelling, negative Homans' sign noted on exam, no appreciated bluish discoloration, no erythema, no increased warmth, pain, tenderness. Vital Signs: 11:17 BP 119 / 58; Pulse 80; Resp 18; Temp 97.9; Pulse Ox 100% ; Weight 58.06 kg; Height 5 ch ft. 4 in. (162.56 cm); Pain 0/10; 12:20 BP 110 / 54; Pulse 80; Resp 16; Temp 98.3; Pulse Ox 99% on R/A; ch 13:18 BP 122 / 68; Pulse 80; Resp 16; Temp 98.3; Pulse Ox 99% on R/A; Pain 0/10; ch 14:00 BP 139 / 71; Pulse 80; Resp 16; Temp 98.3; Pulse Ox 99% on R/A; Pain 0/10; 15:14 BP 125 / 68; Pulse 80; Resp 21; Temp 98.7; Pulse Ox 99% on R/A; Pain 0/10; 16:30 BP 132 / 61; Pulse 80; Resp 20; Temp 98.3; Pulse Ox 99% on R/A; Pain 0/10; ch 18:00 BP 108 / 62; Pulse 80; Resp 20; Temp 98.5; Pulse Ox 99% on R/A; Pain 0/10; ch 11:17 Body Mass Index 21.97 (58.06 kg, 162.56 cm) MDM: 11:36 Patient medically screened. [facility] 12:40 Data reviewed: vital signs, nurses notes, lab test result(s), EKG, radiologic studies, [facility] CT scan, plain films. 01/05 11:37 Order name: Basic Metabolic Panel; Complete Time: 13: [facility] 01/05 11:37 Order name: CBC with Diff; Complete Time: 13: [facility] 01/05 11:37 Order name: LFT's; Complete Time: 13: [facility] 01/05 11:37 Order name: Magnesium; Complete Time: 13: [facility] 01/05 11:37 Order name: NT PRO-BNP; Complete Time: 13: [facility] 01/05 11:37 Order name: PT-INR; Complete Time: 13: [facility] 01/05 11:37 Order name: Troponin (emerg Dept Use Only); Complete Time: 13: [facility] 01/05 11:37 Order name: XRAY Chest (1 view); Complete Time: 13: [facility] 01/05 11:37 Order name: Lipase; Complete Time: 13: [facility] 01/05 11:37 Order name: Urine Culture [facility] 01/05 11:37 Order name: CT Traumagram (Head C Spine CAP wo con); Complete Time: 13: [facility] 01/05 14:30 Order name: Urine Dipstick--Ancillary (enter results) 01/05 16:08 Order name: Urine Dipstick-Ancillary EDAZ 01/05 11:37 Order name: EKG; Complete Time: 11:38 [facility] 01/05 11:37 Order name: Cardiac monitoring; Complete Time: 11:53 [facility] 01/05 11:37 Order name: EKG - Nurse/Tech; Complete Time: 11:53 [facility] 01/05 11:37 Order name: IV Saline Lock; Complete Time: 11:53 [facility] 01/05 11:37 Order name: Labs collected and sent; Complete Time: 11:53 [facility] 01/05 11:37 Order name: O2 Per Protocol; Complete Time: 11:53 [facility] 01/05 11:37 Order name: O2 Sat Monitoring; Complete Time: 11:53 [facility] 01/05 11:37 Order name: Urine Dipstick-Ancillary (obtain specimen); Complete Time: 13:41 [facility] 01/05 12:41 Order name: US Carotid Artery Bilateral [facility] 01/05 13:15 Order name: CONS Physician Consult [facility] 01/05 13:42 Order name: Diet Heart Healthy; Complete Time: 13:42 dh3 01/05 15:23 Order name: Diet Heart Healthy; Complete Time: 15:23 ch Administered Medications: 12:39 Drug: NS 0.9% 1000 ml Route: IV; Rate: 125 ml/hr; Site: right antecubital; 17:28 Follow up: IV Status: Infusion continued upon admission; IV Intake: 400ml ch 12:39 Drug: Pepcid 20 mg Route: IVP; Site: right antecubital; 13:18 Follow up: Response: No adverse reaction 13:58 Drug: Rocephin - (cefTRIAXone) 1 grams Route: IVPB; Infused Over: 30 mins; Site: right ls4 antecubital; 17:28 Follow up: IV Status: Completed infusion; IV Intake: 50ml ch Disposition: 01/05/18 13:09 Hospitalization ordered by Aggie Huitron for Inpatient Admission. Preliminary diagnosis are Syncope and collapse, Unspecified kidney failure, Dysuria. - Bed requested for Telemetry/MedSurg (Inpatient). - Status is Inpatient Admission. ch - Condition is Fair. - Problem is new. - Symptoms have improved. UTI on Admission? Yes Signatures: Dispatcher [employer] EDAZ Monica Villanueva Christina, RN RN ch Anderson, Corey, MD MD cha Stewart, Lisa RN RN ls4 Corrections: (The following items were deleted from the chart) 13:10 13:09 Hospitalization Ordered by Aggie Huitron MD for Inpatient Admission. Preliminary [facility] diagnosis is Syncope and collapse; Unspecified kidney failure. Bed requested for Telemetry/MedSurg (Inpatient). Status is Inpatient Admission. Condition is Fair. Problem is new. Symptoms have improved. UTI on Admission? Yes. leticia 13:48 12:42 EC Echo Doppler W/Color Flow+ECHO.RAD.BRZ ordered. EDMS EDMS 17:23 13:10 01/05/2018 13:09 Hospitalization Ordered by Aggie Huitron MD for Inpatient bd Admission. Preliminary diagnosis is Syncope and collapse; Unspecified kidney failure; Dysuria. Bed requested for Telemetry/MedSurg (Inpatient). Status is Inpatient Admission. Condition is Fair. Problem is new. Symptoms have improved. UTI on Admission? Yes. leticia 18:21 17:23 01/05/2018 13:09 Hospitalization Ordered by Aggie Huitron MD for Inpatient ch Admission. Preliminary diagnosis is Syncope and collapse; Unspecified kidney failure; Dysuria. Bed requested for Telemetry/MedSurg (Inpatient). Status is Inpatient Admission. Condition is Fair. Problem is new. Symptoms have improved. UTI on Admission? Yes. bd
--- NOTE | 2018-01-05 13:10 | ER ---
Nurse's Notes [facility] Name: Amy Lambert Age: 87 yrs Sex: Female : 1930 Arrival Date: 01/05/2018 Time: 11:08 Bed 18 Private MD: Diagnosis: Syncope and collapse;Unspecified kidney failure;Dysuria Presentation: 01/05 11:08 Presenting complaint: EMS states: HOME HEALTH WAS WORKING WITH PT, AND SHE GOT PALE AND ch DIAPHORETIC. THEY CALLED EMS AT 1024. PT HR WAS 80S-108, PT SHOULD BE PACED AT 80. IT HAPPENED AGAIN AND PT GOT PALE AND DIAPHORETIC AND STATED SHE FELT WEAK. SITTING 92/60, STANDING 82/52. 11:17 Transition of care: patient was not received from another setting of care. Onset of ch symptoms was January 05, 2018 at 10:15. Risk Assessment: Do you want to hurt yourself or someone else? Patient reports no desire to harm self or others. Initial Sepsis Screen: Does the patient meet any 2 criteria? No. Patient's initial sepsis screen is negative. Does the patient have a suspected source of infection? No. Patient's initial sepsis screen is negative. Care prior to arrival: None. 11:17 Method Of Arrival: EMS: [facility] 11:17 Acuity: BROOKE 3 ch Triage Assessment: 11:17 General: Appears in no apparent distress. comfortable, Behavior is calm, cooperative, ch appropriate for age. Pain: Denies pain. Neuro: No deficits noted. Cardiovascular: Reports lightheadedness, shortness of breath, Denies chest pain, Heart tones S1 S2 present Capillary refill < 3 seconds in bilateral fingers toes Clubbing of nail beds is present Patient's skin is warm and dry. Pulses are all present. Edema is absent. Rhythm is Chest pain is denied. Respiratory: Airway is patent Respiratory effort is even, unlabored, Breath sounds are clear bilaterally. GI: No signs and/or symptoms were reported involving the gastrointestinal system. Derm: PT HAS DARK BRUISING ON LEG FROM A FALL LAST WEEK. PT IS IN PHYSICAL THERAPY FOR STRENGTH DUE TO FALLS. Historical: - Allergies: 11:17 Demerol; ch - Home Meds: 11:16 carvedilol oral oral [Active]; cranberry fruit concentrate 450 mg oral cap [Active]; ch Hemocyte-Plus 106 mg iron- 1 mg oral cap 1 cap once daily [Active]; Milk of Magnesia Oral [Active]; Zofran Oral [Active]; tramadol 50 mg Oral tab every 12 hours [Active]; alendronate 10 mg oral tab 1 tab once daily [Active]; Amiodarone Oral [Active]; Calcium 500 + D (D3) 500 mg(1,250mg) -125 unit oral tab [Active]; colestipol oral oral [Active]; Combigan 0.2-0.5 % ophthalmic drop 1 drop every 12 hours [Active]; esomeprazole magnesium oral oral [Active]; fenofibrate 145 MG Oral once daily [Active]; Hydrochlorothiazide Oral [Active]; irbesartan oral oral [Active]; Meclizine Oral [Active]; Xarelto oral oral [Active]; Zetia 10 mg Oral tab 1 tab once daily [Active]; - PMHx: 11:16 Atrial Fib; Hypertension; Pacemaker; FALLS; UTI; SEPSIS; PACE MAKER PUT IN 11/06/[address] HOLBROOK, [facility]; - PSHx: 11:16 Bladder suspension; Hysterectomy; Breast implants; PACE MAKER; ch - Immunization history:: Adult Immunizations up to date. - Social history:: Smoking status: Patient/guardian denies using tobacco. - Ebola Screening: : Patient negative for fever greater than or equal to 101.5 degrees Fahrenheit, and additional compatible Ebola Virus Disease symptoms Patient denies exposure to infectious person Patient denies travel to an Ebola-affected area in the 21 days before illness onset No symptoms or risks identified at this time. - Family history:: not pertinent. Screenin:20 Abuse screen: Denies threats or abuse. Denies injuries from another. Nutritional ch screening: No deficits noted. Tuberculosis screening: No symptoms or risk factors identified. Fall Risk Fall in past 12 months (25 points). Secondary diagnosis (15 points) IV access (20 points). Ambulatory Aid- None/Bed Rest/Nurse Assist (0 pts). Gait- Normal/Bed Rest/Wheelchair (0 pts) Mental Status- Oriented to own ability (0 pts). Total Webster Fall Scale indicates High Risk Score (45 or more points). Fall prevention measures have been instituted. Side Rails Up X 2 Placed Close to Nursing Station Frequent Obs/Assessments Occuring As available patient and family educated on Fall Prevention Program and Strategies. Assessment: 11:20 Reassessment: Patient appears in no apparent distress at this time. Patient and/or family updated on plan of care and expected duration. Pain level reassessed. Patient is alert, oriented x 3, equal unlabored respirations, skin warm/dry/pink. 12:45 Reassessment: Patient appears in no apparent distress at this time. No changes from ch previously documented assessment. Patient and/or family updated on plan of care and expected duration. Pain level reassessed. Patient is alert, oriented x 3, equal unlabored respirations, skin warm/dry/pink. Patient denies pain at this time. 14:00 Reassessment: Patient appears in no apparent distress at this time. No changes from ch previously documented assessment. Patient and/or family updated on plan of care and expected duration. Pain level reassessed. Patient is alert, oriented x 3, equal unlabored respirations, skin warm/dry/pink. 15:12 Reassessment: Patient appears in no apparent distress at this time. Patient and/or family updated on plan of care and expected duration. Pain level reassessed. Patient is alert, oriented x 3, equal unlabored respirations, skin warm/dry/pink. Patient denies pain at this time. Patient states feeling better. Patient states symptoms have improved. 16:30 Reassessment: Patient appears in no apparent distress at this time. No changes from ch previously documented assessment. Patient and/or family updated on plan of care and expected duration. Pain level reassessed. Patient is alert, oriented x 3, equal unlabored respirations, skin warm/dry/pink. 17:26 Reassessment: Patient appears in no apparent distress at this time. Patient and/or family updated on plan of care and expected duration. Pain level reassessed. Patient is alert, oriented x 3, equal unlabored respirations, skin warm/dry/pink. i ATTEMPT TO CALL REPORT NOW. Patient denies pain at this time. Patient states feeling better. 18:00 Reassessment: Patient appears in no apparent distress at this time. No changes from previously documented assessment. Patient and/or family updated on plan of care and expected duration. Pain level reassessed. Patient is alert, oriented x 3, equal unlabored respirations, skin warm/dry/pink. Vital Signs: 11:17 BP 119 / 58; Pulse 80; Resp 18; Temp 97.9; Pulse Ox 100% ; Weight 58.06 kg; Height 5 ch ft. 4 in. (162.56 cm); Pain 0/10; 12:20 BP 110 / 54; Pulse 80; Resp 16; Temp 98.3; Pulse Ox 99% on R/A; ch 13:18 BP 122 / 68; Pulse 80; Resp 16; Temp 98.3; Pulse Ox 99% on R/A; Pain 0/10; ch 14:00 BP 139 / 71; Pulse 80; Resp 16; Temp 98.3; Pulse Ox 99% on R/A; Pain 0/10; ch 15:14 BP 125 / 68; Pulse 80; Resp 21; Temp 98.7; Pulse Ox 99% on R/A; Pain 0/10; ch 16:30 BP 132 / 61; Pulse 80; Resp 20; Temp 98.3; Pulse Ox 99% on R/A; Pain 0/10; ch 18:00 BP 108 / 62; Pulse 80; Resp 20; Temp 98.5; Pulse Ox 99% on R/A; Pain 0/10; ch 11:17 Body Mass Index 21.97 (58.06 kg, 162.56 cm) ED Course: 11:08 Patient arrived in ED. 11:17 Triage completed. 11:17 Arm band placed on left wrist. Patient placed in an exam room, on a stretcher, on monitoring coordinator, on pulse oximetry. 11:20 No apparent distress. Resting quietly. 11:20 Patient has correct armband on for positive identification. Placed in gown. Bed in low position. Call light in reach. Side rails up X2. satellite project site monitor on. Pulse ox on. NIBP on. Warm blanket given. 11:36 Bebeto Minor MD is Attending Physician. [facility] 11:[address] cw1 11:52 Silvina Lara, RN is Primary Nurse. 11:52 Initial lab(s) drawn, by de, sent to lab. Inserted saline lock: 20 gauge in right ch antecubital area, using aseptic technique. Blood collected. Missed attempt(s): 20 gauge in right forearm. Bleeding controlled, band aid applied, catheter tip intact. 12:01 CT Traumagram (Head C Spine CAP wo con) In Process Unspecified. EDMS 12:18 EKG done, by environmental tech. reviewed by Bebeto Minor MD. at1 12:41 X-ray completed. Portable x-ray completed in exam room. Patient tolerated procedure az well. 12:42 XRAY Chest (1 view) In Process Unspecified. EDMS 13:02 Patient taken to ultrasound. hr 13:08 Aggie Huitron MD is Hospitalizing Provider. leticia 13:10 US Carotid Artery Bilateral In Process Unspecified. EDMS 13:25 Ultrasound completed. Patient tolerated well. Patient moved back from ultrasound. aa4 13:40 Urine collected: clean catch specimen, wilder colored. dh3 18:00 No provider procedures requiring assistance completed. Patient admitted, IV remains in place. Administered Medications: 12:39 Drug: NS 0.9% 1000 ml Route: IV; Rate: 125 ml/hr; Site: right antecubital; 17:28 Follow up: IV Status: Infusion continued upon admission; IV Intake: 400ml ch 12:39 Drug: Pepcid 20 mg Route: IVP; Site: right antecubital; 13:18 Follow up: Response: No adverse reaction ch 13:58 Drug: Rocephin - (cefTRIAXone) 1 grams Route: IVPB; Infused Over: 30 mins; Site: right ls4 antecubital; 17:28 Follow up: IV Status: Completed infusion; IV Intake: 50ml ch Intake: 17:28 IV: 50ml; Total: 50ml. ch 17:28 IV: 400ml; Total: 450ml. Outcome: 13:09 Decision to Hospitalize by Provider. [facility] 17:59 Admitted to Med/surg accompanied by [facility], via wheelchair, room 415, with chart, Report called to [facility] 17:59 Condition: stable 17:59 Discharge instructions given to patient, Instructed on the need for admit. 18:21 Patient left the ED. Signatures: Dispatcher [employer] EDSilvina De La Garza, ARLEEN RN Bebeto Mckeon MD MD cha Rod, Haley Brenda Matamoros aa4 Antoinette Dalton cw1 Brenda Valdivia, compliance analyst EKG Tat1 Bibiana Snell 3 Vivian Soares Lisa, RN RN ls4
--- NOTE | 2018-01-05 13:41 | RAD REPORT ---
EXAM DESCRIPTION: US - CP - 01/05/2018 1:14 pm CLINICAL HISTORY: Syncope COMPARISON: None. TECHNIQUE: Real-time sonographic evaluation of both carotid systems was performed. Stokes scale and Do ppler interrogation were performed with waveform tracing bilaterally. FINDINGS: Normal high resistance waveforms are noted in both external carotid arteries. The common c arotid arteries and internal carotid arteries show normal low resistance waveforms. No significant plaquing changes seen on the right. Small focal calcified plaque seen distal common ca rotid artery at the bulb on the left. There are numerous small calcified plaques at the left ICA orig in. Visually there is no significant luminal narrowing at this level. Peak systolic and end diastolic velocity values and the ICA/CCA ratios are in the non-hemodynamically significant range. Antegrade flow seen in both vertebral arteries. Velocity values and ratios were recorded and are retained in the patient's imaging records. IMPRESSION: Multiple small calcified plaques in the left carotid bulb and proximal ICA. No hemodynam ically significant degree of stenosis seen. No significant plaquing on the right and no right-sided stenosis.
[2018-01-05] MEDS ORDERED: CEFTRIAXONE/SWI 1gm 1 GM/10 ML SYR ONE (14:00)
--- NOTE | 2018-01-05 15:47 | EKG ---
Test Date: 2018-01-05 Test Time: 12:08:33 Effervescent Salts Compounder: AMI MEASUREMENT RESULTS: Intervals: Rate: 80 RI: QRSD: 162 QT: 444 QTc: 512 [place]: P: RI: QRS: -74 T: 85 INTERPRETIVE STATEMENTS: Atrial-sensed ventricular-paced rhythm Abnormal ECG Compared to ECG 11/24/2017 17:42:24 Atrial-sensed ventricular-paced rhythm is now present Electronically Signed On 01-05-18 15:47:07 CDT by Jalen Savage
[2018-01-05 16:08] LABS: Urine Blood NEGATIVE (NEG); Urine Glucose NEGATIVE (NEG); Urine Protein NEGATIVE (NEG); Urine Specific Gravity 1.015 (1.005-1.030); Urine pH 5.5 (5.0-7.0)
[2018-01-05] MEDS ORDERED: ALBUTEROL 2.5 MG/3 ML NEB SOL NEB PRN (18:55)
[2018-01-05] MEDS ORDERED: ACETAMINOPHEN 500 MG TAB PO PRN (18:55)
[2018-01-05] MEDS ORDERED: ONDANSETRON 4 MG/2 ML VIAL IV PRN (18:55)
[2018-01-05] MEDS: NA CHLORIDE 0.9% 1,000 ML IV SCH (21:00)
[2018-01-05 23:02] VITALS: BMI 23.3
[2018-01-06] MEDS: NA CHLORIDE 0.9% 1,000 ML IV SCH ×4 (00:36→20:05)
--- NOTE | 2018-01-06 02:57 | CON ---
Date of Consultation: 01/05/2018 Admitted on 01/05/[address] Amezquita's service. I saw the patient on 01/05/2018. Reason For Consultation: Near syncope. History Of Present Illness: Ms. Lambert is an 87-year-old white woman, normally sees Dr. Chowdhury from a cardiac standpoint. She has a history of atrial fibrillation and recently had a pacemaker in October 2017, has a history of hypertension, dyslipidemia, congestive heart failure, recent UTI, and sepsis, and multiple falls. She came in with presyncope after she stood up really quickly. Did not have an y trauma or any fracture, but she did have some bruising. Denied any chest pain, nausea, vomiting, d iaphoresis, PND, orthopnea, pedal edema, or palpitation. Denied any fever or chills. Allergies: SHE IS ALLERGIC TO DEMEROL. Review of Systems: Negative. Social History: Negative. Family History: Negative. Medications: Include Aldactone, hydrochlorothiazide, amiodarone, Coreg, Tricor, Zetia, Xarelto, Avap ro. Physical Examination: General: She is very pleasant, alert, oriented x3. She has paced rhythm. HEENT: Negative. Neck: Supple with no bruit. Chest: Clear to auscultation and percussion. Cardiac: Revealed a regular rhythm and rate without any murmurs, gallops, or rubs. Abdomen: Benign. Extremities: Revealed no clubbing, cyanosis, or edema. Diagnostic Data: She had a normal echocardiogram in November 2017. EKG is paced rhythm. Chest x-r ay is negative. Carotid Doppler is negative. She had a BNP of 2653 and creatinine of 1.8. Impression And Plan: 1.Presyncope secondary to orthostatic hypotension secondary to multiple drugs. 2.Renal insufficiency. 3.Elevated BNP. 4.Recent pacemaker in October of 2017. 5.Recent sepsis, resolved. 6.History of congestive heart failure, although echocardiogram is normal. 7.History of atrial fibrillation, on amiodarone and Xarelto. 8.Hypertension, controlled. 9.Dyslipidemia, controlled. I think Ms. Lambert for her age has many medications and probably not needed. I would feel more comfor table if she gets off the hydrochlorothiazide and continue her Aldactone. I will continue the amioda irais, but maybe decrease the dose of Coreg or even discontinue it. She can continue the Avapro and X arelto as well as the Zetia and Tricor. I do not recommend any cardiac workup on her other than what we have done. She can go home whenever it is okay with Dr. Amezquita. GUILLERMO/LALY Voice ID: [id number] Report ID: [id number]
[2018-01-06 06:28] LABS: Albumin 2.6 g/dL (3.4-5.0); Bilirubin Total 0.4 mg/dL (0.2-1.0); Potassium 4.2 mmol/L (3.5-5.1); Protein, Total 5.6 g/dL (6.4-8.2)
[2018-01-06 06:33] LABS: Absolute Lymphocytes (CBC) 1.1 K/uL (0.7-4.9); Absolute Monocytes 0.9 K/uL (0.1-1.3); Absolute Neutrophil 8.5 K/uL (1.8-8.0); Basophils % 0.6 % (0-1.3); Eosinophils % 0.7 % (0-4.4); Lymphocytes % 10.5 % (15.3-44.8); MCV 85.9 fL (80-100); MPV 8.8 fL (7.6-11.3); Monocytes % 8.8 % (3.3-12.3); RBC Red Blood Cell Count 3.84 M/uL (3.86-4.86)
[2018-01-06] MEDS ORDERED: ENOXAPARIN 40 MG/0.4 ML SQ SCH (09:00)
--- NOTE | 2018-01-06 09:17 | P.HP ---
Certification for Inpatient Patient admitted to: Inpatient With expected LOS: >2 Midnights Patient will require the following post-hospital care: None Practitioner: I am a practitioner with admitting privileges, knowledge of patient current condition, hospital course, and medical plan of care. Services: Services provided to patient in accordance with Admission requirements found in Title 42 Section 412.3 of the Code of Federal Regulations Patient History Date of Service: 01/05/18 Reason for admission: Near syncope; AFib with RVR; fecal impaction History of Present Illness: Patient is an 87-year-old female came into the hospital because she became near syncopal. She had been working with home health. She felt faint. Her vitals revealed her heart rate was greater than 100. She was in atrial fibrillation with RVR. She came into the hospital for further evaluation. At that time was also noted that she and had a bowel movement and many days. She had a hard stool in the rectum. This will be disimpacted. She will also be admitted to be worked up for her near syncopal event. This may have been caused by her AFib. A likely that she had a vagal reaction as she was only working with therapy. If she had been bearing down then maybe impaction would have caused the near syncopal event. At this time we will admit her to the hospital and start IV hydration. Patient also has prerenal azotemia. Patient's BUN to creatinine ratio is greater than 20-1. Patient also seems to be slightly malnourished with an albumin of 2.6. Patient will be admitted for further workup Allergies meperidine HCl [From Demerol] Allergy (Mild, Verified 11/25/17 00:27) SWEAT Home Medications: Amiodarone HCl 0.5 tab PO DAILY 01/24/16 Bimatoprost [Lumigan Opthalmic Drops*] 1 drop EACH EYE BID 01/24/16 Colestipol HCl 1 tab PO BID 01/24/16 Esomeprazole Magnesium 1 tab PO DAILY 01/24/16 Ezetimibe [Zetia] 1 tab PO DAILY 01/24/16 Meclizine HCl 12.5 mg PO QID PRN 01/24/16 Rivaroxaban [Xarelto] 1 tab PO DAILY 01/24/16 Spironolactone 1 tab PO DAILY 01/24/16 Brimonidine Tartrate/Timolol [Combigan 0.2%-0.5% Eye Drops] 1 drop EACH EYE DAILY 11/25/17 Calcium Carb/Vitamin D3/Vit K1 [Calcium + D Soft Chewable Tab] 1 each PO DAILY 11/25/17 Carvedilol [Coreg*] 1 tab PO BID 11/25/17 Fenofibrate [Tricor*] 145 mg PO BEDTIME 11/25/17 Irbesartan [Avapro] 300 mg PO DAILY 11/25/17 Ondansetron HCl [Zofran] 4 mg PO Q8H PRN 11/25/17 hydroCHLOROthiazide [Hydrochlorothiazide] 25 mg PO DAILY 11/25/17 Cranberry Fruit Extract 400 mg PO BID #60 cap 12/10/17 Guaifen W/Codeine Syrup [ROBITUSSIN A-C Syrup] 5 ml PO QID PRN #30 ucup Iron/FA/Vit B-Com W/C [Hemocyte Plus*] 1 tab PO DAILY WITH BREAKFAST #30 tab 05/25 traMADol HCL [Ultram*] 50 mg PO Q4H PRN #350 tab 12/10/17 - Past Medical/Surgical History Has patient received pneumonia vaccine in the past: Yes Diabetic: No -: atrial flutter -: atrial fibrillation -: pulmonary hypertension -: hypertension -: bladder suspension -: bilateral breast sx -: colon resection not maliganant -: hysterectomy -: bilateral cataract sx -: bladder suspension -: pacemaker 10/2017 -: hemorrhoidectomy - Family History Mother Notes: Blood clots Father Notes: Colon problems Sister Notes: Parkinsons - Social History Smoking Status: Never smoker Alcohol use: No CD- Drugs: No Caffeine use: Yes Place of Residence: Home Review of Systems 10-point ROS is otherwise unremarkable Physical Examination - Vital Signs Temperature: 97.1 F Blood Pressure: 128/60 Pulse: 79 Respirations: 18 Pulse Ox (%): 98 - Physical Exam General: Alert, In no apparent distress, Oriented x3 HEENT: Atraumatic, PERRLA, Mucous membr. moist/pink, EOMI, Sclerae nonicteric Neck: Supple, 2+ carotid pulse no bruit, No LAD, Without JVD or thyroid abnormality Respiratory: Clear to auscultation bilaterally, Normal air movement Cardiovascular: Irregular heart rate/rhythm, Systolic murmur Gastrointestinal: Normal bowel sounds, Soft and benign, No rebound, No guarding , Distended, Tenderness Musculoskeletal: No clubbing, No swelling, No tenderness Integumentary: No rashes Neurological: Normal gait, Normal speech, Normal tone, Sensation intact, Cranial nerves 3-12 intact, Normal affect, Abnormal strength Lymphatics: No axilla or inguinal lymphadenopathy - Studies Laboratory Data (last 24 hrs) 01/05/18 11:50: PT 20.0 H, INR 1.69 01/05/18 11:50: WBC 6.6, Hgb 11.2 L, Hct 33.6 L, Plt Count 425 H 01/05/18 11:50: Sodium 131 L, Potassium 4.6, BUN 48 H, Creatinine 1.80 H, Glucose 93, Magnesium 2.2, Total Bilirubin 0.8, AST 30, ALT 23, Alkaline Phosphatase 33 L, Lipase 199 Assessment & Plan - Problems (Diagnosis) (1) Atrial fibrillation with rapid ventricular response Current Visit: Yes Status: Acute (2) Near syncope Current Visit: Yes Status: Acute (3) Fecal impaction Current Visit: Yes Status: Acute (4) Prerenal azotemia Current Visit: Yes Status: Acute (5) Dehydration Current Visit: Yes Status: Acute (6) Dehydration Onset Date: 01/24/16 Current Visit: No Status: Acute (7) History of pacemaker Current Visit: Yes Status: Acute - Plan Plan: 1. Gentle hydration 2. Rate control 3. Monitor hemodynamics closely 4. Disimpaction 5. Monitor renal function 6. Resume home medications 7. GI and DVT prophylaxis Discharge Plan: Home Plan to discharge in: Greater than 2 days - Advance Directives Does patient have a Living Will: No Does patient have a Durable POA for Healthcare: Yes - Code Status/Comfort Care Code Status Assessed: Yes Code Status: Full Code Critical Care: No Time Spent Managing PTS Care (In Minutes): 50
[2018-01-06] MEDS: ENOXAPARIN 30 MG/0.3 ML SQ SCH (09:46)
[2018-01-06 18:03] VITALS: O2SAT 96
[2018-01-06] MEDS ORDERED: FENOFIBRATE 160 MG TAB PO SCH (21:00)
--- NOTE | 2018-01-06 21:42 | PN ---
Date of Progress Note: 01/06/2018 Patient seen and examined. Chart reviewed and case discussed with RN and Dr. Bailey. The patient feels better but not quite back to baseline, is still reporting some generalized weakness. Review of Systems: Reviewed and negative except as above. Medications: List reviewed. Code Status: Full. Physical Examination: Vital Signs: Temperature 97.9, heart rate 80, blood pressure, BP 137/63, respirations 22, O2 99% on room air. General: Awake, alert, oriented x3. Elderly female, somewhat ill-appearing. CV: S1, S2. Irregularly irregular. Peripheral pulses present. Respiratory: Slightly tachypneic. No use of accessory muscles. Moving air well. No wheezing. Gastrointestinal: Abdomen is soft, nontender, nondistended. Positive bowel sounds. Extremities: No clubbing, cyanosis, or edema. Neuro: Nonfocal. Cranial nerves 2 through 12 intact grossly. Speech is normal. Laboratory Data: Sodium 136, potassium 4.2, chloride 105, CO2 26, BUN 40, creatinine 1.4, glucose 97, calcium 8.3, phosphorus 2.6, albumin 2.6. WBC 10.7 , H and H 10.7 and 33, platelets 372, neutrophils 79%. Urine culture growing mixed mitchel. Chest x-ray shows no acute intrathoracic process suspected personally reviewed. Carotid artery ultrasound shows multiple small calcified plaques in the left carotid bulb and proximal ICA. No hemodynamically significant degree of stenosis seen. No significant plaquing on the right and no right-sided stenosis. CT head, cervical spine, chest and abdomen shows atrophy and chronic ischemic changes similar to November examination. No acute intracranial findings. Cervical spine degenerative changes with no acute finding. No acute CT chest finding. T3 and T4 compression fractures are stable and stable from November. No significant CT abdomen and pelvis finding , no lymphadenopathy in the abdomen. Assessment And Plan: Atrial fibrillation with rapid ventricular response. 1. Near syncope, likely vasovagal. The patient's pacemaker will be evaluated. The patient had recent placement in October. Appreciate Cardiology input. 2. Fecal impaction, has been disimpacted. We will continue with bowel regimen. 3. Acute kidney injury. Kidney functions improving. Baseline is normal. We will continue to monitor. We will avoid NSAIDs and nephrotoxins. 4. Moderate protein-calorie malnutrition. Albumin is 2.6. 5. Hyponatremia. Corrected. 6. Generalized weakness, likely secondary to hyponatremia and atrial fibrillation. 7. Acute dehydration, improved. We will continue IV fluid hydration. 8. Status post pacemaker. We will have pacemaker interrogated. We will check orthostatic vital signs. 9. Gastrointestinal and deep vein thrombosis prophylaxis addressed. The patient's medications have been adjusted. We will discontinue the hydrochlorothiazide and continue Aldactone and she may need decreased dose of Coreg. Appreciate Dr. Bailey's input regarding her pre syncopal event, it. 10. Dyslipidemia. We will continue Zetia and TriCor. Plan: Likely discharge in the next 24 hours if kidney function continues to improve. Orthostatic vital signs are negative and able to ambulate with assist. /LALY Voice ID: [id number] Report ID: [id number] [id number]
[2018-01-07 04:25] LABS: Absolute Lymphocytes (CBC) 1.7 K/uL (0.7-4.9); Absolute Monocytes 0.8 K/uL (0.1-1.3); Absolute Neutrophil 4.1 K/uL (1.8-8.0); Basophils % 1.3 % (0-1.3); Eosinophils % 1.8 % (0-4.4); Hematocrit 31.2 % (36.0-45.0); Lymphocytes % 25.3 % (15.3-44.8); MCH 28.7 pg (27.0-35.0); MCV 86.4 fL (80-100); MPV 8.4 fL (7.6-11.3); RBC Red Blood Cell Count 3.61 M/uL (3.86-4.86)
[2018-01-07 04:59] LABS: Albumin 2.7 g/dL (3.4-5.0); Bilirubin Total 0.5 mg/dL (0.2-1.0); Potassium 4.1 mmol/L (3.5-5.1); Protein, Total 5.7 g/dL (6.4-8.2)
[2018-01-07] MEDS ORDERED: AMIODARONE HCL 200 MG TAB PO SCH (09:00)
[2018-01-07] MEDS ORDERED: SPIRONOLACTONE 25 MG TABLET PO SCH (09:00)
[2018-01-07] MEDS ORDERED: EZETIMIBE 10 MG TAB PO SCH (09:00)
[2018-01-07] MEDS: ENOXAPARIN 30 MG/0.3 ML SQ SCH (09:06)
[2018-01-07 11:41] VITALS: BP 123/58; TEMP 98.5
--- NOTE | 2018-01-08 03:20 | DS ---
Date of Discharge: 01/07/2018 Consultants: Chase Bailey MD with Cardiology. Discharge Diagnoses: 1.Near syncope, likely vasovagal. 2.Fecal impaction. 3.Acute kidney injury, resolved. 4.Moderate protein calorie malnutrition. 5.Hyponatremia, corrected. 6.Generalized weakness. 7.Atrial fibrillation, on Eliquis. 8.Acute dehydration, resolved. 9.Status post pacemaker. 10.Dyslipidemia. Hospital Course: The patient is an 87-year-old female with past medical history of atrial fibrillati on, on Eliquis; hypertension; hyperlipidemia, who comes in with a near syncopal episode, though to be due to vasovagal, possibly due to hypotension and dehydration. The patient was started on IV fluids . Her kidney function was noted to be elevated at 1.8, but is usually normal at baseline. Her kidne y function did include IV hydration. She is seen by her international accounting manager, Dr. Bailey, did not recommend any intervention. The patient did have the pacemaker interrogated, which was recently placed in Oct [facility]. The patient's rate was switched down to 70. Otherwise, no abnormalities were found on the read ings. The patient otherwise is doing well over the course of the hospital stay. Her medications wer e adjusted. Her hydrochlorothiazide was discontinued. The patient did have carotid artery ultrasoun d done, which showed small calcified plaques in the left carotid bulb and proximal ICA, but there was no significant stenosis and there was some plaquing on the right side as well, without any significa nt stenosis. CT head, C-spine, abdomen, and pelvis was done due to her near syncopal episode. It di d not show any acute changes. The patient did have some previous T3-T4 compression fractures which w ere stable, and the CT head showed chronic ischemic changes. The patient overall did well. She was able to ambulate. Denies any further syncopal episodes. She is tolerating her diet well. Her kidne y function has normalized. UA was negative. The patient was then cleared for discharge from Cardiol ogy standpoint. The patient was sent home in a stable condition with home health with PT. Activity: Fall precautions. Ambulate with assistive device. Diet: Heart healthy, with 1500 mL fluid restriction. Followup: Follow up with primary care physician in 2-3 days. Follow up with international accounting manager, Dr. Dahiana lim, in 2 weeks. Return to ER for worsening condition. Medications: As per medication reconciliation list. Physical Examination: General: Awake, alert, oriented x3. Not in any acute distress. Elderly female. CV: S1, S2. No murmurs. Irregularly irregular. Peripheral pulses present. Respiratory: Moving air well bilaterally. No wheezes. Gastrointestinal: Abdomen is soft, nontender, nondistended. Positive bowel sounds. Extremities: No clubbing, cyanosis, edema. Neuro: Nonfocal. SA/MODL Voice ID: [id number] Report ID: [id number]
== END 2018-01-07 12:55 | disposition home health service (06) ==
LOC: ER 11:07 → ERHOLD 13:12 → INTOOBSV 13:12 → 4TH 18:00
PROVIDERS: ADMIT Family Medicine; ATTEND Hospitalist
DX: R55 Syncope and collapse (principal); K56.41 Fecal impaction; N17.9 Acute kidney failure, unspecified; E44.0 Moderate protein-calorie malnutrition; Z68.23 Body mass index [BMI] 23.0-23.9, adult; E87.1 Hypo-osmolality and hyponatremia; E86.0 Dehydration; I48.91 Unspecified atrial fibrillation; E78.5 Hyperlipidemia, unspecified; Z95.0 Presence of cardiac pacemaker; Z79.01 Long term (current) use of anticoagulants
CPT/HCPCS: 36415 ×2; 70450; 71045; 71250; 72125; 80048; 80053 ×2; 80076; 81003; 83690; 83735; 83880; 84100; 84484; 85025 ×3; 85610; 87086; 87088; 93005; 93880; 94760 ×2; 96361; 96365; 96366; 96375; 97116; 97163; 97530; 99285; G0378 ×2; J0696; J1650 ×2; J7030 ×4

== ENCOUNTER 2018-02-11 10:43 | Inpatient (IN) | payer OTHER ==
--- OUTSIDE RECORDS SUMMARY | 2018-02-11 10:46 | XMS REPORT ---
:1930 [facility] Address [address] [place] [place] [address] Care Team Providers Name Role Phone Unavailable [...]
[2018-02-11 11:15] LABS: Absolute Lymphocytes (CBC) 1.5 K/uL (0.7-4.9); Absolute Monocytes 0.7 K/uL (0.1-1.3); Absolute Neutrophil 7.8 K/uL (1.8-8.0); Basophils % 0.4 % (0-1.3); Eosinophils % 0.4 % (0-4.4); Hematocrit 39.7 % (36.0-45.0); Lymphocytes % 14.5 % (15.3-44.8); MCH 29.9 pg (27.0-35.0); MCV 88.4 fL (80-100); MPV 8.3 fL (7.6-11.3); Monocytes % 7.3 % (3.3-12.3); RBC Red Blood Cell Count 4.49 M/uL (3.86-4.86)
[2018-02-11] MEDS ORDERED: ONDANSETRON 4 MG/2 ML VIAL ONE ×2 (11:30→14:50)
[2018-02-11 11:57] LABS: Albumin 3.3 g/dL (3.4-5.0); Bilirubin Direct 0.3 mg/dL (0-0.2); Bilirubin Total 0.8 mg/dL (0.2-1.0); Potassium 4.3 mmol/L (3.5-5.1); Protein, Total 6.8 g/dL (6.4-8.2); Troponin (Emerg Dept Use Only) 0.06 ng/mL (0.0-0.045)
[2018-02-11] MEDS ORDERED: MORPHINE 2 MG/ML SYR ONE ×2 (12:09→13:37)
--- NOTE | 2018-02-11 12:30 | RAD REPORT ---
EXAM DESCRIPTION: RAD - Chest Single View - 02/11/2018 11:12 am CLINICAL HISTORY: Dyspnea, upper abdominal pain COMPARISON: January 05 TECHNIQUE: AP portable chest image was obtained 1102 hours . FINDINGS: Interstitial stranding in the left base could be infiltrate or atelectasis. No consolidati on in the left base. This is new from comparison. Moderate right pleural effusion is present. Right b ase atelectasis is present. This is a new finding. Heart size is upper normal but stable. No vascular engorgement. Left subclavian pacemaker remains in place. No pneumothorax. No measurable left pleural effusion. No acute bony abnormality seen. No acut e aortic findings suspected. IMPRESSION: Moderate right pleural effusion has developed since the January 05 study. Right base ate lectasis is present. New stranding in the left lung base that could be atelectasis or early interstitial infiltrate. Failure/ volume overload not suspected.
--- NOTE | 2018-02-11 12:49 | RAD REPORT ---
EXAM DESCRIPTION: CT - Abdomen Pelvis W Contrast - 02/11/2018 12:34 pm CLINICAL HISTORY: Abdominal pain COMPARISON: CT trauma study January 05, CT study November 2017 and January 2016 TECHNIQUE: Biphasic, helical CT imaging of the abdomen and pelvis was performed following 100 ml non -ionic IV contrast. No oral contrast given. All CT scans are performed using dose optimization technique as appropriate and may include automated exposure control or mA/KV adjustment according to patient size. FINDINGS: Bilateral breast implants are in place with capsule calcification. Both implants are proba saida ruptured. Implants are only partially imaged but not clearly different from prior imaging. Small a moderate left pleural effusion is present only partially imaged. No loculation suspected. Ple ural fluid on the right is larger and may be partially loculated. There is partial atelectasis of the right lower lobe. Pleural fluid collections are new from prior imaging. Liver shows a mottled, heterogeneous enhancement pattern. Small enhancing foci in the liver are not c learly different back to 2016. Heterogeneity is likely due to diminished cardiac function. Cardiomega ly is present primarily biatrial enlargement. No pericardial effusion. A suspicious liver lesion is n ot identified. Spleen and pancreas show no suspicious findings. Cholecystectomy clips are present with no biliary tr ee dilatation. Renal function is symmetric but delayed due to cardiac function abnormality. Cortical thinning is pre sent. Small cortical cysts are present with no suspicious mass or hydronephrosis. No obstructing calc balbir. Urinary bladder shows no suspicious finding. Uterus is absent. Ovaries are absent or atrophic. N o adnexal mass. No gastric dilatation or wall thickening. No dilated large or small bowel. No acute GI process seen. No free air, free fluid or inflammatory stranding. No hernia, mass or bulky lymphadenopathy. Postsur gical changes are noted to the anterior abdominal wall. No adrenal abnormality. Disc and bony degenerative changes are present. IMPRESSION: No bowel obstruction, free air or emergent finding in the abdomen or pelvis. Small a moderate left-side and moderately large right-side pleural effusions are present new from [place] . There may be partial loculation on the right. The pleural effusions are only partially image d. Cardiomegaly with biatrial enlargement. Diminished cardiac function is suspected based on the liver a nd renal enhancement pattern.
[2018-02-11 13:36] LABS: Urine Bacteria 20-50 /HPF (<20); Urine Culture Reflex Order REFLEXED
[2018-02-11] MEDS ORDERED: FUROSEMIDE 40 MG/4 ML VIAL ONE (13:37)
--- NOTE | 2018-02-11 13:38 | ER ---
Nurse's Notes [facility] Name: Amy Lambert Age: 87 yrs Sex: Female : 1930 Arrival Date: 02/11/2018 Time: 10:45 Bed 7 Private MD: Diagnosis: Pleural effusion, not elsewhere classified;Chest pain, unspecified;Dyspnea, unspecified Presentation: 02/11 10:45 Presenting complaint: EMS states: Upper abdominal pain and nausea x 2 days, SOB today. hb SpO2 70s on RA, improved to >92% on 2LNC. Transition of care: patient was not received from another setting of care. 10:45 Method Of Arrival: EMS: [facility] hb 10:45 Onset of symptoms was February 11, 2018. Risk Assessment: Do you want to hurt yourself hb or someone else? Patient reports no desire to harm self or others. Initial Sepsis Screen: Does the patient meet any 2 criteria? No. Patient's initial sepsis screen is negative. Does the patient have a suspected source of infection? No. Patient's initial sepsis screen is negative. Care prior to arrival: None. 10:45 Acuity: BROOKE 2 hb Historical: - Allergies: 10:53 Demerol; hb - PMHx: 10:53 Atrial Fib; PACE MAKER PUT IN 11/06/[address] HOLBROOK [facility]; Pacemaker; hb Hypertension; Sepsis; UTI; falls; - PSHx: 10:53 Bladder suspension; Hysterectomy; Breast implants; PACE MAKER; hb - Immunization history:: Adult Immunizations up to date. - Social history:: Smoking status: Patient/guardian denies using tobacco. - Family history:: not pertinent. - Ebola Screening: : No symptoms or risks identified at this time. - Hospitalizations: : No recent hospitalization is reported. Screenin:55 Abuse screen: Denies threats or abuse. Denies injuries from another. Nutritional hb screening: No deficits noted. Tuberculosis screening: No symptoms or risk factors identified. Fall Risk Total Webster Fall Scale indicates Low Risk Score (25-44 pts). Fall prevention measures have been instituted. Side Rails Up X 2 Frequent Obs/Assesments occuring As available Patient and Family Educated on Fall Prevention Program and strategies. Assessment: 10:45 General: Appears in no apparent distress. Behavior is calm, cooperative. Pain: Pain hb currently is 2 out of 10 on a pain scale. Neuro: Level of Consciousness is awake, alert, obeys commands, Oriented to person, place, time, situation. Cardiovascular: Heart tones S1 S2 present Capillary refill < 3 seconds Patient's skin is warm and dry. Rhythm is regular. Respiratory: Reports shortness of breath on exertion Airway is patent Respiratory effort is even, unlabored, Respiratory pattern is regular, symmetrical, Breath sounds are clear bilaterally. GI: Abdomen is non-distended, Bowel sounds present X 4 quads. Abd is soft and non tender X 4 quads. Reports upper abdominal pain, nausea. : No signs and/or symptoms were reported regarding the genitourinary system. EENT: No signs and/or symptoms were reported regarding the EENT system. Derm: Skin is intact, is healthy with good turgor, Skin is pink, warm \T\ dry. Musculoskeletal: No signs and/or symptoms reported regarding the musculoskeletal system. 11:43 Reassessment: Patient appears in no apparent distress at this time. Patient and/or hb family updated on plan of care and expected duration. Pain level reassessed. Patient is alert, oriented x 3, equal unlabored respirations, skin warm/dry/pink. 12:45 Reassessment: Patient appears in no apparent distress at this time. Patient and/or hb family updated on plan of care and expected duration. Pain level reassessed. Patient is alert, oriented x 3, equal unlabored respirations, skin warm/dry/pink. 13:30 Reassessment: Patient appears in no apparent distress at this time. Patient and/or hb family updated on plan of care and expected duration. Pain level reassessed. Patient is alert, oriented x 3, equal unlabored respirations, skin warm/dry/pink. 14:30 Reassessment: Patient appears in no apparent distress at this time. No changes from hb previously documented assessment. Patient and/or family updated on plan of care and expected duration. Pain level reassessed. Patient is alert, oriented x 3, equal unlabored respirations, skin warm/dry/pink. 14:46 Reassessment: Pt c/o severe nausea, Dr. Mitchell notified, Zofran administered as ordered. hb Vital Signs: 10:51 BP 83 / 53; Pulse 70; Resp 16; Temp 97.9(TE); Pulse Ox 97% on R/A; Pain 5/10; hb 11:40 BP 158 / 83; Pulse 70; Resp 15; Pulse Ox 97% on R/A; hb 12:20 BP 165 / 61; Pulse 70; Resp 22; Pulse Ox 95% on R/A; dh3 13:19 BP 179 / 71; Pulse 70; Resp 15; Pulse Ox 98% on R/A; dh3 14:00 BP 156 / 68; Pulse 71; Resp 15; Pulse Ox 100% on R/A; hb 15:00 BP 158 / 74; Pulse 72; Resp 16; Pulse Ox 100% on R/A; hb ED Course: 10:45 Patient arrived in ED. sg 10:45 Hermann Mitchell MD is Attending Physician. rn 10:51 Triage completed. hb 11:00 Arm band placed on right wrist. hb 11:05 Patient has correct armband on for positive identification. Placed in gown. Bed in low hb position. Call light in reach. Side rails up X 1. 11:05 Initial lab(s) drawn, by me, sent to lab. First set of blood cultures drawn by me. 3 Inserted saline lock: 22 gauge in right antecubital area, using aseptic technique. Blood collected. 11:07 EKG done, by gas plant technician. reviewed by Hermann Mitchell MD. tc 11:08 X-ray completed. Portable x-ray completed in exam room. Patient tolerated procedure ag1 well. 11:20 Second set of blood cultures drawn by me, by venipuncture 23G to right ac. 3 11:25 Neville Pena, ARLEEN is Primary Nurse. sg 13:16 Urine collected: hat, wilder with sediment. dh3 13:36 Joan Estrada MD is Hospitalizing Provider. rn 15:16 No provider procedures requiring assistance completed. Patient admitted, IV remains in hb place. Administered Medications: 11:26 Drug: Zofran 4 mg Route: IVP; Site: right antecubital; sg 12:00 Follow up: Response: No adverse reaction hb 12:04 Drug: morphine 2 mg Route: IVP; Site: right antecubital; hb 12:45 Follow up: Response: No adverse reaction; Pain is decreased hb 13:33 Drug: Lasix 40 mg Route: IVP; Site: right antecubital; hb 13:34 Drug: morphine 2 mg Route: IVP; Site: right antecubital; hb Outcome: 13:37 Decision to Hospitalize by Provider. rn 15:18 Patient left the ED. hb Signatures: Neville Pena RN RN Hermann Mitchell MD MD rn Callis, Tiffany, supervisor steel [employer] EKG Ttc Chiara Gordillo ag1 Fátima Cho RN RN Bibiana Snell 3 Corrections: (The following items were deleted from the chart) 10:52 10:45 Acuity: BROOKE 3 hb hb
[2018-02-11] MEDS ORDERED: ACETAMINOPHEN 500 MG TAB PO PRN (13:39)
--- NOTE | 2018-02-11 13:39 | EDPHYS ---
Physician Documentation [facility] Name: Amy Lambert Age: 87 yrs Sex: Female : 1930 Arrival Date: 02/11/2018 Time: 10:45 Bed 7 Private MD: ED Physician Hermann Mitchell HPI: 02/11 10:50 This 87 yrs old Female presents to ER via Unassigned with complaints of rn Shortness Of Breath. 10:50 The patient has shortness of breath at rest. rn 10:54 The patient presents with abdominal pain in the epigastric area. Onset: The rn symptoms/episode began/occurred 3 day(s) ago. The symptoms do not radiate. Associated signs and symptoms: Pertinent positives: nausea, shortness of breath, Pertinent negatives: blood in stools, chest pain, constipation, diarrhea, dysuria, fever, vomiting, vomiting blood. The symptoms are described as sharp. Modifying factors: The symptoms are alleviated by nothing, the symptoms are aggravated by touching the area. Severity of pain: At its worst the pain was mild in the emergency department the pain is unchanged. The patient has experienced similar episodes in the past. The patient has not recently seen a physician. 12:41 Reports 2 days of upper abd pain, nausea, and sob, + non-productive cough, no rn hematemesis or blood in stool. . Historical: - Allergies: 10:53 Demerol; hb - PMHx: 10:53 Atrial Fib; PACE MAKER PUT IN 11/06/[address] HOLBROOK, [facility]; Pacemaker; hb Hypertension; Sepsis; UTI; falls; - PSHx: 10:53 Bladder suspension; Hysterectomy; Breast implants; PACE MAKER; hb - Immunization history:: Adult Immunizations up to date. - Social history:: Smoking status: Patient/guardian denies using tobacco. - Family history:: not pertinent. - Ebola Screening: : No symptoms or risks identified at this time. - Hospitalizations: : No recent hospitalization is reported. ROS: 10:54 Constitutional: Negative for fever, chills, and weight loss. rn 12:41 Eyes: Negative for injury, pain, redness, and discharge, Neck: Negative for injury, rn pain, and swelling, Cardiovascular: Negative for palpitations Respiratory: Negative for wheezing, and pleuritic chest pain, Abdomen/GI: + abd pain and nausea MS/Extremity: Negative for injury and deformity, Skin: Negative for injury Neuro: Negative for headache, weakness, numbness, tingling, and seizure. Exam: 12:41 Constitutional: This is a well developed, well nourished patient who is awake, alert, rn and in no acute distress. Head/Face: Normocephalic, atraumatic. ENT: MMM Cardiovascular: Regular rate, No pulse deficits. Respiratory: Mild tachypnea, no retractions, + diminished breath sounds bilateral bases Abdomen/GI: soft, non-tender MS/ Extremity: Pulses equal, no cyanosis. Neuro: Awake and alert, GCS 15, oriented to person, place, time, and situation. Cranial nerves II-XII grossly intact. Motor strength 5/5 in all extremities. Sensory grossly intact. Vital Signs: 10:51 BP 83 / 53; Pulse 70; Resp 16; Temp 97.9(TE); Pulse Ox 97% on R/A; Pain 5/10; hb 11:40 BP 158 / 83; Pulse 70; Resp 15; Pulse Ox 97% on R/A; hb 12:20 BP 165 / 61; Pulse 70; Resp 22; Pulse Ox 95% on R/A; dh3 13:19 BP 179 / 71; Pulse 70; Resp 15; Pulse Ox 98% on R/A; dh3 14:00 BP 156 / 68; Pulse 71; Resp 15; Pulse Ox 100% on R/A; hb 15:00 BP 158 / 74; Pulse 72; Resp 16; Pulse Ox 100% on R/A; hb MDM: 10:45 Patient medically screened. rn 13:33 Differential diagnosis: non-specific abd pain, pancreatitis, Peptic Ulcer Disease, CHF, rn pulmonary edema, dyspnea. Data reviewed: vital signs, nurses notes, lab test result(s), radiologic studies, CT scan, plain films, and as a result, I will admit patient. Counseling: I had a detailed discussion with the patient and/or guardian regarding: the historical points, exam findings, and any diagnostic results supporting the discharge/admit diagnosis, lab results, radiology results, the need for further work-up and treatment in the hospital. Response to treatment: the patient's symptoms have mildly improved after treatment, and as a result, I will admit patient. Admission orders: after a detailed discussion of the patient's condition and case, the admit orders are written by me. 02/11 10:47 Order name: Blood Culture Adult (2) rn 02/11 10:47 Order name: BMP rn 02/11 10:47 Order name: CBC with Diff rn 02/11 10:47 Order name: Hepatic Function rn 02/11 10:47 Order name: Lipase rn 02/11 10:47 Order name: NT PRO-BNP rn 02/11 10:47 Order name: Troponin (emerg Dept Use Only) rn 02/11 11:18 Order name: CBC with Automated Diff; Complete Time: 12:30 EDMS 02/11 11:58 Order name: Basic Metabolic Panel; Complete Time: 12:30 EDMS 02/11 11:58 Order name: Liver (Hepatic) Function; Complete Time: 12:30 EDMS 02/11 11:58 Order name: Troponin (Emerg Dept Use Only); Complete Time: 12:30 EDMS 02/11 11:58 Order name: NT PRO-BNP; Complete Time: 12:30 EDMS 02/11 11:58 Order name: Lipase; Complete Time: 12:30 EDMS 02/11 13:18 Order name: Urine Microscopic Only dh3 02/11 10:47 Order name: XRAY CXR (1 view) rn 02/11 10:47 Order name: EKG; Complete Time: 10:48 rn 02/11 10:47 Order name: Cardiac monitoring; Complete Time: 11:08 rn 05 10:47 Order name: EKG - Nurse/Tech; Complete Time: 11:17 rn 02/11 10:47 Order name: IV Saline Lock; Complete Time: 11:08 rn 02/11 10:47 Order name: CT Abd/Pelvis - W/Contrast rn 02/11 10:47 Order name: US Abdomen Limited rn 02/11 12:30 Order name: RAD; Complete Time: 13:21 EDMS 02/11 12:50 Order name: CT; Complete Time: 13:21 EDMS 02/11 13:31 Order name: Urine Dipstick--Ancillary (enter results) lt1 02/11 13:36 Order name: Urine Microscopic Only EDMS 02/11 15:07 Order name: Thyroid Stimulating Hormone EDMS 02/11 10:47 Order name: Labs collected and sent; Complete Time: 11:08 rn 02/11 10:47 Order name: O2 Per Protocol; Complete Time: 11:08 rn 02/11 10:47 Order name: O2 Sat Monitoring; Complete Time: 11:08 rn Administered Medications: 11:26 Drug: Zofran 4 mg Route: IVP; Site: right antecubital; sg 12:00 Follow up: Response: No adverse reaction hb 12:04 Drug: morphine 2 mg Route: IVP; Site: right antecubital; hb 12:45 Follow up: Response: No adverse reaction; Pain is decreased hb 13:33 Drug: Lasix 40 mg Route: IVP; Site: right antecubital; hb 13:34 Drug: morphine 2 mg Route: IVP; Site: right antecubital; hb Disposition: 02/11/18 13:37 Hospitalization ordered by Joan Estrada for Inpatient Admission. Preliminary diagnosis are Pleural effusion, not elsewhere classified, Chest pain, unspecified, Dyspnea, unspecified. - Bed requested for Telemetry/MedSurg (Inpatient). - Status is Inpatient Admission. hb - Condition is Stable. - Problem is new. - Symptoms have improved. UTI on Admission? No Signatures: Dispatcher [employer] EDFL Kristin Roberts RN RN dw Gay, Steven, RN RN Hermann Mitchell MD MD rn Baxter, Heather, RN RN Corrections: (The following items were deleted from the chart) 14:45 13:37 Hospitalization Ordered by Joan Estrada MD for Inpatient Admission. Preliminary dw diagnosis is Pleural effusion, not elsewhere classified; Chest pain, unspecified; Dyspnea, unspecified. Bed requested for Telemetry/MedSurg (Inpatient). Status is Inpatient Admission. Condition is Stable. Problem is new. Symptoms have improved. UTI on Admission? No. rn 15:18 14:45 02/11/2018 13:37 Hospitalization Ordered by Joan Estrada MD for Inpatient hb Admission. Preliminary diagnosis is Pleural effusion, not elsewhere classified; Chest pain, unspecified; Dyspnea, unspecified. Bed requested for Telemetry/MedSurg (Inpatient). Status is Inpatient Admission. Condition is Stable. Problem is new. Symptoms have improved. UTI on Admission? No. dw
[2018-02-11 15:07] LABS: Thyroid Stimulating Hormone 4.2 uIU/mL (0.360-3.740)
--- NOTE | 2018-02-11 15:37 | EKG ---
Test Date: 2018-02-11 Test Time: 10:52:33 Merchandise Pickup/Receiving Associate: [facility]I MEASUREMENT RESULTS: Intervals: Rate: 70 SD: QRSD: 160 QT: 476 QTc: 514 [place]: P: SD: QRS: -79 T: 83 INTERPRETIVE STATEMENTS: Rhythm consistent with VVI pacing Atrial fibrillation with no AV conduction Abnormal ECG Compared to ECG 01/05/2018 12:08:33 Atrial-sensed ventricular-paced complex(es) or rhythm no longer present Sinus rhythm is no longer present Electronically Signed On 02-11-18 15:36:39 [employer] FURNACE OPERATOR by Jalen Savage
[2018-02-11 16:35] VITALS: BMI 21.9
[2018-02-11] MEDS ORDERED: FUROSEMIDE 40 MG/4 ML VIAL IV SCH (17:00)
[2018-02-11] MEDS ORDERED: MECLIZINE HCL 12.5 MG PO PRN (17:58)
--- NOTE | 2018-02-11 18:07 | P.HP ---
Certification for Inpatient Patient admitted to: Observation With expected LOS: <2 Midnights Patient will require the following post-hospital care: None Practitioner: I am a practitioner with admitting privileges, knowledge of patient current condition, hospital course, and medical plan of care. Services: Services provided to patient in accordance with Admission requirements found in Title 42 Section 412.3 of the Code of Federal Regulations Patient History Date of Service: 02/11/18 History of Present Illness: This is a 87-year-old female with significant past medical history of congestive heart failure diastolic, atrial fibrillation, GERD, hypertension, who presented to the ED complaining of having some shortness of breath and epigastric pain. Patient stated that her symptoms started about 2-3 days ago and got progressively worse. Patient was recently seen by the health record technician in his office and had changes to her medication and where she was discontinued on Lasix and Coreg due to recent acute renal failure. Patient stated that after which she started noticing that she was getting more short of breath and unable to lay flat. Patient does have noncompliance with fluid intake and thus she has acute renal failure was likely patient denies having any fever chills nausea vomiting or any other associated symptoms In the ER patient was found to have congestive heart failure along with profusion and thus was referred over for admission with medicine. Allergies meperidine HCl [From Demerol] Allergy (Mild, Verified 11/25/17 00:27) SWEAT Home Medications: Amiodarone HCl 0.5 tab PO DAILY 01/24/16 Bimatoprost [Lumigan Opthalmic Drops*] 1 drop EACH EYE BID 01/24/16 Colestipol HCl 1 tab PO BID 01/24/16 Esomeprazole Magnesium 1 tab PO DAILY 01/24/16 Ezetimibe [Zetia] 1 tab PO DAILY 01/24/16 Meclizine HCl 12.5 mg PO QID PRN 01/24/16 Rivaroxaban [Xarelto] 1 tab PO DAILY 01/24/16 Spironolactone 1 tab PO DAILY 01/24/16 Brimonidine Tartrate/Timolol [Combigan 0.2%-0.5% Eye Drops] 1 drop EACH EYE DAILY 11/25/17 Calcium Carb/Vitamin D3/Vit K1 [Calcium + D Soft Chewable Tab] 1 each PO DAILY 11/25/17 Fenofibrate [Tricor*] 145 mg PO BEDTIME 11/25/17 Irbesartan [Avapro] 300 mg PO DAILY 11/25/17 Ondansetron HCl [Zofran] 4 mg PO Q8H PRN 11/25/17 Cranberry Fruit Extract 400 mg PO BID #60 cap 12/10/17 Guaifen W/Codeine Syrup [ROBITUSSIN A-C Syrup*] 5 ml PO QID PRN #30 ucup Iron/FA/Vit B-Com W/C [Hemocyte Plus*] 1 tab PO DAILY WITH BREAKFAST #30 tab 05/25 traMADol HCL [Ultram*] 50 mg PO Q4H PRN #350 tab 12/10/17 - Past Medical/Surgical History Has patient received pneumonia vaccine in the past: Yes Diabetic: No -: atrial flutter -: atrial fibrillation -: pulmonary hypertension -: hypertension -: bladder suspension -: bilateral breast sx -: colon resection not maliganant -: hysterectomy -: bilateral cataract sx -: bladder suspension -: pacemaker 10/2017 -: hemorrhoidectomy - Family History Mother Notes: Blood clots Father Notes: Colon problems Sister Notes: Parkinsons - Social History Smoking Status: Never smoker Alcohol use: No CD- Drugs: No Caffeine use: Yes Place of Residence: Home Review of Systems 10-point ROS is otherwise unremarkable Physical Examination - Vital Signs Temperature: 96.8 F Blood Pressure: 185/75 Pulse: 71 Respirations: 20 Pulse Ox (%): 95 - Physical Exam General: Alert, In no apparent distress HEENT: Atraumatic, PERRLA, Mucous membr. moist/pink, EOMI, Sclerae nonicteric Neck: Supple, 2+ carotid pulse no bruit, No LAD, Without JVD or thyroid abnormality Respiratory: Normal air movement, Diminished, Expiratory wheezes, Inspiratory wheezes Cardiovascular: Regular rate/rhythm, Normal S1 S2 Gastrointestinal: Normal bowel sounds, Soft and benign, Non-distended, No tenderness Musculoskeletal: No tenderness Integumentary: Skin breakdown, Skin lesion, Warmth Neurological: Normal speech, Normal strength at 5/5 x4 extr, Normal tone, Normal affect Lymphatics: No axilla or inguinal lymphadenopathy - Studies Laboratory Data (last 24 hrs) 02/11/18 11:05: WBC 10.0, Hgb 13.4, Hct 39.7, Plt Count 415 H 02/11/18 11:05: Sodium 133 L, Potassium 4.3, BUN 28 H, Creatinine 1.10, Glucose 101, Total Bilirubin 0.8, AST 23, ALT 22, Alkaline Phosphatase 42 L, Lipase 45 L Assessment and Plan - Problems (Diagnosis) (1) Acute exacerbation of CHF (congestive heart failure) Current Visit: Yes Status: Acute Plan: Acute on Chronic CHF exacerbation. Recently DC Lasix and Coreg with Cardiology due to ARF -IV lasix for now -Cardiology Consulted. Await Reccs -Restart Spironolactone and Amiodrone Home medication -Fluid restriction 1.5L Qualifiers: Heart failure type: diastolic Qualified Code(s): I50.33 - Acute on chronic diastolic (congestive) heart failure (2) Pleural effusion Current Visit: Yes Status: Acute Plan: Large Right sided Pleural Effusion with partial Loculation and Mod Left Pleural Effusion with no Loculation -IV lasix BID for now -Pulmonology consulted for possible thoracentesis -Continue to monitor (3) HTN (hypertension) Current Visit: Yes Status: Chronic Plan: Restart home medication Qualifiers: Hypertension type: essential hypertension Qualified Code(s): I10 - Essential (primary) hypertension (4) History of pacemaker Current Visit: No Status: Chronic (5) GERD (gastroesophageal reflux disease) Current Visit: Yes Status: Chronic Qualifiers: Esophagitis presence: without esophagitis Qualified Code(s): K21.9 - Gastro -esophageal reflux disease without esophagitis (6) Afib Current Visit: Yes Status: Chronic Plan: Restart home medication of Xarelto and amiodarone at this time. Qualifiers: Atrial fibrillation type: chronic Qualified Code(s): I48.2 - Chronic atrial fibrillation Discharge Plan: Home Plan to discharge in: 48 Hours - Advance Directives Does patient have a Living Will: No Does patient have a Durable POA for Healthcare: No - Code Status/Comfort Care Code Status Assessed: Yes Critical Care: No
[2018-02-11] MEDS ORDERED: MECLIZINE HCL 12.5 MG TAB PO PRN (18:30)
[2018-02-11] MEDS: TRAMADOL HCL 50 MG TAB PO PRN ×2 (18:42→23:25)
[2018-02-11] MEDS: EZETIMIBE 10 MG TAB PO SCH (18:42)
[2018-02-11] MEDS: SPIRONOLACTONE 25 MG TABLET PO SCH (18:43)
[2018-02-11] MEDS: ONDANSETRON 4 MG/2 ML VIAL IV PRN (18:45)
[2018-02-11] MEDS ORDERED: RIVAROXABAN 20 MG TABLET PO SCH (19:00)
[2018-02-11] MEDS: PANTOPRAZOLE 40MG TABLET PO SCH (19:11)
[2018-02-11] MEDS: FENOFIBRATE 160 MG TAB PO SCH (20:20)
[2018-02-11] MEDS: COLESTIPOL 1 GM TAB PO SCH (20:20)
[2018-02-11 23:59] LABS: Urine Appearance CLEAR; Urine Bilirubin NEGATIVE (NEG); Urine Blood 2+ (NEG); Urine Color YELLOW; Urine Glucose NEGATIVE (NEG); Urine Protein NEGATIVE (NEG); Urine Urobilinogen 0.2 mg/dL (0.2-1.0)
[2018-02-12 00:16] LABS: Urine Microscopic Reflex ORDER UMIC
[2018-02-12 02:41] LABS: Urine Bacteria >50 /HPF (<20); Urine Culture Reflex Order REFLEXED; Urine RBC <5 /HPF (NONE SEEN)
[2018-02-12 04:51] LABS: Absolute Lymphocytes (CBC) 0.8 K/uL (0.7-4.9); Absolute Monocytes 0.8 K/uL (0.1-1.3); Absolute Neutrophil 5.4 K/uL (1.8-8.0); Basophils % 0.2 % (0-1.3); Eosinophils % 0.1 % (0-4.4); Hematocrit 36.2 % (36.0-45.0); Lymphocytes % 11.9 % (15.3-44.8); MCH 30.2 pg (27.0-35.0); MCV 87.3 fL (80-100); MPV 8.4 fL (7.6-11.3); Monocytes % 11.2 % (3.3-12.3); RBC Red Blood Cell Count 4.14 M/uL (3.86-4.86)
[2018-02-12 05:22] LABS: Bilirubin Total 0.7 mg/dL (0.2-1.0); Phosphorus 3.8 mg/dL (2.5-4.9); Potassium 4.1 mmol/L (3.5-5.1); Protein, Total 5.9 g/dL (6.4-8.2)
[2018-02-12] MEDS ORDERED: FE SULF/FA/VIT B COMP & C TAB PO SCH (08:00)
[2018-02-12] MEDS: TRAMADOL HCL 50 MG TAB PO PRN (08:13)
[2018-02-12] MEDS: ONDANSETRON 4 MG/2 ML VIAL IV PRN ×3 (08:14→23:46)
[2018-02-12] MEDS: PANTOPRAZOLE 40MG TABLET PO SCH (08:14)
--- NOTE | 2018-02-12 08:21 | P.CNS ---
Date of Consult: 02/12/18 Reason for Consult: Pleural effusion Chief Complaint: Chest pain History of Present Illness: Patient is a pleasant 87-year-old lady has been complaining of pain once to the upper abdomen and lower chest area and present for a month has become intense recently as aggravated by any formal movement ascitic shallow breaths present during day and night denies any fever or chills. No cough no prior history of fall pulmonary problems patient has never smoked no history of malignancies found to have moderate right-sided pleural effusion appears to be loculated Allergies meperidine HCl [From Demerol] Allergy (Mild, Verified 11/25/17 00:27) SWEAT Home Medications: Amiodarone HCl 0.5 tab PO DAILY 01/24/16 Bimatoprost [Lumigan Opthalmic Drops*] 1 drop EACH EYE BID 01/24/16 Colestipol HCl 1 tab PO BID 01/24/16 Esomeprazole Magnesium 1 tab PO DAILY 01/24/16 Ezetimibe [Zetia] 1 tab PO DAILY 01/24/16 Meclizine HCl 12.5 mg PO QID PRN 01/24/16 Rivaroxaban [Xarelto] 1 tab PO DAILY 01/24/16 Spironolactone 1 tab PO DAILY 01/24/16 Brimonidine Tartrate/Timolol [Combigan 0.2%-0.5% Eye Drops] 1 drop EACH EYE DAILY 11/25/17 Calcium Carb/Vitamin D3/Vit K1 [Calcium + D Soft Chewable Tab] 1 each PO DAILY 11/25/17 Fenofibrate [Tricor*] 145 mg PO BEDTIME 11/25/17 Irbesartan [Avapro] 300 mg PO DAILY 11/25/17 Ondansetron HCl [Zofran] 4 mg PO Q8H PRN 11/25/17 Cranberry Fruit Extract 400 mg PO BID #60 cap 12/10/17 Guaifen W/Codeine Syrup [ROBITUSSIN A-C Syrup*] 5 ml PO QID PRN #30 ucup Iron/FA/Vit B-Com W/C [Hemocyte Plus*] 1 tab PO DAILY WITH BREAKFAST #30 tab 05/25 traMADol HCL [Ultram*] 50 mg PO Q4H PRN #350 tab 12/10/17 - Past Medical/Surgical History Diabetic: No -: atrial flutter -: atrial fibrillation -: pulmonary hypertension -: hypertension -: bladder suspension -: Back pain seen by a pain doctor sciatica -: bilateral breast sx -: colon resection not maliganant -: hysterectomy -: bilateral cataract sx -: bladder suspension -: pacemaker 10/2017 -: hemorrhoidectomy - Family History Mother Notes: Blood clots Father Notes: Colon problems Sister Notes: Parkinsons - Social History Smoking Status: Never smoker Alcohol use: No CD- Drugs: No Caffeine use: Yes Place of Residence: Home Review of Systems 10-point ROS is otherwise unremarkable General: Weakness Respiratory: Shortness of Breath, Pleuritic Pain Physical Examination Temp Pulse Resp BP Pulse Ox 97.4 F 78 20 140/74 97 02/12/18 04:00 02/12/18 04:00 02/12/18 04:00 02/12/18 04:00 02/12/18 04:00 General: Alert, Oriented x3, Mild distress HEENT: Atraumatic Neck: Supple Respiratory: Diminished (Diminished air entry on the right side) Cardiovascular: No edema, Regular rate/rhythm Gastrointestinal: Normal bowel sounds, Soft and benign Laboratory Data (last 24 hrs) 02/11/18 11:05: WBC 10.0, Hgb 13.4, Hct 39.7, Plt Count 415 H 02/11/18 11:05: Sodium 133 L, Potassium 4.3, BUN 28 H, Creatinine 1.10, Glucose 101, Total Bilirubin 0.8, AST 23, ALT 22, Alkaline Phosphatase 42 L, Lipase 45 L - Problems (1) Pleural effusion Current Visit: Yes Status: Acute Plan: Patient is 87 years of age admitted with a upper abdominal lower chest pain describes as intense worse over the past few days she appears to have a loculated effusion on the right side no prior history of any malignancies normal white count no fever I have ordered bilateral decubitus of the chest right-sided chest ultrasound showed me I had any the chest tube or possible transfer to a thoracic surgery service patient has loculations on the right side in the meantime Dc Levaquin I have started her on Zosyn history of diastolic dysfunction on Lasix I have added Vicodin and morphine patient is on Xarelto I have Dc dinner Lasix doubt congestive heart failure continue with spironolactone vital signs stable
[2018-02-12] MEDS: IRBESARTAN 150 MG TAB PO SCH (08:39)
[2018-02-12] MEDS: COLESTIPOL 1 GM TAB PO SCH ×2 (08:40→20:58)
[2018-02-12] MEDS: SPIRONOLACTONE 25 MG TABLET PO SCH (08:40)
[2018-02-12] MEDS: EZETIMIBE 10 MG TAB PO SCH (08:40)
[2018-02-12] MEDS ORDERED: AMIODARONE HCL 200 MG TAB PO SCH (09:00)
[2018-02-12] MEDS ORDERED: ESOMEPRAZOLE MAGNESIUM PO SCH (09:00)
--- NOTE | 2018-02-12 09:51 | RAD REPORT ---
EXAM DESCRIPTION: US - Chest - 02/12/2018 9:36 am CLINICAL HISTORY: Right-sided pleural effusion, possible loculation COMPARISON: Portable chest February 11 FINDINGS: Right-sided chest sonography was performed to evaluate the pleural effusion for drainage a nd loculation. Moderate volume of pleural fluid is identifiable in the mid and lower right side of the chest. No sep tation or loculation identified at sonography. IMPRESSION: Moderate right-sided pleural effusion without sonographic evidence for loculation.
--- NOTE | 2018-02-12 10:01 | RAD REPORT ---
EXAM DESCRIPTION: RAD - Chest Lateral Decubitus - 02/12/2018 9:50 am CLINICAL HISTORY: Pleural effusion, possible loculation COMPARISON: Chest ultrasound same date, portable chest February 11 TECHNIQUE: Right and left lateral decubitus films were obtained. FINDINGS: Small layering left pleural effusion is identifiable. Layering of the right pleural effusi on is identified. There is pleural fluid that remains at the right base. At sonography no loculations were demonstrated. IMPRESSION: Bilateral layering pleural effusions present. There is some fluid that remains at the right base ; however, no loculations were demonstrated at son ography.
[2018-02-12] MEDS: PIPER/TAZO/NS 3.375gm 3.375 GM/100 ML BAG IVPB SCH ×2 (10:08→17:18)
[2018-02-12] MEDS: MORPHINE 2 MG/ML SYR IV PRN ×3 (10:10→20:57)
[2018-02-12 12:53] LABS: Protime INR 3.37
--- NOTE | 2018-02-12 13:16 | CON ---
Date of Consultation: 02/12/[address] Estrada's service on 02/11/2018. Reason For Consultation: Congestive heart failure. History Of Present Illness: Mrs. Lambert is an 87-year-old white woman. She was just in the hospital in November 2007 for congestive heart failure, had a normal echocardiogram. She recently had a perm anent pacemaker placement in October [address] Chowdhury. She has an atrial fibrillation for which she takes amiodarone and Xarelto. She has hypertension, history of chronic CHF, and dyslipidemia; came in with shortness of breath. Denied fever, chills, cough. Denied PND. Denied pedal edema. Denied chest pain. Denied syncope. Allergies: ALLERGIC TO DEMEROL. Medications: Her medications at home include Aldactone, hydrochlorothiazide, amiodarone, Coreg, Tric or, Zetia, Xarelto, Avapro. Physical Examination: Vital Signs: Stable. She was in a paced rhythm. HEENT: Negative. Neck: Supple. No bruit, lymphadenopathy, JVD, or thyromegaly. Chest: Reveals decreased breath sounds bilaterally. Cardiac Exam: Revealed a paced rhythm. No murmurs, gallops, or rubs. Abdomen: Benign. Extremities: Revealed no clubbing, cyanosis, or edema. Diagnostic Data: Chest x-ray showed no congestive heart failure or volume overload. Echocardiogram in November of [address] of the chest and x-ray of the chest revealed large right pleural effusion, moderate left pleural effusion. Impression And Plan: I think Mrs. Lambert is not in congestive heart failure. I think her issues are pleural effusion, etiology is unknown. EF is normal. I doubt that this is related to diastolic maritza estive heart failure. Nevertheless, another echocardiogram is pending. Pulmonary consultation is pe nding. I think a thoracentesis may be beneficial. I would hold her Xarelto for now, just in case th oracentesis is planned. Her other problems including atrial fibrillation. The patient has a pacemak er. She has a paced rhythm. I am wondering whether we should take her off the amiodarone considerin g her pulmonary status at this moment. I will discuss the case further with Dr. Estrada. Her blood pr essure and dyslipidemia are well controlled. GUILLERMO/LALY Voice ID: [id number] Report ID: [id number]
--- NOTE | 2018-02-12 15:50 | P.PN ---
Subjective Date of Service: 02/12/18 Chief Complaint: Chest pain Patient seen and examined at bedside with RN. Chart reviewed. Case discussed with pulmonology and cardiology at this time. Patient is currently awaiting for thoracentesis. X-ray of the chest along with ultrasound negative for loculation. Will follow up with pulmonology at this time Review of Systems 10-point ROS is otherwise unremarkable Physical Examination - Vital Signs Temperature: 97.9 F Blood Pressure: 165/70 Pulse: 70 Respirations: 18 Pulse Ox (%): 95 - Physical Exam General: Alert, In no apparent distress HEENT: Atraumatic, PERRLA, EOMI Neck: Supple, JVD not distended Respiratory: Clear to auscultation bilaterally, Diminished Cardiovascular: Regular rate/rhythm, Normal S1 S2 Gastrointestinal: Normal bowel sounds, No tenderness Musculoskeletal: No tenderness Integumentary: No rashes Neurological: Normal speech, Normal tone, Normal affect Lymphatics: No axilla or inguinal lymphadenopathy - Studies Laboratory Data (last 24 hrs) 02/12/18 12:30: PT 40.3 H, INR 3.37, APTT 37.8 H 02/12/18 04:20: Sodium 134 L, Potassium 4.1, BUN 30 H, Creatinine 1.30, Glucose 96, Phosphorus 3.8, Magnesium 2.0, Total Bilirubin 0.7, AST 25, ALT 23, Alkaline Phosphatase 40 L 02/12/18 04:20: WBC 7.1 D, Hgb 12.5, Hct 36.2, Plt Count 357 Microbiology Data (last 24 hrs): 02/11/18 16:56 Wound - Right Lower Leg Gram Stain - Final Medications List Reviewed: Yes Assessment And Plan - Current Problems (Diagnosis) (1) Acute exacerbation of CHF (congestive heart failure) Onset Date: 02/12/18 Current Visit: Yes Status: Acute Plan: Acute on Chronic CHF exacerbation. Recently DC Lasix and Coreg with Cardiology due to ARF -Cardiology Consulted. Recommendations appreciated at this time -Stop IV Lasix along with amiodarone. Increase Coreg at this time -Fluid restriction 1.5L Qualifiers: Heart failure type: diastolic Qualified Code(s): I50.33 - Acute on chronic diastolic (congestive) heart failure (2) Pleural effusion Onset Date: 02/12/18 Current Visit: Yes Status: Acute Plan: Large Right sided Pleural Effusion with partial Loculation and Mod Left Pleural Effusion with no Loculation -Pulmonology consulted for possible thoracentesis -chest x-ray and a ultrasound negative for loculation -Held xarelto for now (3) HTN (hypertension) Onset Date: 02/12/18 Current Visit: Yes Status: Chronic Plan: Restart home medication Qualifiers: Hypertension type: essential hypertension Qualified Code(s): I10 - Essential (primary) hypertension (4) History of pacemaker Current Visit: No Status: Chronic (5) GERD (gastroesophageal reflux disease) Onset Date: 02/12/18 Current Visit: Yes Status: Chronic Qualifiers: Esophagitis presence: without esophagitis Qualified Code(s): K21.9 - Gastro -esophageal reflux disease without esophagitis (6) Afib Onset Date: 02/12/18 Current Visit: Yes Status: Chronic Plan: -Hold Xarelto for possible Thoracentesis -Stop Aminodrone and Increased Coreg today Qualifiers: Atrial fibrillation type: chronic Qualified Code(s): I48.2 - Chronic atrial fibrillation Discharge Plan: Home Plan to discharge in: 72 Hours - Code Status/Comfort Care Code Status Assessed: Yes Critical Care: No
[2018-02-12] MEDS: FENOFIBRATE 160 MG TAB PO SCH (20:58)
[2018-02-13] MEDS: PIPER/TAZO/NS 3.375gm 3.375 GM/100 ML BAG IVPB SCH (00:59)
[2018-02-13] MEDS: MORPHINE 2 MG/ML SYR IV PRN ×2 (01:00→20:59)
[2018-02-13] MEDS ORDERED: ONDANSETRON 4 MG/2 ML VIAL IV ONE (04:17)
[2018-02-13 06:16] LABS: Absolute Monocytes 0.8 K/uL (0.1-1.3); Absolute Neutrophil 4.7 K/uL (1.8-8.0); Basophils % 0.4 % (0-1.3); Eosinophils % 1.8 % (0-4.4); Hematocrit 36.2 % (36.0-45.0); Lymphocytes % 15.2 % (15.3-44.8); MCH 29.6 pg (27.0-35.0); MCV 87.3 fL (80-100); MPV 8.3 fL (7.6-11.3); Monocytes % 12.3 % (3.3-12.3); RBC Red Blood Cell Count 4.15 M/uL (3.86-4.86)
[2018-02-13 06:38] LABS: Albumin 2.7 g/dL (3.4-5.0); Bilirubin Total 0.7 mg/dL (0.2-1.0); Magnesium 2.1 mg/dL (1.8-2.4); Phosphorus 2.2 mg/dL (2.5-4.9); Potassium 3.6 mmol/L (3.5-5.1); Protein, Total 5.8 g/dL (6.4-8.2)
[2018-02-13] MEDS ORDERED: Meropenem 1000 MG/VIAL IV SCH (09:00)
--- NOTE | 2018-02-13 09:04 | P.PN ---
Subjective Date of Service: 02/13/18 Chief Complaint: Right-sided pleural effusion Patient is still complains of significant chest discomfort she has a significant effusion on the right side no loculations on ultrasound Review of Systems No change Physical Examination - Vital Signs Temperature: 97.5 F Blood Pressure: 147/67 Pulse: 71 Respirations: 20 Pulse Ox (%): 98 - Physical Exam General: Alert, Oriented x3, Moderate distress Neck: Supple Respiratory: Diminished (Diminished on the right side) Cardiovascular: No edema, Regular rate/rhythm - Studies Laboratory Data (last 24 hrs) 02/12/18 12:30: PT 40.3 H, INR 3.37, APTT 37.8 H Microbiology Data (last 24 hrs): 02/11/18 13:20 Clean Catch Urine [place] Count - Final >100,000 CFU/ML. 02/11/18 13:20 Clean Catch Urine - Final Escherichia Coli 02/11/18 16:56 Wound - Right Lower Leg Gram Stain - Final Medications List Reviewed: Yes Assessment & Plan - Problems (Diagnosis) (1) Pleural effusion Onset Date: 02/12/18 Current Visit: Yes Status: Acute Plan: Patient is 87 years of age admitted with significant chest discomfort she has right-sided pleural effusion the will consult in the surgery for a small bore chest tube patient has E. coli in the urine sensitive to levofloxacin patient has not had Xarelto for the past 48 hr
[2018-02-13] MEDS ORDERED: LIDOCAINE 1% MPF 5 ML VIAL ONE ×2 (09:18)
[2018-02-13] MEDS: COLESTIPOL 1 GM TAB PO SCH ×2 (09:50→20:52)
[2018-02-13] MEDS: IRBESARTAN 150 MG TAB PO SCH (09:50)
[2018-02-13] MEDS: EZETIMIBE 10 MG TAB PO SCH (09:51)
[2018-02-13] MEDS: TRAMADOL HCL 50 MG TAB PO PRN (09:51)
[2018-02-13] MEDS: PANTOPRAZOLE 40MG TABLET PO SCH (09:52)
[2018-02-13] MEDS: SPIRONOLACTONE 25 MG TABLET PO SCH (09:52)
[2018-02-13] MEDS ORDERED: POTASSIUM PHOS IN 0.9 % NACL 15 MMOL/250 ML BAG IV ONE (10:00)
[2018-02-13 10:21] LABS: Protime INR 1.69
--- NOTE | 2018-02-13 10:44 | CON ---
Date of Consultation: 02/13/2018 Brief History Of Present Illness: The patient is an 87-year-old female, who presents to [facility] on 02/11 with significant past medical history of CHF with diastolic dysfunction, atrial fibri llation, GERD, hypertension, who presented to the ER complaining of having some shortness of breath a nd epigastric pain that started 2-3 days prior to her admission. She was seen by the Learning Program Manager vanessa d there had been some change in the medication and she was, as such, admitted with the above stated p gopi. She was found during workup to have a significant right pleural effusion. I have spoken wit h Dr. Tam Dao, who consulted me to see about placing a small right thoracostomy tube for nina churchill and fluid analysis. Past Medical History: Significant for atrial flutter/atrial fibrillation, pulmonary hypertension, hy pertension. Past Surgical History: Includes bladder suspension, breast surgery, colon resection, hysterectomy, b ilateral cataract surgery, pacemaker placement, 10/27/17, and hemorrhoidectomy. Allergies: TO MEPERIDINE. Home Medications: Include amlodipine, Lumigan ophthalmic, colestipol, omeprazole, Zetia, meclizine, Xarelto, spironolactone, Combigan, TriCor, Avapro, Zofran, Robitussin, Hemocyte-Plus, Ultram. Family History: Significant for blood clots in the mother and colon problems in her father, and [facility] er has Parkinson's. Social History: She denies smoking, alcohol, or recreational drug use. Review of Systems: A 10-point review of systems other than HPI, denies. Physical Examination: General: At the time of my examination, her BMI is 22.3. General, she is awake, alert, oriented. Psychiatric: She is appropriately conversive. HEENT: She is normocephalic. Sclerae anicteric. Mucous membranes moist. Oropharynx clear. Neck: Supple. No JVD. Chest: Symmetric expansion and excursion. Cardiovascular: Regular rate and rhythm. Pulmonary: She has decreased breath sounds on the right. Abdomen: Soft. Extremities: No clubbing, cyanosis, or edema. Vital Signs: Her temperature is 97.5, respiratory rate 20, pulse is 71 with pacemaker, blood pressur e 147/67. Laboratory Data: She had a laboratory exam, which reveals white blood count of 6.9, hemoglobin 12.3, hematocrit 36.2, platelet count is 360. Her last PT was 40.3, INR 3.37, PTT 37.8, sodium is 138, po tassium 3.6, chloride 101, carbon dioxide 28, BUN 28, creatinine 1.2, glucose is 82, calcium 8.1. He r alk phos is 36. Her BNP is 18,608. She had a UA, which showed greater than 50 bacteria. She had a chest x-ray performed which was officially read as bilateral layering pleural effusions present. T here is some fluid that remains at the right base, however, no loculations were demonstrated at sonog hellen. There is a small layering of left pleural effusion, layering of the right pleural effusion is identified. The pleural fluid that remains at the right base at sonography, no loculations were pito reciated. She had a chest ultrasound on 02/12, which is officially read as moderate right-sided pleu ral effusion without sonographic evidence of loculation. Assessment And Plan: This is an 87-year-old female with a pleural effusion: 1.IV fluid hydration. 2.Continue medical management. 3.We will recheck coagulation profile. 4.I have explained the risks, benefits, and alternatives of placement of a right chest thoracostomy tube for purpose of drainage as well as analysis of this fluid. These risks include, but are not lamb ited to bleeding, infection, damage to surrounding tissues, pneumothorax, need for further operation and procedures. The patient agrees to proceed as indicated. Thank you for this interesting consult. MICHAEL/LALY Voice ID: [id number] Report ID: [id number]
--- NOTE | 2018-02-13 10:47 | P.OP ---
Preoperative diagnosis: Right Pleural Effusion Postoperative diagnosis: Right Pleural Effusion Primary procedure: Placement of Right 8Fr Thoracostomy Tube Anesthesia: Local 1% lidocaine Estimated blood loss: <1cc Specimen: Straw colored fluid Findings: ~600cc straw colored fluid from right thoracic space Complications: None Drain(s): Other (8 Fr Pigtail catheter) Transferred to: Other Condition: Good
--- NOTE | 2018-02-13 11:33 | RAD REPORT ---
EXAM DESCRIPTION: RAD - Chest Single View - 02/13/2018 11:26 am CLINICAL HISTORY: placement of right thoracostomy tube Chest pain. COMPARISON: Chest Single View dated 02/11/2018; Chest Single View dated 01/05/2018; Chest Single View dated 12/10/2017; Chest Single View dated 11/26/2017 FINDINGS: Portable technique limits examination quality. Small bore right-sided chest tube has been placed. There has been interval mild reduction in the size of the right pleural effusion. Moderate right pleural effusion persists. The left lung is grossly cl ear. The heart is mildly enlarged with a single lead pacer device present.No fracture present.
[2018-02-13] MEDS: Meropenem 1,000 MG in NA CHLORIDE 0.9% 100 ML IV SCH ×2 (11:43→20:52)
--- NOTE | 2018-02-13 13:40 | PN ---
Date of Progress Note: 02/13/2018 Ms. Lambert was admitted with shortness of breath. No evidence of congestive heart failure, normal ech ocardiogram. No pericardial effusion. Has a large bilateral effusion in the lung, more on the right than the left. Xarelto was held since yesterday. Thoracentesis is planned for today by Dr. Taran manzano. We will see how she does after the thoracentesis. No change in medical therapy otherwise. GUILLERMO/LALY Voice ID: [id number] Report ID: [id number]
--- NOTE | 2018-02-13 15:00 | P.PN ---
Subjective Date of Service: 02/13/18 Chief Complaint: Right-sided pleural effusion Patient seen and examined at bedside with RN. Chart reviewed. Case discussed with pulmonology and cardiology at this time. Patient is currently awaiting for thoracentesis. X-ray of the chest along with ultrasound negative for loculation. Will follow up with pulmonology at this time Review of Systems 10-point ROS is otherwise unremarkable Physical Examination - Vital Signs Temperature: 97.9 F Blood Pressure: 142/65 Pulse: 70 Respirations: 20 Pulse Ox (%): 93 - Physical Exam General: Alert, In no apparent distress HEENT: Atraumatic, PERRLA, EOMI Neck: Supple, JVD not distended Respiratory: Clear to auscultation bilaterally, Diminished Cardiovascular: Regular rate/rhythm, Normal S1 S2 Gastrointestinal: Normal bowel sounds, No tenderness Musculoskeletal: No tenderness Integumentary: No rashes Neurological: Normal speech, Normal tone, Normal affect Lymphatics: No axilla or inguinal lymphadenopathy - Studies Microbiology Data (last 24 hrs): 02/11/18 16:56 Wound - Right Lower Leg Gram Stain - Final 02/11/18 13:20 Clean Catch Urine [place] Count - Final >100,000 CFU/ML. 02/11/18 13:20 Clean Catch Urine - Final Escherichia Coli Medications List Reviewed: Yes Assessment And Plan - Current Problems (Diagnosis) (1) Acute exacerbation of CHF (congestive heart failure) Onset Date: 02/12/18 Current Visit: Yes Status: Acute Plan: Acute on Chronic CHF exacerbation. Recently DC Lasix and Coreg with Cardiology due to ARF -Cardiology Consulted. Recommendations appreciated at this time -Stop IV Lasix along with amiodarone. Increase Coreg at this time -Fluid restriction 1.5L Qualifiers: Heart failure type: diastolic Qualified Code(s): I50.33 - Acute on chronic diastolic (congestive) heart failure (2) Pleural effusion Onset Date: 02/12/18 Current Visit: Yes Status: Acute Plan: Large Right sided Pleural Effusion with partial Loculation and Mod Left Pleural Effusion with no Loculation -Pulmonology consulted for thoracentesis today -chest x-ray and a ultrasound negative for loculation -Held xarelto for now (3) HTN (hypertension) Onset Date: 02/12/18 Current Visit: Yes Status: Chronic Plan: Restart home medication Qualifiers: Hypertension type: essential hypertension Qualified Code(s): I10 - Essential (primary) hypertension (4) History of pacemaker Current Visit: No Status: Chronic (5) GERD (gastroesophageal reflux disease) Onset Date: 02/12/18 Current Visit: Yes Status: Chronic Qualifiers: Esophagitis presence: without esophagitis Qualified Code(s): K21.9 - Gastro -esophageal reflux disease without esophagitis (6) Afib Onset Date: 02/12/18 Current Visit: Yes Status: Chronic Plan: -Hold Xarelto for possible Thoracentesis -Stop Aminodrone and Increased Coreg today Qualifiers: Atrial fibrillation type: chronic Qualified Code(s): I48.2 - Chronic atrial fibrillation (7) UTI (urinary tract infection) Onset Date: 01/24/16 Current Visit: No Status: Acute Plan: UA with UTI -culture with ESBL -Started on IV merem and PICC line today Qualifiers: Urinary tract infection type: acute cystitis Hematuria presence: without hematuria Qualified Code(s): N30.00 - Acute cystitis without hematuria Discharge Plan: Home Plan to discharge in: 48 Hours - Code Status/Comfort Care Code Status Assessed: Yes Critical Care: No
--- NOTE | 2018-02-13 15:48 | RAD REPORT ---
EXAM DESCRIPTION: RAD - Chest Single View - 02/13/2018 3:20 pm CLINICAL HISTORY: PICC line placement COMPARISON: February 13 FINDINGS: Portable chest was obtained following placement of a right upper extremity PICC line. The catheter tip is in the right atrium. No other significant change from earlier study.
--- NOTE | 2018-02-13 17:20 | RAD REPORT ---
EXAM DESCRIPTION: RAD - Chest Single View - 02/13/2018 5:06 pm CLINICAL HISTORY: PICC line placement COMPARISON: PICC line film February 13 FINDINGS: Portable chest was obtained following repositioning of a right upper extremity PICC line. The catheter tip is in the distal SVC.
[2018-02-13] MEDS: HYDROCODONE/APAP 5/325 MG TAB PO PRN (18:24)
[2018-02-13] MEDS: FENOFIBRATE 160 MG TAB PO SCH (20:52)
[2018-02-13] MEDS ORDERED: SODIUM CHLORIDE 0.9% 10ML INJ IV PRN ×2 (22:00)
--- NOTE | 2018-02-13 22:48 | OP ---
Date of Procedure: 02/13/2018 Surgeon: Fermin Diamond MD, Preoperative Diagnosis: Right pleural effusion. Postoperative Diagnosis: Right pleural effusion. Procedure Performed: Placement of a right thoracic 8-Gambian thoracostomy tube. Anesthesia: Local 1% lidocaine. Estimated Blood Loss: Less than 1 cc. Specimen: Straw-colored fluid sent for analysis. Findings: Approximately 600 cc of straw-colored fluid from the right thoracic space returned immedia tely. Complications: None. Drains: An 8-Gambian pigtail catheter. Disposition: The patient remained in the room in good condition throughout the procedure. Procedure In Detail: After informed consent was obtained, the patient was prepped and draped in the usual sterile fashion. After adequate anesthesia was achieved, an area of the fourth-fifth intercost al space on the posterior axillary line was anesthetized appropriately with 1% lidocaine. A small ni ck incision was made and I placed the pigtail introducer sheath with catheter over the rib into the t horacic space. Immediately encountered was a yellow, nonbloody fluid. The catheter was advanced and the inner cannula sheath was removed. The catheter was advanced easily in the thoracic space withou t inserting complication. It was secured to the chest wall using a 2-0 nylon suture and sterile dres sing was placed over top. Approximately 600 cc was returned. The patient had increased comfort and ease of breathing after the catheter had drained the fluid and her saturations were approximately 98% in the room. The patient tolerated the procedure well without evidence of complication, remained in room throughout the procedure in good condition. All stat chest x-ray will be performed. All count s were correct at the end of the case. MICHAEL/LALY Voice ID: [id number] Report ID: [id number]
[2018-02-14] MEDS: MORPHINE 2 MG/ML SYR IV PRN ×3 (00:51→13:49)
[2018-02-14 05:41] LABS: Absolute Lymphocytes (CBC) 1.3 K/uL (0.7-4.9); Absolute Monocytes 0.8 K/uL (0.1-1.3); Absolute Neutrophil 5.7 K/uL (1.8-8.0); Basophils % 0.6 % (0-1.3); Eosinophils % 1.3 % (0-4.4); Hematocrit 36.2 % (36.0-45.0); Lymphocytes % 16.8 % (15.3-44.8); MCH 29.6 pg (27.0-35.0); MCV 87.6 fL (80-100); MPV 8.4 fL (7.6-11.3); Monocytes % 9.9 % (3.3-12.3); RBC Red Blood Cell Count 4.13 M/uL (3.86-4.86)
[2018-02-14 06:00] LABS: Albumin 2.6 g/dL (3.4-5.0); Bilirubin Total 0.7 mg/dL (0.2-1.0); Phosphorus 2.4 mg/dL (2.5-4.9); Protein, Total 5.4 g/dL (6.4-8.2)
[2018-02-14] MEDS ORDERED: MAGNESIUM HYDROXIDE 8% 30 ML PO PRN (06:22)
[2018-02-14] MEDS: POTASS/SODIUM PHOSPHATE 1 PKT POWD.PACK PO SCH ×3 (06:47→10:12)
[2018-02-14] MEDS ORDERED: POTASS/SODIUM PHOSPHATE 1 PKT POWD.PACK PO ONE (07:00)
[2018-02-14] MEDS: IRBESARTAN 150 MG TAB PO SCH (08:47)
[2018-02-14] MEDS: COLESTIPOL 1 GM TAB PO SCH ×2 (08:48→21:45)
[2018-02-14] MEDS: EZETIMIBE 10 MG TAB PO SCH (08:48)
[2018-02-14] MEDS: PANTOPRAZOLE 40MG TABLET PO SCH (08:48)
[2018-02-14] MEDS: SPIRONOLACTONE 25 MG TABLET PO SCH (08:48)
[2018-02-14] MEDS: HYDROCODONE/APAP 5/325 MG TAB PO PRN (08:51)
[2018-02-14] MEDS ORDERED: SODIUM CHLORIDE 0.9% 10ML INJ IV SCH (09:00)
[2018-02-14] MEDS: Meropenem 1,000 MG in NA CHLORIDE 0.9% 100 ML IV SCH ×2 (09:34→21:45)
--- NOTE | 2018-02-14 10:39 | P.PN ---
Subjective Date of Service: 02/14/18 Chief Complaint: Right-sided pleural effusion Patient is status post a right-sided chest tube is doing much better sat some pain this morning feels weak as difficulty walking Review of Systems General: Weakness Respiratory: Shortness of Breath Physical Examination - Vital Signs Temperature: 97.8 F Blood Pressure: 156/69 Pulse: 71 Respirations: 18 Pulse Ox (%): 97 - Physical Exam General: Alert, Oriented x3 Respiratory: Clear to auscultation bilaterally Cardiovascular: No edema, Regular rate/rhythm - Studies Microbiology Data (last 24 hrs): 02/11/18 16:56 Wound - Right Lower Leg Gram Stain - Final 02/11/18 13:20 Clean Catch Urine [place] Count - Final >100,000 CFU/ML. 02/11/18 13:20 Clean Catch Urine - Final Escherichia Coli Medications List Reviewed: Yes Assessment & Plan - Problems (Diagnosis) (1) Pleural effusion Onset Date: 02/12/18 Current Visit: Yes Status: Acute Plan: Patient is status post chest tube is currently doing much better resume Xarelto chest x-ray has been ordered lab tests pending there is send out order possible removal of chest tube tomorrow suction Dc
--- NOTE | 2018-02-14 11:24 | P.PN ---
Subjective Date of Service: 02/14/18 Chief Complaint: Right-sided pleural effusion Patient seen and examined at bedside with RN. Chart reviewed. Case discussed with pulmonology and cardiology at this time. Patient is currently S/P Chest tube placement. Improvement with Pleural Effusion. Review of Systems 10-point ROS is otherwise unremarkable Physical Examination - Vital Signs Temperature: 97.8 F Blood Pressure: 156/69 Pulse: 71 Respirations: 18 Pulse Ox (%): 97 - Physical Exam General: Alert, In no apparent distress HEENT: Atraumatic, PERRLA, EOMI Neck: Supple, JVD not distended Respiratory: Clear to auscultation bilaterally, Normal air movement Cardiovascular: Regular rate/rhythm, Normal S1 S2 Gastrointestinal: Normal bowel sounds, No tenderness Musculoskeletal: No tenderness Integumentary: No rashes Neurological: Normal speech, Normal tone, Normal affect Lymphatics: No axilla or inguinal lymphadenopathy - Studies Microbiology Data (last 24 hrs): 02/11/18 16:56 Wound - Right Lower Leg Gram Stain - Final 02/11/18 13:20 Clean Catch Urine [place] Count - Final >100,000 CFU/ML. 02/11/18 13:20 Clean Catch Urine - Final Escherichia Coli Medications List Reviewed: Yes Assessment And Plan - Current Problems (Diagnosis) (1) Acute exacerbation of CHF (congestive heart failure) Onset Date: 02/12/18 Current Visit: Yes Status: Acute Plan: Acute on Chronic CHF exacerbation. -Recently DC Lasix and Coreg with Cardiology due to ARF outpt -Cardiology Consulted. Recommendations appreciated at this time -Stop Lasix and Amiodrone home medication -Increase Coreg -Fluid restriction 1.5L Qualifiers: Heart failure type: diastolic Qualified Code(s): I50.33 - Acute on chronic diastolic (congestive) heart failure (2) Pleural effusion Onset Date: 02/12/18 Current Visit: Yes Status: Acute Plan: Large Right sided Pleural Effusion with partial Loculation and Mod Left Pleural Effusion with no Loculation -Pulmonology consulted. appreciated Reccs -Chest Tube placement with Surgery. -Xray with improvement today (3) HTN (hypertension) Onset Date: 02/12/18 Current Visit: Yes Status: Chronic Plan: Restart home medication Qualifiers: Hypertension type: essential hypertension Qualified Code(s): I10 - Essential (primary) hypertension (4) History of pacemaker Current Visit: No Status: Chronic (5) GERD (gastroesophageal reflux disease) Onset Date: 02/12/18 Current Visit: Yes Status: Chronic Qualifiers: Esophagitis presence: without esophagitis Qualified Code(s): K21.9 - Gastro -esophageal reflux disease without esophagitis (6) Afib Onset Date: 02/12/18 Current Visit: Yes Status: Chronic Plan: Stable at this time -Resume Xarelto today -Stop Aminodrone and Increased Coreg per Cardiology reccs Qualifiers: Atrial fibrillation type: chronic Qualified Code(s): I48.2 - Chronic atrial fibrillation (7) UTI (urinary tract infection) Onset Date: 01/24/16 Current Visit: No Status: Acute Plan: UA with UTI -culture with ESBL -Started on IV merem and PICC line today Qualifiers: Urinary tract infection type: acute cystitis Hematuria presence: without hematuria Qualified Code(s): N30.00 - Acute cystitis without hematuria Discharge Plan: Home Plan to discharge in: 48 Hours - Code Status/Comfort Care Code Status Assessed: Yes Critical Care: No
--- NOTE | 2018-02-14 11:52 | RAD REPORT ---
EXAM DESCRIPTION: [place] Single View02/14/2018 11:28 am CLINICAL HISTORY: Chest pain COMPARISON: February 13 FINDINGS: The distal aspect of the right chest tube makes a 90 degree turn. The tip lies within the lateral right hemithorax. No change has occurred in right basilar opacity/pleural effusion. No other change is noted
[2018-02-14] MEDS: ONDANSETRON 4 MG/2 ML VIAL IV PRN (12:24)
[2018-02-14] MEDS: RIVAROXABAN 10 MG TABLET PO SCH (18:04)
[2018-02-14] MEDS: FENOFIBRATE 160 MG TAB PO SCH (21:45)
[2018-02-14] MEDS ORDERED: MAGNESIUM CITRATE 300 ML BOT PO SCH (23:00)
[2018-02-15] MEDS: TRAMADOL HCL 50 MG TAB PO PRN ×3 (04:34→17:31)
[2018-02-15 06:09] LABS: Phosphorus 2.3 mg/dL (2.5-4.9); Potassium 4.7 mmol/L (3.5-5.1)
[2018-02-15] MEDS: PANTOPRAZOLE 40MG TABLET PO SCH (06:20)
[2018-02-15] MEDS ORDERED: POTASS/SODIUM PHOSPHATE 1 PKT POWD.PACK PO ONE (07:30)
[2018-02-15] MEDS: SPIRONOLACTONE 25 MG TABLET PO SCH (08:48)
[2018-02-15] MEDS: Meropenem 1,000 MG in NA CHLORIDE 0.9% 100 ML IV SCH ×2 (08:48→20:42)
[2018-02-15] MEDS: IRBESARTAN 150 MG TAB PO SCH (08:49)
[2018-02-15] MEDS: EZETIMIBE 10 MG TAB PO SCH (08:49)
[2018-02-15] MEDS: COLESTIPOL 1 GM TAB PO SCH ×2 (08:50→20:43)
--- NOTE | 2018-02-15 11:27 | RAD REPORT ---
EXAM DESCRIPTION: RAD - Chest Single View - 02/15/2018 6:42 am CLINICAL HISTORY: Follow for chest tube Chest pain. COMPARISON: Chest Single View dated 02/14/2018; Chest Single View dated 02/13/2018; Chest Single View dated 02/13/2018; Chest Single View dated 02/13/2018 FINDINGS: Portable technique limits examination quality. Small bore chest tube remains in place projecting over the right mid hemithorax. No pneumothorax seen . Mild improvement in size of the right-sided pleural and parenchymal opacity since comparative study . The heart is normal in size. Right-sided PICC line has tip in the SVC. Single lead pacer device is present. IMPRESSION: Mild improvement in basilar lung aeration on the right.
[2018-02-15] MEDS: ONDANSETRON 4 MG/2 ML VIAL IV PRN ×2 (12:25→17:45)
--- NOTE | 2018-02-15 13:26 | P.PN ---
Subjective Date of Service: 02/15/18 Chief Complaint: Right-sided pleural effusion Patient seen and examined at bedside with RN. Chart reviewed. Case discussed with pulmonology and cardiology at this time. Patient is currently S/P Chest tube placement. Improvement with Pleural Effusion. Review of Systems 10-point ROS is otherwise unremarkable Physical Examination - Vital Signs Temperature: 97.4 F Blood Pressure: 142/63 Pulse: 69 Respirations: 18 Pulse Ox (%): 99 - Physical Exam General: Alert, In no apparent distress HEENT: Atraumatic, PERRLA, EOMI Neck: Supple, JVD not distended Respiratory: Normal air movement, Expiratory wheezes, Inspiratory wheezes, Other (Chest tube in place. drain 20 cc of serosanguineous of fluid overnight) Cardiovascular: Regular rate/rhythm, Normal S1 S2 Gastrointestinal: Normal bowel sounds, No tenderness Musculoskeletal: No tenderness Integumentary: No rashes Neurological: Normal speech, Normal tone, Normal affect Lymphatics: No axilla or inguinal lymphadenopathy - Studies Microbiology Data (last 24 hrs): 02/11/18 16:56 Wound - Right Lower Leg Gram Stain - Final 02/11/18 16:56 Wound - Right Lower Leg Culture & Sensitivity - Final Enterococcus Faecalis Medications List Reviewed: Yes Assessment And Plan - Current Problems (Diagnosis) (1) Acute exacerbation of CHF (congestive heart failure) Onset Date: 02/12/18 Current Visit: Yes Status: Acute Plan: Acute on Chronic CHF exacerbation. -Recently DC Lasix and Coreg with Cardiology due to ARF outpt -Cardiology Consulted. Recommendations appreciated at this time -Stop Lasix and Amiodrone home medication -Increase Coreg -Fluid restriction 1.5L Qualifiers: Heart failure type: diastolic Qualified Code(s): I50.33 - Acute on chronic diastolic (congestive) heart failure (2) Pleural effusion Onset Date: 02/12/18 Current Visit: Yes Status: Acute Plan: Large Right sided Pleural Effusion with partial Loculation and Mod Left Pleural Effusion with no Loculation -Pulmonology consulted. appreciated Reccs -Chest Tube placement with Surgery. -Xray with improvement today (3) HTN (hypertension) Onset Date: 02/12/18 Current Visit: Yes Status: Chronic Plan: Restart home medication Qualifiers: Hypertension type: essential hypertension Qualified Code(s): I10 - Essential (primary) hypertension (4) History of pacemaker Current Visit: No Status: Chronic (5) GERD (gastroesophageal reflux disease) Onset Date: 02/12/18 Current Visit: Yes Status: Chronic Qualifiers: Esophagitis presence: without esophagitis Qualified Code(s): K21.9 - Gastro -esophageal reflux disease without esophagitis (6) Afib Onset Date: 02/12/18 Current Visit: Yes Status: Chronic Plan: Stable at this time -Resume Xarelto -Stop Aminodrone and Increased Coreg per Cardiology reccs Qualifiers: Atrial fibrillation type: chronic Qualified Code(s): I48.2 - Chronic atrial fibrillation (7) UTI (urinary tract infection) Onset Date: 01/24/16 Current Visit: No Status: Acute Plan: UA with UTI -culture with ESBL -Started on IV merem and PICC line today Qualifiers: Urinary tract infection type: acute cystitis Hematuria presence: without hematuria Qualified Code(s): N30.00 - Acute cystitis without hematuria Discharge Plan: Other Plan to discharge in: 48 Hours - Code Status/Comfort Care Code Status Assessed: Yes Critical Care: No
[2018-02-15] MEDS: RIVAROXABAN 10 MG TABLET PO SCH (17:31)
[2018-02-15] MEDS: FENOFIBRATE 160 MG TAB PO SCH (20:43)
[2018-02-16] MEDS: TRAMADOL HCL 50 MG TAB PO PRN ×2 (04:29→09:23)
[2018-02-16 05:59] LABS: Phosphorus 2.2 mg/dL (2.5-4.9); Potassium 5.2 mmol/L (3.5-5.1)
--- NOTE | 2018-02-16 06:05 | PN ---
Date of Progress Note: 02/14/2018 Ms. Lambert was admitted with shortness of breath. Chest x-ray was not consistent with CHF. She had a large pleural effusion on the right, moderate pleural effusion on the left. She is status post thor acentesis. She is feeling better. She is felt to have chronic atrial fibrillation. She is in paced rhythm. She needs to get back on the Xarelto whenever it is okay with Dr. Dao. We will sign o ff her case for now. GUILLERMO/LALY Voice ID: [id number] Report ID: [id number]
[2018-02-16] MEDS: POTASS/SODIUM PHOSPHATE 1 PKT POWD.PACK PO SCH ×3 (07:23→09:00)
[2018-02-16] MEDS: PANTOPRAZOLE 40MG TABLET PO SCH (07:30)
--- NOTE | 2018-02-16 07:41 | ECHO ---
HEIGHT: 5 ft 4 in WEIGHT: 114 lb 1.6 oz DATE OF STUDY: 02/12/[address]: Joan Estrada MD 2-DIMENSIONAL: YES M.MODE: YES DOPPLER: YES COLOR FLOW: YES TDS: NO PORTABLE: NO DEFINITY: NO BUBBLE STUDY: NO DIAGNOSIS: CONGESTIVE HEART FAILURE CARDIAC HISTORY: CATHERIZATION: YES SURGERY: NO PROSTHETIC VALVE: NO PACEMAKER: YES MEASUREMENTS (cm) DIASTOLIC (NORMALS) SYSTOLIC (NORMALS) IVSd 1.2 (0.6-1.2) LA Diam (1.9-4.0) LVEF 54% LVIDd 3.8 (3.5-5.7) LVIDs 2.8 (2.0-3.5) %FS 27% LVPWd 1.2 (0.6-1.2) Ao Diam 2.8 (2.0-3.7) 2 DIMENSIONAL ASSESSMENT: RIGHT ATRIUM: NORMAL LEFT ATRIUM: NORMAL RIGHT VENTRICLE: PACER LEFT VENTRICLE: NORMAL TRICUSPID VALVE: NORMAL MITRAL VALVE: MITRAL ANNULAR CALCIFICATION PULMONIC VALVE: NORMAL AORTIC VALVE: SCLEROSIS PERICARDIAL EFFUSION: NONE AORTIC ROOT: NORMAL LEFT VENTRICULAR WALL MOTION: DECREASED LEFT VENTRICULAR COMPLIANCE. DOPPLER/COLOR FLOW: MILD TRICUSPID AND AORTIC REGURGITATION. MILD PULMONARY HYPERTENSION. COMMENTS: NORMAL LEFT VENTRICULAR SIZE AND FUNCTION. DECREASED LEFT VENTRICULAR COMPLIANCE. MILD TRICUSPID AND AORTIC REGURGITATION. RIGHT VENTRICULAR SYSTOLIC PRESSURE 41mmHg. PACER IN RIGHT VENTRICULAR APEX. NO EFFUSION. TECHNOLOGIST: DIONY JARA
--- NOTE | 2018-02-16 08:23 | P.PN ---
Subjective Date of Service: 02/16/18 Chief Complaint: Right-sided pleural effusion Patient is complaining of a nausea feeling weak Review of Systems General: Weakness Respiratory: Shortness of Breath Physical Examination - Vital Signs Temperature: 98 F Blood Pressure: 145/64 Pulse: 70 Respirations: 20 Pulse Ox (%): 97 - Physical Exam General: Alert, Oriented x3, Mild distress Neck: Supple Respiratory: Clear to auscultation bilaterally, Diminished (Slightly diminished on the right side) Cardiovascular: No edema, Regular rate/rhythm - Studies Medications List Reviewed: Yes Assessment & Plan - Problems (Diagnosis) (1) Pleural effusion Onset Date: 02/12/18 Current Visit: Yes Status: Acute Plan: Patient admitted with right-sided pleural effusion ramps and is so far negative chemistries are pending chest x-ray reviewed significant improvement will plan to remove the tube today was only 20 min sprain yesterday patient will need IV antibiotics resistant organism in the urine plan to ambulate physical therapy possible discharge in 1 or 2 days echocardiogram is normal renal function has improved most likely patient has underlying diastolic dysfunction was treated with spironolactone I have added Lasix patient will not qualify for home O2
--- NOTE | 2018-02-16 08:44 | RAD REPORT ---
EXAM DESCRIPTION: RAD - Chest Single View - 02/16/2018 8:18 am CLINICAL HISTORY: Follow for chest tube Chest pain. COMPARISON: Chest Single View dated 02/15/2018; Chest Single View dated 02/14/2018; Chest Single View dated 02/13/2018; Chest Single View dated 02/13/2018 FINDINGS: Portable technique limits examination quality. Small bore right-sided chest tube remains in place. Minimal right apical pneumothorax is seen. Right- sided pleural fluid appears unchanged. Small left pleural effusion is also present. The heart is norm al in size. Right-sided PICC line has tip in the SVC. Single lead pacer device is in place.
[2018-02-16] MEDS: IRBESARTAN 150 MG TAB PO SCH (09:00)
[2018-02-16] MEDS: SPIRONOLACTONE 25 MG TABLET PO SCH (09:00)
[2018-02-16] MEDS: COLESTIPOL 1 GM TAB PO SCH ×2 (09:00→22:01)
[2018-02-16] MEDS: FUROSEMIDE 20 MG TABLET PO SCH (09:00)
[2018-02-16] MEDS: Meropenem 1,000 MG in NA CHLORIDE 0.9% 100 ML IV SCH ×2 (09:00→22:01)
[2018-02-16] MEDS: EZETIMIBE 10 MG TAB PO SCH (09:00)
[2018-02-16] MEDS: ONDANSETRON 4 MG/2 ML VIAL IV PRN (09:26)
--- NOTE | 2018-02-16 10:14 | P.PN ---
Subjective Date of Service: 02/16/18 Chief Complaint: Right-sided pleural effusion Subjective: Improving Doing well Physical Examination - Vital Signs Temperature: 98 F Blood Pressure: 154/63 Pulse: 70 Respirations: 20 Pulse Ox (%): 97 - Physical Exam General: Alert, In no apparent distress, Cooperative Respiratory: Other (Right chest tube in place) - Studies Medications List Reviewed: Yes Assessment And Plan - Current Problems (Diagnosis) (1) Pleural effusion Onset Date: 02/12/18 Current Visit: Yes Status: Acute Plan: - I have removed chest tube at bedside - will get follow up chest x ray in 1 hour
--- NOTE | 2018-02-16 13:55 | P.PN ---
Subjective Date of Service: 02/16/18 Chief Complaint: Right-sided pleural effusion Patient seen and examined at bedside with RN. Chart reviewed. Case discussed with pulmonology and cardiology at this time. Patient currently status post chest tube removal. Doing well overall. No complaints to offer overnight Review of Systems 10-point ROS is otherwise unremarkable Physical Examination - Vital Signs Temperature: 97.9 F Blood Pressure: 142/78 Pulse: 70 Respirations: 18 Pulse Ox (%): 96 - Physical Exam General: Alert, In no apparent distress HEENT: Atraumatic, PERRLA, EOMI Neck: Supple, JVD not distended Respiratory: Normal air movement, Expiratory wheezes, Inspiratory wheezes Cardiovascular: Regular rate/rhythm, Normal S1 S2 Gastrointestinal: Normal bowel sounds, No tenderness Musculoskeletal: No tenderness Integumentary: No rashes Neurological: Normal speech, Normal tone, Normal affect Lymphatics: No axilla or inguinal lymphadenopathy - Studies Microbiology Data (last 24 hrs): 02/11/18 11:20 Blood - Blood Aerobic Blood Culture - Final No growth in 5 days. 02/11/18 11:20 Blood - Blood Anaerobic Blood Culture - Final No growth in 5 days. 02/11/18 11:05 Blood - Blood Aerobic Blood Culture - Final No growth in 5 days. 02/11/18 11:05 Blood - Blood Anaerobic Blood Culture - Final No growth in 5 days. Medications List Reviewed: Yes Assessment And Plan - Current Problems (Diagnosis) (1) UTI (urinary tract infection) Onset Date: 01/24/16 Current Visit: No Status: Acute Plan: UA with UTI -culture with ESBL -Started on IV merem 06/21 -patient wants to go home. -Home Health has been consulted for IV infusion of the meropenem Qualifiers: Urinary tract infection type: acute cystitis Hematuria presence: without hematuria Qualified Code(s): N30.00 - Acute cystitis without hematuria (2) Acute exacerbation of CHF (congestive heart failure) Onset Date: 02/12/18 Current Visit: Yes Status: Acute Plan: Acute on Chronic CHF exacerbation. -Recently DC Lasix and Coreg with Cardiology due to ARF -Cardiology Consulted. Recommendations appreciated at this time -Stop Lasix and Amiodrone home medication -Increase Coreg -Fluid restriction 1.5L Qualifiers: Heart failure type: diastolic Qualified Code(s): I50.33 - Acute on chronic diastolic (congestive) heart failure (3) Pleural effusion Onset Date: 02/12/18 Current Visit: Yes Status: Acute Plan: Large Right sided Pleural Effusion with partial Loculation and Mod Left Pleural Effusion with no Loculation -Pulmonology consulted. appreciated Reccs -S/P Chest Tube removal. Doing well. -Xray in 4 hrs post removal. -improvement now (4) HTN (hypertension) Onset Date: 02/12/18 Current Visit: Yes Status: Chronic Plan: Restart home medication Qualifiers: Hypertension type: essential hypertension Qualified Code(s): I10 - Essential (primary) hypertension (5) History of pacemaker Current Visit: No Status: Chronic (6) GERD (gastroesophageal reflux disease) Onset Date: 02/12/18 Current Visit: Yes Status: Chronic Qualifiers: Esophagitis presence: without esophagitis Qualified Code(s): K21.9 - Gastro -esophageal reflux disease without esophagitis (7) Afib Onset Date: 02/12/18 Current Visit: Yes Status: Chronic Plan: Stable at this time -Resume Xarelto -Stop Aminodrone and Increased Coreg per Cardiology reccs Qualifiers: Atrial fibrillation type: chronic Qualified Code(s): I48.2 - Chronic atrial fibrillation - Plan Patient is doing well status post chest tube removal. Doing well overall. Pening setup for IV abx. Working with PT. Discharge Plan: Home Plan to discharge in: 48 Hours - Code Status/Comfort Care Code Status Assessed: Yes Critical Care: No
--- NOTE | 2018-02-16 15:12 | RAD REPORT ---
EXAM DESCRIPTION: RAD - Chest Single View - 02/16/2018 2:53 pm CLINICAL HISTORY: Removal of right-sided chest tube COMPARISON: February 16 TECHNIQUE: AP portable chest image was obtained 1435 hours . FINDINGS: Right-sided chest tube has been removed. There remains pleural effusion and atelectasis in the right base. Left base parenchymal opacification and small pleural effusion remain. PICC line and left subclavian pacemaker remain in place. Heart size is normal. Vasculature within normal limits. There is questionable minimal less than 10% pneumothorax in the lateral right upper lung field. This is not definitive and can be monitored on a follow-up examination. No acute bony abnormality seen. No acute aortic findings suspected. IMPRESSION: Questionable less than 10% right-sided pneumothorax. This is difficult to clearly visual ize and can be fully evaluated on a follow-up examination. Continued lung base atelectasis and pleural fluid.
[2018-02-16] MEDS: RIVAROXABAN 20 MG TABLET PO SCH (18:22)
[2018-02-16] MEDS: FENOFIBRATE 160 MG TAB PO SCH (22:01)
[2018-02-17] MEDS: TRAMADOL HCL 50 MG TAB PO PRN (04:59)
[2018-02-17 05:39] LABS: Absolute Lymphocytes (CBC) 1.5 K/uL (0.7-4.9); Absolute Monocytes 1.1 K/uL (0.1-1.3); Absolute Neutrophil 6.4 K/uL (1.8-8.0); Basophils % 0.7 % (0-1.3); Eosinophils % 4.5 % (0-4.4); Hematocrit 39.6 % (36.0-45.0); Lymphocytes % 15.6 % (15.3-44.8); MCH 29.4 pg (27.0-35.0); MCV 87.1 fL (80-100); MPV 8.5 fL (7.6-11.3); Monocytes % 11.6 % (3.3-12.3); RBC Red Blood Cell Count 4.55 M/uL (3.86-4.86)
[2018-02-17 05:50] LABS: Magnesium 1.9 mg/dL (1.8-2.4); Phosphorus 2.8 mg/dL (2.5-4.9); Potassium 5.5 mmol/L (3.5-5.1)
[2018-02-17] MEDS: PANTOPRAZOLE 40MG TABLET PO SCH (08:30)
[2018-02-17] MEDS: Meropenem 1,000 MG in NA CHLORIDE 0.9% 100 ML IV SCH ×2 (08:30→20:38)
[2018-02-17] MEDS: SPIRONOLACTONE 25 MG TABLET PO SCH (08:30)
[2018-02-17] MEDS: EZETIMIBE 10 MG TAB PO SCH (08:31)
[2018-02-17] MEDS: COLESTIPOL 1 GM TAB PO SCH ×2 (08:31→20:37)
[2018-02-17] MEDS: IRBESARTAN 150 MG TAB PO SCH (08:31)
--- NOTE | 2018-02-17 08:31 | RAD REPORT ---
EXAM DESCRIPTION: [facility] Single View02/17/2018 6:27 am CLINICAL HISTORY: Chest pain COMPARISON: February 16 FINDINGS: No change in the small right pneumothorax. No change in the right basilar opacities. Mild improvement in the left basilar opacities. Heart is mildly enlarged IMPRESSION: No change in a small right pneumothorax
[2018-02-17] MEDS: FUROSEMIDE 20 MG TABLET PO SCH (08:32)
[2018-02-17] MEDS: RIVAROXABAN 20 MG TABLET PO SCH (16:22)
--- NOTE | 2018-02-17 19:07 | P.PN ---
Subjective Date of Service: 02/17/18 Chief Complaint: Right-sided pleural effusion Subjective: Improving Physical Examination - Vital Signs Temperature: 98.1 F Blood Pressure: 141/56 Pulse: 70 Respirations: 18 Pulse Ox (%): 100 - Physical Exam General: Alert, In no apparent distress, Oriented x3, Cooperative HEENT: Atraumatic Neck: Supple Respiratory: Expiratory wheezes Cardiovascular: Normal pulses, Regular rate/rhythm Gastrointestinal: Normal bowel sounds, Soft and benign, Non-distended, No tenderness, No masses, No rebound, No guarding Musculoskeletal: No erythema, No tenderness, No warmth Integumentary: No tenderness/swelling, No warmth, No cyanosis Neurological: Normal speech, Normal strength at 5/5 x4 extr, Normal tone - Studies Medications List Reviewed: Yes Assessment & Plan Discharge Plan: Home Plan to discharge in: 24 Hours Physician Review Additional Text: Impression: UTI-ESBL currently on meropenem day 7 out of 14 Acute on chronic diastolic CHF Right large pleural effusion with partial loculation status post chest tube with removal complicated with moderate left pleural effusion as well with noted small pneumothorax Hypertension History of pacemaker GERD Atrial fibrillation on chronic anti coagulation therapy Plan: Will continue with current treatment for meropenem. Patient desires to go home on IV antibiotic therapy. Will have social professionals evaluate this further. Will make arrangements for the patient to continue with meropenem for 14 days. Continue with CHF treatment. Patient doing well post chest tube removal. Repeat chest x-ray shows small pneumothorax. Continue with medication for hypertension, GERD and atrial fibrillation. Please note amiodarone discontinued. Carvedilol increased. Xarelto has been restarted. Potassium was slightly elevated today. Repeat shows normal. Will reassess tomorrow for possible discharge. Time Spent Managing Pts Care (In Minutes): 55
[2018-02-17] MEDS: FENOFIBRATE 160 MG TAB PO SCH (20:38)
[2018-02-18 04:45] LABS: Absolute Lymphocytes (CBC) 0.9 K/uL (0.7-4.9); Basophils % 0.4 % (0-1.3); Eosinophils % 5.2 % (0-4.4); Hematocrit 36.8 % (36.0-45.0); Lymphocytes % 12.6 % (15.3-44.8); MCH 29.1 pg (27.0-35.0); MPV 8.5 fL (7.6-11.3); Monocytes % 14.1 % (3.3-12.3); RBC Red Blood Cell Count 4.24 M/uL (3.86-4.86)
[2018-02-18] MEDS ORDERED: MAGNESIUM SULFATE 1 gm IVPB 1 GM/100 ML BAG IV ONE (07:00)
[2018-02-18] MEDS: Meropenem 1,000 MG in NA CHLORIDE 0.9% 100 ML IV SCH (08:04)
[2018-02-18] MEDS: COLESTIPOL 1 GM TAB PO SCH (08:05)
[2018-02-18] MEDS: IRBESARTAN 150 MG TAB PO SCH (08:05)
[2018-02-18] MEDS: PANTOPRAZOLE 40MG TABLET PO SCH (08:06)
[2018-02-18] MEDS: SPIRONOLACTONE 25 MG TABLET PO SCH (08:06)
[2018-02-18] MEDS: FUROSEMIDE 20 MG TABLET PO SCH (08:06)
[2018-02-18] MEDS: EZETIMIBE 10 MG TAB PO SCH (08:06)
[2018-02-18 08:33] VITALS: TEMP 96.5
[2018-02-18 09:34] VITALS: O2SAT 94
[2018-02-18 12:03] VITALS: BP 164/67
--- NOTE | 2018-02-18 12:44 | P.DS ---
Admission Date: 02/12/18 Discharge Date: 02/18/18 Primary Care Provider: Dr. Ortega; Pulmonary-Dr. Dao; Surgery-Dr. Diamond Disposition: DC HOME/HOME HEALTH CARE Discharge Condition: GOOD Reason for Admission: Right-sided pleural effusion Consultations: Surgery-Dr. Diamond Pulmonary-Dr. Dao Procedures: CT scan: COMPARISON: CT trauma study January 05, CT study November 2017 and January 2016 TECHNIQUE: Biphasic, helical CT imaging of the abdomen and pelvis was performed following 100 ml non-ionic IV contrast. No oral contrast given. All CT scans are performed using dose optimization technique as appropriate and may include automated exposure control or mA/KV adjustment according to patient size. FINDINGS: Bilateral breast implants are in place with capsule calcification. Both implants are probably ruptured. Implants are only partially imaged but not clearly different from prior imaging. Small a moderate left pleural effusion is present only partially imaged. No loculation suspected. Pleural fluid on the right is larger and may be partially loculated. There is partial atelectasis of the right lower lobe. Pleural fluid collections are new from prior imaging. Liver shows a mottled, heterogeneous enhancement pattern. Small enhancing foci in the liver are not clearly different back to 2016. Heterogeneity is likely due to diminished cardiac function. Cardiomegaly is present primarily biatrial enlargement. No pericardial effusion. A suspicious liver lesion is not identified. Spleen and pancreas show no suspicious findings. Cholecystectomy clips are present with no biliary tree dilatation. Renal function is symmetric but delayed due to cardiac function abnormality. Cortical thinning is present. Small cortical cysts are present with no suspicious mass or hydronephrosis. No obstructing calculi. Urinary bladder shows no suspicious finding. Uterus is absent. Ovaries are absent or atrophic. No adnexal mass. No gastric dilatation or wall thickening. No dilated large or small bowel. No acute GI process seen. No free air, free fluid or inflammatory stranding. No hernia, mass or bulky lymphadenopathy. Postsurgical changes are noted to the anterior abdominal wall. No adrenal abnormality. Disc and bony degenerative changes are present. IMPRESSION: No bowel obstruction, free air or emergent finding in the abdomen or pelvis. Small a moderate left-side and moderately large right-side pleural effusions are present new from January 05. There may be partial loculation on the right. The pleural effusions are only partially imaged. Cardiomegaly with biatrial enlargement. Diminished cardiac function is suspected based on the liver and renal enhancement pattern. Chest US: COMPARISON: Portable chest February 11 FINDINGS: Right-sided chest sonography was performed to evaluate the pleural effusion for drainage and loculation. Moderate volume of pleural fluid is identifiable in the mid and lower right side of the chest. No septation or loculation identified at sonography. IMPRESSION: Moderate right-sided pleural effusion without sonographic evidence for loculation. Surgery: Date of Procedure: 02/13/2018 Surgeon: Fermin Diamond MD Preoperative Diagnosis: Right pleural effusion. Postoperative Diagnosis: Right pleural effusion. Procedure Performed: Placement of a right thoracic 8-Arabic thoracostomy tube. Estimated Blood Loss: Less than 1 cc. Specimen: Straw-colored fluid sent for analysis. Findings: Approximately 600 cc of straw-colored fluid from the right thoracic space returned immediately. Complications: None. Drains: An 8-Arabic pigtail catheter. ECHO: EF 54% LEFT VENTRICULAR WALL MOTION: DECREASED LEFT VENTRICULAR COMPLIANCE. DOPPLER/COLOR FLOW: MILD TRICUSPID AND AORTIC REGURGITATION. MILD PULMONARY HYPERTENSION. COMMENTS: NORMAL LEFT VENTRICULAR SIZE AND FUNCTION. DECREASED LEFT VENTRICULAR COMPLIANCE. MILD TRICUSPID AND AORTIC REGURGITATION. RIGHT VENTRICULAR SYSTOLIC PRESSURE 41mmHg. PACER IN RIGHT VENTRICULAR APEX. NO EFFUSION Medical Problem list: Right large pleural effusion with partial loculation status post chest tube with removal complicated with moderate left pleural effusion as well with noted small pneumothorax UTI-ESBL currently on meropenem day 8 out of 14 Acute on chronic diastolic CHF Hypertension History of pacemaker GERD Atrial fibrillation on chronic anti coagulation therapy Lower extremity wound with wound culture positive for enterococcus Brief History of Present Illness: 87-year-old female presented to emergency room with increasing shortness of breath. Patient found to have bilateral pleural effusions with suspected loculation to the right side. Patient was admitted for further evaluation. Patient with underlying CHF. Hospital Course: Patient presented with shortness of breath. Patient found to have a right large pleural effusion with partial loculation along with moderate left pleural effusion. Patient seen by pulmonology and surgery. Intervention was required. Chest tube placed. He was eventually removed. Patient now with a small pneumothorax. Patient stable this time. She is not requiring any oxygen. Surgery and pulmonology has cleared her to be discharged. Recommendation is to follow up with pulmonology in 1 week to monitor her progress. Recommendation to recheck chest x-ray in 1-2 weeks to monitor resolution. Patient also found to have a UTI. ESBL was identified. Patient continues on IV antibiotic therapy. PICC line in place. Patient wishes to get IV antibiotic therapy at home. At discharge she will continue with meropenem 1 g IV twice daily for a total of 14 days. She is on day. Recommendation is to recheck a urine catheterization culture done after completion to monitor resolution. UTI prevention will be enforced. If unremarkable after 14 days then the PICC line can be removed. Recommendation is for the patient to follow up with her PCP to further address. Patient with hypertension. Carvedilol added. Patient will continue with Avapro 300 mg daily and carvedilol 3.125 mg 1 pill twice daily. Recommendation is to maintain blood pressures less 150/80. Further adjustment can be done by her PCP. Patient has atrial fibrillation on chronic anti coagulation therapy. Patient seen and evaluated by Cardiology. Amiodarone discontinued during in her stay due to her pulmonary condition. At discharge rate is controlled. She will continue with chronic anti coagulation therapy-Xarelto 20 mg daily. Patient will also continue with carvedilol 3.125 mg 1 pill twice daily. Recommendation is for the patient to follow up with cardiology in 1 week to monitor progress. Patient has hyperlipidemia. She will continue with her medications including Zetia 10 mg daily and Tricor 145 mg 1 pill daily. Patient has GERD. Patient will continue with Nexium 40 mg 1 pill once daily. Patient has chronic diastolic CHF. Medications adjusted during her stay. Patient will continue with Lasix 20 mg daily and Aldactone 25 mg daily at discharge. Recommendation is to continue with a 1500 cc per day fluid restriction. Recommendation to recheck BMP in 1 week to monitor her progress. Further adjustment in medication can be done by cardiology or her PCP. Patient will continue with iron supplementation. Patient has lower extremity wound. Wound culture positive for enterococcus. Patient on IV meropenem. Recommendation is for the patient to continue at the wound Care Center to monitor her progress and continue her care. Vital Signs/Physical Exam: Temp Pulse Resp BP Pulse Ox 96.5 F L 70 20 164/67 H 94 02/18/18 12:00 02/18/18 12:00 02/18/18 12:00 02/18/18 12:00 02/18/18 12:00 General: Alert, In no apparent distress, Oriented x3, Cooperative HEENT: Atraumatic Neck: Supple Respiratory: Clear to auscultation bilaterally, Normal air movement Cardiovascular: Normal pulses, Regular rate/rhythm Gastrointestinal: Normal bowel sounds, Soft and benign, Non-distended, No tenderness, No masses, No rebound, No guarding Musculoskeletal: No erythema, No tenderness, No warmth Integumentary: No tenderness/swelling, No erythema, No warmth, No cyanosis Neurological: Normal speech, Normal strength at 5/5 x4 extr, Normal tone, Normal affect Laboratory Data at Discharge: WBC 7.3 K/uL (4.3-10.9) D 02/18/18 03:40 Hgb 12.3 g/dL (12.0-15.0) 02/18/18 03:40 Hct 36.8 % (36.0-45.0) 02/18/18 03:40 Plt Count 298 K/uL (152-406) 02/18/18 03:40 PT 20.1 SECONDS (9.5-12.5) H 02/13/18 10:03 INR 1.69 02/13/18 10:03 APTT 37.8 SECONDS (24.3-36.9) H 02/12/18 12:30 Sodium 133 mmol/L (136-145) L 02/18/18 03:40 Potassium 5.0 mmol/L (3.5-5.1) 02/18/18 03:40 BUN 25 mg/dL (7-18) H 02/18/18 03:40 Creatinine 0.80 mg/dL (0.55-1.3) 02/18/18 03:40 Glucose 94 mg/dL (74-106) 02/18/18 03:40 Phosphorus 2.8 mg/dL (2.5-4.9) 02/17/18 04:46 Magnesium 1.8 mg/dL (1.8-2.4) 02/18/18 03:40 Total Bilirubin 0.7 mg/dL (0.2-1.0) 02/14/18 04:40 AST 23 U/L (15-37) 02/14/18 04:40 ALT 22 U/L (12-78) 02/14/18 04:40 Alkaline Phosphatase 37 U/L (45-117) L 02/14/18 04:40 Lipase 45 U/L (73-393) L 02/11/18 11:05 Home Medications: Bimatoprost [Lumigan Opthalmic Drops*] 1 drop EACH EYE BID 01/24/16 Colestipol HCl 1 tab PO BID 01/24/16 Esomeprazole Magnesium 1 tab PO DAILY 01/24/16 Ezetimibe [Zetia] 1 tab PO DAILY 01/24/16 Meclizine HCl 12.5 mg PO QID PRN 01/24/16 Rivaroxaban [Xarelto] 1 tab PO DAILY 01/24/16 Spironolactone 1 tab PO DAILY 01/24/16 Brimonidine Tartrate/Timolol [Combigan 0.2%-0.5% Eye Drops] 1 drop EACH EYE DAILY 11/25/17 Calcium Carb/Vitamin D3/Vit K1 [Calcium + D Soft Chewable Tab] 1 each PO DAILY 11/25/17 Fenofibrate [Tricor*] 145 mg PO BEDTIME 11/25/17 Irbesartan [Avapro] 300 mg PO DAILY 11/25/17 Ondansetron HCl [Zofran] 4 mg PO Q8H PRN 11/25/17 Cranberry Fruit Extract 400 mg PO BID #60 cap 12/10/17 Guaifen W/Codeine Syrup [ROBITUSSIN A-C Syrup*] 5 ml PO QID PRN #30 ucup Iron/FA/Vit B-Com W/C [Hemocyte Plus*] 1 tab PO DAILY WITH BREAKFAST #30 tab 05/25 traMADol HCL [Ultram*] 50 mg PO Q4H PRN #350 tab 12/10/17 Carvedilol [Coreg] 3.125 mg PO BID #60 tab 02/18/18 Furosemide [Lasix*] 20 mg PO DAILY #30 tab 02/18/18 New Medications: Carvedilol [Coreg] 3.125 mg PO BID #60 tab Furosemide [Lasix*] 20 mg PO DAILY #30 tab Patient Discharge Instructions: 1. Patient will go home with home health. Patient will follow up with her PCP. 2. Patient presented with shortness of breath. Patient found to have a right large pleural effusion with partial loculation along with moderate left pleural effusion. Patient seen by pulmonology and surgery. Intervention was required. Chest tube placed. He was eventually removed. Patient now with a small pneumothorax. Patient stable this time. She is not requiring any oxygen. Surgery and pulmonology has cleared her to be discharged. Recommendation is to follow up with pulmonology in 1 week to monitor her progress. Recommendation to recheck chest x-ray in 1- 2 weeks to monitor resolution. 3. Patient also found to have a UTI. ESBL was identified. Patient continues on IV antibiotic therapy. PICC line in place. Patient wishes to get IV antibiotic therapy at home. At discharge she will continue with meropenem 1 g IV twice daily for a total of 14 days. She is on day. Recommendation is to recheck a urine catheterization culture done after completion to monitor resolution. UTI prevention will be enforced. If unremarkable after 14 days then the PICC line can be removed. Recommendation is for the patient to follow up with her PCP to further address. 4. Patient with hypertension. Carvedilol added. Patient will continue with Avapro 300 mg daily and carvedilol 3.125 mg 1 pill twice daily. Recommendation is to maintain blood pressures less 150/80. Further adjustment can be done by her PCP. 5. Patient has atrial fibrillation on chronic anti coagulation therapy. Patient seen and evaluated by Cardiology. Amiodarone discontinued during in her stay due to her pulmonary condition. At discharge rate is controlled. She will continue with chronic anti coagulation therapy-Xarelto 20 mg daily. Patient will also continue with carvedilol 3.125 mg 1 pill twice daily. Recommendation is for the patient to follow up with cardiology in 1 week to monitor progress. 6. Patient has hyperlipidemia. She will continue with her medications including Zetia 10 mg daily and Tricor 145 mg 1 pill daily. 7. Patient has GERD. Patient will continue with Nexium 40 mg 1 pill once daily. 8. Patient has chronic diastolic CHF. Medications adjusted during her stay. Patient will continue with Lasix 20 mg daily and Aldactone 25 mg daily at discharge. Recommendation is to continue with a 1500 cc per day fluid restriction. Recommendation to recheck BMP in 1 week to monitor her progress. Further adjustment in medication can be done by cardiology or her PCP. 9. Patient will continue with iron supplementation. 10. Patient has lower extremity wound. Wound culture positive for enterococcus. Patient on IV meropenem. Recommendation is for the patient to continue at the wound Care Center to monitor her progress and continue her care. Diet: AHA Activity: Fall precautions Time spent managing pt's care (in minutes): 55
[2018-02-18] MEDS: RIVAROXABAN 20 MG TABLET PO SCH (16:22)
== END 2018-02-18 16:28 | disposition home health service (06) | DRG 186 ==
LOC: ER 10:43 → ERHOLD 13:40 → 4TH 15:00 → OBSVTOIN 02-12 12:33
PROVIDERS: ADMIT Family Medicine; ATTEND Family Medicine
PROC: 0W9930Z Drainage of Right Pleural Cavity with Drainage Device, Percutaneous Approach (ICD-10-PCS; principal; 2018-02-13)
PROC: 02HV33Z Insertion of Infusion Device into Superior Vena Cava, Percutaneous Approach (ICD-10-PCS; 2018-02-13)
PROC: B548ZZA Ultrasonography of Superior Vena Cava, Guidance (ICD-10-PCS; 2018-02-13)
DX: J90 Pleural effusion, not elsewhere classified (principal); I50.33 Acute on chronic diastolic (congestive) heart failure; J93.9 Pneumothorax, unspecified; N30.00 Acute cystitis without hematuria; I11.0 Hypertensive heart disease with heart failure; B96.20 Unspecified Escherichia coli [E. coli] as the cause of diseases classified elsewhere; Z16.12 Extended spectrum beta lactamase (ESBL) resistance; Z95.0 Presence of cardiac pacemaker; K21.9 Gastro-esophageal reflux disease without esophagitis; Z79.01 Long term (current) use of anticoagulants; E78.5 Hyperlipidemia, unspecified; I48.2 Chronic atrial fibrillation; L98.8 Other specified disorders of the skin and subcutaneous tissue; B95.2 Enterococcus as the cause of diseases classified elsewhere
CPT/HCPCS: 36415; 71045; 71046; 74177; 76604; 80048; 80053; 80076; 81003; 81015; 83690; 83735; 83880; 84100; 84132; 84439; 84443; 84484; 85025; 85610; 85730; 87015; 87040; 87070; 87077; 87086; 87088; 87116; 87186; 87205; 87206; 88108; 88305; 93005; 93306; 96374; 96375; 97110; 97162; 99284; G0378; J1940; J2270; J2405; J2543; J3475; Q9967

== ENCOUNTER 2019-02-10 16:11 | Emergency (ER) | payer OTHER ==
--- OUTSIDE RECORDS SUMMARY | 2019-02-10 16:13 | XMS REPORT ---
:1930 [facility] Address [address] [place] [address] Care Team Providers Name Role Phone Unavailable [...]
--- NOTE | 2019-02-10 17:32 | RAD REPORT ---
EXAM DESCRIPTION: RAD - Chest Single View - 02/10/2019 5:25 pm CLINICAL HISTORY: DYSPNEA Chest pain. COMPARISON: Chest Pa And Lat (2 Views) dated 05/29/2018; Chest Pa And Lat (2 Views) dated 03/23/2018; Chest Single View dated 02/17/2018; Chest Single View dated 02/16/2018 FINDINGS: Portable technique limits examination quality. Moderate right pleural effusion. Mild interstitial pulmonary edema. The heart is moderately enlarged with a single lead pacer device present. No displaced fractures.
[2019-02-10 17:54] LABS: Absolute Lymphocytes (CBC) 1.2 K/uL (0.7-4.9); Hematocrit 38.2 % (36.0-45.0); Lymphocytes % 15.2 % (15.3-44.8); MPV 8.6 fL (7.6-11.3); RBC Red Blood Cell Count 4.46 M/uL (3.86-4.86)
[2019-02-10 18:01] LABS: Protime INR 1.49
[2019-02-10 18:23] LABS: Potassium 4.3 mmol/L (3.5-5.1); Troponin (Emerg Dept Use Only) 0.02 ng/mL (0.0-0.045)
[2019-02-10] MEDS ORDERED: FUROSEMIDE 20 MG/ 2ML VIAL ONE (18:47)
--- NOTE | 2019-02-10 20:40 | EDPHYS ---
Physician Documentation [facility] Name: Amy Lambert Age: 88 yrs Sex: Female : 1930 Arrival Date: 02/10/2019 Time: 16:22 Bed 24 Private MD: Mandy Bowling F ED Physician Michael Mccarthy HPI: 02/10 16:48 This 88 yrs old Female presents to ER via EMS with complaints of Shortness Of kb Breath. 16:48 The patient has shortness of breath at rest. Onset: The symptoms/episode began/occurred kb 4 day(s) ago. Duration: The symptoms are continuous. The patient's shortness of breath is aggravated by nothing, is alleviated by nothing. Associated signs and symptoms: The patient has no apparent associated signs or symptoms. Severity of symptoms: At their worst the symptoms were moderate in the emergency department the symptoms are unchanged. The patient has experienced a previous episode. The patient has not recently seen a physician. Pt states it has been becoming hard to breathe over the last 4 days and feels like she has fluid in her lungs. Has had this before and had to have them drained. . 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 HOLBROOK [address]; Pacemaker; Sepsis; UTI; - Immunization history:: Adult Immunizations up to date. - Social history:: Smoking status: Patient/guardian denies using tobacco. - Ebola Screening: : No symptoms or risks identified at this time. ROS: 16:47 Constitutional: Negative for fever, chills, and weight loss, ENT: Negative for injury, kb pain, and discharge, Neck: Negative for injury, pain, and swelling, Cardiovascular: Negative for chest pain, palpitations, and edema, Abdomen/GI: Negative for abdominal pain, nausea, vomiting, diarrhea, and constipation, Back: Negative for injury and pain, MS/Extremity: Negative for injury and deformity, Skin: Negative for injury, rash, and discoloration, Neuro: Negative for headache, weakness, numbness, tingling, and seizure. 16:47 Respiratory: Positive for shortness of breath. Exam: 16:47 Constitutional: This is a well developed, well nourished patient who is awake, alert, kb and in no acute distress. Head/Face: Normocephalic, atraumatic. Neck: Trachea midline, no thyromegaly or masses palpated, and no cervical lymphadenopathy. Supple, full range of motion without nuchal rigidity, or vertebral point tenderness. No Meningismus. Chest/axilla: Normal chest wall appearance and motion. Nontender with no deformity. No lesions are appreciated. Cardiovascular: Regular rate and rhythm with a normal S1 and S2. No gallops, murmurs, or rubs. Normal PMI, no JVD. No pulse deficits. Abdomen/GI: Soft, non-tender, with normal bowel sounds. No distension or tympany. No guarding or rebound. No evidence of tenderness throughout. Back: No spinal tenderness. No costovertebral tenderness. Full range of motion. Skin: Warm, dry with normal turgor. Normal color with no rashes, no lesions, and no evidence of cellulitis. MS/ Extremity: Pulses equal, no cyanosis. Neurovascular intact. Full, normal range of motion. Neuro: Awake and alert, GCS 15, oriented to person, place, time, and situation. Cranial nerves II-XII grossly intact. Motor strength 5/5 in all extremities. Sensory grossly intact. Cerebellar exam normal. Normal gait. 16:47 Respiratory: the patient does not display signs of respiratory distress, Respirations: normal, symetrical, Breath sounds: decreased breath sounds, that are moderate, are located in both bases. Vital Signs: 16:40 BP 177 / 60; Pulse 70; Resp 19; Temp 97.4(O); Pulse Ox 99% on R/A; Weight 58.06 kg; tr5 Height 5 ft. 4 in. (162.56 cm); 18:14 BP 172 / 66; Pulse 70; Resp 16; Pulse Ox 100% on R/A; tr5 16:40 Body Mass Index 21.97 (58.06 kg, 162.56 cm) tr5 MDM: 16:38 Patient medically screened. kb 16:47 Data reviewed: vital signs, nurses notes. Data interpreted: Pulse oximetry: on room air kb is 99 %. Interpretation: normal. 19:04 ED course: Pt has no respiratory distress, O2 sat 100% on room air. Pt reports she kb takes a diuretic as needed, but hasn't taken it in a while. Discussed pt condition and history with Dr Mccarthy. Recommends outpatient follow up for pleural effusion drainage and for pt to take diuretics until then. . 20:39 Counseling: I had a detailed discussion with the patient and/or guardian regarding: the kb historical points, exam findings, and any diagnostic results supporting the discharge/admit diagnosis, lab results, radiology results, the need for outpatient follow up, a family practitioner, a vice president of nursing, to return to the emergency department if symptoms worsen or persist or if there are any questions or concerns that arise at home. 20:40 ED course: Son at bedside. Reports pt takes lasix PRN. Educated on diagnostic findings, kb pt is in no distress, o2 sat 100% and she wants to go home. Educated that pt needs to take the lasix until she follows up with [facility] to schedule pleural effusion drainage. Verbal understanding received from pt and family. All in agreement with plan of care.. 02/10 16:41 Order name: Basic Metabolic Panel kb 02/10 16:41 Order name: CBC with Diff kb 02/10 16:41 Order name: Magnesium; Complete Time: 18:24 kb 02/10 16:41 Order name: NT PRO-BNP; Complete Time: 18:24 kb 02/10 16:41 Order name: PT-INR; Complete Time: 18:13 kb 02/10 16:41 Order name: Troponin (emerg Dept Use Only); Complete Time: 18:24 kb 02/10 16:41 Order name: XRAY Chest (1 view); Complete Time: 17:36 kb 02/10 16:41 Order name: EKG; Complete Time: 16:42 kb 02/10 16:41 Order name: Cardiac monitoring; Complete Time: 17:13 kb 02/10 16:41 Order name: EKG - Nurse/Tech; Complete Time: 17:37 kb 02/10 16:41 Order name: IV Saline Lock; Complete Time: 18:14 kb 02/10 16:42 Order name: Basic Metabolic Panel; Complete Time: 18:24 EDMS 02/10 16:42 Order name: CBC with Automated Diff; Complete Time: 18:00 EDMS 02/10 16:41 Order name: Labs collected and sent; Complete Time: 18:14 kb 02/10 16:41 Order name: O2 Per Protocol; Complete Time: 16:55 kb 02/10 16:41 Order name: O2 Sat Monitoring; Complete Time: 17:12 kb Administered Medications: 19:10 Drug: Lasix 20 mg Route: IVP; Site: right antecubital; tr5 Disposition: 02/11 09:04 Co-signature as Attending Physician, Michael Mccarthy MD Available for consultation ps1 during the encounter in the ED. Signing chart for administrative purposes. . Disposition: 02/10/19 20:40 Discharged to Home. Impression: Pleural effusion, not elsewhere classified. - Condition is Stable. - Discharge Instructions: Pleural Effusion. - Medication Reconciliation Form, Thank You Letter, Antibiotic Education, Prescription Opioid Use form. - Follow up: Emergency Department; When: As needed; Reason: Worsening of condition. Follow up: Private Physician; When: 2 - 3 days; Reason: Recheck today's complaints, Continuance of care, Re-evaluation by your physician. - Notes: Take Lasix scheduled until follow up with [facility] Signatures: Dispatcher [employer] EDNJ Jody Steele, TEMITOPE COX-Michael Lazar MD MD ps1 Saud Adkins RN RN tr5 Corrections: (The following items were deleted from the chart) 02/10 21:10 20:40 02/10/2019 20:40 Discharged to Home. Impression: Pleural effusion, not elsewhere tr5 classified. Condition is Stable. Forms are Medication Reconciliation Form, Thank You Letter, Antibiotic Education, Prescription Opioid Use. Follow up: Emergency Department; When: As needed; Reason: Worsening of condition. Follow up: Private Physician; When: 2 - 3 days; Reason: Recheck today's complaints, Continuance of care, Re-evaluation by your physician. kb
--- NOTE | 2019-02-10 20:40 | ER ---
Nurse's Notes [facility] Name: Amy Lambert Age: 88 yrs Sex: Female : 1930 Arrival Date: 02/10/2019 Time: 16:22 Bed 24 Private MD: Mandy Bowling F Diagnosis: Pleural effusion, not elsewhere classified Presentation: 02/10 16:32 Presenting complaint: EMS states: Pt has had some shortness of breath for the last 3 tr5 days. Pt states that she has has a pleural effusion in the past (2012) and it felt similar to what she is feeling now. Transition of care: patient was not received from another setting of care. Onset of symptoms was February 10, 2019. Risk Assessment: Do you want to hurt yourself or someone else? Patient reports no desire to harm self or others. Initial Sepsis Screen: Does the patient meet any 2 criteria? No. Patient's initial sepsis screen is negative. Does the patient have a suspected source of infection? No. Patient's initial sepsis screen is negative. Care prior to arrival: None. 16:32 Method Of Arrival: EMS: [facility] tr5 16:32 Acuity: BROOKE 3 tr5 Triage Assessment: 18:30 Respiratory: the patient has mild shortness of breath. tr5 Historical: - PMHx: 16:40 Atrial Fib; falls; Hypertension; PACE MAKER PUT IN 11/06/[address] HOLBROOK [address]; Pacemaker; Sepsis; UTI; - Immunization history:: Adult Immunizations up to date. - Social history:: Smoking status: Patient/guardian denies using tobacco. - Ebola Screening: : No symptoms or risks identified at this time. Screenin:42 Abuse screen: Denies threats or abuse. Nutritional screening: No deficits noted. tr5 Tuberculosis screening: No symptoms or risk factors identified. Fall Risk None identified. Assessment: 16:42 General: Appears uncomfortable, Behavior is calm, cooperative. Pain: Denies pain. tr5 Neuro: Reports weakness. Cardiovascular: Heart tones present Capillary refill < 3 seconds Pulses are all present. Rhythm is Respiratory: Airway is patent Respiratory effort is even, unlabored, Respiratory pattern is regular, symmetrical, Breath sounds are clear bilaterally. Respiratory: Reports shortness of breath at rest. GI: No signs and/or symptoms were reported involving the gastrointestinal system. : No signs and/or symptoms were reported regarding the genitourinary system. EENT: No signs and/or symptoms were reported regarding the EENT system. Derm: No signs and/or symptoms reported regarding the dermatologic system. Musculoskeletal: No signs and/or symptoms reported regarding the musculoskeletal system. 18:00 Reassessment: Patient appears in no apparent distress at this time. Patient and/or tr5 family updated on plan of care and expected duration. Pain level reassessed. Patient is alert, oriented x 3, equal unlabored respirations, skin warm/dry/pink. Vital Signs: 16:40 BP 177 / 60; Pulse 70; Resp 19; Temp 97.4(O); Pulse Ox 99% on R/A; Weight 58.06 kg; tr5 Height 5 ft. 4 in. (162.56 cm); 18:14 BP 172 / 66; Pulse 70; Resp 16; Pulse Ox 100% on R/A; tr5 16:40 Body Mass Index 21.97 (58.06 kg, 162.56 cm) tr5 ED Course: 16:22 Patient arrived in ED. am2 16:22 Mandy Bowling MD is Private Physician. am2 16:31 Saud Adkins, ARLEEN is Primary Nurse. tr5 16:34 Triage completed. tr5 16:38 [facility]C [facility] kb 16:38 Michael Mccarthy MD is Attending Physician. kb 16:40 Arm band placed on right wrist. tr5 16:42 Bed in low position. Call light in reach. Side rails up X 1. tr5 17:15 Missed attempt(s): 20 gauge in right forearm. tr5 17:20 Missed attempt(s): 22 gauge in right antecubital area. tr5 17:25 XRAY Chest (1 view) In Process Unspecified. EDMS 19:13 Inserted saline lock: 22 gauge in right antecubital area, using aseptic technique. lt1 21:08 No provider procedures requiring assistance completed. IV discontinued. tr5 Administered Medications: 19:10 Drug: Lasix 20 mg Route: IVP; Site: right antecubital; tr5 Outcome: 20:40 Discharge ordered by . kb 21:08 Discharged to home via wheelchair, with family. tr5 21:08 Condition: stable 21:08 Discharge instructions given to patient, family, Instructed on discharge instructions, follow up and referral plans. medication usage, Demonstrated understanding of instructions, follow-up care, medications. 21:10 Patient left the ED. tr5 Signatures: Dispatcher [employer] EDJody Patterson, FEATHER RENOVATOR-C FEATHER RENOVATOR-Brenda Deluna am2 Glo Vasquez lt1 Saud Adkins, RN RN tr5
[2019-02-10 23:07] VITALS: BP 172/66; O2SAT 100
[2019-02-10 23:08] VITALS: TEMP 97.4
--- NOTE | 2019-02-11 22:59 | EKG ---
Test Date: 2019-02-10 Test Time: 17:45:32 Specialty Department Supervisor: LOVET MEASUREMENT RESULTS: Intervals: Rate: 70 MS: QRSD: 150 QT: 462 QTc: 498 Victor: P: MS: QRS: -75 T: 83 INTERPRETIVE STATEMENTS: Ventricular-paced rhythm Abnormal ECG Compared to ECG 02/11/2018 10:52:33 no significant change from previous ECG Electronically Signed On 02-11-19 22:57:39 SUPERVISOR FELTING by Jalen Savage
== END 2019-02-10 21:10 | disposition home or self-care (01) ==
LOC: ER 16:11
DX: J90 Pleural effusion, not elsewhere classified (principal); Z95.0 Presence of cardiac pacemaker
CPT/HCPCS: 93005; 85025; 80048; 36415; 83735; 85610; 84484; 83880; 71045; 96374; 99284; J1940

== ENCOUNTER 2020-05-17 10:00 | Emergency (ER) | payer OTHER ==
--- OUTSIDE RECORDS SUMMARY | 2020-05-17 10:02 | XMS REPORT | Continuity of Care Document ---
:1930 Author Organization [facility] t Address [address] [place] [address] Care Team Providers Name Role Phone Unavailable Unavailable Unavailable Payers Payer Name Policy Type Policy Number Effective Date Expiration Date S ource Problems This patient has no known problems. Allergies, Adverse Reactions, Alerts Allergy Allergy Status Severity Reaction(s) Onset Inactive Treating Comm ents Source Name Type Date Date Clinician liv HUGHES Active 2017- [facility] 09-26 [place] 00:00: [address] Medications This patient has no known medications. Procedures This patient has no known procedures. Results This patient has no known results.
[2020-05-17 10:41] LABS: Basophils % 1.1 % (0-1.3); Hematocrit 43.7 % (36.0-45.0); Lymphocytes % 12.7 % (15.3-44.8); RBC Red Blood Cell Count 4.91 M/uL (3.86-4.86)
[2020-05-17 10:47] LABS: Protime INR 1.65
[2020-05-17] MEDS ORDERED: NA CHLORIDE 0.9% 250 ML ONE (10:55)
[2020-05-17] MEDS ORDERED: DICYCLOMINE HCL 10 MG CAP ONE (10:55)
[2020-05-17] MEDS ORDERED: ONDANSETRON 4 MG/2 ML VIAL ONE (10:55)
[2020-05-17] MEDS ORDERED: MORPHINE 2 MG/ML SYR ONE ×2 (10:55→11:43)
[2020-05-17 10:58] LABS: Albumin 3.6 g/dL (3.4-5.0); Bilirubin Direct 0.2 mg/dL (0-0.2); Bilirubin Total 0.6 mg/dL (0.2-1.0); Potassium 4.4 mmol/L (3.5-5.1); Protein, Total 7.7 g/dL (6.4-8.2)
--- NOTE | 2020-05-17 11:16 | RAD REPORT ---
EXAM DESCRIPTION: CTAbdomen Pelvis W Contrast - 05/17/2020 11:05 am CLINICAL HISTORY: Abdominal pain. lower abdomen pain, low back pain COMPARISON: Abdomen Pelvis W Contrast dated 02/11/2018; Abdomen Pelvis W Contrast dated 11/24/2017 ; Abdomen Pelvis W Contrast dated 11/20/2017; Abdomen Pelvis W Contrast dated 11/16/2017 TECHNIQUE: Biphasic CT imaging of the abdomen and pelvis was performed with 100 ml non-ionic IV cont rast. All CT scans are performed using dose optimization technique as appropriate and may include automated exposure control or mA/KV adjustment according to patient size. FINDINGS: The lower lung [place] are mildly emphysematous.Pacemaker wire noted. Mild fatty liver is seen. No focal mass or biliary dilatation. The spleen, pancreas, adrenal glands a re within normal limits. Small cysts are present in both kidneys without aggressive mass or hydroneph rosis. The gallbladder is surgically absent. No bowel obstruction, free air, free fluid or abscess. The appendix appears surgically absent. No e vidence of significant lymphadenopathy. Bones are demineralized. Lumbar degenerative changes are present. IMPRESSION: No acute intra-abdominal or pelvic finding.
[2020-05-17] MEDS ORDERED: DIPHENOX/ATROP SULF 1 TAB PO ONE (11:42)
[2020-05-17 12:26] LABS: Urine Bacteria <20 /HPF (<20); Urine Mucus 1+ /HPF (NONE SEEN); Urine RBC <5 /HPF (NONE SEEN)
[2020-05-17 12:28] LABS: Urine Blood TRACE (NEG); Urine Glucose NEGATIVE (NEG); Urine Protein NEGATIVE (NEG); Urine Specific Gravity 1.015 (1.005-1.030)
--- NOTE | 2020-05-17 12:37 | ER ---
Nurse's Notes [facility] Name: Amy Lambert Age: 89 yrs Sex: Female : 1930 Arrival Date: 05/17/2020 Time: 10:09 Bed 14 Private MD: Diagnosis: Diarrhea, unspecified;Low back pain-chronic Presentation: 05/17 10:11 Chief complaint: EMS states: Diarrhea x 2 - 3 weeks. 3 episodes this morning. Lower ca1 back pain, chronic, x 1 year worse in the last 1 - 2 days. Denies vomiting. Denies fever. Coronavirus screen: Client denies travel out of the [place] in the last 14 days. diarrhea, Client presents with at least one sign or symptom that may indicate coronavirus-19. Standard/surgical mask placed on the client. Provider contacted for isolation considerations. Ebola Screen: Patient negative for fever greater than or equal to 101.5 degrees Fahrenheit, and additional compatible Ebola Virus Disease symptoms Patient denies exposure to infectious person. Patient denies travel to an Ebola-affected area in the 21 days before illness onset. No symptoms or risks identified at this time. Initial Sepsis Screen: Does the patient meet any 2 criteria? No. Patient's initial sepsis screen is negative. Does the patient have a suspected source of infection? No. Patient's initial sepsis screen is negative. Risk Assessment: Do you want to hurt yourself or someone else? Patient reports no desire to harm self or others. Onset of symptoms was May 17, 2020. 10:11 Method Of Arrival: EMS: [facility] 10:11 Acuity: BROOKE 3 ca1 Historical: - Allergies: 10:19 Demerol; ca1 - Home Meds: 10:19 fenofibrate 145 MG Oral once daily [Active]; Lumigan 0.03 % ophthalmic drop 1 drop once ca1 daily [Active]; Combigan 0.2-0.5 % ophthalmic drop 1 drop every 12 hours [Active]; pregabalin Oral [Active]; spironolactone oral [Active]; tramadol Oral [Active]; Xarelto Oral [Active]; Zyrtec Oral [Active]; - PMHx: 10:19 Atrial Fib; falls; Hypertension; PACE MAKER PUT IN 11/06/[address] HOLBROOK, [place] ca1 [place]; Pacemaker; Sepsis; UTI; - PSHx: 10:19 Hysterectomy; Cholecystectomy; Appendectomy; ca1 - Immunization history:: Pneumococcal vaccine is up to date, Flu vaccine is up to date. - Social history:: Smoking status: Patient denies any tobacco usage or history of. Screenin:12 Abuse screen: Denies threats or abuse. Denies injuries from another. Nutritional ca1 screening: No deficits noted. Tuberculosis screening: No symptoms or risk factors identified. Fall Risk IV access (20 points). Ambulatory Aid- Crutches/Cane/Walker (15 pts). Total Webster Fall Scale indicates Low Risk Score (25-44 pts). Fall prevention measures have been instituted. Side Rails Up X 2 As available Patient and Family Educated on Fall Prevention Program and strategies. Assessment: 10:12 General: Appears in no apparent distress. uncomfortable, Behavior is calm, cooperative, ca1 appropriate for age. Pain: Complains of pain in low back area Pain radiates to left lower quadrant Pain currently is 8 out of 10 on a pain scale. Pain began 2-3 days ago. Is chronic. Neuro: Level of Consciousness is awake, alert, obeys commands, Oriented to person, place, time, situation. Cardiovascular: Heart tones S1 S2 present Capillary refill < 3 seconds Patient's skin is warm and dry. Respiratory: Airway is patent Respiratory effort is even, unlabored, Respiratory pattern is regular, symmetrical, Breath sounds are clear bilaterally. GI: Abdomen is flat, non-distended, Bowel sounds present X 4 quads. Abd is soft X 4 quads Abdomen is tender to palpation in left lower quadrant. : No signs and/or symptoms were reported regarding the genitourinary system. EENT: No signs and/or symptoms were reported regarding the EENT system. Derm: Skin is intact, is fragile, is thin, with poor turgor Skin is pink, warm \T\ dry. Musculoskeletal: Circulation, motion, and sensation intact. Capillary refill < 3 seconds. 11:00 Reassessment: Patient appears in no apparent distress at this time. Patient and/or ca1 family updated on plan of care and expected duration. Pain level reassessed. Patient is alert, oriented x 3, equal unlabored respirations, skin warm/dry/pink. 11:54 Reassessment: Patient appears in no apparent distress at this time. Patient and/or ca1 family updated on plan of care and expected duration. Pain level reassessed. Patient is alert, oriented x 3, equal unlabored respirations, skin warm/dry/pink. 12:50 Reassessment: Patient appears in no apparent distress at this time. Patient and/or ca1 family updated on plan of care and expected duration. Pain level reassessed. Patient is alert, oriented x 3, equal unlabored respirations, skin warm/dry/pink. NO BM while in the ER Patient states feeling better. Vital Signs: 10:11 BP 162 / 84; Pulse 70; Resp 17 S; Temp 97.2(TE); Pulse Ox 100% on R/A; Weight 58.97 kg ca1 (R); Height 5 ft. 4 in. (162.56 cm) (R); Pain 8/10; 11:00 BP 162 / 56; Pulse 76; Resp 16 S; Pulse Ox 100% on R/A; ca1 11:56 BP 167 / 55; Pulse 70; Resp 16 S; Pulse Ox 100% on R/A; ca1 12:50 BP 147 / 55; Pulse 76; Resp 16 S; Pulse Ox 100% on R/A; ca1 10:11 Body Mass Index 22.31 (58.97 kg, 162.56 cm) ca1 ED Course: 10:09 Patient arrived in ED. ca1 10:09 Bebeto Varela PA is PHCP. cp 10:09 Hermann Mitchell MD is Attending Physician. cp 10:12 Patient has correct armband on for positive identification. Placed in gown. Bed in low ca1 position. Call light in reach. Side rails up X2. Pulse ox on. NIBP on. Warm blanket given. 10:16 Triage completed. ca1 10:19 Arm band placed on right wrist. ca1 10:20 Jodee Hendricks, RN is Primary Nurse. ca1 10:36 Initial lab(s) drawn, by nv, sent to lab. Inserted saline lock: 20 gauge in right ca1 forearm, using aseptic technique. Blood collected. 11:05 CT Abd/Pelvis - IV Contrast Only In Process Unspecified. EDMS 11:54 Straight cath inserted, using sterile technique, 18 Fr. Specimen obtained. Returned ca1 clear yellow urine. Patient tolerated well. 12:36 David Delacruz MD is Referral Physician. cp 12:38 Referral Physician role handed off by David Delacruz MD cp 12:38 David Delacruz MD is Referral Physician. cp 12:39 Venkata Gonzalez MD is Referral Physician. cp 12:59 No provider procedures requiring assistance completed. IV discontinued, intact, ca1 bleeding controlled, No redness/swelling at site. Pressure dressing applied. Administered Medications: 10:37 Drug: Bentyl 20 mg Route: PO; ca1 11:30 Follow up: Response: No adverse reaction ca1 10:37 Drug: NS 0.9% 250 ml Route: IV; Rate: bolus; Site: right forearm; ca1 11:30 Follow up: Response: No adverse reaction; IV Status: Completed infusion; IV Intake: ca1 250ml 10:38 Drug: Zofran (Ondansetron) 4 mg Route: IVP; Site: right forearm; ca1 11:30 Follow up: Response: No adverse reaction; Nausea is decreased ca1 10:41 Drug: morphine 2 mg {Note: rass 0.} Route: IVP; Site: right forearm; ca1 11:29 Drug: morphine 2 mg {Note: rass 0.} Route: IVP; Site: right forearm; ca1 11:29 Follow up: Response: No adverse reaction; Pain is unchanged, physician notified; RASS: ca1 Alert and Calm (0) 12:39 Follow up: Response: No adverse reaction; Pain is decreased; RASS: Alert and Calm (0) ca1 11:29 Drug: LoMOTIL 1 tabs Route: PO; ca1 12:39 Follow up: Response: No adverse reaction ca1 12:42 Drug: Lidoderm 5 % (700 mg/patch) 1 patches {Note: Left lower back.} Route: Topical; ca1 Site: affected area; Intake: 11:30 IV: 250ml; Total: 250ml. ca1 Outcome: 12:36 Discharge ordered by MD. cp 12:59 Discharged to home via wheelchair, with family. ca1 12:59 Condition: stable 12:59 Discharge instructions given to patient, Instructed on discharge instructions, follow up and referral plans. medication usage, Demonstrated understanding of instructions, follow-up care, medications, Prescriptions given X 2. 13:32 Patient left the ED. ca1 Signatures: Dispatcher [employer] EDMS Bebeto Varela PA PA cp Jodee Hendricks RN RN ca1 Corrections: (The following items were deleted from the chart) 11:54 11:10 Reassessment: Patient appears in no apparent distress at this time. Patient ca1 and/or family updated on plan of care and expected duration. Pain level reassessed. Patient is alert, oriented x 3, equal unlabored respirations, skin warm/dry/pink. ca1 12:04 11:56 BP 90 / 80; Pulse 70bpm; Resp 16bpm; Spontaneous; Pulse Ox 100% RA; ca1 ca1 12:36 12:35 Reassessment: Patient appears in no apparent distress at this time. Patient ca1 and/or family updated on plan of care and expected duration. Pain level reassessed. Patient is alert, oriented x 3, equal unlabored respirations, skin warm/dry/pink. ca1
--- NOTE | 2020-05-17 12:37 | EDPHYS ---
Physician Documentation [facility] Name: Amy Lambert Age: 89 yrs Sex: Female : 1930 Arrival Date: 05/17/2020 Time: 10:09 Bed 14 Private MD: ED Physician Hermann Mitchell HPI: 05/17 10:15 This 89 yrs old Female presents to ER via Unassigned with complaints of cp Diarrhea. 10:15 The patient presents to the emergency department with diarrhea, that is intermittent, cp abdominal pain, of the lower abdomen. Onset: The symptoms/episode began/occurred 2 week(s) ago. Possible causes: antibiotics. Associated signs and symptoms: Pertinent positives: low back pain, Pertinent negatives: constipation, dysuria, fever, GI bleeding. Severity of symptoms: in the emergency department the symptoms are unchanged despite home interventions. 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 HOLBROOK [address]; Pacemaker; Sepsis; UTI; - PSHx: 10:19 Hysterectomy; Cholecystectomy; Appendectomy; ca1 - Immunization history:: Pneumococcal vaccine is up to date, Flu vaccine is up to date. - Social history:: Smoking status: Patient denies any tobacco usage or history of. ROS: 10:17 Eyes: Negative for injury, pain, redness, and discharge. cp 10:17 Constitutional: Negative for body aches, chills, fever, poor PO intake. 10:17 ENT: Negative for ear pain, sore throat, difficulty swallowing, difficulty handling secretions. 10:17 Cardiovascular: Negative for chest pain. 10:17 Respiratory: Negative for cough, shortness of breath, wheezing. 10:17 Abdomen/GI: Positive for abdominal pain, diarrhea, Negative for vomiting, constipation, black/tarry stool, rectal bleeding. 10:17 Back: Positive for pain at rest, pain with movement, of the low back area. 10:17 : Negative for urinary symptoms. 10:17 Neuro: Negative for altered mental status, dizziness, headache, syncope, weakness. 10:17 All other systems are negative. Exam: 10:18 Head/Face: Normocephalic, atraumatic. cp 10:18 Constitutional: The patient appears in no acute distress, alert, awake, non-toxic, well developed, well nourished. 10:18 Eyes: Periorbital structures: appear normal, Conjunctiva: normal, no exudate, no injection, Sclera: no appreciated abnormality, Lids and lashes: appear normal, bilaterally. 10:18 ENT: External ear(s): are unremarkable, Nose: is normal, Posterior pharynx: Airway: no evidence of obstruction, patent. 10:18 Chest/axilla: Inspection: normal. 10:18 Cardiovascular: Rate: normal, Edema: is not appreciated, JVD: is not appreciated. 10:18 Respiratory: the patient does not display signs of respiratory distress, Respirations: normal, no use of accessory muscles, no retractions. 10:18 Abdomen/GI: Inspection: abdomen appears normal, Bowel sounds: active, all quadrants, Palpation: soft, in all quadrants, mild abdominal tenderness, in the left upper quadrant, right lower quadrant and left lower quadrant, rebound tenderness, is not appreciated, involuntary guarding, is not appreciated. 10:18 Back: pain, that is mild, of the low back area, ROM is painful, with all movement. 10:18 Neuro: Orientation: to person, place \T\ time. Mentation: is normal, Motor: moves all fours, strength is normal. Vital Signs: 10:11 BP 162 / 84; Pulse 70; Resp 17 S; Temp 97.2(TE); Pulse Ox 100% on R/A; Weight 58.97 kg ca1 (R); Height 5 ft. 4 in. (162.56 cm) (R); Pain 8/10; 11:00 BP 162 / 56; Pulse 76; Resp 16 S; Pulse Ox 100% on R/A; ca1 11:56 BP 167 / 55; Pulse 70; Resp 16 S; Pulse Ox 100% on R/A; ca1 12:50 BP 147 / 55; Pulse 76; Resp 16 S; Pulse Ox 100% on R/A; ca1 10:11 Body Mass Index 22.31 (58.97 kg, 162.56 cm) ca1 MDM: 10:15 Patient medically screened. cp 11:00 Differential diagnosis: gastritis, cholecystitis, pancreatitis, diverticulitis, viral cp gastroenteritis, gastroenteritis, colitis. 12:35 Data reviewed: vital signs, nurses notes, lab test result(s), radiologic studies, CT cp scan. 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 05/17 10:15 Order name: Basic Metabolic Panel; Complete Time: 11:08 cp 05/17 11:08 Interpretation: Normal except: CL 109; GLUC 107; BUN 26; GFR 45. cp 05/17 10:15 Order name: CBC with Diff; Complete Time: 11:08 cp 05/17 11:09 Interpretation: Normal except: RBC 4.91; RDW 15.7; FARRAH% 76.0; LYM% 12.7. cp 05/17 10:15 Order name: Hepatic Function; Complete Time: 11:08 cp 05/17 11:09 Interpretation: Normal except: GLOB 4.1; A/G 0.9. cp 05/17 10:15 Order name: Lipase; Complete Time: 11:08 cp 05/17 10:15 Order name: PT-INR; Complete Time: 11:18 cp 05/17 11:18 Interpretation: Reviewed. cp 05/17 10:15 Order name: Magnesium; Complete Time: 11:08 cp 05/17 10:15 Order name: Urine Microscopic Only; Complete Time: 12:35 cp 05/17 10:29 Order name: CT Abd/Pelvis - IV Contrast Only; Complete Time: 11:18 cp 05/17 12:05 Order name: Urine Dipstick--Ancillary (enter results); Complete Time: 12:35 bd 05/17 10:15 Order name: IV Saline Lock; Complete Time: 10:36 cp 03/10 10:15 Order name: Labs collected and sent; Complete Time: 10:36 cp 05/17 10:15 Order name: Urine Dipstick-Ancillary (obtain specimen); Complete Time: 11:53 cp 05/17 11:19 Order name: PO challenge; Complete Time: 11:29 cp Administered Medications: 10:37 Drug: Bentyl 20 mg Route: PO; ca1 11:30 Follow up: Response: No adverse reaction ca1 10:37 Drug: NS 0.9% 250 ml Route: IV; Rate: bolus; Site: right forearm; ca1 11:30 Follow up: Response: No adverse reaction; IV Status: Completed infusion; IV Intake: ca1 250ml 10:38 Drug: Zofran (Ondansetron) 4 mg Route: IVP; Site: right forearm; ca1 11:30 Follow up: Response: No adverse reaction; Nausea is decreased ca1 10:41 Drug: morphine 2 mg {Note: rass 0.} Route: IVP; Site: right forearm; ca1 11:29 Drug: morphine 2 mg {Note: rass 0.} Route: IVP; Site: right forearm; ca1 11:29 Follow up: Response: No adverse reaction; Pain is unchanged, physician notified; RASS: ca1 Alert and Calm (0) 12:39 Follow up: Response: No adverse reaction; Pain is decreased; RASS: Alert and Calm (0) ca1 11:29 Drug: LoMOTIL 1 tabs Route: PO; ca1 12:39 Follow up: Response: No adverse reaction ca1 12:42 Drug: Lidoderm 5 % (700 mg/patch) 1 patches {Note: Left lower back.} Route: Topical; ca1 Site: affected area; Disposition: 14:00 Co-signature as Attending Physician, Hermann Mitchell MD. rn Disposition: 05/17/20 12:36 Discharged to Home. Impression: Diarrhea, unspecified, Low back pain - chronic. - Condition is Stable. - Discharge Instructions: Back Pain, Adult, Diarrhea, Adult, Heat Therapy. - Prescriptions for Lidoderm 5 % Topical adhesive patch,medicated - apply 1 patch by TRANSDERMAL route once daily As needed; 1 box. Lomotil 2.5- 0.025 mg Oral Tablet - take 1 tablet by ORAL route every 6 hours As needed; 20 tablet. - Medication Reconciliation Form, Thank You Letter, Antibiotic Education, Prescription Opioid Use form. - Follow up: David Delacruz MD; When: 2 - 3 days; Reason: Recheck today's complaints. Follow up: David Delacruz MD; When: 2 - 3 days; Reason: diarrhea. Follow up: Venkata Gonzalez MD; When: 2 - 3 days; Reason: low back pain. - Problem is new. - Symptoms have improved. 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 Impression: Diarrhea, unspecified; Low back cp pain - chronic. Condition is Stable. Forms are Medication Reconciliation Form, Thank You Letter, Antibiotic Education, Prescription Opioid Use. Follow up: David Delacruz; When: 2 - 3 days; Reason: Recheck today's complaints. Problem is new. Symptoms have improved. cp 13:19 10:16 Fecal Leukocyte Stain+BA.LAB.BRZ ordered. EDMS EDMS 13:19 10:16 Occult Blood+BA.LAB.BRZ ordered. EDMS EDMS 13:20 10:16 Stool Culture+BA.LAB.BRZ ordered. EDMS EDMS 13:22 10:16 C.difficile GDH Ag \T\ Toxin AB+LAB.BRZ ordered. EDIL EDMS 13:32 12:39 05/17/2020 12:36 Discharged to Home. Impression: Diarrhea, unspecified; Low back ca1 pain - chronic. Condition is Stable. Discharge Instructions: Back Pain, Adult, Diarrhea, Adult, Heat Therapy. Prescriptions for Lidoderm 5 % Topical adhesive patch,medicated - apply 1 patch by TRANSDERMAL route once daily As needed; 1 box, Lomotil 2.5-0.025 mg Oral Tablet - take 1 tablet by ORAL route every 6 hours As needed; 20 tablet. and Forms are Medication Reconciliation Form, Thank You Letter, Antibiotic Education, Prescription Opioid Use. Follow up: David Delacruz; When: 2 - 3 days; Reason: diarrhea. Follow up: Venkata Gonzalez; When: 2 - 3 days; Reason: low back pain. Problem is new. Symptoms have improved. cp
[2020-05-17] MEDS ORDERED: LIDOCAINE 4% PATCH ONE (13:04)
[2020-05-17 21:30] VITALS: TEMP 97.2; O2SAT 100
[2020-05-17 21:34] VITALS: BP 147/55
== END 2020-05-17 13:32 | disposition home or self-care (01) ==
LOC: ER 10:00
DX: M54.5 Low back pain (principal); Z20.822 Contact with and (suspected) exposure to COVID-19; I10 Essential (primary) hypertension; I48.91 Unspecified atrial fibrillation; Z95.0 Presence of cardiac pacemaker; Z79.01 Long term (current) use of anticoagulants; Z88.5 Allergy status to narcotic agent
CPT/HCPCS: 85025; 80048; 36415; 83735; 85610; 80076; 83690; 74177; U0003; Q9967; J2270 ×2; J7050; J2405; 51702; 81003; 81015; 82565; 96365; 96375; 99284